=== PATIENT | female | born 1965 | race Caucasian/White ===

== ENCOUNTER 2023-06-23 16:31 | Outpatient (OUT) | payer OTHER, SELFPAY ==
--- NOTE | 2023-06-23 | MM_ITS ---
Patient: SONG GARCIA Exam Date: 06/23/2023 : 1965 Gender:F Ordering : NON-STAFF PHYSICIAN Admission #: [id number] Family : MIGUEL ANGEL NAILS Order #: [id number] CLICK HERE TO VIEW EXAM RADIOLOGY REPORT PROCEDURE: MM TOMOSYNTHESIS SCREENING BI COMPARISON: MG MAMM SCREEN 3D YUE CAD, 06/04/2022. MG MAMM SCREEN 3D YUE CAD, 06/01/2021. MG MAMM SCREEN YUE W CAD, 05/15/2020. MG MAMM YUE SCRN W CAD DIG, 04/24/2013. INDICATIONS: Screening Calculator Name NCI Breast Cancer Risk Assessment Tool 5 Year Breast Cancer Risk 2.60% Lifetime Breast Cancer Risk 16.30% Personal Breast Cancer No Personal Ovarian Cancer No Treatments None Family Cancers Mother with breast cancer at age 63; Grandfather-maternal with prostate cancer at age ~68. LOCATION: [facility] BREAST COMPOSITION: Heterogeneously dense,which may obscure small masses. FINDINGS: DIAGNOSTIC CATEGORY 1--NEGATIVE. RIGHT BREAST: No significant suspicious finding. No significant change has occurred. LEFT BREAST: No significant suspicious finding. No significant change has occurred. RECOMMENDATIONS: ROUTINE MAMMOGRAM AND CLINICAL EVALUATION IN 12 MONTHS. PLEASE NOTE: A NORMAL MAMMOGRAM DOES NOT EXCLUDE THE POSSIBILITY OF BREAST CANCER. A CLINICALLY SUSPICIOUS PALPABLE LUMP SHOULD BE BIOPSIED. Dictated by: George Saleh M.D. on 06/24/2023 at 11:25 Approved by: George Saleh M.D. on 06/24/2023 at 11:28
== END 2023-06-23 16:32 | disposition home or self-care (01) ==
LOC: MAMMO 16:31
DX: Z12.31 Encounter for screening mammogram for malignant neoplasm of breast (principal); Z80.3 Family history of malignant neoplasm of breast; Z80.42 Family history of malignant neoplasm of prostate
CPT/HCPCS: 77063; 77067

== ENCOUNTER 2023-12-19 20:50 | Outpatient (REF) | payer OTHER, SELFPAY ==
[2023-12-25 10:07] LABS: Age Gdln ACOG Testing Note (.); HPV Aptima Negative (Negative); IGP, Aptima HPV, rfx 16/18,45 Note (.)
== END 2023-12-19 20:51 | disposition home or self-care (01) ==
LOC: LAB 20:50
PROVIDERS: Visit Provider Obstetrics & Gynecology
DX: Z01.419 Encounter for gynecological examination (general) (routine) without abnormal findings (principal)
CPT/HCPCS: 87624; G0145

== ENCOUNTER 2024-01-02 07:33 | Outpatient (REF) | payer OTHER, SELFPAY ==
--- OUTSIDE RECORDS SUMMARY | 2024-01-05 07:38 | XMS_ITS | CCD ---
Author Organization [facility] Care Team Providers Care Clean Room Assembler Name Role Phone Antony LOOMIS Primary Care Physician [phone] KELLY, DR FRANCE Admitting Unavailable MISC, DR OSCAR Primary Care Unavailable KARASIK, DR FRANCE Attending Unavailable KARASIK, DR FRANCE Consulting Unavailable MISC, DR OSCAR Primary Care Unavailable KARASIK, DR FRANCE Attending Unavailable KARASIK, DR FRANCE Consulting Unavailable KARASIK, DR FRANCE Admitting Unavailable GIBBSBORO, DR VICENTE Desir Consulting Unavailable Antony LOOMIS Primary Care Physician [phone] Antony LOOMIS Attending Unavailable Antony LOOMIS Attending Unavailable Bunny Cancino Attending Unavailable Bunny Cancino Admitting Unavailable Antony LOOMIS Admitting Unavailable Antony LOOMIS Attending Unavailable BRIAN CONTE Attending Unavailable Mary Kaba Attending Unavaila BRENT Nunez Attending Unavailable BRENT ANGELO Attending Unavailable Brent Angelo Attending Provider [phone] Brent Angelo Attending Unavailable Brent Angelo Admitting Unavailable Allergies Allergy Classification Reported Allergen(s) Allergy Type Date of Onset Reaction(s) Facility (19 sources) Acetaminophen / HYDROcodone; Translations: [acetaminophen-hydro codone] Drug Allergy Hives [facility] (18 sources) benzonatate; Translations: [benzonatate] Drug Allergy Vomiting (disorder) [facility] Comment on above: shakiness shakiness (19 sources) Clarithromycin; Translations: [clarithromycin] Drug Allergy Vomiting/Diarr hea [facility] (19 sources) Codeine; Translations: [codeine] Drug Allergy [facility] (20 sources) Famotidine; Translations: [famotidine] Drug Allergy [facility] Comment on above: was in ER multiple t imes was in ER multiple t imes (19 sources) guaiFENesin; Translations: [guaifenesin] Drug Allergy Respiratory distress [facility] (20 sources) levoFLOXacin; Translations: [levofloxacin] Drug Allergy Unknown (qualifier value) [facility] (19 sources) Miconazole; Translations: [miconazole topical] Drug Allergy Vulval irritation (finding) [facility] (19 sources) Morphine; Translations: [morphine] Drug Allergy [facility] (19 sources) oxyCODONE; Translations: [oxycodone] Drug Allergy [facility] (19 sources) Penicillin; Translations: [penicillin] Drug Allergy vomiting diarrhea [facility] (19 sources) predniSONE; Translations: [prednisone] Drug Allergy Asthma (disorder), Weal (disorder), Eruption of skin (disorder) [facility] (20 sources) raNITIdine; Translations: [ranitidine] Drug Allergy Unknown (qualifier value) [facility] (19 sources) Sulfamethoxazole / Trimethoprim; Translations: [sulfamethoxazole-tr imethoprim] Drug Allergy Vomiting/Diarr hea [facility] [place] (1 source) Acetaminophen / HYDROcodone Drug Allergy 3 [facility] (2 sources) benzonatate; Translations: [Tessalon Perles] Drug Allergy 7 [facility] (1 source) Clarithromycin Drug Allergy 3 [facility] (1 source) Codeine Drug Allergy 3 [facility] (2 sources) Famotidine; Translations: [Pepcid] Drug Allergy 7 [facility] (1 source) floctafenine Drug Allergy 3 [facility] (1 source) guaiFENesin Drug Allergy 3 [facility] (2 sources) levoFLOXacin; Translations: [Levaquin] Drug Allergy 3 [facility] (2 sources) Miconazole; Translations: [Monistat 3] Drug Allergy 3 [facility] (1 source) Morphine Drug Allergy 3 [facility] (1 source) oxyCODONE Drug Allergy 3 [facility] (1 source) Penicillins Drug allergy (disorder) 3 [facility] (1 source) Sulfamethoxazole / Trimethoprim Drug Allergy 3 [facility] (1 source) Sulfanilamide Drug Allergy 7 [facility] (1 source) Sulfonamides (Antibiotic) Drug allergy (disorder) 3 [facility] (1 source) Darvocet-N 100 Drug allergy (disorder) 3 [facility] (1 source) oxyCODONE; Translations: [OxyContin] Drug Allergy [facility] Medications Current Medications Medication Drug Class(es) Dates Sig (Normalized) Sig (Original) amitriptyline hydrochloride 10 mg oral tablet (18 sources) Tricyclic Antidepressant Start: 10-10-2023 take 1 tablet by mouth once daily at bedtime amitriptyline 10 mg Tab 10 mg = 1 tab(s), Oral, Once a day (at bedtime), # 90 tab(s), Refills(s) 1, Pharmacy: [facility], 170, cm, 09/02/23 16:43:00 EST, Height/Length Dosing, 95, kg, 09/02/23 16:43:00 EST, Weight Dosing Start Date: 10/10/23 Status: Ordered Start: 05-19-2022 End: 09-25-2023 take 1 tablet by mouth once daily at bedtime amitriptyline 10 mg Tab 10 mg = 1 tab(s), Oral, Once a day (at bedtime), X 90 day(s), # 90 tab(s), Refills(s) 0, Pharmacy: [facility], 170, cm, 06/27/23 16:25:00 EDT, Height/Length Dosing, 94.1, kg, 06/27/23 16:25:00 EDT, Weight Dosing Start Date: 06/27/23 Stop Date: 09/25/23 Status: Ordered Start: 05-26-2021 take 1 tablet by emile th once daily at bedtime amitriptyline 10 mg Tab 10 mg = 1 tab(s), Oral, Once a day (at bedtime), # 90 tab(s), Refills(s) 0, Pharmacy: [facility]/pharmacy #[id number], 170, cm, 05/26/21 13:40:00 EDT, Height/Length Dosing, 86.6, kg, 05/26/21 13:40:00 EDT, Weight Dosing Start Date: 05/26/21 Status: Ordered brompheniramine maleate 0.4 mg/ml / dextromethorphan hydrobromide 2 mg/ml / pseudoephedrine hydrochloride 6 mg/ml oral solution (10 sources) alpha-Adrenergic Agonist, Uncompetitive F-yywcvp-T-aspartate Receptor Antagonist, Sigma-1 Agonist Start: 07-05-2022 take 5 mL by mouth four times daily for cough and congestion Bromfed DM oral syrup 5 mL, Oral, QID for cough and congestion, 200 mL, Refill(s) 0, [facility], 169, cm, 07/05/22 10:52:00 EDT, Height/Length Dosing, 92.9, kg, 07/05/22 10:52:00 EDT, Weight Dosing Start Date: 07/05/22 Status: Ordered cephalexin 500 mg oral capsule (6 sources) Cephalosporin Antibacterial Start: 11-26-2022 take 1 capsule by mouth every eight hours cephalexin 500 mg Cap 500 mg = 1 cap(s), Oral, q8hr, # 30 cap(s), Refills(s) 0, Pharmacy: [facility], 169, cm, 11/24/22 11:34:00 EST, Height/Length Dosing, 93, kg, 11/24/22 11:34:00 EST, Weight Dosing Start Date: 11/26/22 Status: Ordered Start: 06-11-2022 End: 06-18-2022 take 1 capsule by mouth every eight hours cephalexin 500 mg Cap 500 mg = 1 cap(s), Oral, q8hr, X 7 day(s), # 21 cap(s), Refills(s) 0, Pharmacy: [facility], 170, cm, 06/11/22 11:59:00 EDT, Height/Length Dosing, 92.6, kg, 06/11/22 11:59:00 EDT, Weight Dosing Start Date: 06/11/22 Stop Date: 06/18/22 Status: Ordered cetirizine hydrochloride 10 mg oral tablet (2 sources) Histamine-1 Receptor Antagonist Start: 11-11-2023 take 1 tablet by mouth once daily cetirizine 10 mg Tab 10 mg = 1 tab(s), Oral, Daily, # 30 tab(s), Refills(s) 1, Pharmacy: [facility], 170, cm, 09/02/23 16:43:00 EST, Height/Length Dosing, 95, kg, 09/02/23 16:43:00 EST, Weight Dosing Start Date: 11/11/23 Status: Ordered Start: 09-02-2023 take 1 tablet by emile th once daily cetirizine 10 mg Tab 10 mg = 1 tab(s), Oral, Daily, # 30 tab(s), Refills(s) 1 Start Date: 09/02/23 Status: Ordered cyclobenzaprine hydrochloride 10 mg oral tablet (20 sources) Muscle Relaxant Start: 08-05-2021 End: 06-19-2023 take 1 tablet by mouth three times daily as needed for muscle spasms cyclobenzaprine 10 mg Tab 10 mg = 1 tab(s), Oral, TID, PRN for spasm, May use as needed for muscle spasms but sedation warning, # 30 tab(s), Refills(s) 1, Pharmacy: [facility]/pharmacy #[id number], 170, cm, 05/28/21 13:52:00 EDT, Height/Length Dosing, 86.5, kg, 05/28/21 13:52:00 EDT, Weight Dosing Start Date: 08/05/21 Status: Ordered dicyclomine hydrochloride 10 mg oral capsule (17 sources) Anticholinergic Start: 11-01-2022 take 1 capsule by mouth four times daily as needed for pain Bentyl 10 mg Cap 10 mg = 1 cap(s), Oral, QID, as needed for abdominal pain, # 40 cap(s), Refills(s) 11, Pharmacy: [facility], 169, cm, 10/15/22 12:00:00 EST, Height/Length Dosing, 91.8, kg, 10/15/22 12:00:00 EST, Weight Dosing Start Date: 11/01/22 Status: Ordered Start: 06-11-2022 take 2 capsules by m outh once daily dicyclomine 10 mg Cap 20 mg = 2 cap(s), Oral, Daily, # 60 cap(s), Refills(s) 11, Pharmacy: [facility], 170, cm, 06/11/22 11:59:00 EDT, Height/Length Dosing, 92.6, kg, 06/11/22 11:59:00 EDT, Weight Dosing Start Date: 06/11/22 Status: Ordered Start: 01-22-2022 take 2 capsules by m outh once daily dicyclomine 10 mg Cap 20 mg = 2 cap(s), Oral, Daily, # 60 cap(s), Refills(s) 11, Pharmacy: [facility], 170, cm, 09/29/21 13:20:00 EST, Height/Length Dosing, 83.2, kg, 09/29/21 13:20:00 EST, Weight Dosing Start Date: 01/22/22 Status: Ordered fluconazole 150 mg oral tablet (4 sources) Azole Antifungal Start: 06-14-2022 take 1 tablet by mouth once fluconazole 150 mg Tab 150 mg = 1 tab(s), Oral, Once, # 1 tab(s), Refills(s) 0, Pharmacy: [facility], 170, cm, 06/11/22 11:59:00 EDT, Height/Length Dosing, 92.6, kg, 06/11/22 11:59:00 EDT, Weight Dosing Start Date: 06/14/22 Status: Ordered fluticasone 0.05 mg/inh Nasal [place] (6 sources) Start: 07-05-2022 fluticasone 0.05 mg/inh Nasal [place] 2 spray(s), Nasal, Daily, 16 gram, Refill(s) 0, each nostril, [facility], 169, cm, 07/05/22 10:52:00 EDT, Height/Length Dosing, 92.9, kg, 07/05/22 10:52:00 EDT, Weight Dosing Start Date: 07/05/22 Status: Ordered lidocaine Viscous Top 2% Riya 15 mL (12 sources) Start: 08-03-2022 lidocaine Viscous Top 2% Riya 15 mL 0.1 gm, 5 mL, Topical, QIDACHS, 100 mL, Refill(s) 0, [facility], 169, cm, 08/03/22 21:08:00 EDT, Height/Length Dosing, 92, kg, 08/03/22 21:08:00 EDT, Weight Dosing Start Date: 08/03/22 Status: Ordered ondansetron 4 mg disintegrating oral tablet (16 sources) Serotonin-3 Receptor Antagonist Start: 05-13-2022 take 1 tablet by mouth every six hours as needed for nausea ondansetron 4 mg Dis Tab 4 mg = 1 tab(s), Oral, q6hr, PRN Nausea/Vomiting, # 12 tab(s), Refills(s) 0, Pharmacy: [facility], 170, cm, 03/25/22 11:35:00 EDT, Height/Length Dosing, 93.2, kg, 03/25/22 11:35:00 EDT, Weight Dosing Start Date: 05/13/22 Status: Ordered pantoprazole 40 mg delayed release oral tablet (20 sources) Proton Pump Inhibitor Start: 06-27-2023 take 1 tablet by mouth twice daily Pantoprazole [address] Tab 40 mg = 1 tab(s), Oral, BID, # 180 tab(s), Refills(s) 1, Pharmacy: [facility], 170, cm, 06/27/23 16:25:00 EDT, Height/Length Dosing, 94.1, kg, 06/27/23 16:25:00 EDT, Weight Dosing Start Date: 06/27/23 Status: Ordered Start: 12-28-2022 take 1 tablet by emile twice daily Pantoprazole [address] Tab 40 mg = 1 tab(s), Oral, BID, # 60 tab(s), Refills(s) 5, Pharmacy: [facility], 169, cm, 12/16/22 12:08:00 EDT, Height/Length Dosing, 90.3, kg, 12/16/22 12:08:00 EDT, Weight Dosing Start Date: 12/28/22 Status: Ordered Start: 09-08-2022 take 1 tablet by emile th twice daily Pantoprazole [address] Tab 40 mg = 1 tab(s), Oral, BID, # 60 tab(s), Refills(s) 2, Pharmacy: [facility], 169, cm, 09/08/22 9:25:00 EST, Height/Length Dosing, 93, kg, 09/08/22 9:25:00 EST, Weight Dosing Start Date: 09/08/22 Status: Ordered Start: 03-29-2022 take 1 tablet by emile th once daily pantoprazole 40 mg Oral EC Tab 40 mg = 1 tab(s), Oral, Daily, # 30 tab(s), Refills(s) 5, Pharmacy: [facility], 170, cm, 03/25/22 11:35:00 EDT, Height/Length Dosing, 93.2, kg, 03/25/22 11:35:00 EDT, Weight Dosing Start Date: 03/29/22 Status: Ordered Start: 03-29-2022 take 1 tablet by emile th once daily pantoprazole 40 mg Oral EC Tab 40 mg = 1 tab(s), Oral, Daily, # 30 tab(s), Refills(s) 5, Pharmacy: [facility], 170, cm, 03/25/22 11:35:00 EDT, Height/Length Dosing, 93.2, kg, 03/25/22 11:35:00 EDT, Weight Dosing Start Date: 03/29/22 Status: Ordered Start: 05-28-2021 take 1 tablet by emile once daily pantoprazole 40 mg Oral EC Tab 40 mg = 1 tab(s), Oral, Daily, # 30 tab(s), Refills(s) 5, Pharmacy: [facility], 170, cm, 05/28/21 13:52:00 EDT, Height/Length Dosing, 86.5, kg, 05/28/21 13:52:00 EDT, Weight Dosing Start Date: 05/28/21 Status: Ordered Start: 05-28-2021 take 1 tablet by emile once daily pantoprazole 40 mg Oral EC Tab 40 mg = 1 tab(s), Oral, Daily, # 30 tab(s), Refills(s) 5, Pharmacy: [facility], 170, cm, 05/28/21 13:52:00 EDT, Height/Length Dosing, 86.5, kg, 05/28/21 13:52:00 EDT, Weight Dosing Start Date: 05/28/21 Status: Ordered Completed/Discontinued Medications Medication Drug Class(es) Dates Sig (Normalized) Sig (Original) 120 actuat fluticasone propionate 0.22 mg/actuat metered dose inhaler (10 sources) Corticosteroid Start: 09-08-2022 take 2 puff(s) by inhalation twice daily fluticasone CFC free 220 mcg/inh Inh Aer w/adapter See Instructions, 2 EA, Refill(s) 3, 2 puff(s) Inhalation BID, [facility], 169, cm, 09/08/22 9:25:00 EST, Height/Length Dosing, 93, kg, 09/08/22 9:25:00 EST, Weight Dosing Start Date: 09/08/22 Status: Ordered Start: 07-05-2022 fluticasone 0. 05 mg/inh Nasal [place] 2 spray(s), Nasal, Daily, 16 gram, Refill(s) 0, each nostril, [facility], 169, cm, 07/05/22 10:52:00 EDT, Height/Length Dosing, 92.9, kg, 07/05/22 10:52:00 EDT, Weight Dosing Start Date: 07/05/22 Status: Ordered levothyroxine sodium 0.088 mg oral tablet (18 sources) l-Thyroxine Start: 06-27-2023 take 1 tablet by mouth once daily levothyroxine 88 mcg (0.088 mg) Tab 88 microgram = 1 tab(s), Oral, Daily, # 90 tab(s), Refills(s) 3, Pharmacy: [facility]/pharmacy #[id number], 170, cm, 06/27/23 16:25:00 EDT, Height/Length Dosing, 94.1, kg, 06/27/23 16:25:00 EDT, Weight Dosing Start Date: 06/27/23 Status: Ordered Start: 12-22-2022 take 1 tablet by emile once daily levothyroxine 88 mcg (0.088 mg) Tab 88 microgram = 1 tab(s), Oral, Daily, # 90 tab(s), Refills(s) 1, Pharmacy: [facility]/pharmacy #[id number], 169, cm, 12/16/22 12:08:00 EDT, Height/Length Dosing, 90.3, kg, 12/16/22 12:08:00 EDT, Weight Dosing Start Date: 12/22/22 Status: Ordered Start: 05-26-2022 take 1 tablet by emile once daily levothyroxine 88 mcg (0.088 mg) Tab 88 microgram = 1 tab(s), Oral, Daily, # 90 tab(s), Refills(s) 1, Pharmacy: [facility]/pharmacy #[id number], 170, cm, 05/19/22 10:43:00 EDT, Height/Length Dosing, 93, kg, 05/19/22 10:43:00 EDT, Weight Dosing Start Date: 05/26/22 Status: Ordered Start: 11-18-2021 take 1 tablet by emile once daily levothyroxine 88 mcg (0.088 mg) Tab 88 microgram = 1 tab(s), Oral, Daily, # 90 tab(s), Refills(s) 1, Pharmacy: [facility]/pharmacy #[id number], 170, cm, 09/29/21 13:20:00 EST, Height/Length Dosing, 83.2, kg, 09/29/21 13:20:00 EST, Weight Dosing Start Date: 11/18/21 Status: Ordered magnesium sulfate 225 MG / potassium chloride 188 MG / sodium sulfate 1479 MG Oral Tablet [Sutab] (1 source) Start: 12-21-2023 take 1 tablet by mouth once Sutab oral tablet See Instructions, 1 EA, Refill(s) 0, Please follow instructions per packaging and physician's handout, [facility], 169, cm, 12/21/23 8:16:00 EDT, Height/Length Dosing, 95, kg, 12/21/23 8:16:00 EDT, Weight Dosing Start Date: 12/21/23 Status: Ordered valACYclovir 1000 mg oral tablet (18 sources) Herpesvirus Nucleoside Analog DNA Polymerase Inhibitor, Herpes Simplex Virus Nucleoside Analog DNA Polymerase Inhibitor, Herpes Zoster Virus Nucleoside Analog DNA Polymerase Inhibitor Start: 01-22-2022 take 2 tablets by mouth twice daily Valtrex 1 g Tab 2 gram = 2 tab(s), Oral, BID, x 1 days at onset of coldsore, # 12 tab(s), Refills(s) 2, Pharmacy: [facility], 170, cm, 09/29/21 13:20:00 EST, Height/Length Dosing, 83.2, kg, 09/29/21 13:20:00 EST, Weight Dosing Start Date: 01/22/22 Status: Ordered Start: 01-22-2022 take 2 tablets by mo [facility] twice daily Valtrex 1 g Tab 2 gram = 2 tab(s), Oral, BID, x 1 days at onset of coldsore, # 12 tab(s), Refills(s) 2, Pharmacy: [facility], 170, cm, 09/29/21 13:20:00 EST, Height/Length Dosing, 83.2, kg, 09/29/21 13:20:00 EST, Weight Dosing Start Date: 01/22/22 Status: Ordered Problems Active Problems Problem Classification Problem Date Documented Da te Episodic/Chronic Abdominal hernia (20 sources) Hiatal hernia; Translations: [Diaphragmatic hernia] Onset: 2 03-22-2014 Episodic Abdominal pain (9 sources) Epigastric pain; Translations: [Epigastric pain] Onset: 2 Episodic Acute bronchitis (18 sources) Viral bronchitis 06-04-2020 Episodic Administrative/social admission (3 sources) Medical examinations/reports status 04-30-2019 Episodic Allergic reactions (18 sources) Contact dermatitis caused by chemical 02-26-2020 Episodic Anxiety disorders (20 sources) Generalized anxiety disorder; Translations: [Generalized anxiety disorder] Onset: 2 01-30-2019 Chronic Biliary tract disease (20 sources) Cholecystitis; Translations: [Disorder of gallbladder] Resolved: 6 02-05-2019 Episodic Diabetes mellitus without complication (17 sources) Impaired fasting glycemia; Translations: [Impaired fasting glucose] Onset: 2 Episodic Disorders of lipid metabolism (18 sources) Mixed hyperlipidemia 02-05-2019 Chronic Esophageal disorders (20 sources) Gastroesophageal reflux disease; Translations: [Terminal esophageal web] Onset: 2 01-30-2019 Chronic Headache; including migraine (20 sources) Migraine with aura; Translations: [Migraine with aura, not intractable, without status migrainosus] Onset: 2 Chronic Comment on above: has piercing in righ t ear for accupressure for migraine has piercing in righ t ear for accupressure for migraine Headache; including migraine (18 sources) Headache disorder 12-14-2013 Episodic Immunizations and screening for infectious disease (1 source) Encounter for screening for human papillomavirus (HPV); Translations: [ENC SCREENING HUMAN PAPILLOMAVIRUS] Onset: 2 Episodic Intestinal infection (18 sources) Acute hemorrhagic colitis due to Escherichia coli 06-06-2020 Episodic Lymphadenitis (20 sources) Axillary lymphadenopathy; Translations: [Cervical lymphadenopathy] 02-26-2020 Episodic Neoplasms of unspecified nature or uncertain behavior (2 sources) Neoplasm of soft tissue 03-24-2022 Episodic Nonmalignant breast conditions (18 sources) Breast lump 01-15-2015 Episodic Other and unspecified benign neoplasm (1 source) Benign neoplasm of skin; Translations: [Other benign neoplasm of skin, unspecified] Onset: 2 Episodic Other and unspecified benign neoplasm (20 sources) History of polyp of colon; Translations: [Personal history of colonic polyps] Onset: 2 Episodic Other connective tissue disease (18 sources) Rotator cuff syndrome 01-15-2015 Episodic Other connective tissue disease (1 source) Nontraumatic rupture of rotator cuff of left shoulder; Translations: [Unspecified rotator cuff tear or rupture of left shoulder, not specified as traumatic] Onset: 2 Episodic Other endocrine disorders (4 sources) Hypoglycemia; Translations: [Hypoglycemia, unspecified] Onset: 2 Chronic Other gastrointestinal disorders (20 sources) Irritable bowel syndrome with diarrhea; Translations: [Irritable bowel syndrome with diarrhea] Onset: 2 02-26-2020 Chronic Other gastrointestinal disorders (20 sources) Dysphagia; Translations: [Dysphagia, unspecified] Onset: 2 Episodic Other injuries and conditions due to external causes (1 source) Foreign body in esophagus; Translations: [Food in esophagus causing other injury, initial encounter] Onset: 2 Episodic Other nervous system disorders (1 source) Altered sensation of skin; Translations: [Other disturbances of skin sensation] Onset: 2 Episodic Other non-traumatic joint disorders (18 sources) Ankle pain 06-04-2020 Episodic Other non-traumatic joint disorders (18 sources) Shoulder pain 01-15-2015 Episodic Other nutritional; endocrine; and metabolic disorders (6 sources) Obese class I; Translations: [Body mass index (BMI) 32.0-32.9, adult] Onset: 2 Chronic Other nutritional; endocrine; and metabolic disorders (20 sources) Obesity; Translations: [Other obesity due to excess calories] Onset: 2 Chronic Other nutritional; endocrine; and metabolic disorders (17 sources) Body mass index 30+ - obesity 03-25-2022 Chronic Other nutritional; endocrine; and metabolic disorders (19 sources) Overweight; Translations: [Overweight] Onset: 2 Episodic Other nutritional; endocrine; and metabolic disorders (1 source) Overweight in adulthood with body mass index of 25 or more but less than 30; Translations: [Body mass index (BMI) 28.0-28.9, adult] Onset: 2 Episodic Other nutritional; endocrine; and metabolic disorders (1 source) Body mass index 25-29 - overweight 09-29-2021 Episodic Other screening for suspected conditions (not mental disorders or infectious disease) (8 sources) Encounter for screening for malignant neoplasm of cervix; Translations: [Encounter for screening mammogram for malignant neoplasm of breast] Onset: 2 Episodic Other skin disorders (18 sources) Folliculitis 06-04-2020 Episodic Other skin disorders (1 source) Hypertrophic condition of skin; Translations: [Other hypertrophic disorders of the skin] Onset: 2 Episodic Other upper respiratory disease (18 sources) Lesion of nose 06-04-2020 Episodic Other upper respiratory infections (20 sources) Laryngitis; Translations: [Acute laryngopharyngitis] Onset: 3 06-04-2020 Episodic Ovarian cyst (18 sources) Cyst of ovary 12-14-2013 Episodic Residual codes; unclassified (1 source) Abnormal sensation 03-24-2022 Episodic Residual codes; unclassified (1 source) Family history of malignant neoplasm of breast; Translations: [FAMILY HX MALIG NEOPLASM OF BREAST] Onset: 2 Episodic Residual codes; unclassified (1 source) Family history of malignant neoplasm of prostate; Translations: [FAMILY HX MALIG NEOPLASM PROSTATE] Onset: 2 Episodic Screening and history of mental health and substance abuse codes (18 sources) Tobacco use and exposure - finding 09-22-2020 Chronic Spondylosis; intervertebral disc disorders; other back problems (20 sources) Low back pain; Translations: [Cervical radiculopathy] Onset: 3 Resolved: 9 02-05-2019 Episodic Sprains and strains (9 sources) Sprain of shoulder; Translations: [Sprain of unspecified parts of right shoulder girdle, initial encounter] Onset: 3 Episodic Thyroid disorders (20 sources) Congenital hypothyroidism; Translations: [Hypothyroidism] Onset: 2 06-06-2020 Chronic Unclassified (20 sources) Patient encounter status 06-06-2020 Unclassified (17 sources) Rupture of rotator cuff of shoulder 03-25-2022 Unclassified (3 sources) Sprain of ligament of right shoulder joint 06-09-2023 Urinary tract infections (13 sources) Acute cystitis; Translations: [Acute cystitis without hematuria] Onset: 2 Episodic Viral infection (18 sources) Herpes labialis 01-30-2019 Episodic Viral infection (11 sources) Disease caused by 2019-nCoV; Translations: [COVID-19] Onset: 2 Past or Other Problems Problem Classification Problem Date Documented Da te Episodic/Chronic Other circulatory disease (18 sources) H/O: varicose veins Resolved: 01-30-2019 02-05-2019 Episodic Other connective tissue disease (18 sources) Plantar fasciitis Resolved: 07-08-2016 02-05-2019 Episodic Other gastrointestinal disorders (18 sources) Acute diarrhea Onset: 02-03-2010 02-05-2019 Episodic Other skin disorders (18 sources) Senile hyperkeratosis Resolved: 03-06-2019 04-30-2019 Episodic Other skin disorders (19 sources) Skin tag Resolved: 03-06-2019 04-30-2019 Episodic Residual codes; unclassified (18 sources) Menopause present Resolved: 07-08-2016 02-05-2019 Episodic Unclassified (18 sources) Entire liver (body structure) 02-03-2010 Results Test Name Value Interpretation Reference Range Facil ity Cristian 01-02-2024 L Specimen: [id number] Received: 01/03/24 Status: ELADIO Carroll Num: [id number] Spec Type: Surgical Subm Dr: Brent Angelo Tissues: A Skin-Other than Cyst, tag, debridement or plastic repair (LT BREAST 5:00) B Skin-Other than Cyst, tag, debridement or plastic repair (RT BREAST 7:00) C Skin-Other than Cyst, tag, debridement or plastic repair (LT NIPPLE 5:00) Procedures: HE/3, Gross/Micro L4/3 Age/ Patient Sex Location Account Attending Physician Song Garcia 58/F [facility] [id number] Brent Angelo SPEC NUM: [id number] RECD: 01/03/24 STATUS: ELADIO CARROLL NUM: [id number] ROLLY: 01/02/24- SUBM DR: Brent Angelo ENTERED: 01/03/[address]: GenevieveLab SPEC TYPE: Surgical DEPT: PRATIBHA AGUAYO ORDERED: HE/3, Gross/Micro L4/3 ORDERED: HE/3, Gross/Micro L4/3 Pathological Diagnosis A. Skin lesion, left breast, 5:00, biopsy: Seborrheic keratosis. B. Skin lesion, right breast, 7:00, biopsy: Seborrheic keratosis. C. Skin lesion, left nipple, 5:00, biopsy: Seborrheic keratosis. Gross Description A. Specimen is labeled left breast 5:00. Specimen consists of an irregular dome-shaped skin lesion 5 x 4 x 3 mm. All in 1 cassette. B. Specimen is labeled right breast 7:00. Specimen consists of a dome-shaped skin lesion 9 x 7 x 6 mm. Sections are in 1 cassette. C. Specimen is labeled left nipple 5:00. Specimen consists of a dome-shaped skin lesion 8 x 5 x 2 mm. All in 1 cassette. CPT Codes 76771 x 3 Specimen: [id number] Received: 01/03/24 Status: ELADIO Carroll Num: [id number] Spec Type: Surgical Subm Dr: Brent Angelo Tissues: A Skin-Other than Cyst, tag, debridement or plastic repair (LT BREAST 5:00) B Skin-Other than Cyst, tag, debridement or plastic repair (RT BREAST 7:00) C Skin-Other than Cyst, tag, debridement or plastic repair (LT NIPPLE 5:00) Procedures: GEOVANNY, Mona/Micro L4/3 Patient: Song Garcia [id number] (Continued) Signed (signature on file) Amina Tatum MD 01/04/24 1427 [facility] Consent for Procedure/Surger yon 12-22-2023 Consent for Procedure/Surgery [id number] [facility] Ambulatory Visit Summaryon 0 12-21-2023 Ambulatory Visit Summary SONG GARCIA :1965 Visit Date:12/21/2023 Ambulatory Visit Instructions Your Diagnosis Eosinophilic esophagitis Dysphagia GERD (gastroesophageal reflux disease) Schatzki's ring History of colon polyps Your Care Team Attending Physician - Sendy LUIS, Mary Bar Primary Care Physician - Antony LOOMIS MD This Is Your Medications List magnesium sulfate/potass Cl/sodium sulf (Sutab oral tablet) Contact prescribing physician if questions or concerns amitriptyline (amitriptyline 10 mg Tab) cetirizine (cetirizine 10 mg Tab) cyclobenzaprine (cyclobenzaprine 10 mg Tab) dicyclomine (Bentyl 10 mg Cap) levothyroxine (levothyroxine 88 mcg (0.088 mg) Tab) lidocaine topical (lidocaine Viscous Top 2% Riya 15 mL) ondansetron (ondansetron 4 mg Dis Tab) pantoprazole (Pantoprazole [address] Tab) valacyclovir (Valtrex 1 g Tab) Procedures Performed Esophagogastroduodenoscopy (11/24/2022), Esophagogastroduodenoscopy (09/08/2022), Endoscopic plantar fasciotomy right. (07/15/2016), Appendectomy, Breast mass, Cholecystectomy, egd, Hysterectomy, Laparoscopic procedure, Liver cyst....., Lymph node operation, Ovarian cyst......, Shoulder repair, Thyroid, Tonsillectomy. Discharge Vitals Heart Rate (Peripheral) 70 Respiratory Rate 18 Blood Pressure 118/70 Height 169 cm Height 67 in Weight 95 kg Weight 209 lb BMI 33.26 Medications What How Much When Why Instructions New magnesium sulfate/ potass Cl/ sodium sulf (Sutab oral tablet) See instructions Please follow instructions per packaging and physician's handout Pickup at [facility] Unchanged amitriptyline (amitriptyline 10 mg Tab) 1 Tablets By Mouth Once a day (at bedtime) Irritable bowel syndrome with diarrhea Contact prescribing physician if questions or concerns Unchanged cetirizine (cetirizine 10 mg Tab) 1 Tablets By Mouth Every day Contact prescribing physician if questions or concerns Unchanged cyclobenzaprine (cyclobenzaprine 10 mg Tab) 1 Tablets By Mouth 3 times a day as needed for for spasm May use as needed for muscle spasms but sedation warning Contact prescribing physician if questions or concerns Unchanged dicyclomine (Bentyl 10 mg Cap) 1 Capsules By Mouth 4 times a day as needed for abdominal pain Contact prescribing physician if questions or concerns Unchanged levothyroxine (levothyroxine 88 mcg (0.088 mg) Tab) 1 Tablets By Mouth Every day Contact prescribing physician if questions or concerns Unchanged lidocaine topical (lidocaine Viscous Top 2% Riya 15 mL) 5 Milliliter Topical Four times a day (before meals and at bedtime) Contact prescribing physician if questions or concerns Unchanged ondansetron (ondansetron 4 mg Dis Tab) 1 Tablets By Mouth Every 6 hours as needed for Nausea/Vomiting Contact prescribing physician if questions or concerns Unchanged pantoprazole (Pantoprazole [address] Tab) 1 Tablets By Mouth 2 times a day Contact prescribing physician if questions or concerns Unchanged valacyclovir (Valtrex 1 g Tab) 2 Tablets By Mouth 2 times a day x 1 days at onset of coldsore Contact prescribing physician if questions or concerns Pharmacy Information [facility]: [address] [place], [place] [id number] [phone] Medications and Immunizations Administered Not Given influenza virus vaccine, inactivated, Patient Refuses Allergies Bactrim (Vomiting/Diarrhea) Biaxin (Vomiting/Diarrhea) Monistat Derm (Irritation of vulva) Mucinex (Respiratory distress) Pepcid (Hives) Tessalon Perles (Vomiting) Vicodin (Hives) Zantac (Hives) codeine (Hives) famotidine (hives) levofloxacin (Vomiting/Diarrhea) morphine (Hives) oxyCODONE (Hives) penicillin (vomiting diarrhea) Levaquin (Unknown) predniSONE (Asthma, Hives, Rash) raNITIdine (Unknown) Problems Ongoing - Any problem that you are currently receiving treatment for. Acute laryngopharyngitis BMI 32.0-32.9,adult Cervical radiculopathy Class 1 obesity due to excess calories in adult Congenital hypothyroidism Diabetes mellitus screening Dysphagia Encounter for lipid screening for cardiovascular disease Encounter for well adult exam with abnormal findings Eosinophilic esophagitis Fasting hyperglycemia Generalized anxiety disorder GERD (gastroesophageal reflux disease) Herpes labialis hiatal hernia History of colon polyps Hyperlipemia, mixed Irritable bowel syndrome with diarrhea Left rotator cuff tear Migraine with aura, not intractable Non-tobacco user Personal history of colonic polyps Schatzki's ring Sprain of cervical neck Terminal esophageal web Historical - Any problem that you are no longer receiving treatment for. Acute diarrhea Acute hemorrhagic colitis due to E. coli Adhesive contact dermatitis Appendectomy Axillary adenopathy Breast mass Cervical adenopathy Folliculitis Gall bladder disease History of varicose v (more content not included)... Normal [facility] Formson 12-21-2023 Forms [id number] Normal [facility] Gastroenterology Office/Clin ic Noteon 12-21-2023 Gastroenterology Office/Clinic Note Chief Complaint EOE, GERD HPI Staff Patient is a 58 year old female who presents today for a 1 year f/u. Taking Pantoprazole for GERD. Works well. Since seeing dietitian she has been having better results. Colonoscopy due. Personal hx colon polyps. No family hx of colon cancer - mother had breast cancer. Denies blood thinner use. Last visit 12/16/22 Dr. Ochoa: Assessment/Plan 1. Eosinophilic esophagitis (K20.0: Eosinophilic esophagitis) The patient has confirmed eosinophilic esophagitis with biopsy. Her eosinophils used to be more than 100 per high power field. She was started on PPI. A repeat EGD showed significant improvement in the eosinophils count down to 5 to 10. Her symptoms resolved after empiric dilation recently. She has no further dysphagia or significant heartburn. We will continue with that. She also was referred to a dietitian who pinpointed wheat as a potential food causing her symptoms. She is avoiding wheat 2. Dysphagia (R13.10: Dysphagia, unspecified) She had eosinophilic esophagitis and Schatzki's. Both were dilated. Her symptoms resolved. 3. GERD (gastroesophageal reflux disease) (K21.9: Gastro-esophageal reflux disease without esophagitis) This is likely related to eosinophilic esophagitis. This is controlled with Nexium daily. We will continue with the same dose. 4. Schatzki's ring (K22.2: Esophageal obstruction) This is dilated. There is no further dysphagia. We may need to dilate through Schatzki's ring in the future if symptoms recurs. 5. Personal history of colonic polyps (Z86.010: Personal history of colonic polyps) Her last colonoscopy was in 2018. Her next colonoscopy is due next year in 2023. Colonoscopy 09/05/2019: Impression and Plan 1. Sessile polyp, 5 mm, in the ascending, removed completely with cold snare 2. Small nonbleeding internal hemorrhoids Recommendations: Repeat colonoscopy:: In 5 years, Pending pathology results. Pathology: Final Diagnosis (Verified) C: POLYP, ASCENDING COLON, POLYPECTOMY: - TUBULAR ADENOMA. EGD 11/24/22: Impression and Plan 1. Distal esophageal Schatzki ring, dilated using 56 Green[place] Whitney dilator 2. Concentric esophageal rings consistent with eosinophilic esophagitis, multiple biopsies obtained from proximal and distal esophagus 2. Normal gastric mucosa, small hiatal hernia, 3 cm Pathology: Final Diagnosis (Verified) A: DISTAL ESOPHAGUS, BIOPSY: ? SQUAMOUS MUCOSA WITH MILD CHRONIC ESOPHAGITIS (SEE NOTE). B: PROXIMAL ESOPHAGUS, BIOPSY: ? SQUAMOUS MUCOSA WITH MILD CHRONIC ESOPHAGITIS (SEE NOTE). Note: Esophageal squamous mucosa demonstrates mild lymphocytic inflammation and basal metaplasia, associated with scattered intraepithelial eosinophils (up to 10 per high-power field at distal and 5 per high-power field at proximal). Differential diagnosis includes status post treatment of eosinophilic esophagitis or reflux. Clinical correlation is indicated. History of Present Illness avoiding wheat, alcohol and choclate and cinnamon heartbrun rare, only with bid protonix, usually with late night meal took budesonide per he Review of Systems PHQ Score Initial Depression Screen Score: 0 SCORE Physical Exam Vitals & Measurements HR: 70(Peripheral) RR: 18 BP: 118/70 HT: 67 in HT: 169 cm WT: 95 kg WT: 209 lb BMI: 33.26 Assessment/Plan 1. Eosinophilic esophagitis (K20.0: Eosinophilic esophagitis) Doing well symptomatically, last EGD December 2022 she had significant eosinophils still, had Schatzki ring, dilated multiple x 2 max normal and she has no dysphagia anymore she reports she is following wheat free cinnamon free and alcohol free diet and that helped her symptoms significantly, currently denies any dysphagia She reported she took budesonide in the past? She has multiple allergies as well We will need to repeat EGD with biopsies and possible dilation Continue Protonix twice daily AC Continue current diet since it is helping her symptoms Ordered: Colonoscopy (Hospital Procedure) E&M of Est. Patient Moderate 30-39 Min 98675 EGD Endoscopy (Hospital Procedure) 2. Dysphagia (R13.10: Dysphagia, unspecified) Ordered: Colonoscopy (Hospital Procedure) E&M of Est. Patient Moderate 30-39 Min 04871 EGD Endoscopy (Hospital Procedure) 3. GERD (gastroesophageal reflux disease) (K21.9: Gastro-esophageal reflux disease without esophagitis) Controlled with twice daily PPI Ordered: Colonoscopy (Hospital Procedure) E&M of Est. Patient Moderate 30-39 Min 46817 EGD Endoscopy (Hospital Procedure) 4. Schatzki's ring (K22.2: Esophageal obstruction) Ordered: Colonoscopy (Hospital Procedure) E&M of Est. Patient Moderate 30-39 Min 61638 EGD Endoscopy (Hospital Procedure) 5. History of colon polyps (Z86.010: Personal history of colonic polyps) Repeat colonoscopy last 1 she had 1 tubular adenoma less than 1 cm 2018 Ordered: Colonoscopy (Hospital Procedure) E&M of Est. Patient Moderate 30-39 Min 20829 (more content not included)... Normal [facility] Comment on above: Result Comment: Elec tronically Signed By: Sendy LUIS, Mary Bar\.br\Date and Time Signed: 12/21/23 08:35 EDT Provider Letteron 12-21-2023 Provider Letter (Inserted Image. Yuli ble to display) December 21, 2023 SONG GARICA [address] [id number] : 1965 To Whom It May Concern, Please excuse above patient from work. Date of Illness: From: 12/21/23 8am appointment To: 12/21/23 May Return to Work On:12/21/23 Restrictions: None Comments: Sincerely, [facility] Mary Kaba MD [facility] Ambulatory Visit Summaryon 1 11-03-2022 Ambulatory Visit Summary SONG GARCIA :1965 Visit Date:09/02/2023 Ambulatory Visit Instructions Your Diagnosis Acute laryngopharyngitis GERD (gastroesophageal reflux disease) Class 1 obesity due to excess calories in adult BMI 32.0-32.9,adult Your Care Team Attending Physician - Antony LOOMIS MD Primary Care Physician - Antony LOOMIS MD This Is Your Medications List cetirizine (cetirizine 10 mg Tab) Contact prescribing physician if questions or concerns amitriptyline (amitriptyline 10 mg Tab) cyclobenzaprine (cyclobenzaprine 10 mg Tab) dicyclomine (Bentyl 10 mg Cap) levothyroxine (levothyroxine 88 mcg (0.088 mg) Tab) lidocaine topical (lidocaine Viscous Top 2% Riya 15 mL) ondansetron (ondansetron 4 mg Dis Tab) pantoprazole (Pantoprazole [address] Tab) valacyclovir (Valtrex 1 g Tab) Procedures Performed Esophagogastroduodenoscopy (11/24/2022), Esophagogastroduodenoscopy (09/08/2022), Endoscopic plantar fasciotomy right. (07/15/2016), Appendectomy, Breast mass, Cholecystectomy, egd, Hysterectomy, Laparoscopic procedure, Liver cyst....., Lymph node operation, Ovarian cyst......, Shoulder repair, Thyroid, Tonsillectomy. Discharge Vitals Heart Rate (Peripheral) 88 Respiratory Rate 16 Blood Pressure 120/80 Height 170 cm Height 67 in Weight 95 kg Weight 209 lb BMI 32.87 What to do next Scheduled Follow-Up Appointments Tuesday 8:00 AM EDT With: Mary Kaba MD Where: [facility] Normal [facility] Family Medicine Office/Clini c Noteon 09-02-2023 Family Medicine Office/Clinic Note Chief Complaint pt presents today c/o hoarseness x 1wk and tightness in chest, denes SOB, fevers or sinus congestion/drainage, no covid testing done, declines all vaccs History of Present Illness The patient is here for respiratory concerns. Her voice has been raspy for about a week. She denies any fevers or chills. She denies any sore throat. She has nasal congestion, which she can not bring up. All clear in color. She worked 11 hours all last week and then she helped her girlfriend clean out an old garage who is going through a divorce. She has not been around anybody since Tuesday. She did not go to work until . She took DayQuil and NyQuil, which helped her. She can breathe through her nose, but she has tightness in her chest. She starts sneezing at 7:00 at night and then she starts to cough. She used to take Felicity before and it never caused any problems. She has been having heartburn, but she thinks it is because of the NyQuil. No dysphagia presently Review of Systems PHQ Score Initial Depression Screen Score: 2 SCORE See HPI otherwise negative Physical Exam Vitals & Measurements HR: 88(Peripheral) RR: 16 BP: 120/80 SpO2: 97% HT: 67 in HT: 170 cm WT: 95 kg WT: 209 lb BMI: 32.87 The patient is adequately hydrated, uncomfortable, but reasonably groomed. Voice is very hoarse and raspy. Conjunctivae clear. TMs are clear. Multiple piercings in the tragus. Oropharynx, fair [place] dentition with repairs. [place] and moist. No petechiae, no exudate. With nonpalpable, negligible adenopathy. Nares with boggy turbinates, but clear rhinorrhea. No septal deviation. Clear bilaterally. Regular rate and rhythm. No murmur, gallop, or rub. Abdomen, overweight, nontender. No organomegaly. Hyperactive bowel sounds. Skin, moderately link, numerous tattoos. Cooperative, talkative. Assessment/Plan 1. Acute laryngopharyngitis (J06.0: Acute laryngopharyngitis) Strong suspicion that this is either viral or related to allergy drainage. Agreeable to initiate Zyrtec once daily maintain fluid hydration humidified air and observe for any fevers chills increasing colored drainage. 2. GERD (gastroesophageal reflux disease) (K21.9: Gastro-esophageal reflux disease without esophagitis) Maintain PPI and dietary compliance recognizing that reflux can cause laryngitis. 3. Class 1 obesity due to excess calories in adult (E66.09: Other obesity due to excess calories) The standard range for ages 18 and older is >=18.5 and < 25 kg/m2. Your BMI today was above this range, this falls in the overweight to obese category and there are medical benefits to weight loss. We can offer counselling, referral, and/or medical support in addressing this problem. Your BMI and weight management will be followed at subsequent visits. 4. BMI 32.0-32.9,adult (Z68.32: Body mass index [BMI] 32.0-32.9, adult) See #3 Orders: cetirizine, 10 mg = 1 tab(s), Oral, Daily, # 30 tab(s), Refills(s) 1 Portions of this record may have been created with voice recognition artificial intelligence software, specifically [employer], [employer]obo and or Lontra. Substitutions may have occurred due to the inherent limitations of voice recognition and artificial intelligence software. Follow-up With When Contact Information Antony LOOMIS MD, FAM Only if needed Additional Instructions: Patient Education Laryngitis Problem List/Past Medical History Ongoing Acute laryngopharyngitis BMI 32.0-32.9,adult Cervical radiculopathy Class 1 obesity due to excess calories in adult Congenital hypothyroidism Diabetes mellitus screening Dysphagia Encounter for lipid screening for cardiovascular disease Encounter for well adult exam with abnormal findings Eosinophilic esophagitis Fasting hyperglycemia Generalized anxiety disorder GERD (gastroesophageal reflux disease) Herpes labialis hiatal hernia History of colon polyps Hyperlipemia, mixed Irritable bowel syndrome with diarrhea Left rotator cuff tear Migraine with aura, not intractable Non-tobacco user Personal history of colonic polyps Schatzki's ring Sprain of cervical neck Terminal esophageal web Historical Acute diarrhea Acute hemorrhagic colitis due to E. coli Adhesive contact dermatitis Appendectomy Axillary adenopathy Breast mass Cervical adenopathy Folliculitis Gall bladder disease History of varicose veins of lower extremity Hypothyroid hyster Inflamed skin tag Laryngitis Left ankle pain Liver Lumbar back pain Nasal sore Ovarian cyst Overweight Raised seborrheic keratosis Rotator cuff rupture Shoulder pain Viral bronchitis Procedure/Surgical History Esophagogastroduodenoscopy (11/24/2022), Esophagogastroduodenoscopy (09/08/2022), Endoscopic plantar fasciotomy right. (07/15/2016), Appendectomy, Breast mass, Cholecystectomy, egd, Hysterectomy, Laparoscopic procedure, Liver cyst....., Lymph node operation, Ovari (more content not included)... Normal [facility] Comment on above: Result Comment: Elec tronically Signed By: ROSS LUIS, Antony\.br\Date and Time Signed: 09/02/23 17:16 EST Patient Educationon 09-01-20 23 Patient Education ENT Laryngitis Laryngitis is inflammation of the vocal cords that causes symptoms such as hoarseness or loss of voice. The vocal cords are two bands of muscles in your throat. When you speak, these cords come together and vibrate. The vibrations come out through your mouth as sound. When your vocal cords are inflamed, your voice sounds different. Laryngitis can be temporary (acute) or long-term (chronic). Most cases of acute laryngitis improve with time. Chronic laryngitis is laryngitis that lasts for more than 3 weeks. What are the causes? Acute laryngitis may be caused by: ? A viral infection. ? Lots of talking, yelling, or singing. This is also called vocal strain. ? A bacterial infection. Chronic laryngitis may be caused by: ? Vocal strain or an injury to the vocal cords. ? Acid reflux (gastroesophageal reflux disease, or GERD). ? Allergies, a sinus infection, or postnasal drip. ? Smoking. ? Excessive alcohol use. ? Breathing in chemicals or dust. ? Growths on the vocal cords. What increases the risk? The following factors may make you more likely to develop this condition: ? Smoking. ? Alcohol abuse. ? Having allergies. ? Chronic irritants in the workplace, such as toxic fumes. What are the signs or symptoms? Symptoms of this condition may include: ? Low, hoarse voice. ? Loss of voice. ? Dry cough. ? Sore or dry throat. ? Stuffy or congested nose. How is this diagnosed? This condition may be diagnosed based on: ? Your symptoms and a physical exam. ? Throat culture. ? Blood test. ? A procedure in which your health care provider looks at your vocal cords with a mirror or viewing tube (laryngoscopy). How is this treated? Treatment for laryngitis depends on what is causing it. Usually, treatment involves resting your voice and using medicines to soothe your throat. If your laryngitis is caused by a bacterial infection, you may need to take antibiotic medicine. If your laryngitis is caused by a growth, you may need to have a procedure to remove it. Follow these instructions at home: Medicines ? Take [id number] and prescription medicines only as told by your health care provider. ? If you were prescribed an antibiotic medicine, take it as told by your health care provider. Do not stop taking the antibiotic even if you start to feel better. ? Use throat lozenges or sprays to soothe your throat as told by your health care provider. General instructions ? Talk as little as possible. To do this: ? Write instead of talking. Do this until your voice is back to normal. ? Avoid whispering, which can cause vocal strain. ? Gargle with a mixture of salt and water 3?4 times a day or as needed. To make salt water, completely dissolve ??1 tsp (3?6 g) of salt in 1 cup (237 mL) of warm water. ? Drink enough fluid to keep your urine pale yellow. ? Breathe in moist air. Use a humidifier if you live in a dry climate. ? Do not use any products that contain nicotine or tobacco. These products include cigarettes, chewing tobacco, and vaping devices, such as e-cigarettes. If you need help quitting, ask your health care provider. Contact a health care provider if: ? You have a fever. ? You have increasing pain. ? Your symptoms do not get better in 2 weeks. Get help right away if: ? You cough up blood. ? You have difficulty swallowing. ? You have trouble breathing. Summary ? Laryngitis is inflammation of the vocal cords that causes symptoms such as hoarseness or loss of voice. ? Laryngitis can be temporary or long-term. ? Treatment for laryngitis depends on the cause. It often involves resting your voice and using medicine to soothe your throat. ? Get help right away if you have difficulty swallowing or breathing or if you cough up blood. This information is not intended to replace advice given to you by your health care provider. Make sure you discuss any questions you have with your health care provider. Document Revised: 12/07/2021 Document Reviewed: 12/07/2021 [employer] Patient Education ? 2022 [employer]. [facility] Formson 06-28-2023 Forms [id number] [facility] Ambulatory Visit Summaryon 0 06-27-2023 Ambulatory Visit Summary SONG GARCIA :1965 Visit Date:06/27/2023 Ambulatory Visit Instructions Your Diagnosis Encounter for well adult exam with abnormal findings Cervical radiculopathy Congenital hypothyroidism Generalized anxiety disorder GERD (gastroesophageal reflux disease) hiatal hernia Fasting hyperglycemia Class 1 obesity due to excess calories in adult BMI 32.0-32.9,adult Your Care Team Attending Physician - Antony LOOMIS MD Primary Care Physician - Antony LOOMIS MD This Is Your Medications List amitriptyline (amitriptyline 10 mg Tab) levothyroxine (levothyroxine 88 mcg (0.088 mg) Tab) pantoprazole (Pantoprazole [address] Tab) Contact prescribing physician if questions or concerns cyclobenzaprine (cyclobenzaprine 10 mg Tab) dicyclomine (Bentyl 10 mg Cap) lidocaine topical (lidocaine Viscous Top 2% Riya 15 mL) ondansetron (ondansetron 4 mg Dis Tab) valacyclovir (Valtrex 1 g Tab) Procedures Performed Esophagogastroduodenoscopy (11/24/2022), Esophagogastroduodenoscopy (09/08/2022), Endoscopic plantar fasciotomy right. (07/15/2016), Appendectomy, Breast mass, Cholecystectomy, egd, Hysterectomy, Laparoscopic procedure, Liver cyst....., Lymph node operation, Ovarian cyst......, Shoulder repair, Thyroid, Tonsillectomy. Discharge Vitals Temperature (Temporal Artery) 36.9 ?C Heart Rate (Peripheral) 87 Respiratory Rate 16 Blood Pressure 100/70 Height 170 cm Height 67 in Weight 94.1 kg Weight 207.02 lb BMI 32.56 What to do next Scheduled Follow-Up Appointments Tuesday 8:00 AM EDT With: Marilee OCHOA MD Where: [facility] Normal [facility] Family Medicine Office/Clini c Noteon 06-27-2023 Family Medicine Office/Clinic Note Chief Complaint annual wellness exam, labs drawn [place] [facility] [place] needs shingrix, rf pantoprazole & amitriptyline to [facility], rf [facility]othyroxine to [facility] History of Present Illness HISTORY OF PRESENT ILLNESS The patient is here for a general health maintenance exam. Requiring biometric exam form completion She had a mammogram on Tuesday at [facility]. Unaware of results at this time. She does not usually get an influenza vaccine. She has had shingles once in the past. Defers vaccine. She has an appointment with her dentist in 12/2023. She has an appointment with her eye doctor to get her eyes checked Soon. She has not had any major issues with heartburn. She has always had some swallowing issues and hiatal hernia. She was found out that she is allergic to WHEAT, CHOCOLATE, and and cinnamon also is following gluten free diet. She weighed 170 pounds in 12/2022 because she could not eat anything. She takes pantoprazole half a pill twice a day, which keeps her symptoms under control. She went to urgent care a couple of weeks ago. She got up that morning and was unable to raise her right arm. It was swollen all the way down her arm. She thought she tweaked it. She called here and was told to go to convenient care.. She had a new x-ray and was told that it was repetitive use injury she was told that she had a pulled nerve running down her arm and triggering the tendinitis in her hands. She was given a different muscle relaxer but deferred and requested a refill on Flexeril. She can not lift both arms all the way. has been doing some restricted work duties. The pain radiates all the way down to her pinky. She describes it as a throb. It does not wake her from sleep. She is right-handed. It gets worse when she is on the same job. She was out of work for 3 days. She split her job in half and did another process that was better tolerated. 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 The pain gets worse when she is on the same job More than 4 hours. The amitriptyline does help with her IBS. She still gets about 2 hours of sleep at night But generally feels well rested. Reviewed recent labs TSH is stable. Lipids are well controlled glucose is normal kidney functions liver functions electrolytes unremarkable. Recommended shingles vaccine and flu shot she would like to think about these Review of Systems PHQ Score Initial Depression Screen Score: 0 see hpi otherwise neg Physical Exam Vitals & Measurements T: 36.9 ?C(Temporal Artery) HR: 87(Peripheral) RR: 16 BP: 100/70 SpO2: 97% HT: 67 in HT: 170 cm WT: 94.1 kg WT: 207.02 lb BMI: 32.56 PHYSICAL EXAM Patient is well groomed and adequately hydrated. Eyes clear. Pupils are symmetric. Grossly normal hearing. Scant cerumen in the canals but grossly normal hearing. Oropharynx pink and moist with fair [place] dentition. Boggy turbinates, clear rhinorrhea. Without discrete thyromegaly. Diminished bilaterally, but clear. Regular rate and rhythm. No murmur, gallop, or rub. Abdomen soft, flat, hyperactive bowel sounds, nontender. No organomegaly. Deferred. Relatively tall, well developed. Range of motion in the shoulders is intact, but pain with abduction above horizontal. Cross chest flexion is somewhat stiff. Posterior cervical spine is tender greater on the right than the left. She has multiple tattoos. [employer] Specialist strength is intact bilaterally. No discrete tremors in the upper extremities. The patient is cooperative, a bit on the anxious side, but reasonable insight. Assessment/Plan 1. Encounter for well adult exam with abnormal findings (Z00.01: Encounter for general adult medical examination with abnormal findings) Reviewed with patient general health maintenance including need for follow-up with dental and optometry. Strong recommendation for shingles vaccine based on age and the flu vaccine but she defers. 2. Cervical radiculopathy (M54.12: Radiculopathy, cervical region) The discomfort radiating down both arms is likely cervical in nature although it could certainly be overuse syndrome in the shoulders like a brachial plexus. Agreeable to physical therapy. Based on response will determine if any imaging or pain management necessary I did write a letter indicating to employer limitation on her length of time doing any 1 job although I am not certain they will honor that as it is not clear that she had any injuries at work. Ordered: [facility] [place] [place] [place] Evaluate Patient, Develop a Plan of Care, & Implement Plan 3. 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 TSH is stable 4. Generalized anxiety disorder (F41.1: Generalized anxiety disorder) Patient defers any daily medication use although still uses amitriptyline which has benefit for emotional support and IBS 5. GERD (gastroesophageal reflux disease) (K21.9: Gastro-esophageal reflux disease without e (more content not included)... Normal [facility] Comment on above: Result Comment: Elec tronically Signed By: ROSS LUIS, Antony\.br\Date and Time Signed: 06/27/23 20:07 EDT Patient Letter FTon 2022 Patient Letter [facility] [place] [address] [place] [id number] June 27, 2023 SONG GARCIA [address] [id number] : 1965 To Whom It May Concern: Please be aware this patient is suffering with bilateral arm pain, suspect related to overuse injury and possible cervical radiculopathy (pinched nerves in neck). We have made a referral to physical therapy for her. Please try to allow 4 hour maximum at any one job duty until she sees improvement with therapy. Thank you very much. Sincerely: Nasir Loomis MD FAAFP [facility] Provider Letteron 06-27-2023 Provider Letter (Inserted Image. Yuli ble to display) June 27, 2023 [address] [place] [id number] To Whom It May Concern, Please excuse the above patient from work due to office visit. Date of Illness: From: 06/27/2023 May Return to Work On: 06/28/2023 Restrictions: none Sincerely, Family Medicine [address] [address] [facility] Patient Educationon 06-26-20 Patient Education Obstetrics and Gynec ology Health Maintenance, Female Adopting a healthy lifestyle and getting preventive care are important in promoting health and wellness. Ask your health care provider about: ? The right schedule for you to have regular tests and exams. ? Things you can do on your own to prevent diseases and keep yourself healthy. What should I know about diet, weight, and exercise? Eat a healthy diet ? Eat a diet that includes plenty of vegetables, fruits, low-fat dairy products, and lean protein. ? Do not eat a lot of foods that are high in solid fats, added sugars, or sodium. Maintain a healthy weight Body mass index (BMI) is used to identify weight problems. It estimates body fat based on height and weight. Your health care provider can help determine your BMI and help you achieve or maintain a healthy weight. Get regular exercise Get regular exercise. This is one of the most important things you can do for your health. Most adults should: ? Exercise for at least 150 minutes each week. The exercise should increase your heart rate and make you sweat (moderate-intensity exercise). ? Do strengthening exercises at least twice a week. This is in addition to the moderate-intensity exercise. ? Spend less time sitting. Even light physical activity can be beneficial. Watch cholesterol and blood lipids Have your blood tested for lipids and cholesterol at 20 years of age, then have this test every 5 years. Have your cholesterol levels checked more often if: ? Your lipid or cholesterol levels are high. ? You are older than 40 years of age. ? You are at high risk for heart disease. What should I know about cancer screening? Depending on your health history and family history, you may need to have cancer screening at various ages. This may include screening for: ? Breast cancer. ? Cervical cancer. ? Colorectal cancer. ? Skin cancer. ? Lung cancer. What should I know about heart disease, diabetes, and high blood pressure? Blood pressure and heart disease ? High blood pressure causes heart disease and increases the risk of stroke. This is more likely to develop in people who have high blood pressure readings or are overweight. ? Have your blood pressure checked: ? Every 3?5 years if you are 18?39 years of age. ? Every year if you are 40 years old or older. Diabetes Have regular diabetes screenings. This checks your fasting blood sugar level. Have the screening done: ? Once every three years after age 40 if you are at a normal weight and have a low risk for diabetes. ? More often and at a younger age if you are overweight or have a high risk for diabetes. What should I know about preventing infection? Hepatitis B If you have a higher risk for hepatitis B, you should be screened for this virus. Talk with your health care provider to find out if you are at risk for hepatitis B infection. Hepatitis C Testing is recommended for: ? Everyone born from 1945 through 1965. ? Anyone with known risk factors for hepatitis C. Sexually transmitted infections (STIs) ? Get screened for STIs, including gonorrhea and chlamydia, if: ? You are sexually active and are younger than 24 years of age. ? You are older than 24 years of age and your health care provider tells you that you are at risk for this type of infection. ? Your sexual activity has changed since you were last screened, and you are at increased risk for chlamydia or gonorrhea. Ask your health care provider if you are at risk. ? Ask your health care provider about whether you are at high risk for HIV. Your health care provider may recommend a prescription medicine to help prevent HIV infection. If you choose to take medicine to prevent HIV, you should first get tested for HIV. You should then be tested every 3 months for as long as you are taking the medicine. ? If you are about to stop having your period (premenopausal) and you may become , seek counseling before you get . ? Take 400 to 800 micrograms (mcg) of folic acid every day if you become . ? Ask for control (contraception) if you want to prevent . Osteoporosis and menopause Osteoporosis is a disease in which the bones lose minerals and strength with aging. This can result in bone fractures. If you are 65 years old or older, or if you are at risk for osteoporosis and fractures, ask your health care provider if you should: ? Be screened for bone loss. ? Take a calcium or vitamin D supplement to lower your risk of fractures. ? Be given hormone replacement therapy (HRT) to treat symptoms of menopause. Follow these instructions at home: Alcohol use ? Do not drink alcohol if: ? Your health care provider tells you not to drink. ? You are , may be , or are planning to become . ? If you drink alcohol: ? Limit how much you have to: ? 0?1 drink a day. ? Know how much alcohol is in y (more content not included)... Normal [facility] Auto Diffon 06-25-2023 Basophils/100 WBC (Bld) 1.1 % Normal 0.0-2.0 [facility] Comment on above: Order Comment: Order Added by Discern Expert. Performed By: #### 2 469068, 5218672, 8216727, 90585308, 44916559, 9781492 ####[facility] [address] [place] [address] Basophils/Leukocy sadnra Auto (Bld) [Pure # fraction] 0.1 E9/L Normal 0.0-0.2 [facility] Comment on above: Order Comment: Order Added by Lydia Expert. Performed By: #### 2 466929, 3635070, 3407411, 50864900, 47091677, 6441734 ####[facility] [address] [place] [address] Eosinophils/100 WBC (Bld) 3.1 % Normal 0.0-8.0 [facility] Comment on above: Order Comment: Order Added by Lydia Expert. Performed By: #### 2 917757, 8538648, 8327893, 58575929, 05596612, 7432850 ####[facility] [address] [place] [address] Eosinophils/Leuko cytes Auto (Bld) [Pure # fraction] 0.2 E9/L Normal 0.0-0.5 [facility] Comment on above: Order Comment: Order Added by Lydia Expert. Performed By: #### 2 386378, 3548179, 7659959, 21772647, 82989630, 9955968 ####[facility] [address] [place] [address] Lymphocytes/100 WBC (Bld) 42.6 % Normal 14.0-50.0 [facility] Comment on above: Order Comment: Order Added by Discern Expert. Performed By: #### 2 892628, 0616753, 0013447, 43153288, 56658641, 3424924 ####[facility] [address] [place] [address] Lymphocytes/Leuko cytes Auto (Bld) [Pure # fraction] 3.0 E9/L Normal 1.0-4.0 [facility] Comment on above: Order Comment: Order Added by Discern Expert. Performed By: #### 2 218818, 1555756, 2604237, 92147548, 77405903, 7745950 ####[address] [address] Monocytes/100 WBC (Bld) 8.0 % Normal 4.0-14.0 [facility] Comment on above: Order Comment: Order Added by Discern Expert. Performed By: #### 2 749731, 7829849, 3435292, 69774499, 90468176, 4610413 ####[address] [address] Monocytes/Leukocy sandra Auto (Bld) [Pure # fraction] 0.6 E9/L Normal 0.2-1.0 [facility] Comment on above: Order Comment: Order Added by Discern Expert. Performed By: #### 2 546148, 8285350, 9780999, 13387876, 18484236, 3031636 ####[address] [place] [address] Neutrophils/100 WBC (Bld) 45.2 % Normal 36.0-75.0 [facility] Comment on above: Order Comment: Order Added by Discern Expert. Performed By: #### 2 462447, 4540888, 4587231, 14753383, 44415222, 1304533 ####[address] [place] [address] Neutrophils/Leuko cytes Auto (Bld) [Pure # fraction] 3.1 E9/L Normal 2.0-7.5 [facility] Comment on above: Order Comment: Order Added by Discern Expert. Performed By: #### 2 165017, 9378712, 3850830, 21804060, 76957386, 3240739 ####[facility] [address] [place] [address] CBC w/ Auto Diffon Erythrocyte distribution width (RBC) [Ratio] 14.2 % Normal 10.9-14.2 [facility] Comment on above: Performed By: #### 2 821952, 0405820, 0272935, 44914129, 13136409, 6146851 ####[address] [place] [address] Hematocrit (Bld) [Volume fraction] 36.4 % Normal 34.0-46.0 [facility] Comment on above: Performed By: #### 2 097209, 3807561, 7715621, 61256286, 97719323, 9895446 ####[address] [address] Hemoglobin (Bld) [Mass/Vol] 12.0 g/dL Normal 12.0-16.0 [facility] Comment on above: Performed By: #### 2 689222, 0398001, 1180224, 83038956, 37313808, 5869667 ####[address] [place] [address] MCH (RBC) [Entitic mass] 27.6 pg Normal 27.0-34.0 [facility] Comment on above: Performed By: #### 2 803258, 8104057, 9844486, 62749600, 89324222, 8597391 ####[address] [place] [address] MCHC (RBC) [Mass/Vol] 32.9 g/dL Normal 31.4-36.0 [facility] Comment on above: Performed By: #### 2 726904, 0643707, 7631271, 06889773, 97187429, 0764990 ####[facility] [address] [place] [address] MCV (RBC) [Entitic vol] 83.9 fL Normal 80.0-100.0 [facility] Comment on above: Performed By: #### 2 503200, 9684054, 7620123, 73485861, 66928007, 6405723 ####[address] [place] [address] Platelet mean volume (Bld) [Entitic vol] 7.9 fL Normal 6.4-10.8 [facility] Comment on above: Performed By: #### 2 318405, 6744361, 1765957, 22640355, 67028657, 6530789 ####[address] [address] Platelets (Bld) [#/Vol] 331.0 E9/L Normal 150.0-500.0 [facility] Comment on above: Performed By: #### 2 212885, 7321631, 6212317, 48574054, 22562099, 6024943 ####[address] [address] RBC (Bld) [#/Vol] 4.3 E12/L Normal 4.3-5.9 [facility] Comment on above: Performed By: #### 2 557637, 5870993, 3288041, 35821596, 09797266, 5463210 ####[address] [address] WBC corrected for nucl RBC Auto (Bld) [#/Vol] 7.0 E9/L Normal 4.0-11.0 [facility] Comment on above: Performed By: #### 2 837569, 4152258, 5913596, 36676849, 12957321, 7637827 ####[address] [place] [address] CMPon 06-25-2023 Urea nitrogen [Mass/Vol] 12 mg/dL Normal 5-21 [facility] Comment on above: Performed By: #### 2 779155, 0881581, 1716278, 80701057, 68676112, 3755010 ####[facility] [address] [place] [address] Urea nitrogen/Creatini ne [Mass ratio] UTC Abnormal 10-20 [facility] Comment on above: Result Comment: Resu lt verified by Discern Rule. Performed result [facility] (Unable to Calculate) was sent as an Alpha code due the inability to calculate a valid numeric value. Performed By: #### 2 145568, 0982937, 4620968, 83846019, 83132818, 0701905 ####[address] [place] [address] Albumin [Mass/Vol] 4.1 g/dL Normal 3.3-5.0 [facility] Comment on above: Performed By: #### 2 765711, 4848181, 9490282, 81451880, 60882157, 9245589 ####[address] [place] [address] Albumin/Globulin (S) [Mass conc ratio] 1.2 Normal 1.1-2.2 [facility] Comment on above: Performed By: #### 2 627641, 5301460, 5852173, 09011912, 03919440, 2660126 ####[address] [place] [address] ALP [Catalytic activity/Vol] 111 Int._Unit/L High 21-98 [facility] Comment on above: Performed By: #### 2 936944, 4129311, 3302049, 66687103, 28882894, 7498225 ####[facility] [address] [place] [address] ALT No additional P-5'-P [Catalytic activity/Vol] 26 Int._Unit/L Normal 6-46 [facility] Comment on above: Performed By: #### 2 310753, 1735304, 8893421, 00848017, 71606391, 7448199 ####[facility] [address] [place] [address] Anion gap [Moles/Vol] 12 mmol/L Normal 6-16 [facility] Comment on above: Performed By: #### 2 816969, 5570146, 3824841, 24256027, 66673796, 3995367 ####[facility] [address] [place] [address] AST [Catalytic activity/Vol] 24 Int._Unit/L Normal 5-43 [facility] Comment on above: Performed By: #### 2 541217, 1844287, 8801518, 21996943, 89588481, 3551300 ####[facility] [address] [place] [address] Bilirubin [Mass/Vol] 0.4 mg/dL Normal 0.0-1.1 [facility] Comment on above: Performed By: #### 2 909489, 6921572, 7145778, 55035457, 98001206, 8999444 ####[facility] [address] [place] [address] Calcium [Mass/Vol] 9.4 mg/dL Normal 8.9-11.1 [facility] Comment on above: Performed By: #### 2 240766, 4287394, 6749911, 77314976, 16936132, 8848257 ####[facility] [address] [place] [address] Chloride [Moles/Vol] 107 mmol/L Normal 101-111 [facility] Comment on above: Performed By: #### 2 455137, 8041310, 5716456, 47861382, 26011966, 1723751 ####[facility] [address] [place] [address] CO2 [Moles/Vol] 26 mmol/L Normal 21-31 [facility] Comment on above: Performed By: #### 2 342529, 4922184, 3702634, 39185147, 05269008, 9497966 ####[facility] [address] [place] [address] Creatinine [Mass/Vol] 0.9 mg/dL Normal 0.5-1.3 [facility] Comment on above: Performed By: #### 2 371473, 3345508, 9663110, 59908522, 51980437, 2323049 ####[facility] [address] [place] [address] Globulin (S) [Mass/Vol] 3.5 g/dL Normal 1.4-4.0 [facility] Comment on above: Performed By: #### 2 580627, 1932384, 9849569, 79723467, 79894421, 5110914 ####[facility] [address] [place] [address] Glucose [Mass/Vol] 95 mg/dL Normal 55-199 [facility] Comment on above: Result Comment: If t his glucose result represents a fasting glucose, interpretation should refer to the following reference range: 55-99 mg/dL Performed By: #### 2 554531, 2936571, 7998116, 90120979, 78324182, 7016152 ####[facility] [address] [place] [address] Potassium [Moles/Vol] 3.9 mmol/L Normal 3.5-5.3 [facility] Comment on above: Performed By: #### 2 069134, 3589743, 3136781, 61005582, 03275634, 2840037 ####[facility] [address] [place] [address] Protein [Mass/Vol] 7.6 g/dL Normal 6.0-7.8 [facility] Comment on above: Performed By: #### 2 282907, 8775380, 3559827, 23869573, 82532565, 9105652 ####[facility] [address] [place] [address] Sodium [Moles/Vol] 141 mmol/L Normal 135-145 [facility] Comment on above: Performed By: #### 2 882022, 2913557, 1941135, 13498982, 01421425, 2091855 ####[facility] [address] [place] [address] Consent for Treatmenton 06-04 Consent for Treatment [id number] Normal [facility] Lipid Panelon 06-25-2023 Cholesterol [Mass/Vol] 213 mg/dL High 120-200 [facility] Comment on above: Performed By: #### 2 791809, 9928585, 6146669, 98149092, 19473119, 8149108 ####[facility] [address] [place] [address] Cholesterol in HDL [Mass/Vol] 52 mg/dL Invalid Interpretation Code [facility] Comment on above: Result Comment: HDL > or equal to 60 mg/dL: Low cardiovascular risk HDL < 40 mg/dL : High cardiovascular risk Performed By: #### 2 578366, 2490064, 6092432, 52079400, 41939324, 2089826 ####[facility] [address] [facility] [place] [address] Cholesterol in LDL [Mass/Vol] 144 mg/dL High <=129 [facility] Comment on above: Performed By: #### 2 853209, 1370223, 5336925, 89886360, 81948773, 2525865 ####[facility] [address] [place] [address] Cholesterol in VLDL [Mass/Vol] 30 mg/dL Normal 7-40 [facility] Comment on above: Performed By: #### 2 790923, 0532106, 6833078, 80196211, 62090122, 4152942 ####[facility] [address] [facility] [place] [address] Triglyceride [Mass/Vol] 150 mg/dL High <=149 [facility] Comment on above: Performed By: #### 2 069566, 8903516, 0622630, 47038165, 15938667, 0250206 ####[facility] [address] [place] [address] TSH With T4fr Reflexon 06-25 TSH Qn 1.27 m[IU]/L Normal 0.34-5.60 [facility] Comment on above: Performed By: #### 2 797431, 0257335, 6432439, 92670085, 89583409, 0167009 ####[facility] [address] [place] [address] eGFRon 06-25-2023 GFR/1.73 sq M.predicted among non-blacks MDRD (S/P/Bld) [Vol rate/Area] 75 mL/min/1.73 m2 Normal >=59 [facility] Comment on above: Order Comment: Order added by Discern Expert. Result Comment: Glass Engraver ashley kidney disease could be indicated at eGFR's of less than 60 mL/min/1.73m2. Kidney failure is indicated at less than 15 mL/min/1.73m2. Performed By: #### [id number] ####[facility] [id number] [place] [address] Ambulatory Visit Summaryon 0 06-09-2023 Ambulatory Visit Summary SONG GARCIA Kalen :1965 Visit Date:06/09/2023 Ambulatory Visit Instructions Your Diagnosis Sprain of cervical neck Sprain of right shoulder girdle BMI 32.0-32.9,adult Your Care Team Attending Physician - DG TANG, RICHMOND Primary Care Physician - Antony LOOMIS MD This Is Your Medications List cyclobenzaprine (cyclobenzaprine 10 mg Tab) Contact prescribing physician if questions or concerns amitriptyline (amitriptyline 10 mg Tab) brompheniramine/dextrometho rphan/PSE (Bromfed DM oral syrup) cephalexin (cephalexin 500 mg Cap) cyclobenzaprine (cyclobenzaprine 10 mg Tab) dicyclomine (Bentyl 10 mg Cap) fluticasone (fluticasone CFC free 220 mcg/inh Inh Aer w/adapter) fluticasone nasal (fluticasone 0.05 mg/inh Nasal [place]) levothyroxine (levothyroxine 88 mcg (0.088 mg) Tab) lidocaine topical (lidocaine Viscous Top 2% Riya 15 mL) ondansetron (ondansetron 4 mg Dis Tab) pantoprazole (Pantoprazole [address] Tab) pantoprazole (pantoprazole 40 mg Oral EC Tab) valacyclovir (Valtrex 1 g Tab) Procedures Performed Esophagogastroduodenoscopy (11/24/2022), Esophagogastroduodenoscopy (09/08/2022), Endoscopic plantar fasciotomy right. (07/15/2016), Appendectomy, Breast mass, Cholecystectomy, egd, Hysterectomy, Laparoscopic procedure, Liver cyst....., Lymph node operation, Ovarian cyst......, Shoulder repair, Thyroid, Tonsillectomy. Discharge Vitals Temperature (Oral) 36.8 ?C Heart Rate (Peripheral) 81 Blood Pressure 118/75 Height 170 cm Height 67 in Weight 93.7 kg Weight 206.14 lb BMI 32.42 What to do next Scheduled Follow-Up Appointments Tuesday 4:00 PM EDT With: Antony LOOMIS MD Where: [facility] Jorge Normal [address] [place] [phone] \.br\ Medications\.br\ What How Much When Why Instructions\.br \ New cyclobenzaprine (cyclobenzaprine 10 mg Tab) 1 Tablets By Mouth 3 times a day as needed for for spasm Sprain of cervical neck Sprain of right shoulder girdle Duration: 10 Days Pickup at [facility]\.br\ Unchanged amitriptyline (amitriptyline 10 mg Tab) 1 Tablets By Mouth Once a day (at bedtime) Irritable bowel syndrome with diarrhea Duration: 90 Days Contact prescribing physician if questions or concerns \.br\ Unchanged brompheniramine/ dextromethorphan / PSE (Bromfed DM oral syrup) 5 Milliliter By Mouth 4 times a day as needed for for cough and congestion Contact prescribing physician if questions or concerns \.br\ Unchanged cephalexin (cephalexin 500 mg Cap) 1 Capsules By Mouth Every 8 hours Contact prescribing physician if questions or concerns \.br\ Unchanged cyclobenzaprine (cyclobenzaprine 10 mg Tab) 1 Tablets By Mouth 3 times a day as needed for for spasm May use as needed for muscle spasms but sedation warning Contact prescribing physician if questions or concerns \.br\ Unchanged dicyclomine (Bentyl 10 mg Cap) 1 Capsules By Mouth 4 times a day as needed for abdominal pain Contact prescribing physician if questions or concerns \.br\ Unchanged fluticasone (fluticasone CFC free 220 mcg/ inh Inh Aer w/ adapter) See instructions 2 puff(s) Inhalation BID Contact prescribing physician if questions or concerns \.br\ Unchanged fluticasone nasal (fluticasone 0.05 mg/ inh Nasal [place]) 2 Sprays Nasal Inhalation Every day each nostril Contact prescribing physician if questions or concerns \.br\ Unchanged levothyroxine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 CONTE [facility] 06-09-2023 11:36-0400 Heart rate 81 /min BRIAN CONTE [facility] 06-09-2023 11:36-0400 SaO2% (BldA) [Mass fraction] 96 % BRIAN CONTE [facility] 06-09-2023 11:36-0400 Systolic blood pressure 118 mm[Hg] BRIAN CONTE [facility] 12-16-2022 12:06-0400 Blood Pressure Location Hunt SALAM [facility] 12-16-2022 12:06-0400 Diastolic blood pressure 82 mm[Hg] Hunt SALAM [facility] 12-16-2022 12:06-0400 Heart rate 68 /min Hunt SALAM [facility] 12-16-2022 12:06-0400 Respiratory rate 16 /min Hunt SALAM [facility] 12-16-2022 12:06-0400 Systolic blood pressure 136 mm[Hg] Hunt SALAM [facility] 11-24-2022 13:05-0500 Diastolic blood pressure 85 mm[Hg] Hunt SALAM [facility] 11-24-2022 13:05-0500 Heart rate 76 /min Hunt SALAM [facility] 11-24-2022 13:05-0500 Mean blood pressure 98 mm[Hg] Hunt SALAM [facility] 11-24-2022 13:05-0500 Respiratory rate 18 /min Hunt SALAM [facility] 11-24-2022 13:05-0500 SaO2% (BldA) [Mass fraction] 98 % Hunt SALAM [facility] 11-24-2022 13:05-0500 Systolic blood pressure 125 mm[Hg] Hunt SALAM [facility] 11-24-2022 13:00-0500 Diastolic blood pressure 87 mm[Hg] Hunt SALAM [facility] 11-24-2022 13:00-0500 Heart rate 77 /min Hunt SALAM [facility] 11-24-2022 13:00-0500 Mean blood pressure 102 mm[Hg] Hunt SALAM [facility] 11-24-2022 13:00-0500 Respiratory rate 11 /min Hunt SALAM [facility] 11-24-2022 13:00-0500 Systolic blood pressure 132 mm[Hg] Hunt SALAM [facility] 11-24-2022 12:45-0500 Diastolic blood pressure 83 mm[Hg] Hunt SALAM [facility] 11-24-2022 12:45-0500 Heart rate 78 /min Hunt SALAM [facility] 11-24-2022 12:45-0500 Respiratory rate 12 /min Hunt SALAM [facility] 11-24-2022 12:45-0500 SaO2% (BldA) [Mass fraction] 97 % Hunt SALAM [facility] 11-24-2022 12:45-0500 Systolic blood pressure 118 mm[Hg] Hunt SALAM [facility] 11-24-2022 12:35-0500 Body temperature 97.7 [degF] Hunt SALAM [facility] 11-24-2022 11:34-0500 Blood Pressure Location Hunt SALAM [facility] 11-24-2022 11:34-0500 Body temperature 98.24 [degF] Hunt SALAM [facility] 09-08-2022 15:50-0500 Body temperature 97.7 [degF] Hunt SALAM [facility] 09-08-2022 15:50-0500 Diastolic blood pressure 73 mm[Hg] Hunt SALAM [facility] 09-08-2022 15:50-0500 Heart rate 84 /min Hunt SALAM [facility] 09-08-2022 15:50-0500 Respiratory rate 15 /min Hunt SALAM [facility] 09-08-2022 15:50-0500 SaO2% (BldA) [Mass fraction] 99 % Hunt SALAM [facility] 09-08-2022 15:50-0500 Systolic blood pressure 116 mm[Hg] Hunt SALAM [facility] 09-08-2022 15:35-0500 Diastolic blood pressure 72 mm[Hg] Hunt SALAM [facility] 09-08-2022 15:35-0500 Heart rate 90 /min Hunt SALAM [facility] 09-08-2022 15:35-0500 Respiratory rate 13 /min Hunt SALAM [facility] 09-08-2022 15:35-0500 SaO2% (BldA) [Mass fraction] 98 % Hunt SALAM [facility] 09-08-2022 15:35-0500 Systolic blood pressure 115 mm[Hg] Hunt SALAM [facility] 09-08-2022 15:30-0500 Diastolic blood pressure 78 mm[Hg] Hunt SALAM [facility] 09-08-2022 15:30-0500 Heart rate 97 /min Hunt SALAM [facility] 09-08-2022 15:30-0500 Respiratory rate 14 /min Hunt SALAM [facility] 09-08-2022 15:30-0500 SaO2% (BldA) [Mass fraction] 96 % Hunt SALAM [facility] 09-08-2022 15:30-0500 Systolic blood pressure 118 mm[Hg] Hunt SALAM [facility] 09-08-2022 15:20-0500 Body temperature 97.52 [degF] Hunt SALAM [facility] 09-08-2022 15:15-0500 Respiratory rate 18 /min Hunt SALAM [facility] 09-08-2022 15:10-0500 Respiratory rate 20 /min Hunt SALAM [facility] 09-08-2022 14:25-0500 Blood Pressure Location Hunt SALAM [facility] 09-08-2022 14:25-0500 Body temperature 97.34 [degF] Hunt SALAM [facility] 08-04-2022 13:36-0400 Blood Pressure Location Curemarkz [facility] 08-04-2022 13:36-0400 Body temperature 97.52 [degF] Juliana Lemusmetz [facility] 08-04-2022 13:36-0400 Diastolic blood pressure 77 mm[Hg] Juliana Lemusmetz [facility] 08-04-2022 13:36-0400 Heart rate 84 /min Juliana Lemusmetz [facility] 08-04-2022 13:36-0400 Systolic blood pressure 108 mm[Hg] Julianajong LemusAlexa [facility] 08-03-2022 22:47-0400 Diastolic blood pressure 65 mm[Hg] Jordin Maxine [facility] 08-03-2022 22:47-0400 Heart rate 87 /min Jordin Maxine [facility] 08-03-2022 22:47-0400 Mean blood pressure 83 mm[Hg] Jordin Maxine [facility] 08-03-2022 22:47-0400 Respiratory rate 16 /min Jordin Maxine [facility] 08-03-2022 22:47-0400 SaO2% (BldA) [Mass fraction] 96 % Jordin Maxine [facility] 08-03-2022 22:47-0400 Systolic blood pressure 118 mm[Hg] Jordin Maxine [facility] 08-03-2022 21:04-0400 Body temperature 97.88 [degF] Jordin Maxine [facility] 08-03-2022 21:04-0400 Diastolic blood pressure 74 mm[Hg] Jordin Maxine [facility] 08-03-2022 21:04-0400 Heart rate 117 /min Jordin Maxine [facility] 08-03-2022 21:04-0400 Respiratory rate 18 /min Jordin Maxine [facility] 08-03-2022 21:04-0400 SaO2% (BldA) [Mass fraction] 98 % Jordin Maxine [facility] 08-03-2022 21:04-0400 Systolic blood pressure 134 mm[Hg] Jordin Maxine [facility] 06-11-2022 11:49-0400 Blood Pressure Location Christjazmyne BROWN [facility] 06-11-2022 11:49-0400 Body temperature 98.6 [degF] Christopher BROWN [facility] 06-11-2022 11:49-0400 Diastolic blood pressure 80 mm[Hg] Christopher [facility]OWN [facility] 06-11-2022 11:49-0400 Heart rate 88 /min Christopher [facility] 06-11-2022 11:49-0400 Respiratory rate 16 /min Christopher [facility]OWN [facility] 06-11-2022 11:49-0400 SaO2% (BldA) [Mass fraction] 97 % Christopher [facility]OWN [facility] 06-11-2022 11:49-0400 Systolic blood pressure 120 mm[Hg] Christopher [facility]OWN [facility] 05-19-2022 10:40-0400 Blood Pressure Location Juliana Lemusmetz [facility] 05-19-2022 10:40-0400 Body temperature 97.7 [degF] Juliana Liu [facility] 05-19-2022 10:40-0400 Diastolic blood pressure 78 mm[Hg] Juliana Liu [facility] 05-19-2022 10:40-0400 Heart rate 73 /min Juliana Liu [facility] 05-19-2022 10:40-0400 Systolic blood pressure 116 mm[Hg] Juliana Liu [facility] 03-25-2022 11:28-0400 Blood Pressure Location Christjazmyne LOOMIS [facility] [place] 03-25-2022 11:28-0400 Diastolic blood pressure 80 mm[Hg] Antony BROWN [facility] [place] 03-25-2022 11:28-0400 Heart rate 77 /min Christjarochoer BROWN [facility] [place] 03-25-2022 11:28-0400 Respiratory rate 16 /min Guillermoer BROWN [facility] [place] 03-25-2022 11:28-0400 SaO2% (BldA) [Mass fraction] 99 % Antony BROWN [facility] 03-25-2022 11:28-0400 Systolic blood pressure 120 mm[Hg] Christopher BROWN [facility] [place] 02-23-2022 18:22-0400 Blood Pressure Location Antony LOOMIS [facility] [place] 02-23-2022 18:22-0400 Diastolic blood pressure 84 mm[Hg] Anotny LOOMIS [facility] [place] 02-23-2022 18:22-0400 Heart rate 93 /min Antony LOOMIS [facility] [place] 02-23-2022 18:22-0400 Respiratory rate 16 /min Antony LOOMIS [facility] [place] 02-23-2022 18:22-0400 SaO2% (BldA) [Mass fraction] 98 % Antony LOOMIS [facility] [place] 02-23-2022 18:22-0400 Systolic blood pressure 120 mm[Hg] Antony LOOMIS [facility] Encounters Encounter Date Encounter Type Care Provider Facility Start: 01-02-2024 End: 01-02-2024 ambulatory BRENT ANGELO Not Available Start: 01-02-2024 End: 01-02-2024 Departed Referred Brent Angelo Work Phone: [facility] Start: 12-21-2023 End: 12-22-2023 ambulatory Hernandez Talal Clausmini [facility] Start: 12-21-2023 End: 12-21-2023 Patient encounter procedure Hernandez Talal Clausmini [facility] Start: 12-19-2023 End: 12-19-2023 ambulatory BRENT ANGELO Not Available Start: 09-02-2023 End: 09-03-2023 ambulatory Colejazmyne LOOMIS Facility:[facility] Start: 09-02-2023 End: 09-02-2023 Patient encounter procedure Colejazmyne LOOMIS [facility] [place] Start: 06-27-2023 End: 06-28-2023 ambulatory Colejazmyne LOOMIS Facility:[facility] Start: 06-27-2023 End: 06-27-2023 Encounter for general adult medical examination with abnormal findings Guillermoloy LOOMIS [facility] Start: 06-27-2023 End: 06-27-2023 Patient encounter procedure Colejazmyne LOOMIS [facility] Start: 06-25-2023 End: 06-26-2023 ambulatory Antony LOOMIS Facility:[facility] Start: 06-09-2023 End: 06-10-2023 ambulatory Bunny Cancino Facility:[facility] Start: 06-09-2023 End: 06-10-2023 ambulatory BRIAN CONTE Facility: [place] Start: 06-09-2023 End: 06-09-2023 Patient encounter procedure Bunny Cancino [facility] Start: 06-09-2023 End: 06-09-2023 Patient encounter procedure BRIAN CONTE [facility] Start: 12-16-2022 End: 12-16-2022 Patient encounter procedure Marilee OCHOA [facility] Start: 12-10-2022 End: 12-10-2022 Patient encounter procedure Renee Berry [facility] Start: 11-24-2022 End: 11-24-2022 Patient encounter procedure Marilee SAMAYOAAM [facility] Start: 09-08-2022 End: 09-08-2022 Patient encounter procedure Marilee SAMAYOAAM [facility] Start: 08-10-2022 End: 08-10-2022 Patient encounter procedure Juliana Liu [facility] Start: 08-04-2022 End: 08-04-2022 Patient encounter procedure Juliana Liu [facility] Start: 08-03-2022 End: 08-03-2022 Emergency department patient visit Jordin Goodman [facility] Start: 07-05-2022 End: 07-05-2022 Off-Site MILLI MAK [facility] [place] Start: 06-25-2022 End: 06-25-[address] ROMÁN MENDOZA Facility:[facility] Start: 06-11-2022 End: 06-11-2022 Lab Drop off Antony LOOMIS [facility] Start: 06-11-2022 End: 06-11-2022 Encounter for general adult medical examination with abnormal findings Antony LOOMIS [facility] Start: 06-11-2022 End: 06-11-2022 Patient encounter procedure Antony LOOMIS [facility] [place] Start: 06-04-2022 End: 06-05-[address] DOCTOR KENDALL Facility: Start: 05-19-2022 End: 05-19-2022 Patient encounter procedure Juliana Liu [facility] Start: 03-25-2022 End: 03-25-2022 Patient encounter procedure Antony LOOMIS [facility] Start: 02-23-2022 End: 02-23-2022 Patient encounter procedure Antony LOOMIS [facility] Procedures Date Procedure Procedure Detail Performing Clinician Start: 11-24-2022 Esophagogastroduodenoscopy Marilee OCHOA Comment on above: esophageal dilation, esophageal rings, b iopsies done, small hiatal hernia Start: 09-08-2022 Esophagogastroduodenoscopy Marilee OCHOA Start: 07-15-2016 Endoscopic plantar fasciotomy right. Antony LOOMIS Appendectomy Antony CABALLERO Breast lump (finding) Cole LOOMIS Cholecystectomy Antony LOOMIS Cyst of ovary (disorder) Chr wilson LOOMIS Esophagogastroduodenoscopy C hrwilson LOOMIS History of appendectomy Appendec gilbert( Confirmed ) Antony LOOMIS Hysterectomy Antony CRANE ADA Laparoscopic procedure Nasir LOOMIS Comment on above: female x4 female x4 Liver cyst (disorder) Cole LOOMIS Operation on lymph node Chri franky LOOMIS Repair of shoulder Guillermo LOOMIS Thyroid structure (body structure) Antony LOOMIS Tonsillectomy Antony LEE SEN Immunizations Immunization Date Immunization Notes Care Provider Mary obando 09-27-2021 tetanus toxoid, reduced diphtheria toxoid, and acellular pertussis vaccine, adsorbed; Translations: [Boostrix (Tdap)] Antony LOOMIS [facility] 04-29-2010 tetanus toxoid, reduced diphtheria toxoid, and acellular pertussis vaccine, adsorbed Antony LOOMIS [facility] [place] NEGATED: Highlighted row has not occurred!12-19-2023 influenza virus vaccine, unspecified formulation Hernandez Clauscharanjit [facility] NEGATED: Highlighted row has not occurred!09-02-2023 influenza virus vaccine, unspecified formulation Antony LOOMIS [facility] NEGATED: Highlighted row has not occurred!09-02-2023 SARS-CoV-2 mRNA (tozinameran 5y-11y) vaccine Colejazmyne LOOMIS [facility] NEGATED: Highlighted row has not occurred!06-27-2023 influenza virus vaccine, unspecified formulation Colejazmyne ROSS [facility] NEGATED: Highlighted row has not occurred!06-27-2023 SARS-CoV-2 mRNA (tozinameran 5y-11y) vaccine Antony LOOMIS [facility] NEGATED: Highlighted row has not occurred!06-09-2023 influenza virus vaccine, unspecified formulation BRIAN CONTE [facility] NEGATED: Highlighted row has not occurred!08-04-2022 influenza virus vaccine, unspecified formulation Juliana Liu [facility] NEGATED: Highlighted row has not occurred!05-19-2022 influenza virus vaccine, unspecified formulation Juliana Liu [facility] NEGATED: Highlighted row has not occurred!03-25-2022 SARS-CoV-2 mRNA (tozinameran 5y-11y) vaccine Antony LOOMIS [facility] NEGATED: Highlighted row has not occurred!02-23-2022 SARS-CoV-2 mRNA (tozinameran 5y-11y) vaccine Antony LOOMIS [facility] [place] NEGATED: Highlighted row has not occurred!09-29-2021 influenza virus vaccine, unspecified formulation Antony LOOMIS [facility] [place] NEGATED: Highlighted row has not occurred!09-29-2021 SARS-CoV-2 (COVID-19) Ad26 vaccine, recombinant Colejazmyne LOOMIS [facility] [place] NEGATED: Highlighted row has not occurred!09-22-2020 influenza virus vaccine, unspecified formulation Colejazmyne LOOMIS [facility] NEGATED: Highlighted row has not occurred!07-31-2019 influenza virus vaccine, unspecified formulation Antony LOOMIS [facility] Payers Date Payer Category Payer Self-pay 2023 Private Health Insurance [id number] 2023 Private Health Insurance [id number] 1965 Unknown [id number] 1965 Unknown [id number] 1965 Unknown [id number] 1965 Unknown [id number] 1965 Unknown [id number] 1965 Unknown [id number] 1965 Unknown [id number] 1965 Unknown [id number] 1965 Unknown [id number] 1965 Unknown [id number] 1958 Private Health Insurance [id number] Private Health Insurance [facility] [id number] Unknown [id number] Social History Date Type Detail Facility Start: 02-23-2022 End: 12-21-2023 Tobacco smoking status Never smoked tobacco (finding) [facility] Tobacco smoking status Never [facility] [place] Sex Assigned At Female [facility] Start: 1965 Sex Assigned At Female Karina [facility] Functional Status Date Assessment Result Facility 12-21-2023 Functional Status N/A [facility] 09-02-2023 Functional Status N/A [facility] 06-27-2023 Functional Status N/A [facility] 06-09-2023 Functional Status N/A [facility] 12-16-2022 Functional Status N/A [facility] 11-24-2022 Functional Status N/A [facility] 09-08-2022 Functional Status N/A [facility] 08-04-2022 Functional Status N/A [facility] 08-03-2022 Functional Status N/A [facility] 07-05-2022 Functional Status Telehealth Patient [facility] 06-11-2022 Functional Status N/A [facility] 05-19-2022 N/A [facility] 03-25-2022 Functional Status N/A [facility] Clinical Notes 02-22-2022 to 09-01-2023 Note Date & Type Note Facility 09-01-2023 Hospital Discharge instructions Patient Education 09/01/2023 21:40:56 Laryngitis Laryngitis Laryngitis is inflammation of the vocal cords that causes symptoms such as hoarseness or loss of voice. The vocal cords are two bands of muscles in your throat. When you speak, these cords come together and vibrate. The vibrations come out through your mouth as sound. When your vocal cords are inflamed, your voice sounds different. Laryngitis can be temporary (acute) or long-term (chronic). Most cases of acute laryngitis improve with time. Chronic laryngitis is laryngitis that lasts for more than 3 weeks. What are the causes? Acute laryngitis may be caused by: A viral infection. Lots of talking, yelling, or singing. This is also called vocal strain. A bacterial infection. Chronic laryngitis may be caused by: Vocal strain or an injury to the vocal cords. Acid reflux (gastroesophageal reflux disease, or GERD). Allergies, a sinus infection, or postnasal drip. Smoking. Excessive alcohol use. Breathing in chemicals or dust. Growths on the vocal cords. What increases the risk? The following factors may make you more likely to develop this condition: Smoking. Alcohol abuse. Having allergies. Chronic irritants in the workplace, such as toxic fumes. What are the signs or symptoms? Symptoms of this condition may include: Low, hoarse voice. Loss of voice. Dry cough. Sore or dry throat. Stuffy or congested nose. How is this diagnosed? This condition may be diagnosed based on: Your symptoms and a physical exam. Throat culture. Blood test. A procedure in which your health care provider looks at your vocal cords with a mirror or viewing tube (laryngoscopy). How is this treated? Treatment for laryngitis depends on what is causing it. Usually, treatment involves resting your voice and using medicines to soothe your throat. If your laryngitis is caused by a bacterial infection, you may need to take antibiotic medicine. If your laryngitis is caused by a growth, you may need to have a procedure to remove it. Follow these instructions at home: Medicines Take dtnt-jtw-nvqurwp and prescription medicines only as told by your health care provider. If you were prescribed an antibiotic medicine, take it as told by your health care provider. Do not stop taking the antibiotic even if you start to feel better. Use throat lozenges or sprays to soothe your throat as told by your health care provider. General instructions Talk as little as possible. To do this: ?Write instead of talking. Do this until your voice is back to normal. ?Avoid whispering, which can cause vocal strain. Gargle with a mixture of salt and water 3 4 times a day or as needed. To make salt water, completely dissolve 1 tsp (3 6 g) of salt in 1 cup (237 mL) of warm water. Drink enough fluid to keep your urine pale yellow. Breathe in moist air. Use a humidifier if you live in a dry climate. Do not use any products that contain nicotine or tobacco. These products include cigarettes, chewing tobacco, and vaping devices, such as e-cigarettes. If you need help quitting, ask your health care provider. Contact a health care provider if: You have a fever. You have increasing pain. Your symptoms do not get better in 2 weeks. Get help right away if: You cough up blood. You have difficulty swallowing. You have trouble breathing. Summary Laryngitis is inflammation of the vocal cords that causes symptoms such as hoarseness or loss of voice. Laryngitis can be temporary or long-term. Treatment for laryngitis depends on the cause. It often involves resting your voice and using medicine to soothe your throat. Get help right away if you have difficulty swallowing or breathing or if you cough up blood. This information is not intended to replace advice given to you by your health care provider. Make sure you discuss any questions you have with your health care provider. Document Revised: 12/07/2021 Document Reviewed: 12/07/2021 [employer] Patient Education 2022 [employer]. Follow Up Care 09/01/2023 13:33:29 With:Antony LOOMIS MD, FAM Address: When: only if needed [facility] [place] 06-26-2023 Hospital Discharge instructions Patient Education 06/26/2023 12:22:56 Health Maintenance, Female Health Maintenance, Female Adopting a healthy lifestyle and getting preventive care are important in promoting health and wellness. Ask your health care provider about: The right schedule for you to have regular tests and exams. Things you can do on your own to prevent diseases and keep yourself healthy. What should I know about diet, weight, and exercise? Eat a healthy diet Eat a diet that includes plenty of vegetables, fruits, low-fat dairy products, and lean protein. Do not eat a lot of foods that are high in solid fats, added sugars, or sodium. Maintain a healthy weight Body mass index (BMI) is used to identify weight problems. It estimates body fat based on height and weight. Your health care provider can help determine your BMI and help you achieve or maintain a healthy weight. Get regular exercise Get regular exercise. This is one of the most important things you can do for your health. Most adults should: Exercise for at least 150 minutes each week. The exercise should increase your heart rate and make you sweat (moderate-intensity exercise). Do strengthening exercises at least twice a week. This is in addition to the moderate-intensity exercise. Spend less time sitting. Even light physical activity can be beneficial. Watch cholesterol and blood lipids Have your blood tested for lipids and cholesterol at 20 years of age, then have this test every 5 years. Have your cholesterol levels checked more often if: Your lipid or cholesterol levels are high. You are older than 40 years of age. You are at high risk for heart disease. What should I know about cancer screening? Depending on your health history and family history, you may need to have cancer screening at various ages. This may include screening for: Breast cancer. Cervical cancer. Colorectal cancer. Skin cancer. Lung cancer. What should I know about heart disease, diabetes, and high blood pressure? Blood pressure and heart disease High blood pressure causes heart disease and increases the risk of stroke. This is more likely to develop in people who have high blood pressure readings or are overweight. Have your blood pressure checked: ?Every 3 5 years if you are 18 39 years of age. ?Every year if you are 40 years old or older. Diabetes Have regular diabetes screenings. This checks your fasting blood sugar level. Have the screening done: Once every three years after age 40 if you are at a normal weight and have a low risk for diabetes. More often and at a younger age if you are overweight or have a high risk for diabetes. What should I know about preventing infection? Hepatitis B If you have a higher risk for hepatitis B, you should be screened for this virus. Talk with your health care provider to find out if you are at risk for hepatitis B infection. Hepatitis C Testing is recommended for: Everyone born from 1945 through 1965. Anyone with known risk factors for hepatitis C. Sexually transmitted infections (STIs) Get screened for STIs, including gonorrhea and chlamydia, if: ?You are sexually active and are younger than 24 years of age. ?You are older than 24 years of age and your health care provider tells you that you are at risk for this type of infection. ?Your sexual activity has changed since you were last screened, and you are at increased risk for chlamydia or gonorrhea. Ask your health care provider if you are at risk. Ask your health care provider about whether you are at high risk for HIV. Your health care provider may recommend a prescription medicine to help prevent HIV infection. If you choose to take medicine to prevent HIV, you should first get tested for HIV. You should then be tested every 3 months for as long as you are taking the medicine. If you are about to stop having your period (premenopausal) and you may become , seek counseling before you get . Take 400 to 800 micrograms (mcg) of folic acid every day if you become . Ask for control (contraception) if you want to prevent . Osteoporosis and menopause Osteoporosis is a disease in which the bones lose minerals and strength with aging. This can result in bone fractures. If you are 65 years old or older, or if you are at risk for osteoporosis and fractures, ask your health care provider if you should: Be screened for bone loss. Take a calcium or vitamin D supplement to lower your risk of fractures. Be given hormone replacement therapy (HRT) to treat symptoms of menopause. Follow these instructions at home: Alcohol use Do not drink alcohol if: ?Your health care provider tells you not to drink. ?You are , may be , or are planning to become . If you drink alcohol: ?Limit how much you have to: ?0 1 drink a day. ?Know how much alcohol is in your drink. In the [place] one drink equals one 12 oz bottle of beer (355 mL), one 5 oz glass of wine (148 mL), or one 1 oz glass of hard liquor (44 mL). Lifestyle Do not use any products that contain nicotine or tobacco. These products include cigarettes, chewing tobacco, and vaping devices, such as e-cigarettes. If you need help quitting, ask your health care provider. Do not use street drugs. Do not share needles. Ask your health care provider for help if you need support or information about quitting drugs. General instructions Schedule regular health, dental, and eye exams. Stay current with your vaccines. Tell your health care provider if: ?You often feel depressed. ?You have ever been abused or do not feel safe at home. Summary Adopting a healthy lifestyle and getting preventive care are important in promoting health and wellness. Follow your health care provider's instructions about healthy diet, exercising, and getting tested or screened for diseases. Follow your health care provider's instructions on monitoring your cholesterol and blood pressure. This information is not intended to replace advice given to you by your health care provider. Make sure you discuss any questions you have with your health care provider. Document Revised: 02/08/2022 Document Reviewed: 02/08/2022 [employer] Patient Education 2022 [employer]. Follow Up Care 05/03/2023 10:53:36 With:Antony LOOMIS MD, FAM Address: When:Within 1 Year(s) [facility] [place] 06-09-2023 Hospital Discharge instructions Patient Education 06/09/2023 13:01:43 BMI for Adults BMI for Adults What is BMI? Body mass index (BMI) is a number that is calculated from a person's weight and height. BMI can help estimate how much of a person's weight is composed of fat. BMI does not measure body fat directly. Rather, it is an alternative to procedures that directly measure body fat, which can be difficult and expensive. BMI can help identify people who may be at higher risk for certain medical problems. What are BMI measurements used for? BMI is used as a screening tool to identify possible weight problems. It helps determine whether a person is obese, overweight, a healthy weight, or underweight. BMI is useful for: Identifying a weight problem that may be related to a medical condition or may increase the risk for medical problems. Promoting changes, such as changes in diet and exercise, to help reach a healthy weight. BMI screening can be repeated to see if these changes are working. How is BMI calculated? BMI involves measuring your weight in relation to your height. Both height and weight are measured, and the BMI is calculated from those numbers. This can be done either in [place] ([place] or metric measurements. Note that charts and online BMI calculators are available to help you find your BMI quickly and easily without having to do these calculations yourself. To calculate your BMI in [place] measurements: 1.Measure your weight in pounds (lb). 2.Multiply the number of pounds by 703. For example, for a person who weighs 180 lb, multiply that number by 703, which equals 126,540. 3.Measure your height in inches. Then multiply that number by itself to get a measurement called inches squared. For example, for a person who is 70 inches tall, the inches squared measurement is 70 inches x 70 inches, which equals 4,900 inches squared. 4.Divide the total from step 2 (number of lb x 703) by the total from step 3 (inches squared): 126,540 4,900 = 25.8. This is your BMI. To calculate your BMI in metric measurements: 1.Measure your weight in kilograms (kg). 2.Measure your height in meters (m). Then multiply that number by itself to get a measurement called meters squared. For example, for a person who is 1.75 m tall, the meters squared measurement is 1.75 m x 1.75 m, which is equal to 3.1 meters squared. 3.Divide the number of kilograms (your weight) by the meters squared number. In this example: 70 3.1 = 22.6. This is your BMI. What do the results mean? BMI charts are used to identify whether you are underweight, normal weight, overweight, or obese. The following guidelines will be used: Underweight: BMI less than 18.5. Normal weight: BMI between 18.5 and 24.9. Overweight: BMI between 25 and 29.9. Obese: BMI of 30 or above. Keep these notes in mind: Weight includes both fat and muscle, so someone with a muscular build, such as an athlete, may have a BMI that is higher than 24.9. In cases like these, BMI is not an accurate measure of body fat. To determine if excess body fat is the cause of a BMI of 25 or higher, further assessments may need to be done by a health care provider. BMI is usually interpreted in the same way for men and women. Where to find more information For more information about BMI, including tools to quickly calculate your BMI, go to these websites: Centers for Disease Control and Prevention: www.cdc.gov [place] [employer]: www.heart.org National Heart, Lung, and Blood [place]: www.nhlbi.nih.gov Summary Body mass index (BMI) is a number that is calculated from a person's weight and height. BMI may help estimate how much of a person's weight is composed of fat. BMI can help identify those who may be at higher risk for certain medical problems. BMI can be measured using [place] measurements or metric measurements. BMI charts are used to identify whether you are underweight, normal weight, overweight, or obese. This information is not intended to replace advice given to you by your health care provider. Make sure you discuss any questions you have with your health care provider. Document Revised: 06/11/2020 Document Reviewed: 04/18/2020 [employer] Patient Education 2022 [employer]. 06/09/2023 13:01:37 Shoulder Sprain Shoulder Sprain A shoulder sprain is a partial or complete tear in one of the tough, fiber-like tissues (ligaments) in the shoulder. The ligaments in the shoulder help to hold the shoulder in place. What are the causes? This condition may be caused by: A fall. A hit to the shoulder. A twist of the arm. What increases the risk? You are more likely to develop this condition if you: Play sports. Have problems with balance or coordination. What are the signs or symptoms? Symptoms of this condition include: Pain when moving the shoulder. Limited ability to move the shoulder. Swelling and tenderness on top of the shoulder. Warmth in the shoulder. A change in the shape of the shoulder. Redness or bruising on the shoulder. How is this diagnosed? This condition is diagnosed with: A physical exam. During the exam, you may be asked to do simple exercises with your shoulder. Imaging tests such as X-rays, MRI, or a CT scan. These tests can show how severe the sprain is. How is this treated? This condition may be treated with: Rest. Pain medicine. Ice. A sling or brace. This is used to keep the arm still while the shoulder is healing. Physical therapy or rehabilitation exercises. These help to improve the range of motion and strength of the shoulder. Surgery (rare). Surgery may be needed if the sprain caused a joint to become unstable. Surgery may also be needed to reduce pain. Some people may develop ongoing shoulder pain or lose some range of motion in the shoulder. However, most people do not develop long-term problems. Follow these instructions at home: If you have a sling or brace: Wear the sling or brace as told by your health care provider. Remove it only as told by your health care provider. Loosen the sling or brace if your fingers tingle, become numb, or turn cold and blue. Keep the sling or brace clean. If the sling or brace is not waterproof: ?Do not let it get wet. ?Cover it with a watertight covering when you take a bath or shower. Activity Rest your shoulder. Move your arm only as much as told by your health care provider, but move your hand and fingers often to prevent stiffness and swelling. Return to your normal activities as told by your health care provider. Ask your health care provider what activities are safe for you. Ask your health care provider when it is safe for you to drive if you have a sling or brace on your shoulder. If you were shown how to do any exercises, do them as told by your health care provider. General instructions If directed, put ice on the affected area. ?Put ice in a plastic bag. ?Place a towel between your skin and the bag. ?Leave the ice on for 20 minutes, 2 3 times a day. Take gcbi-spn-upthzyf and prescription medicines only as told by your health care provider. Do not use any products that contain nicotine or tobacco, such as cigarettes, e-cigarettes, and chewing tobacco. These can delay healing. If you need help quitting, ask your health care provider. Keep all follow-up visits as told by your health care provider. This is important. Contact a health care provider if: Your pain gets worse. Your pain is not relieved with medicines. You have increased redness or swelling. Get help right away if: You have a fever. You cannot move your arm or shoulder. You develop severe numbness or tingling in your arm, hand, or fingers. Your arm, hand, or fingers feel cold and turn blue, white, or walsh. Summary A shoulder sprain is a partial or complete tear in one of the tough, fiber-like tissues (ligaments) in the shoulder. This condition may be caused by a fall, a hit to the shoulder, or a twist of the arm. Treatment usually includes rest, ice, and pain medicine as needed. If you have a sling or brace, wear it as told by your health care provider. Remove it only as told by your health care provider. This information is not intended to replace advice given to you by your health care provider. Make sure you discuss any questions you have with your health care provider. Document Revised: 06/09/2022 Document Reviewed: 06/09/2022 [employer] Patient Education 2022 [employer]. 06/09/2023 13:01:12 Cervical Sprain, [id number]-wa-[id number] Cervical Sprain A cervical sprain is also called a neck sprain. It is a stretch or tear in one or more ligaments in the neck. Ligaments are tissues that connect bones to each other. Neck sprains can be mild, bad, or very bad. A very bad sprain in the neck can cause the bones in the neck to be unstable. This can damage the spinal cord. It can also cause serious problems in the brain, spinal cord, and nerves (nervous system). Most neck sprains heal in 4 6 weeks. It can take more or less time depending on: What caused the injury. The amount of injury. What are the causes? Neck sprains may be caused by trauma, such as: An injury from an accident in a vehicle such as a car or boat. A fall. The head and neck being moved front to back or side to side all of a sudden (whiplash injury). Mild neck sprains may be caused by wear and tear over time. What increases the risk? The following factors may make you more likely to develop this condition: Taking part in activities that put you at high risk of hurting your neck. These include: ?Contact sports. ?Car racing. ?Gymnastics. ?Diving. Taking risks when driving or riding in a vehicle such as a car or boat. Arthritis caused by wear and tear of the joints in the spine. The neck not being very strong or flexible. Having had a neck injury in the past. Poor posture. Spending a lot of time in certain positions that put stress on the neck. This may be from sitting at a computer for a long time. What are the signs or symptoms? Symptoms of this condition include: Your neck, shoulders, or upper back feeling: ?Painful or sore. ?Stiff. ?Tender. ?Swollen. ?Hot, or like it is burning. Sudden tightening of neck muscles (spasms). Not being able to move the neck very much. Headache. Feeling dizzy. Feeling like you may vomit, or vomiting. Having a hand or arm that: ?Feels weak. ?Loses feeling (feels numb). ?Tingles. You may get symptoms right away after injury, or you may get them over a few days. In some cases, symptoms may go away with treatment and come back over time. How is this treated? This condition is treated by: Resting your neck. Icing the part of your neck that is hurt. Doing exercises to restore movement and strength to your neck (physical therapy). If there is no swelling, you may use heat therapy 2 3 days after the injury took place. If your injury is very bad, treatment may also include: Keeping your neck in place for a length of time. This may be done using: ?A neck collar. This supports your chin and the back of your head. ?A cervical traction device. This is a sling that holds up your head. The sling removes weight and pressure from your neck. It may also help to relieve pain. Medicines that help with: ?Pain. ?Irritation and swelling (inflammation). Medicines that help to relax your muscles (muscle relaxants). Surgery. This is rare. Follow these instructions at home: Medicines Take axfm-wsu-qgznonb and prescription medicines only as told by your doctor. Ask your doctor if the medicine prescribed to you: ?Requires you to avoid driving or using heavy machinery. ?Can cause trouble pooping (constipation). You may need to take these actions to prevent or treat trouble pooping: ?Drink enough fluid to keep your pee (urine) pale yellow. ?Take kejb-mod-octsfuz or prescription medicines. ?Eat foods that are high in fiber. These include beans, whole grains, and fresh fruits and vegetables. ?Limit foods that are high in fat and sugar. These include fried or sweet foods. If you have a neck collar: Wear it as told by your doctor. Do not take it off unless told. Ask your doctor before adjusting your collar. If you have long hair, keep it outside of the collar. Ask your doctor if you may take off the collar for cleaning and bathing. If you may take off the collar: ?Follow instructions about how to take it off safely. ?Clean it by hand with mild soap and water. Let it air-dry fully. ?If your collar has pads that you can take out: ?Take the pads out every 1 2 days. ?Wash them by hand with soap and water. ?Let the pads air-dry fully before you put them back in the collar. ?Tell your doctor if your skin under the collar has irritation or sores. Managing pain, stiffness, and swelling Use a cervical traction device, if told by your doctor. If told, put ice on the affected area. To do this: ?Put ice in a plastic bag. ?Place a towel between your skin and the bag. ?Leave the ice on for 20 minutes, 2 3 times a day. If told, put heat on the affected area. Do this before exercise or as often as told by your doctor. Use the heat source that your doctor recommends, such as a moist heat pack or a heating pad. ?Place a towel between your skin and the heat source. ?Leave the heat on for 20 30 minutes. ?Take the heat off if your skin turns bright red. This is very important if you cannot feel pain, heat, or cold. You may have a greater risk of getting burned. Activity Do not drive while wearing a neck collar. If you do not have a neck collar, ask if it is safe to drive while your neck heals. Do not lift anything that is heavier than 10 lb (4.5 kg), or the limit that you are told, until your doctor tells you that it is safe. Rest as told by your doctor. Do exercises as told by your doctor or physical therapist. Return to your normal activities as told by your doctor. Avoid positions and activities that make you feel worse. Ask your doctor what activities are safe for you. General instructions Do not use any products that contain nicotine or tobacco, such as cigarettes, e-cigarettes, and chewing tobacco. These can delay healing. If you need help quitting, ask your doctor. Keep all follow-up visits as told by your doctor or physical therapist. This is important. How is this prevented? To prevent a neck sprain from happening again: Practice good posture. Adjust your workstation to help you do this. Exercise regularly as told by your doctor or physical therapist. Avoid activities that are risky or may cause a neck sprain. Contact a doctor if: Your symptoms get worse. Your symptoms do not get better after 2 weeks of treatment. Your pain gets worse. Medicine does not help your pain. You have new symptoms that you cannot explain. Your neck collar gives you sores on your skin or bothers your skin. Get help right away if: You have very bad pain. You get any of the following in any part of your body: ?Loss of feeling. ?Tingling. ?Weakness. You cannot move a part of your body. You have neck pain and either of these: ?Very bad dizziness. ?A very bad headache. Summary A cervical sprain is also called a neck sprain. It is a stretch or tear in one or more ligaments in the neck. Ligaments are tissues that connect bones. Neck sprains may be caused by trauma, such as an injury or a fall. You may get symptoms right away after injury, or you may get them over a few days. Neck sprains may be treated with rest, heat, ice, medicines, exercise, and surgery. This information is not intended to replace advice given to you by your health care provider. Make sure you discuss any questions you have with your health care provider. Document Revised: 05/28/2020 Document Reviewed: 05/28/2020 [employer] Patient Education 2022 [employer]. Follow Up Care 06/09/2023 10:55:41 With:ROSS LUIS, WENDIE Hardy Address: [address] [place] [id number] When: Unknown [facility] 11-24-2022 Hospital Discharge instructions Patient Education 11/24/2022 12:47:18 Upper Endoscopy, Adult, Care After Upper Endoscopy, Adult, Care After This sheet gives you information about how to care for yourself after your procedure. Your health care provider may also give you more specific instructions. If you have problems or questions, contact your health care provider. What can I expect after the procedure? After the procedure, it is common to have: A sore throat. Mild stomach pain or discomfort. Bloating. Nausea. Follow these instructions at home: Follow instructions from your health care provider about what to eat or drink after your procedure. Return to your normal activities as told by your health care provider. Ask your health care provider what activities are safe for you. Take debx-sdu-irdojgn and prescription medicines only as told by your health care provider. Do not drive for 24 hours if you were given a sedative during your procedure. Keep all follow-up visits as told by your health care provider. This is important. Contact a health care provider if you have: A sore throat that lasts longer than one day. Trouble swallowing. Get help right away if: You vomit blood or your vomit looks like coffee grounds. You have: ?A fever. ?Bloody, black, or tarry stools. ?A severe sore throat or you cannot swallow. ?Difficulty breathing. ?Severe pain in your chest or abdomen. Summary After the procedure, it is common to have a sore throat, mild stomach discomfort, bloating, and nausea. Do not drive for 24 hours if you were given a sedative during the procedure. Follow instructions from your health care provider about what to eat or drink after your procedure. Return to your normal activities as told by your health care provider. This information is not intended to replace advice given to you by your health care provider. Make sure you discuss any questions you have with your health care provider. Document Released: 03/20/2013 Document Revised: 03/13/2019 Document Reviewed: 02/19/2019 [employer] Patient Education 2020 [employer]. 11/24/2022 12:47:18 Esophageal Dilatation Esophageal Dilatation Esophageal dilatation, also called esophageal dilation, is a procedure to widen or open (dilate) a blocked or narrowed part of the esophagus. The esophagus is the part of the body that moves food and liquid from the mouth to the stomach. You may need this procedure if: You have a buildup of scar tissue in your esophagus that makes it difficult, painful, or impossible to swallow. This can be caused by gastroesophageal reflux disease (GERD). You have cancer of the esophagus. There is a problem with how food moves through your esophagus. In some cases, you may need this procedure repeated at a later time to dilate the esophagus gradually. Tell a health care provider about: Any allergies you have. All medicines you are taking, including vitamins, herbs, eye drops, creams, and ccpe-lbe-okotmxy medicines. Any problems you or family members have had with anesthetic medicines. Any blood disorders you have. Any surgeries you have had. Any medical conditions you have. Any antibiotic medicines you are required to take before dental procedures. Whether you are or may be . What are the risks? Generally, this is a safe procedure. However, problems may occur, including: Bleeding due to a tear in the lining of the esophagus. A hole (perforation) in the esophagus. What happens before the procedure? Follow instructions from your health care provider about eating or drinking restrictions. Ask your health care provider about changing or stopping your regular medicines. This is especially important if you are taking diabetes medicines or blood thinners. Plan to have someone take you home from the hospital or clinic. Plan to have a responsible adult care for you for at least 24 hours after you leave the hospital or clinic. This is important. What happens during the procedure? You may be given a medicine to help you relax (sedative). A numbing medicine may be sprayed into the back of your throat, or you may gargle the medicine. Your health care provider may perform the dilatation using various surgical instruments, such as: ?Simple dilators. This instrument is carefully placed in the esophagus to stretch it. ?Guided wire bougies. This involves using an endoscope to insert a wire into the esophagus. A dilator is passed over this wire to enlarge the esophagus. Then the wire is removed. ?Balloon dilators. An endoscope with a small balloon at the end is inserted into the esophagus. The balloon is inflated to stretch the esophagus and open it up. The procedure may vary among health care providers and hospitals. What happens after the procedure? Your blood pressure, heart rate, breathing rate, and blood oxygen level will be monitored until the medicines you were given have worn off. Your throat may feel slightly sore and numb. This will improve slowly over time. You will not be allowed to eat or drink until your throat is no longer numb. When you are able to drink, urinate, and sit on the edge of the bed without nausea or dizziness, you may be able to return home. Follow these instructions at home: Take nssh-cqh-aqcznyi and prescription medicines only as told by your health care provider. Do not drive for 24 hours if you were given a sedative during your procedure. You should have a responsible adult with you for 24 hours after the procedure. Follow instructions from your health care provider about any eating or drinking restrictions. Do not use any products that contain nicotine or tobacco, such as cigarettes and e-cigarettes. If you need help quitting, ask your health care provider. Keep all follow-up visits as told by your health care provider. This is important. Get help right away if you: Have a fever. Have chest pain. Have pain that is not relieved by medication. Have trouble breathing. Have trouble swallowing. Vomit blood. Summary Esophageal dilatation, also called esophageal dilation, is a procedure to widen or open (dilate) a blocked or narrowed part of the esophagus. Plan to have someone take you home from the hospital or clinic. For this procedure, a numbing medicine may be sprayed into the back of your throat, or you may gargle the medicine. Do not drive for 24 hours if you were given a sedative during your procedure. This information is not intended to replace advice given to you by your health care provider. Make sure you discuss any questions you have with your health care provider. Document Released: 11/10/2006 Document Revised: 09/01/2018 Document Reviewed: 07/25/2018 [employer] Patient Education 2020 [employer]. 11/24/2022 12:47:18 Hiatal Hernia Hiatal Hernia A hiatal hernia occurs when part of the stomach slides above the muscle that separates the abdomen from the chest (diaphragm). A person can be born with a hiatal hernia (congenital), or it may develop over time. In almost all cases of hiatal hernia, only the top part of the stomach pushes through the diaphragm. Many people have a hiatal hernia with no symptoms. The larger the hernia, the more likely it is that you will have symptoms. In some cases, a hiatal hernia allows stomach acid to flow back into the tube that carries food from your mouth to your stomach (esophagus). This may cause heartburn symptoms. Severe heartburn symptoms may mean that you have developed a condition called gastroesophageal reflux disease (GERD). What are the causes? This condition is caused by a weakness in the opening (hiatus) where the esophagus passes through the diaphragm to attach to the upper part of the stomach. A person may be born with a weakness in the hiatus, or a weakness can develop over time. What increases the risk? This condition is more likely to develop in: Older people. Age is a major risk factor for a hiatal hernia, especially if you are over the age of 50. women. People who are overweight. People who have frequent constipation. What are the signs or symptoms? Symptoms of this condition usually develop in the form of GERD symptoms. Symptoms include: Heartburn. Belching. Indigestion. Trouble swallowing. Coughing or wheezing. Sore throat. Hoarseness. Chest pain. Nausea and vomiting. How is this diagnosed? This condition may be diagnosed during testing for GERD. Tests that may be done include: X-rays of your stomach or chest. An upper gastrointestinal (GI) series. This is an X-ray exam of your GI tract that is taken after you swallow a chalky liquid that shows up clearly on the X-ray. Endoscopy. This is a procedure to look into your stomach using a thin, flexible tube that has a tiny camera and light on the end of it. How is this treated? This condition may be treated by: Dietary and lifestyle changes to help reduce GERD symptoms. Medicines. These may include: ?Qgpp-dsn-hjgwgke antacids. ?Medicines that make your stomach empty more quickly. ?Medicines that block the production of stomach acid (H2 blockers). ?Stronger medicines to reduce stomach acid (proton pump inhibitors). Surgery to repair the hernia, if other treatments are not helping. If you have no symptoms, you may not need treatment. Follow these instructions at home: Lifestyle and activity Do not use any products that contain nicotine or tobacco, such as cigarettes and e-cigarettes. If you need help quitting, ask your health care provider. Try to achieve and maintain a healthy body weight. Avoid putting pressure on your abdomen. Anything that puts pressure on your abdomen increases the amount of acid that may be pushed up into your esophagus. ?Avoid bending over, especially after eating. ?Raise the head of your bed by putting blocks under the legs. This keeps your head and esophagus higher than your stomach. ?Do not wear tight clothing around your chest or stomach. ?Try not to strain when having a bowel movement, when urinating, or when lifting heavy objects. Eating and drinking Avoid foods that can worsen GERD symptoms. These may include: ?Fatty foods, like fried foods. ?[place] fruits, like oranges or lemon. ?Other foods and drinks that contain acid, like orange juice or tomatoes. ?Spicy food. ?Chocolate. Eat frequent small meals instead of three large meals a day. This helps prevent your stomach from getting too full. ?Eat slowly. ?Do not lie down right after eating. ?Do not eat 1 2 hours before bed. Do not drink beverages with caffeine. These include cola, coffee, cocoa, and tea. Do not drink alcohol. General instructions Take ckbe-tbn-yksdqrp and prescription medicines only as told by your health care provider. Keep all follow-up visits as told by your health care provider. This is important. Contact a health care provider if: Your symptoms are not controlled with medicines or lifestyle changes. You are having trouble swallowing. You have coughing or wheezing that will not go away. Get help right away if: Your pain is getting worse. Your pain spreads to your arms, neck, jaw, teeth, or back. You have shortness of breath. You sweat for no reason. You feel sick to your stomach (nauseous) or you vomit. You vomit blood. You have bright red blood in your stools. You have black, tarry stools. This information is not intended to replace advice given to you by your health care provider. Make sure you discuss any questions you have with your health care provider. Document Released: 12/09/2004 Document Revised: 09/01/2018 Document Reviewed: 04/24/2018 [employer] Patient Education 2020 [employer]. Follow Up Care 09/21/2022 14:14:15 With:Marilee OCHOA Address: [address] [place] [address] [address] [place] [id number] Business (1) When: Unknown Comments:office will call for follow up [facility] 11-24-2022 Evaluation + Plan note Extrac fawn from: Title:ANES Post-operative Note Author:Bong Somers MD Date:11/24/22 Plan Transfer/Discharge: Transfer/Discharge Discharge when meets criteria ( From PACU to Ambulatory Surgery Unit, and To home ). Extracted from: Title:ANES Pre-operative Note Author:Michela Somers MD Date:11/24/22 Plan [place] [employer] (ASA) physical status classification: Class II. Anesthetic Preoperative Plan: Anesthesia Monitored anethesia care. Future Appointments Appointment Date:12/10/2022 09:00:00 AM Scheduled Provider:Jamal PIERRE, JEFFRY, Renee CHAIREZ Location:[facility] Appointment Type:Nutrition Education - GI Disorders 60 ( Appointment Date:12/16/2022 12:00:00 PM Scheduled Provider:Marilee OCHOA MD Location:[facility] App[facility]ment Type:[facility] Follow Up [facility]12-07-2022 Hospital Discharge instructions Patient Education 09/08/2022 15:31:25 [facility] [place] NSAIDS-Nonsteroidal Anti-Inflammatory Medications (CUSTOM) Nonsteroidal Anti-Inflammatory Medications (NSAIDS) Non-steroidal anti-inflammatory drugs (NSAIDs) are a medication widely used to treat a wide range of conditions. Common acute (short-term) conditions that can be treated with NSAIDs include: headaches painful periods toothache soft tissue injuries such as sprains and strains reduce inflammation (redness and swelling) infections, such as the common cold or the flu (NSAIDs do not treat the underlying infections, but can help to relieve symptoms; especially fever) Common chronic (long-term) conditions that can be treated with NSAIDs include: most types of arthritis, including rheumatoid arthritis and osteoarthritis back pain neck pain Some NSAIDs are available ljhw-hst-mumhewy, without the need for a prescription. However, because a medication is available over the counter it does not mean it is safe or suitablefor everyone. Again, it is important to read the patient information leaflet that comes with your medication. NSAID drugs include: Brand: Generic: Bufferin; Diana Aspirin; ASA Celebrex Celecoxib Zipsor; Cambia Diclofenac Motrin; Advil Ibuprofen Indosin Indometacin Actron; Orudis Ketoprofen Toradol Ketorolac Mobic Meloxicam Ponstel Mefenamic Acid Aleve; Naprosyn Naproxen Side effects: Most people take NSAIDs without having any side effects. Short term use is unlikely to cause significant problems, especially in younger patients. If side effects do occur they usually affect the stomach and can include: Indigestion Nausea Stomach pain Stomach ulcer Bleeding from the stomach and intestines Other side effects: Ringing in the ears itching Poor control of asthma Headache Allergic reactions NSAIDs are also not usually recommended for people who: are or have a history of kidney disease have a history of liver disease have active stomach ulcers (a sore in the lining of the stomach), or are at risk of developing stomach ulcers How to take NSAIDS: NSAIDS should be taken in the pill form or given by injection. If you are taking the pill form, it is best to take with food to avoid an upset stomach. IF a dose is missed: Some of these medications are taken as needed. Do not take more of your NSAID than your doctor has prescribed. Follow the mugx-vty-qnaouea labels and do not exceed the recommended dosage. If you take an NSAID daily, take the missed dose of your medication as soon as you remember it. If it is too close to the time for your next dose, skip the missed dose and go back to taking this medication at your normal time. Do not take two doses of this medication at the same time or take any extra doses of this medication. If any questions regarding your medications, contact your physician or pharmacist. 09/08/2022 15:31:25 Hiatal Hernia Hiatal Hernia A hiatal hernia occurs when part of the stomach slides above the muscle that separates the abdomen from the chest (diaphragm). A person can be born with a hiatal hernia (congenital), or it may develop over time. In almost all cases of hiatal hernia, only the top part of the stomach pushes through the diaphragm. Many people have a hiatal hernia with no symptoms. The larger the hernia, the more likely it is that you will have symptoms. In some cases, a hiatal hernia allows stomach acid to flow back into the tube that carries food from your mouth to your stomach (esophagus). This may cause heartburn symptoms. Severe heartburn symptoms may mean that you have developed a condition called gastroesophageal reflux disease (GERD). What are the causes? This condition is caused by a weakness in the opening (hiatus) where the esophagus passes through the diaphragm to attach to the upper part of the stomach. A person may be born with a weakness in thehiatus, or a weakness can develop over time. What increases the risk? This condition is more likely to develop in: Older people. Age is a major risk factor for a hiatal hernia, especially if you are over the age of50. women. People who are overweight. People who have frequent constipation. What are the signs or symptoms? Symptoms of this condition usually develop in the form of GERD symptoms. Symptoms include: Heartburn. Belching. Indigestion. Trouble swallowing. Coughing or wheezing. Sore throat. Hoarseness. Chest pain. Nausea and vomiting. How is this diagnosed? This condition may be diagnosed during testing for GERD. Tests that may be done include: X-rays of your stomach or chest. An upper gastrointestinal (GI) series. This is an X-ray exam of your GI tract that is taken after you swallow a chalky liquid that shows up clearly on the X-ray. Endoscopy. This is a procedure to look into your stomach using a thin, flexible tube that has a tiny camera and light on the end of it. How is this treated? This condition may be treated by: Dietary and lifestyle changes to help reduce GERD symptoms. Medicines. These may include: ?Fuph-hgq-ktjddkg antacids. ?Medicines that make your stomach empty more quickly. ?Medicines that block the production of stomach acid (H2 blockers). ?Stronger medicines to reduce stomach acid (proton pump inhibitors). Surgery to repair the hernia, if other treatments are not helping. If you have no symptoms, you may not need treatment. Follow these instructions at home: Lifestyle and activity Do not use any products that contain nicotine or tobacco, such as cigarettes and e-cigarettes. If you need help quitting, ask your health care provider. Try to achieve and maintain a healthy body weight. Avoid putting pressure on your abdomen. Anything that puts pressure on your abdomen increases the amount of acid that may be pushed up into your esophagus. ?Avoid bending over, especially after eating. ?Raise the head of your bed by putting blocks under the legs. This keeps your head and esophagus higher than your stomach. ?Do not wear tight clothing around your chest or stomach. ?Try not to strain when having a bowel movement, when urinating, or when lifting heavy objects. Eating and drinking Avoid foods that can worsen GERD symptoms. These may include: ?Fatty foods, like fried foods. ?[place] fruits, like oranges or lemon. ?Other foods and drinks that contain acid, like orange juice or tomatoes. ?Spicy food. ?Chocolate. Eat frequent small meals instead of three large meals a day. This helps prevent your stomach from getting too full. ?Eat slowly. ?Do not lie down right after eating. ?Do not eat 1 2 hours before bed. Do not drink beverages with caffeine. These include cola, coffee, cocoa, and tea. Do not drink alcohol. General instructions Take jbvd-uxm-wichljz and prescription medicines only as told by your health care provider. Keep all follow-up visits as told by your health care provider. This is important. Contact a health care provider if: Your symptoms are not controlled with medicines or lifestyle changes. You are having trouble swallowing. You have coughing or wheezing that will not go away. Get help right away if: Your pain is getting worse. Your pain spreads to your arms, neck, jaw, teeth, or back. You have shortness of breath. You sweat for no reason. You feel sick to your stomach (nauseous) or you vomit. You vomit blood. You have bright red blood in your stools. You have black, tarry stools. This information is not intended to replace advice given to you by your health care provider. Make sure you discuss any questions you have with your health care provider. Document Released: 12/09/2004 Document Revised: 09/01/2018 Document Reviewed: 04/24/2018 [employer] Patient Education 2020 [employer]. 09/08/2022 15:31:25 Esophageal Stricture Esophageal Stricture Esophageal stricture is a narrowing (stricture) of the esophagus. The esophagus is the part of the body that moves food and liquid from your mouth to your stomach. The esophagus can become narrow because of disease or damage to the area. This condition can make swallowing difficult, painful, or even impossible. It also makes choking more likely. What are the causes? The most common cause of this condition is gastroesophageal reflux disease (GERD). Normally, food travels down the esophagus and stays in the stomach to be digested. In GERD, food and stomach acid move back up into the esophagus. Over time, this causes scar tissue and leads to narrowing. Other causes of esophageal stricture include: Scarring from swallowing (ingesting) a harmful substance. Damage from medical instruments used in the esophagus. Radiation therapy. Cancer. Inflammation of the esophagus. What increases the risk? You are more likely to develop an esophageal stricture if you have GERD or esophageal cancer. What are the signs or symptoms? Symptoms of this condition include: Difficulty swallowing. Pain when swallowing. Burning pain or discomfort in the throat or chest (heartburn). Vomiting or spitting up (regurgitating) food or liquids. Unexplained weight loss. How is this diagnosed? This condition may be diagnosed based on: Your symptoms and a physical exam. Tests, such as: ?Upper endoscopy. Your health care provider will insert a flexible tube with a tiny camera on it (endoscope) into your esophagus to check for a stricture. A tissue sample (biopsy) may also be taken to be examined under a microscope. ?Esophageal pH monitoring. This test involves using a tube to collect acid in the esophagus to determine how much stomach acid is entering the esophagus. ?Barium swallow test. For this test, you will drink a chalky liquid (barium solution) that coats the lining of the esophagus. Then you will have an X-ray taken. The barium solution helps to show if there is a stricture. How is this treated? Treatment for esophageal stricture depends on what is causing your condition and how severe your condition is. Treatment options include: Esophageal dilation. In this procedure, a health care provider inserts an endoscope or a tool called a dilator into the esophagus to gently stretch it and make the opening wider. Stents. In some cases, a health care provider may place a small device (stent) in the esophagus to keep it open. Acid-blocking medicines. Taking these can help you manage GERD symptoms after an esophageal stricture. Controlling your GERD symptoms or being free of them can prevent the stricture from returning. Follow these instructions at home: Eating and drinking Follow instructions from your health care provider about any diet changes. Cut your food into small pieces, chew well, and eat slowly Try to eat soft food that is easier to swallow. Eat and drink only when you are sitting upright. Do not drink alcohol. If you need help quitting, ask your health care provider. Do not eat during the 3 hours before bedtime. Do not overeat at meals. Do not eat foods that can make reflux worse. These include: ?Fatty foods, such as red meat and processed foods. ?Spicy foods. ?Soda. ?Tomato products. ?Chocolate. General instructions Take nltc-ixn-qpskenq and prescription medicines only as told by your health care provider. Do not use any products that contain nicotine or tobacco, such as cigarettes and e-cigarettes. If you need help quitting, ask your health care provider. Lose weight if you are overweight. Wear loose, comfortable clothing. When lying in bed, raise (elevate) your head with pillows. This will help to prevent your stomach contents from backing up into your esophagus while you sleep. Keep all follow-up visits as told by your health care provider. This is important. Contact a health care provider if: You have problems eating or swallowing. You regurgitate food and liquid. Your symptoms do not improve with treatment. Get help right away if: You can no longer keep down any food, drinks, or your saliva. Summary Esophageal stricture is a narrowing of the part of the body that moves food and liquid from your mouth to your stomach (esophagus). The esophagus can become narrow because of disease or damage to the area. This can make swallowing difficult, painful, or even impossible. Treatment for esophageal stricture depends on what is causing your condition and how severe your condition is. In some cases, procedures may be done to make the opening of the esophagus wider or to place a stent in the esophagus to keep it open. Do not drink alcohol, overeat at meals, or eat foods that can make reflux worse. This information is not intended to replace advice given to you by your health care provider. Make sure you discuss any questions you have with your health care provider. Document Released: 05/30/2007 Document Revised: 12/15/2018 Document Reviewed: 05/26/2018 [employer] Patient Education 2020 [employer]. 09/08/2022 15:31:25 Endoscopy, Care After Procedure [facility] [place] Endoscopy Care After Procedure Please read the instructions outlined below and refer to this sheet in the next few weeks. These discharge instructions provide you with general information on [facility] Your doctor may also give you specific instructions. While your treatment has been planned according to the most current medical practices available, unavoidable complications occasionally occur. If you have any problems or questions after discharge, please call your doctor. ACTIVITY You may resume your regular activity but move at a slower pace for the next 24 hours. Take frequent rest periods for the next 24 hours. Walking will help expel (get rid of) the air and reduce the bloated feeling in your abdomen. No driving for 24 hours (because of the anesthesia (medicine) used during the test). You may shower. Do not sign any important legal documents or operate any machinery for 24 hours (because of the anesthesia used during the test). NUTRITION Drink plenty of fluids. You may resume your normal diet. Begin with a light meal and progress to your normal diet. Avoid alcoholic beverages for 24 hours or as instructed by your caregiver. MEDICATIONS You may resume your normal medications unless your caregiver tells you otherwise. WHAT YOU CAN EXPECT TODAY You may experience abdominal discomfort such as a feeling of fullness or gas pains. FOLLOW-UP Your doctor will discuss the results of your test with you. SEEK IMMEDIATE MEDICAL ATTENTION IF ANY OF THE FOLLOWING OCCUR: Excessive nausea (feeling sick to your stomach) and/or vomiting. Severe abdominal pain and distention (swelling). Trouble swallowing. Temperature over 100 F (37.8 C). Rectal bleeding or vomiting of blood. Document Released: 05/03/2005 Document Re-Released: 03/13/2007 ExitCare Patient Information 2009 [employer]. Follow Up Care 08/04/2022 14:23:56 With:Marilee OCHOA Address: [address] [place] [address] Business (1) When: Unknown Comments:Call for any problems. Office will call for follow up appt. [facility]12-07-2022 Evaluation + Plan noteExtracted from: Title:ANES POSTOP Author:Juma Lara DO Date: 09/08/22 Plan Transfer/ Discharge: Patient can be discharged from PACU when criteria met. Condition good. Extracted from: Title:ANES PREOP ENDO NOTE Author:Chris Lara DO Date:09/08/22 Plan [place] [employer] Anesthesiologists (ASA) physical status classification: Class II. Anesthetic Preoperative Plan Anesthesia: Monitored anesthesia care and general anesthesia possible. Anesthetic plan, risks, benefits, and alternatives discussed with the patient and/or family. Pt. and/or family present and agree to proceed as planned.. Risks discussed including heart, lung, nerve damage. Risks of bleeding, dental injury, hospitalization, and general injury discussed. . Future Appointments Appointment Date:11/18/2022 12:00:00 PM Scheduled Provider:Marilee OCHOA MD Location[place] [place] [facility] App[facility]ment Type:[facility] Follow Up [facility]11-02-2022 Hospital Discharge instructions Patient Education 08/04/2022 13:50:13 Dysphagia Dysphagia Dysphagia is trouble swallowing. This condition occurs when solids and liquids stick in a person's throat on the way down to the stomach, or when food takes longer to get to the stomach than usual. You may have problems swallowing food, liquids, or both. You may also have pain while trying to swallow. It may take you more time and effort to swallow something. What are the causes? This condition may be caused by: Muscle problems. They may make it difficult for you to move food and liquids through the esophagus,which is the tube that connects your mouth to your stomach. Blockages. You may have ulcers, scar tissue, or inflammation that blocks the normal passage of foodand liquids. Causes of these problems include: ?Acid reflux from your stomach into your esophagus (gastroesophageal reflux). ?Infections. ?Radiation treatment for cancer. ?Medicines taken without enough fluids to wash them down into your stomach. Stroke. This can affect the nerves and make it difficult to swallow. Nerve problems. These prevent signals from being sent to the muscles of your esophagus to squeeze (contract) and move what you swallow down to your stomach. Globus pharyngeus. This is a common problem that involves a feeling like something is stuck in yourthroat or a sense of trouble with swallowing, even though nothing is wrong with the swallowing passages. Certain conditions, such as cerebral palsy or Parkinson's disease. What are the signs or symptoms? Common symptoms of this condition include: A feeling that solids or liquids are stuck in your throat on the way down to the stomach. Pain while swallowing. Coughing or gagging while trying to swallow. Other symptoms include: Food moving back from your stomach to your mouth (regurgitation). Noises coming from your throat. Chest discomfort with swallowing. A feeling of fullness when swallowing. Drooling, especially when the throat is blocked. Heartburn. How is this diagnosed? This condition may be diagnosed by: Barium X-ray. In this test, you will swallow a white liquid that sticks to the inside of your esophagus. X-ray images are then taken. Endoscopy. In this test, a flexible telescope is inserted down your throat to look at your esophagus and your stomach. CT scans and an MRI. How is this treated? Treatment for dysphagia depends on the cause of this condition, such as: If the dysphagia is caused by acid reflux or infection, medicines may be used. They may include antibiotics and heartburn medicines. If the dysphagia is caused by problems with the muscles, swallowing therapy may be used to help youstrengthen your swallowing muscles. You may have to do specific exercises to strengthen the musclesor stretch them. If the dysphagia is caused by a blockage or mass, procedures to remove the blockage may be done. You may need surgery and a feeding tube. You may need to make diet changes. Ask your health care provider for specific instructions. Follow these instructions at home: Medicines Take skww-ebx-vbabjav and prescription medicines only as told by your health care provider. If you were prescribed an antibiotic medicine, take it as told by your health care provider. Do notstop taking the antibiotic even if you start to feel better. Eating and drinking Follow any diet changes as told by your health care provider. Work with a diet and public health nutritionist (dietitian) to create an eating plan that will help you get the nutrients you need in order to stay healthy. Eat soft foods that are easier to swallow. Cut your food into small pieces and eat slowly. Take small bites. Eat and drink only when you are sitting upright. Do not drink alcohol or caffeine. If you need help quitting, ask your health care provider. General instructions Check your weight every day to make sure you are not losing weight. Do not use any products that contain nicotine or tobacco, such as cigarettes, e- cigarettes, and chewing tobacco. If you need help quitting, ask your health care provider. Keep all follow-up visits as told by your health care provider. This is important. Contact a health care provider if you: Lose weight because you cannot swallow. Cough when you drink liquids. Cough up partially digested food. Get help right away if you: Cannot swallow your saliva. Have shortness of breath, a fever, or both. Have a hoarse voice and also have trouble swallowing. Summary Dysphagia is trouble swallowing. This condition occurs when solids and liquids stick in a person's throat on the way down to the stomach. You may cough or gag while trying to swallow. Dysphagia has many possible causes. Treatment for dysphagia depends on the cause of the condition. Keep all follow-up visits as told by your health care provider. This is important. This information is not intended to replace advice given to you by your health care provider. Make sure you discuss any questions you have with your health care provider. Document Released: 09/16/2001 Document Revised: 02/13/2020 Document Reviewed: 02/13/2020 [employer] Patient Education 2020 [employer]. Follow Up Care 08/04/2022 10:16:30 With:Juliana Liu CNP Address: When:1 to 2 weeks [facility] 11-02-2022 Hospital Discharge instructions Patient Education 08/03/2022 23:01:36 Esophageal Dilatation Esophageal Dilatation Esophageal dilatation, also called esophageal dilation, is a procedure to widen or open (dilate) a blocked or narrowed part of the esophagus. The esophagus is the part of the body that moves food andliquid from the mouth to the stomach. You may need this procedure if: You have a buildup of scar tissue in your esophagus that makes it difficult, painful, or impossibleto swallow. This can be caused by gastroesophageal reflux disease (GERD). You have cancer of the esophagus. There is a problem with how food moves through your esophagus. In some cases, you may need this procedure repeated at a later time to dilate the esophagus gradually. Tell a health care provider about: Any allergies you have. All medicines you are taking, including vitamins, herbs, eye drops, creams, and ozmb-lbc-hoznwov medicines. Any problems you or family members have had with anesthetic medicines. Any blood disorders you have. Any surgeries you have had. Any medical conditions you have. Any antibiotic medicines you are required to take before dental procedures. Whether you are or may be . What are the risks? Generally, this is a safe procedure. However, problems may occur, including: Bleeding due to a tear in the lining of the esophagus. A hole (perforation) in the esophagus. What happens before the procedure? Follow instructions from your health care provider about eating or drinking restrictions. Ask your health care provider about changing or stopping your regular medicines. This is especiallyimportant if you are taking diabetes medicines or blood thinners. Plan to have someone take you home from the hospital or clinic. Plan to have a responsible adult care for you for at least 24 hours after you leave the hospital orclinic. This is important. What happens during the procedure? You may be given a medicine to help you relax (sedative). A numbing medicine may be sprayed into the back of your throat, or you may gargle the medicine. Your health care provider may perform the dilatation using various surgical instruments, such as: ?Simple dilators. This instrument is carefully placed in the esophagus to stretch it. ?Guided wire bougies. This involves using an endoscope to insert a wire into the esophagus. A dilator is passed over this wire to enlarge the esophagus. Then the wire is removed. ?Balloon dilators. An endoscope with a small balloon at the end is inserted into the esophagus. Theballoon is inflated to stretch the esophagus and open it up. The procedure may vary among health care providers and hospitals. What happens after the procedure? Your blood pressure, heart rate, breathing rate, and blood oxygen level will be monitored until themedicines you were given have worn off. Your throat may feel slightly sore and numb. This will improve slowly over time. You will not be allowed to eat or drink until your throat is no longer numb. When you are able to drink, urinate, and sit on the edge of the bed without nausea or dizziness, you may be able to return home. Follow these instructions at home: Take qeaq-ixz-vsjzpwv and prescription medicines only as told by your health care provider. Do not drive for 24 hours if you were given a sedative during your procedure. You should have a responsible adult with you for 24 hours after the procedure. Follow instructions from your health care provider about any eating or drinking restrictions. Do not use any products that contain nicotine or tobacco, such as cigarettes and e-cigarettes. If you need help quitting, ask your health care provider. Keep all follow-up visits as told by your health care provider. This is important. Get help right away if you: Have a fever. Have chest pain. Have pain that is not relieved by medication. Have trouble breathing. Have trouble swallowing. Vomit blood. Summary Esophageal dilatation, also called esophageal dilation, is a procedure to widen or open (dilate) a blocked or narrowed part of the esophagus. Plan to have someone take you home from the hospital or clinic. For this procedure, a numbing medicine may be sprayed into the back of your throat, or you may gargle the medicine. Do not drive for 24 hours if you were given a sedative during your procedure. This information is not intended to replace advice given to you by your health care provider. Make sure you discuss any questions you have with your health care provider. Document Released: 11/10/2006 Document Revised: 09/01/2018 Document Reviewed: 07/25/2018 [employer] Patient Education 2020 [employer]. Follow Up Care 08/03/2022 20:59:47 With:Marilee OCHOA Address: [address] [place] [address] Business (1) When:08/06/2022 With:Antony LOOMIS Address: [address] [place] [address] Business (1) When:Within 3 Day(s) [facility]10-03-2022 Hospital Discharge instructions Patient Education 07/05/2022 11:15:28 Exercising to Lose Weight Exercising to Lose Weight Exercise is structured, repetitive physical activity to improve fitness and health. Getting regularexercise is important for everyone. It is especially important if you are overweight. Being overweight increases your risk of heart disease, stroke, diabetes, high blood pressure, and several types of cancer. Reducing your calorie intake and exercising can help you lose weight. Exercise is usually categorized as moderate or vigorous intensity. To lose weight, most people needto do a certain amount of moderate-intensity or vigorous-intensity exercise each week. Moderate-intensity exercise Moderate-intensity exercise is any activity that gets you moving enough to burn at least three times more energy (calories) than if you were sitting. Examples of moderate exercise include: Walking a mile in 15 minutes. Doing light yard work. Biking at an easy pace. Most people should get at least 150 minutes (2 hours and 30 minutes) a week of moderate-intensity exercise to maintain their body weight. Vigorous-intensity exercise Vigorous-intensity exercise is any activity that gets you moving enough to burn at least six times more calories than if you were sitting. When you exercise at this intensity, you should be working hard enough that you are not able to carry on a conversation. Examples of vigorous exercise include: Running. Playing a team sport, such as football, basketball, and soccer. Jumping rope. Most people should get at least 75 minutes (1 hour and 15 minutes) a week of vigorous-intensity exercise to maintain their body weight. How can exercise affect me? When you exercise enough to burn more calories than you eat, you lose weight. Exercise also reducesbody fat and builds muscle. The more muscle you have, the more calories you burn. Exercise also: Improves mood. Reduces stress and tension. Improves your overall fitness, flexibility, and endurance. Increases bone strength. The amount of exercise you need to lose weight depends on: Your age. The type of exercise. Any health conditions you have. Your overall physical ability. Talk to your health care provider about how much exercise you need and what types of activities aresafe for you. What actions can I take to lose weight? Nutrition Make changes to your diet as told by your health care provider or diet and public health nutritionist (dietitian). This may include: ?Eating fewer calories. ?Eating more protein. ?Eating less unhealthy fats. ?Eating a diet that includes fresh fruits and vegetables, whole grains, low-fat dairy products, andlean protein. ?Avoiding foods with added fat, salt, and sugar. Drink plenty of water while you exercise to prevent dehydration or heat stroke. Activity Choose an activity that you enjoy and set realistic goals. Your health care provider can help you make an exercise plan that works for you. Exercise at a moderate or vigorous intensity most days of the week. ?The intensity of exercise may vary from person to person. You can tell how intense a workout is for you by paying attention to your breathing and heartbeat. Most people will notice their breathing and heartbeat get faster with more intense exercise. Do resistance training twice each week, such as: ?Push-ups. ?Sit-ups. ?Lifting weights. ?Using resistance bands. Getting short amounts of exercise can be just as helpful as long structured periods of exercise. Ifyou have trouble finding time to exercise, try to include exercise in your daily routine. ?Get up, stretch, and walk around every 30 minutes throughout the day. ?Go for a walk during your lunch break. ?Park your car farther away from your destination. ?If you take public transportation, get off one stop early and walk the rest of the way. ?Make phone calls while standing up and walking around. ?Take the stairs instead of elevators or escalators. Wear comfortable clothes and shoes with good support. Do not exercise so much that you hurt yourself, feel dizzy, or get very short of breath. Where to find more information U.[place]. Department of Health and Human Services: www.hhs.gov Centers for Disease Control and Prevention (CDC): www.cdc.gov Contact a health care provider: Before starting a new exercise program. If you have questions or concerns about your weight. If you have a medical problem that keeps you from exercising. Get help right away if you have any of the following while exercising: Injury. Dizziness. Difficulty breathing or shortness of breath that does not go away when you stop exercising. Chest pain. Rapid heartbeat. Summary Being overweight increases your risk of heart disease, stroke, diabetes, high blood pressure, and several types of cancer. Losing weight happens when you burn more calories than you eat. Reducing the amount of calories you eat in addition to getting regular moderate or vigorous exercise each week helps you lose weight. This information is not intended to replace advice given to you by your health care provider. Make sure you discuss any questions you have with your health care provider. Document Released: 10/22/2011 Document Revised: 10/02/2018 Document Reviewed: 10/02/2018 [employer] Patient Education 2020 [employer]. 07/05/2022 11:15:27 BMI for Adults BMI for Adults Body mass index (BMI) is a number that is calculated from a person's weight and height. BMI may help to estimate how much of a person's weight is composed of fat. BMI can help identify those who may be at higher risk for certain medical problems. How is BMI used with adults? BMI is used as a screening tool to identify possible weight problems. It is used to check whether aperson is obese, overweight, healthy weight, or underweight. How is BMI calculated? BMI measures your weight and compares it to your height. This can be done either in [place] or metric measurements. Note that charts are available to help you find your BMI quickly and easily without having to do these calculations yourself. To calculate your BMI in [place] measurements, your health care provider will: 1.Measure your weight in pounds (lb). 2.Multiply the number of pounds by 703. For example, for a person who weighs 180 lb, multiply that number by 703, which equals 126,540. 3.Measure your height in inches (in). Then multiply that number by itself to get a measurement called inches squared. For example, for a person who is 70 in tall, the inches squared measurement is 70 in x 70 in, which equals 4900 inches squared. 4.Divide the total from Step 2 (number of lb x 703) by the total from Step 3 (inches squared): 126,540 4900 = 25.8. This is your BMI. To calculate your BMI in metric measurements, your health care provider will: 1.Measure your weight in kilograms (kg). 2.Measure your height in meters (m). Then multiply that number by itself to get a measurement called meters squared. For example, for a person who is 1.75 m tall, the meters squared measurement is 1.75 m x 1.75 m, which is equal to 3.1 meters squared. 3.Divide the number of kilograms (your weight) by the meters squared number. In this example: 70 3.1 = 22.6. This is your BMI. How is BMI interpreted? To interpret your results, your health care provider will use BMI charts to identify whether you are underweight, normal weight, overweight, or obese. The following guidelines will be used: Underweight: BMI less than 18.5. Normal weight: BMI between 18.5 and 24.9. Overweight: BMI between 25 and 29.9. Obese: BMI of 30 and above. Please note: Weight includes both fat and muscle, so someone with a muscular build, such as an athlete, may havea BMI that is higher than 24.9. In cases like these, BMI is not an accurate measure of body fat. To determine if excess body fat is the cause of a BMI of 25 or higher, further assessments may needto be done by a health care provider. BMI is usually interpreted in the same way for men and women. Why is BMI a useful tool? BMI is useful in two ways: Identifying a weight problem that may be related to a medical condition, or that may increase the risk for medical problems. Promoting lifestyle and diet changes in order to reach a healthy weight. Summary Body mass index (BMI) is a number that is calculated from a person's weight and height. BMI may help to estimate how much of a person's weight is composed of fat. BMI can help identify those who may be at higher risk for certain medical problems. BMI can be measured using Tongan measurements or metric measurements. To interpret your results, your health care provider will use BMI charts to identify whether you are underweight, normal weight, overweight, or obese. This information is not intended to replace advice given to you by your health care provider. Make sure you discuss any questions you have with your health care provider. Document Released: 05/31/2005 Document Revised: 09/01/2018 Document Reviewed: 08/02/2018 [employer] Patient Education 2020 [employer] 07/05/2022 11:15:25 COVID-19 Frequently Asked Questions COVID-19 Frequently Asked Questions COVID-19 (coronavirus disease) is an infection that is caused by a large family of viruses. Some viruses cause illness in people and others cause illness in animals like camels, cats, and bats. In some cases, the viruses that cause illness in animals can spread to humans. Where did the coronavirus come from? In September 2019, [place] told the World Health Organization (WHO) of several cases of lung disease (human respiratory illness). These cases were linked to an open seafood and livestock market in the [facility]. The link to the seafood and livestock market suggests that the virus may have spread from animals to humans. However, since that first outbreak in September, the virus has also been shownto spread from person to person. What is the name of the disease and the virus? Disease name Early on, this disease was called novel coronavirus. This is because scientists determined that thedisease was caused by a new (novel) respiratory virus. The World Health Organization (WHO) has now named the disease COVID-19, or coronavirus disease. Virus name The virus that causes the disease is called severe acute respiratory syndrome coronavirus 2 (SARS-CoV-2). More information on disease and virus naming World Health Organization (WHO): www.who.int/emergencies/diseases/eezar-ynlsybyrjll-9655/technical-g uidance/omqqoc-mzj-aejugfcybka-disease-(covid-2019)-znh-osi-zlldk-wvnt-qtcoxl-rt Who is at risk for complications from coronavirus disease? Some people may be at higher risk for complications from coronavirus disease. This includes older adults and people who have chronic diseases, such as heart disease, diabetes, and lung disease. If you are at higher risk for complications, take these extra precautions: Avoid close contact with people who are sick or have a fever or cough. Stay at least 3 6 ft (1 2 m)away from them, if possible. Wash your hands often with soap and water for at least 20 seconds. Avoid touching your face, mouth, nose, or eyes. Keep supplies on hand at home, such as food, medicine, and cleaning supplies. Stay home as much as possible. Avoid social gatherings and travel. How does coronavirus disease spread? The virus that causes coronavirus disease spreads easily from person to person (is contagious). There are also cases of community-spread disease. This means the disease has spread to: People who have no known contact with other infected people. People who have not traveled to areas where there are known cases. It appears to spread from one person to another through droplets from coughing or sneezing. Can I get the virus from touching surfaces or objects? There is still a lot that we do not know about the virus that causes coronavirus disease. Scientists are basing a lot of information on what they know about similar viruses, such as: Viruses cannot generally survive on surfaces for long. They need a human body (host) to survive. It is more likely that the virus is spread by close contact with people who are sick (direct contact), such as through: ?Shaking hands or hugging. ?Breathing in respiratory droplets that travel through the air. This can happen when an infected person coughs or sneezes on or near other people. It is less likely that the virus is spread when a person touches a surface or object that has the virus on it (indirect contact). The virus may be able to enter the body if the person touches a surface or object and then touches his or her face, eyes, nose, or mouth. Can a person spread the virus without having symptoms of the disease? It may be possible for the virus to spread before a person has symptoms of the disease, but this ismost likely not the main way the virus is spreading. It is more likely for the virus to spread by being in close contact with people who are sick and breathing in the respiratory droplets of a sick person's cough or sneeze. What are the symptoms of coronavirus disease? Symptoms vary from person to person and can range from mild to severe. Symptoms may include: Fever. Cough. Tiredness, weakness, or fatigue. Fast breathing or feeling short of breath. These symptoms can appear anywhere from 2 to 14 days after you have been exposed to the virus. If you develop symptoms, call your health care provider. People with severe symptoms may need hospital care. If I am exposed to the virus, how long does it take before symptoms start? Symptoms of coronavirus disease may appear anywhere from 2 to 14 days after a person has been exposed to the virus. If you develop symptoms, call your health care provider. Should I be tested for this virus? Your health care provider will decide whether to test you based on your symptoms, history of exposure, and your risk factors. How does a health care provider test for this virus? Health care providers will collect samples to send for testing. Samples may include: Taking a swab of fluid from the nose. Taking fluid from the lungs by having you cough up mucus (sputum) into a sterile cup. Taking a blood sample. Taking a stool or urine sample. Is there a treatment or vaccine for this virus? Currently, there is no vaccine to prevent coronavirus disease. Also, there are no medicines like antibiotics or antivirals to treat the virus. A person who becomes sick is given supportive care, which means rest and fluids. A person may also relieve his or her symptoms by using epyj-nqo-wiqdjmz medicines that treat sneezing, coughing, and runny nose. These are the same medicines that a person takes for the common cold. If you develop symptoms, call your health care provider. People with severe symptoms may need hospital care. What can I do to protect myself and my family from this virus? You can protect yourself and your family by taking the same actions that you would take to prevent the spread of other viruses. Take the following actions: Wash your hands often with soap and water for at least 20 seconds. If soap and water are not available, use alcohol-based hand grinder mill operator. Avoid touching your face, mouth, nose, or eyes. Cough or sneeze into a tissue, sleeve, or elbow. Do not cough or sneeze into your hand or the air. ?If you cough or sneeze into a tissue, throw it away immediately and wash your hands. Disinfect objects and surfaces that you frequently touch every day. Avoid close contact with people who are sick or have a fever or cough. Stay at least 3 6 ft (1 2 m)away from them, if possible. Stay home if you are sick, except to get medical care. Call your health care provider before you get medical care. Make sure your vaccines are up to date. Ask your health care provider what vaccines you need. What should I do if I need to travel? Follow travel recommendations from your local health authority, the CDC, and WHO. Travel information and advice Centers for Disease Control and Prevention (CDC): www.cdc.gov/coronavirus/2019-ncov/travelers/index.html World Health Organization (WHO): www.who.int/emergencies/diseases/hexha-aoekfhfxamt-7447/travel-advice Know the risks and take action to protect your health You are at higher risk of getting coronavirus disease if you are traveling to areas with an outbreak or if you are exposed to travelers from areas with an outbreak. Wash your hands often and practice good hygiene to lower the risk of catching or spreading the virus. What should I do if I am sick? General instructions to stop the spread of infection Wash your hands often with soap and water for at least 20 seconds. If soap and water are not available, use alcohol-based hand grinder mill operator. Cough or sneeze into a tissue, sleeve, or elbow. Do not cough or sneeze into your hand or the air. If you cough or sneeze into a tissue, throw it away immediately and wash your hands. Stay home unless you must get medical care. Call your health care provider or local health authority before you get medical care. Avoid public areas. Do not take public transportation, if possible. If you can, wear a mask if you must go out of the house or if you are in close contact with someonewho is not sick. Keep your home clean Disinfect objects and surfaces that are frequently touched every day. This may include: ?Counters and tables. ?Doorknobs and light switches. ?Sinks and faucets. ?Electronics such as phones, remote controls, keyboards, computers, and tablets. Wash dishes in hot, soapy water or use a nuclear process engineer. Air-dry your dishes. Wash laundry in hot water. Prevent infecting other household members Let healthy household members care for children and pets, if possible. If you have to care for children or pets, wash your hands often and wear a mask. Sleep in a different bedroom or bed, if possible. Do not share personal items, such as razors, toothbrushes, deodorant, zheng, brushes, towels, and washcloths. Where to find more information Centers for Disease Control and Prevention (CDC) Information and news updates: www.cdc.gov/coronavirus/2019-ncov World Health Organization (WHO) Information and news updates: www.who.int/emergencies/diseases/mtdly-cjnmemmcpyx-8544 Coronavirus health topic: www.who.int/health-topics/coronavirus Questions and answers on COVID-19: www.who.int/news-room/q-a-detail/a-o-yzyrhdtngubcb Global tracker: who.[employer] [place] [employer] (AAP) Information for families: www.healthychildren.org/Tongan/health-issues/conditions/chest-lungs/Pages /8397-Ywigd-Hjvrzywxtgu.aspx The coronavirus situation is changing rapidly. Check your local health authority website or the CDCand WHO websites for updates and news. When should I contact a health care provider? Contact your health care provider if you have symptoms of an infection, such as fever or cough, andyou: ?Have been near anyone who is known to have coronavirus disease. ?Have come into contact with a person who is suspected to have coronavirus disease. ?Have traveled outside of the country. When should I get emergency medical care? Get help right away by calling your local emergency services (911 in the [place] if you have: ?Trouble breathing. ?Pain or pressure in your chest. ?Confusion. ?Blue-tinged lips and fingernails. ?Difficulty waking from sleep. ?Symptoms that get worse. Let the emergency medical personnel know if you think you have coronavirus disease. Summary A new respiratory virus is spreading from person to person and causing COVID-19 (coronavirus disease). The virus that causes COVID-19 appears to spread easily. It spreads from one person to another through droplets from coughing or sneezing. Older adults and those with chronic diseases are at higher risk of disease. If you are at higher risk for complications, take extra precautions. There is currently no vaccine to prevent coronavirus disease. There are no medicines, such as antibiotics or antivirals, to treat the virus. You can protect yourself and your family by washing your hands often, avoiding touching your face, and covering your coughs and sneezes. This information is not intended to replace advice given to you by your health care provider. Make sure you discuss any questions you have with your health care provider. Document Released: 01/15/2020 Document Revised: 01/15/2020 Document Reviewed: 01/15/2020 [employer] Patient Education 2020 [employer]. 07/05/2022 11:15:24 COVID-19 COVID-19 COVID-19 is a respiratory infection that is caused by a virus called severe acute respiratory syndrome coronavirus 2 (SARS-CoV-2). The disease is also known as coronavirus disease or novel coronavirus. In some people, the virus may not cause any symptoms. In others, it may cause a serious infection. The infection can get worse quickly and can lead to complications, such as: Pneumonia, or infection of the lungs. Acute respiratory distress syndrome or ARDS. This is fluid build-up in the lungs. Acute respiratory failure. This is a condition in which there is not enough oxygen passing from thelungs to the body. Sepsis or septic shock. This is a serious bodily reaction to an infection. Blood clotting problems. Secondary infections due to bacteria or fungus. The virus that causes COVID-19 is contagious. This means that it can spread from person to person through droplets from coughs and sneezes (respiratory secretions). What are the causes? This illness is caused by a virus. You may catch the virus by: Breathing in droplets from an infected person's cough or sneeze. Touching something, like a table or a doorknob, that was exposed to the virus (contaminated) and then touching your mouth, nose, or eyes. What increases the risk? Risk for infection You are more likely to be infected with this virus if you: Live in or travel to an area with a COVID-19 outbreak. Come in contact with a sick person who recently traveled to an area with a COVID-19 outbreak. Provide care for or live with a person who is infected with COVID-19. Risk for serious illness You are more likely to become seriously ill from the virus if you: Are 65 years of age or older. Have a long-term disease that lowers your body's ability to fight infection (immunocompromised). Live in a correction or long-term care facility. Have a long-term (chronic) disease such as: ?Chronic lung disease, including chronic obstructive pulmonary disease or asthma ?Heart disease. ?Diabetes. ?Chronic kidney disease. ?Liver disease. Are obese. What are the signs or symptoms? Symptoms of this condition can range from mild to severe. Symptoms may appear any time from 2 to 14days after being exposed to the virus. They include: A fever. A cough. Difficulty breathing. Chills. Muscle pains. A sore throat. Loss of taste or smell. Some people may also have stomach problems, such as nausea, vomiting, or diarrhea. Other people may not have any symptoms of COVID-19. How is this diagnosed? This condition may be diagnosed based on: Your signs and symptoms, especially if: ?You live in an area with a COVID-19 outbreak. ?You recently traveled to or from an area where the virus is common. ?You provide care for or live with a person who was diagnosed with COVID-19. A physical exam. Lab tests, which may include: ?A nasal swab to take a sample of fluid from your nose. ?A throat swab to take a sample of fluid from your throat. ?A sample of mucus from your lungs (sputum). ?Blood tests. Imaging tests, which may include, X-rays, CT scan, or ultrasound. How is this treated? At present, there is no medicine to treat COVID-19. Medicines that treat other diseases are being used on a trial basis to see if they are effective against COVID-19. Your health care provider will talk with you about ways to treat your symptoms. For most people, the infection is mild and can be managed at home with rest, fluids, and yxwe-oqk-qukpalk medicines. Treatment for a serious infection usually takes places in a hospital intensive care unit (ICU). It may include one or more of the following treatments. These treatments are given until your symptoms improve. Receiving fluids and medicines through an IV. Supplemental oxygen. Extra oxygen is given through a tube in the nose, a face mask, or a roche. Positioning you to lie on your stomach (prone position). This makes it easier for oxygen to get into the lungs. Continuous positive airway pressure (CPAP) or bi-level positive airway pressure (BPAP) machine. This treatment uses mild air pressure to keep the airways open. A tube that is connected to a motor delivers oxygen to the body. Ventilator. This treatment moves air into and out of the lungs by using a tube that is placed in your windpipe. Tracheostomy. This is a procedure to create a hole in the neck so that a breathing tube can be inserted. Extracorporeal membrane oxygenation (ECMO). This procedure gives the lungs a chance to recover by taking over the functions of the heart and lungs. It supplies oxygen to the body and removes carbon dioxide. Follow these instructions at home: Lifestyle If you are sick, stay home except to get medical care. Your health care provider will tell you how long to stay home. Call your health care provider before you go for medical care. Rest at home as told by your health care provider. Do not use any products that contain nicotine or tobacco, such as cigarettes, e- cigarettes, and chewing tobacco. If you need help quitting, ask your health care provider. Return to your normal activities as told by your health care provider. Ask your health care provider what activities are safe for you. General instructions Take jhda-hbv-atsixxg and prescription medicines only as told by your health care provider. Drink enough fluid to keep your urine pale yellow. Keep all follow-up visits as told by your health care provider. This is important. How is this prevented? There is no vaccine to help prevent COVID-19 infection. However, there are steps you can take to protect yourself and others from this virus. To protect yourself: Do not travel to areas where COVID-19 is a risk. The areas where COVID-19 is reported change often.To identify high-risk areas and travel restrictions, check the CDC travel website: wwwnc.cdc.gov/travel/notices If you live in, or must travel to, an area where COVID-19 is a risk, take precautions to avoid infection. ?Stay away from people who are sick. ?Wash your hands often with soap and water for 20 seconds. If soap and water are not available, usean alcohol-based hand grinder mill operator. ?Avoid touching your mouth, face, eyes, or nose. ?Avoid going out in public, follow guidance from your state and local health authorities. ?If you must go out in public, wear a cloth face covering or face mask. ?Disinfect objects and surfaces that are frequently touched every day. This may include: ?Counters and tables. ?Doorknobs and light switches. ?Sinks and faucets. ?Electronics, such as phones, remote controls, keyboards, computers, and tablets. To protect others: If you have symptoms of COVID-19, take steps to prevent the virus from spreading to others. If you think you have a COVID-19 infection, contact your health care provider right away. Tell yourhealth care team that you think you may have a COVID-19 infection. Stay home. Leave your house only to seek medical care. Do not use public transport. Do not travel while you are sick. Wash your hands often with soap and water for 20 seconds. If soap and water are not available, use alcohol-based hand grinder mill operator. Stay away from other members of your household. Let healthy household members care for children andpets, if possible. If you have to care for children or pets, wash your hands often and wear a mask.If possible, stay in your own room, separate from others. Use a different bathroom. Make sure that all people in your household wash their hands well and often. Cough or sneeze into a tissue or your sleeve or elbow. Do not cough or sneeze into your hand or into the air. Wear a cloth face covering or face mask. Where to find more information Centers for Disease Control and Prevention: www.cdc.gov/coronavirus/2019-ncov/index.html World Health Organization: www.who.int/health-topics/coronavirus Contact a health care provider if: You live in or have traveled to an area where COVID-19 is a risk and you have symptoms of the infection. You have had contact with someone who has COVID-19 and you have symptoms of the infection. Get help right away if: You have trouble breathing. You have pain or pressure in your chest. You have confusion. You have bluish lips and fingernails. You have difficulty waking from sleep. You have symptoms that get worse. These symptoms may represent a serious problem that is an emergency. Do not wait to see if the symptoms will go away. Get medical help right away. Call your local emergency services (911 in the [place] Do not drive yourself to the hospital. Let the emergency medical personnel know if you think you have COVID-19. Summary COVID-19 is a respiratory infection that is caused by a virus. It is also known as coronavirus disease or novel coronavirus. It can cause serious infections, such as pneumonia, acute respiratory distress syndrome, acute respiratory failure, or sepsis. The virus that causes COVID-19 is contagious. This means that it can spread from person to person through droplets from coughs and sneezes. You are more likely to develop a serious illness if you are 65 years of age or older, have a weak immunity, live in a correction, or have chronic disease. There is no medicine to treat COVID-19. Your health care provider will talk with you about ways to treat your symptoms. Take steps to protect yourself and others from infection. Wash your hands often and disinfect objects and surfaces that are frequently touched every day. Stay away from people who are sick and wear amask if you are sick. This information is not intended to replace advice given to you by your health care provider. Make sure you discuss any questions you have with your health care provider. Document Released: 10/25/2019 Document Revised: 02/14/2020 Document Reviewed: 10/25/2019 Elsevier Patient Education 2020 [employer]. Follow Up Care 07/05/2022 09:11:36 With:Antony LOOMIS MD, FAM Address: [address] [place] [address] [place] [address]- When: only if needed [facility] [place] 09-08-2022 Hospital Discharge instructions Patient Education 06/10/2022 20:19:27 Health Maintenance, Female Health Maintenance, Female Adopting a healthy lifestyle and getting preventive care are important in promoting health and wellness. Ask your health care provider about: The right schedule for you to have regular tests and exams. Things you can do on your own to prevent diseases and keep yourself healthy. What should I know about diet, weight, and exercise? Eat a healthy diet Eat a diet that includes plenty of vegetables, fruits, low-fat dairy products, and lean protein. Do not eat a lot of foods that are high in solid fats, added sugars, or sodium. Maintain a healthy weight Body mass index (BMI) is used to identify weight problems. It estimates body fat based on height and weight. Your health care provider can help determine your BMI and help you achieve or maintain a healthy weight. Get regular exercise Get regular exercise. This is one of the most important things you can do for your health. Most adults should: Exercise for at least 150 minutes each week. The exercise should increase your heart rate and make you sweat (moderate-intensity exercise). Do strengthening exercises at least twice a week. This is in addition to the moderate-intensity exercise. Spend less time sitting. Even light physical activity can be beneficial. Watch cholesterol and blood lipids Have your blood tested for lipids and cholesterol at 20 years of age, then have this test every 5 years. Have your cholesterol levels checked more often if: Your lipid or cholesterol levels are high. You are older than 40 years of age. You are at high risk for heart disease. What should I know about cancer screening? Depending on your health history and family history, you may need to have cancer screening at various ages. This may include screening for: Breast cancer. Cervical cancer. Colorectal cancer. Skin cancer. Lung cancer. What should I know about heart disease, diabetes, and high blood pressure? Blood pressure and heart disease High blood pressure causes heart disease and increases the risk of stroke. This is more likely to develop in people who have high blood pressure readings, are of descent, or are overweight. Have your blood pressure checked: ?Every 3 5 years if you are 18 39 years of age. ?Every year if you are 40 years old or older. Diabetes Have regular diabetes screenings. This checks your fasting blood sugar level. Have the screening done: Once every three years after age 40 if you are at a normal weight and have a low risk for diabetes. More often and at a younger age if you are overweight or have a high risk for diabetes. What should I know about preventing infection? Hepatitis B If you have a higher risk for hepatitis B, you should be screened for this virus. Talk with your health care provider to find out if you are at risk for hepatitis B infection. Hepatitis C Testing is recommended for: Everyone born from 1945 through 1965. Anyone with known risk factors for hepatitis C. Sexually transmitted infections (STIs) Get screened for STIs, including gonorrhea and chlamydia, if: ?You are sexually active and are younger than 24 years of age. ?You are older than 24 years of age and your health care provider tells you that you are at risk for this type of infection. ?Your sexual activity has changed since you were last screened, and you are at increased risk for chlamydia or gonorrhea. Ask your health care provider if you are at risk. Ask your health care provider about whether you are at high risk for HIV. Your health care providermay recommend a prescription medicine to help prevent HIV infection. If you choose to take medicineto prevent HIV, you should first get tested for HIV. You should then be tested every 3 months for as long as you are taking the medicine. If you are about to stop having your period (premenopausal) and you may become , seek counseling before you get . Take 400 to 800 micrograms (mcg) of folic acid every day if you become . Ask for control (contraception) if you want to prevent . Osteoporosis and menopause Osteoporosis is a disease in which the bones lose minerals and strength with aging. This can resultin bone fractures. If you are 65 years old or older, or if you are at risk for osteoporosis and fractures, ask your health care provider if you should: Be screened for bone loss. Take a calcium or vitamin D supplement to lower your risk of fractures. Be given hormone replacement therapy (HRT) to treat symptoms of menopause. Follow these instructions at home: Lifestyle Do not use any products that contain nicotine or tobacco, such as cigarettes, e- cigarettes, and chewing tobacco. If you need help quitting, ask your health care provider. Do not use street drugs. Do not share needles. Ask your health care provider for help if you need support or information about quitting drugs. Alcohol use Do not drink alcohol if: ?Your health care provider tells you not to drink. ?You are , may be , or are planning to become . If you drink alcohol: ?Limit how much you use to 0 1 drink a day. ?Limit intake if you are . Be aware of how much alcohol is in your drink. In the [place] one drink equals one 12 oz bottle of beer (355 mL), one 5 oz glass of wine (148 mL), or one 1 oz glass of hard liquor (44 mL). General instructions Schedule regular health, dental, and eye exams. Stay current with your vaccines. Tell your health care provider if: ?You often feel depressed. ?You have ever been abused or do not feel safe at home. Summary Adopting a healthy lifestyle and getting preventive care are important in promoting health and wellness. Follow your health care provider's instructions about healthy diet, exercising, and getting tested or screened for diseases. Follow your health care provider's instructions on monitoring your cholesterol and blood pressure. This information is not intended to replace advice given to you by your health care provider. Make sure you discuss any questions you have with your health care provider. Document Released: 04/03/2012 Document Revised: 09/12/2019 Document Reviewed: 09/12/2019 [employer] Patient Education 2019 [employer]. Follow Up Care 04/21/2022 10:15:56 With:Antony LOOMIS MD, FAM Address: When:Within 1 Year(s) [facility] [place] 08-17-2022 Hospital Discharge instructions Patient Education 05/19/2022 11:04:27 Probiotics Probiotics Probiotics are the good bacteria and yeasts that live in your body and keep your digestive system healthy. Probiotics also help your body's defense system (immune system) and protect your body against the growth of harmful bacteria. Your health care provider may recommend taking a probiotic if you are taking antibiotics or have certain medical conditions, such as: Diarrhea. Constipation. Irritable bowel syndrome. Lung infections. Yeast infections. Acne, eczema, and other skin conditions. Frequent urinary tract infections. What affects the balance of bacteria in my body? The balance of good bacteria in your body can be affected by: Antibiotic medicines. These medicines treat infections caused by bacteria. Unfortunately, they may kill the good bacteria in your body as well as the bad bacteria. Certain medical conditions. Conditions related to an imbalance of bacteria include: ?Stomach and intestine (gastrointestinal) infections. ?Lung infections. ?Skin infections. ?Vaginal infections. ?Inflammatory bowel diseases. ?Stomach ulcers (gastric ulcers). ?Tooth decay and gum disease (periodontal disease). Stress. Poor diet. What type of probiotic is right for me? Probiotics contain different types of bacteria (strains). Strains commonly found in probiotics include: Lactobacillus. Saccharomyces. Bifidobacterium. Specific strains have been shown to be more effective for certain health conditions. Ask your health care provider which strain or strains you should use and how often. Probiotics come in many different forms, strain combinations, and strengths. Some may need to be refrigerated. Always read the label for storage and usage instructions. Certain foods, such as yogurt, contain probiotics. Probiotics can also be bought as a supplement [facility] pharmacy, health food store, or grocery store. Talk to your health care provider before starting any supplement. What are the side effects of probiotics? Some people have side effects when taking probiotics. Side effects are usually temporary and may include: Gas. Bloating. Cramping. Serious side effects are rare. Follow these instructions at home: If you are taking probiotics with antibiotics: ?Wait at least 2 hours between taking your medicine and the probiotic. ?Eat foods high in fiber, such as whole grains, beans, and vegetables. These foods can help good bacteria grow. ?Avoid certain foods as told by your health care provider. Summary Probiotics are the good bacteria and yeasts that live in your body and keep you and your digestive system healthy. Certain foods, such as yogurt, contain probiotics. Probiotics can be taken as supplements. They can be bought at a pharmacy, health food store, or grocery store. They come in many different forms, strain combinations, and strengths. Be sure to talk with your health care provider before taking a probiotic supplement. This information is not intended to replace advice given to you by your health care provider. Make sure you discuss any questions you have with your health care provider. Document Released: 04/16/2015 Document Revised: 06/08/2019 Document Reviewed: 10/04/2018 [employer] Patient Education 2019 [employer]. Follow Up Care 04/21/2022 13:17:19 With:JOSE MANUEL LUIS, JASVIR Hunt, [facility] Address: [address] [place] [address] When:6 months [facility] 06-23-2022 Evaluation + Plan note Future Scheduled Tests Laboratory* TSH With T4fr Reflex 03/25/22 [facility] [place] 06-22-2022 Hospital Discharge instructions Patient Education 03/24/2022 13:32:52 Excision of Skin Lesions Excision of Skin Lesions Excision of a skin lesion is the removal of a section of skin by making small cuts (incisions) in the skin. Through this process, the lesion is completely removed. This procedure is often done to treat or prevent cancer or infection. It may also be done to improve cosmetic appearance. The procedure may be done to remove: Cancerous (malignant) growths, such as basal cell carcinoma, squamous cell carcinoma, or melanoma. Noncancerous (benign) growths, such as a cyst or lipoma. Growths, such as moles or skin tags, which may be removed for cosmetic reasons. Various excision or surgical techniques may be used depending on your condition, the location of the lesion, and your overall health. Tell a health care provider about: Any allergies you have. All medicines you are taking, including vitamins, herbs, eye drops, creams, and oxjt-uin-hpsgbde medicines. Any problems you or family members have had with anesthetic medicines. Any blood disorders you have. Any surgeries you have had. Any medical conditions you have or have had. Whether you are or may be . What are the risks? Generally, this is a safe procedure. However, problems may occur, including: Bleeding. Infection. Scarring. Recurrence of the cyst, lipoma, or cancer. Changes in skin sensation or appearance, such as discoloration or swelling. Reaction to the anesthetics. Allergic reaction to surgical materials or ointments. Damage to nerves, blood vessels, muscles, or other structures. Continued pain. What happens before the procedure? Medicines Ask your health care provider about: Changing or stopping your regular medicines. This is especially important if you are taking diabetes medicines or blood thinners. Taking medicines such as aspirin and ibuprofen. These medicines can thin your blood. Do not take these medicines unless your health care provider tells you to take them. Taking kojo-tim-fjbywtw medicines, vitamins, herbs, and supplements. General instructions You may be asked to stop smoking. You may have an exam or testing. Ask your health care provider what steps will be taken to help prevent infection. These may include: ?Removing hair at the surgery site. ?Washing skin with a germ-killing soap. ?Taking antibiotic medicine. What happens during the procedure? You will be given a medicine to numb the area (local anesthetic). Your health care provider will remove the lesions using one of the following excision techniques. ?Complete surgical excision. This procedure may be done to treat a cancerous growth or a noncancerous cyst or lesion. ?A small scalpel or scissors will be used to gently cut around and under the lesion until it is completely removed. ?If bleeding occurs, it will be stopped with a device that delivers heat (electrocautery). ?The edges of the wound may be stitched (sutured) together. ?A bandage (dressing) will be applied. ?Samples will be sent to a lab for testing. ?Excision of a cyst. ?An incision will be made on the cyst. ?The entire cyst will be removed through the incision. ?The incision may be closed with sutures. ?Shave excision. This may be done to remove a mole or a skin tag. ?A small blade or an electrically heated loop instrument will be used to shave off the lesion. ?The wound is usually left to heal on its own without sutures. ?Punch excision. This may be done to remove a mole or a scar or to do a biopsy of the lesion. ?A small tool that is like a cookie cutter or a hole punch is used to cut a [place] shape out of theskin. ?The outer edges of the skin will be sutured together. ?The sample may be sent to a lab for testing. ?Mohs micrographic surgery. This is usually done to treat skin cancer. This type of excision is mostly used on the face and ears. This procedure is minimally invasive, and it ensures the best cosmetic outcome. ?A scalpel or a loop instrument will be used to remove layers of the lesion until all the abnormal or cancerous tissue has been removed. ?The wound may be sutured, depending on its size. ?The tissue will be checked under a microscope right away. Each of the techniques may vary among health care providers and hospitals. At the end of any of these procedures, antibiotic ointment will be applied as needed. What happens after the procedure? Return to your normal activities as told by your health care provider. Ask your health care provider what activities are safe for you. It is up to you to get the results of your procedure. Ask your doctor, or the department that is doing the procedure, when your results will be ready. Talk with your health care provider to discuss any test results, treatment options, and if necessary, the need for more tests. Keep all follow-up visits as told by your health care provider. This is important. Summary Excision of a skin lesion is the removal of a section of skin by making small cuts (incisions) in the skin. This procedure is often done to treat or prevent cancer and infection, or it may be done toimprove cosmetic appearance. Various excision or surgical techniques may be used depending on your condition, the location of the lesion, and your overall health. After the procedure, talk with your health care provider to discuss any test results, treatment options, and if necessary, the need for more tests. Keep all follow-up visits as told by your health care provider. This is important. This information is not intended to replace advice given to you by your health care provider. Make sure you discuss any questions you have with your health care provider. Document Released: 12/14/2010 Document Revised: 03/28/2019 Document Reviewed: 03/28/2019 [employer] Patient Education 2020 [employer]. Follow Up Care 02/02/2022 12:33:35 With:Antony LOOMIS MD, FAM Address: When: only if needed Comments:suggest TSH [place] [facility] [place] order is in [facility] [place] 05-23-2022 Hospital Discharge instructions Patient Education 02/22/2022 20:56:20 BMI for Adults BMI for Adults Body mass index (BMI) is a number that is calculated from a person's weight and height. BMI may help to estimate how much of a person's weight is composed of fat. BMI can help identify those who may be at higher risk for certain medical problems. How is BMI used with adults? BMI is used as a screening tool to identify possible weight problems. It is used to check whether aperson is obese, overweight, healthy weight, or underweight. How is BMI calculated? BMI measures your weight and compares it to your height. This can be done either in [place] ([place] or metric measurements. Note that charts are available to help you find your BMI quickly and easily without having to do these calculations yourself. To calculate your BMI in [place] measurements, your health care provider will: 1.Measure your weight in pounds (lb). 2.Multiply the number of pounds by 703. For example, for a person who weighs 180 lb, multiply that number by 703, which equals 126,540. 3.Measure your height in inches (in). Then multiply that number by itself to get a measurement called inches squared. For example, for a person who is 70 in tall, the inches squared measurement is 70 in x 70 in, which equals 4900 inches squared. 4.Divide the total from Step 2 (number of lb x 703) by the total from Step 3 (inches squared): 126,540 4900 = 25.8. This is your BMI. To calculate your BMI in metric measurements, your health care provider will: 1.Measure your weight in kilograms (kg). 2.Measure your height in meters (m). Then multiply that number by itself to get a measurement called meters squared. For example, for a person who is 1.75 m tall, the meters squared measurement is 1.75 m x 1.75 m, which is equal to 3.1 meters squared. 3.Divide the number of kilograms (your weight) by the meters squared number. In this example: 70 3.1 = 22.6. This is your BMI. How is BMI interpreted? To interpret your results, your health care provider will use BMI charts to identify whether you are underweight, normal weight, overweight, or obese. The following guidelines will be used: Underweight: BMI less than 18.5. Normal weight: BMI between 18.5 and 24.9. Overweight: BMI between 25 and 29.9. Obese: BMI of 30 and above. Please note: Weight includes both fat and muscle, so someone with a muscular build, such as an athlete, may havea BMI that is higher than 24.9. In cases like these, BMI is not an accurate measure of body fat. To determine if excess body fat is the cause of a BMI of 25 or higher, further assessments may needto be done by a health care provider. BMI is usually interpreted in the same way for men and women. Why is BMI a useful tool? BMI is useful in two ways: Identifying a weight problem that may be related to a medical condition, or that may increase the risk for medical problems. Promoting lifestyle and diet changes in order to reach a healthy weight. Summary Body mass index (BMI) is a number that is calculated from a person's weight and height. BMI may help to estimate how much of a person's weight is composed of fat. BMI can help identify those who may be at higher risk for certain medical problems. BMI can be measured using [place] measurements or metric measurements. To interpret your results, your health care provider will use BMI charts to identify whether you are underweight, normal weight, overweight, or obese. This information is not intended to replace advice given to you by your health care provider. Make sure you discuss any questions you have with your health care provider. Document Released: 05/31/2005 Document Revised: 09/01/2018 Document Reviewed: 08/02/2018 [employer] Patient Education 2020 [employer]. Follow Up Care 02/22/2022 10:43:14 With:Antony LOOMIS MD, FAM Address: When: only if needed [facility] [place] Evaluation + Plan note Future Appointments Appointment Date:03/25/2022 11:20:00 AM Scheduled Provider:Antony LOOMIS MD Location:[facility] [place] Appointment Type: Open [facility] [place] Evaluation + Plan note Future Appointments Appointment Date:06/11/2022 11:40:00 AM Scheduled Provider:Antony LOOMIS MD Location:[facility] [place] Appointment Type: Preventative Visit Appointment Date:11/18/2022 12:00:00 PM Scheduled Provider:Marilee OCHOA MD Location:[facility] Appointment Type:BAD Follow Up Future Scheduled Tests Laboratory* TSH With T4fr Reflex 03/25/22 * CBC w/ Auto Diff 04/21/22 * Comprehensive Metabolic Panel 04/21/22 * Lipid Panel 04/21/22 [facility] Evaluation + Plan note Future Appointments Appointment Date:11/18/2022 12:00:00 PM Scheduled Provider:Marilee OCHOA MD Location:[facility] Appointment Type:BADH Follow Up [facility] [place] Evaluation + Plan note Future Appointments Appointment Date:11/18/2022 12:00:00 PM Scheduled Provider:Marilee OCHOA MD Location:[facility] [place] Appointment Type:[facility] Follow Up Diagnostic Tests Pending * [facility]: Title:ED Note Author:oMlly Sanchez PA-C Date:08/04/22 1. Esophageal obstruction du e to food impaction (K22.2: Esophageal obstruction) Food in esophagus causing other injury, initial encounter (T18.128A: Food in esophagus causing other injury, initial encounter) Orders: glucagon, 1 mg = 1 EA, Injection, IV Push, Once, Stop date 08/03/22 21:51:00 EDT, STAT, Start date 08/03/22 21:51:00 EDT, 08/03/22 21:51:00 EDT lidocaine topical, 200 mg, 10 mL, Soln-Oral, Oral, Once, Stop date 08/03/22 22:29:00 EDT, STAT, Start date 08/03/22 22:29:00 EDT lidocaine topical, 0.1 gm, 5 mL, Topical, QIDACHS, 100 mL, Refill(s) 0, [employer], 169, cm, 08/03/22 21:08:00 EDT, Height/Length Dosing, 92, kg, 08/03/22 21:08:00 EDT, Weight Dosing pantoprazole, 40 mg = 10 mL, Injection, IV Push, Once, Stop date 08/03/22 22:06:00 EDT, Start date 08/03/22 22:06:00 EDT Sodium Chloride 0.9% intravenous solution, 1,000 mL, IV, Stop date 08/03/22 21:57:00 EDT, Start date 08/03/22 21:57:00 EDT Patient was interviewed and examined. I reviewed patient's prior records from Dr. Ochoa and her dilations. I discussed with the patient the use of glucagon in order to try to help the food bolus passed. Patient was in agreement with this procedure. Patient had an IV established. Patient has a liter normal saline running wide open. The patient was administered 1 mg of glucagon while we were running the IV fluids wide open, and patient began to drink a glass of water. Patient was able to drink an entire 20 ounce glass of water. She did have some burping, but did not vomit. Patient does report some relief of her symptoms. She states her throat is just very sore from when she was choking on the food earlier. Patient was given dose of topical lidocaine with some relief. She was also given dose of pantoprazole. I discussed the discharge diagnosis, plan of care, need for very close follow-up with gastroenterology. Patient will call Dr. Ochoa tomorrow for a sooner appointment. Patient was discharged home in stable condition. She is to return to the emergency department for any further problems or concerns. Future Appointments Appointment Date:09/07/2022 08:00:00 AM Scheduled Provider:Juliana Liu CNP Location:[facility] Appointment Type:[facility] Follow Up Appointment Date:11/18/2022 12:00:00 PM Scheduled Provider:Marilee OCHOA MD Location:[facility] Appointment Type:[facility] Future Appointments Appointment Date:08/10/2022 08:00:00 AM Scheduled Provider: [facility] Type:US Abdominal/Pelvis (FT) Appointment Date:09/07/2022 08:00:00 AM Scheduled Provider:Juliana Liu CNP Location:[facility] Appointment Type:[facility] Follow Up Appointment Date:09/08/2022 02:50:00 PM Scheduled Provider: Location:[facility] Appointment Type:Surgery FT Appointment Date:11/18/2022 12:00:00 PM Scheduled Provider:Marilee OCHOA MD Location:[facility] Appointment Type:[facility] Follow Up Future Scheduled Tests Laboratory* Hepatic Function Panel 08/04/22 Radiology* US Abdomen Complete 08/10/22 [facility] Evaluation + Plan note Future Appointments Appointment Date:09/07/2022 08:00:00 AM Scheduled Provider:Juliana Liu CNP Location:[facility] Appointment Type:[facility] Follow Up Appointment Date:09/08/2022 02:50:00 PM Scheduled Provider: Location:[facility] Appointment Type:Surgery FT Appointment Date:11/18/2022 12:00:00 PM Scheduled Provider:Marilee OCHOA MD Location:[facility] [place] Appointment Type:[facility] App[facility]ments Appointment Date:12/16/2022 12:00:00 PM Scheduled Provider:Marilee OCHOA MD Location:[facility] Appointment Type:[facility] Follow Up [facility] Evaluation + Plan note Future Appointments Appointment Date:12/21/2023 08:00:00 AM Scheduled Provider:Marilee OCHOA MD Location:[facility] Appointment Type:[facility] [facility] Digestive Health Evaluation + Plan note Future Appointments Appointment Date:06/27/2023 04:00:00 PM Scheduled Provider:Antony LOOMIS MD [place] [place] [facility] [place] Appointment Type:FM Preventative Visit Appointment Date:12/21/2023 08:00:00 AM Scheduled Provider:Marilee OCHOA MD Location[place] [place] [facility] Appointment Type:[facility] Follow Up [facility] Convenient Care Evaluation + Plan note Future Appointments Appointment Date:12/21/2023 08:00:00 AM Scheduled Provider:Mary Kaba MD Location:[facility] [place] [facility] Appointment Type:[facility] Follow Up [facility] [place] Evaluation + Plan note Future Appointments Appointment Date:05/17/2024 08:00:00 AM Scheduled Provider: Location:[facility] Surgical Services Appointment Type:Surgery FT [facility] Digestive Health Evaluation noteNo assessment information available [facility] Work Phone: Hospital course Narrative No data available for this section [facility] Discharge instructions No data available for this section [facility] data available for this section [facility] Medicine [place] Reason for referral (narrative) Referred by: Juliana Liu CNP [facility] Digestive Health Summary Purpose Family History No Family History Records Found No data available for this section No data available for this section No Family History Records FoundNo Family History Records FoundNo Family History Records Found Advance Directives No Advanced Directives Records FoundNo Advanced Directives Records FoundNo Advanced Directives Records FoundNo Advanced Directives Records Found Additional Source Comments Care Team (unrecognized sect ion and content) Team Status: Inactive Member Role Status Dates Brent Angelo Attending Provider Active Start: Ap 2023 End: January 02, 2024 INFORMATION SOURCE (unrecogn ized section and content) DATE CREATED AUTHOR 07/06/2022 [facility] DATE CREATED AUTHOR AUTHOR'S ORGANIZ ATION 12/23/2023 [facility] DATE CREATED AUTHOR AUTHOR'S ORGANIZ ATION 01/03/2024 [facility] DATE CREATED AUTHOR AUTHOR'S ORGANIZ ATION 01/04/2024 [facility] Goals (unrecognized section and content) Goals may be documented in a n alternate section FOR RECORDS PERTAINING TO PATIENTS WHO ARE OR HAVE BEEN ENROLLED IN A CHEMICAL DEPENDENCY/SUBSTANCEABUSE PROGRAM, SOME INFORMATION MAY BE OMITTED. This clinical summary was aggregated from multiple sources. Caution should be exercised in using it in the provision of clinical care. This summary normalizes information from multiple sources, and as a consequence, information in this document may materially change the coding, format and clinical context of patient data. In addition, data may be omitted in some cases. CLINICAL DECISIONS SHOULD BE BASED ON THE PRIMARY CLINICAL RECORDS. [facility] [employer] [facility] provides no warranty or guarantee of the accuracy or completeness of information in this document.
== END 2024-01-02 07:34 | disposition home or self-care (01) ==
LOC: LAB 07:33
PROVIDERS: Visit Provider Obstetrics & Gynecology
DX: L82.1 Other seborrheic keratosis (principal)
CPT/HCPCS: 88305

== ENCOUNTER 2024-07-12 16:17 | Outpatient (OUT) | payer OTHER, SELFPAY ==
--- OUTSIDE RECORDS SUMMARY | 2024-07-12 16:24 | XMS_ITS | CCD ---
Author Organization [facility] Care Team Providers Care Slip Cover Sewer Name Role Phone Antony HAWKINS Primary Care Physician [phone] KELLY, DR FRANCE Admitting Unavailable MISC, DR OSCAR Primary Care Unavailable KARASISam, DR FRANCE Attending Unavailable KARASIK, DR FRANCE Consulting Unavailable MISC, DR OSCAR Primary Care Unavailable KARASIK, DR FRANCE Attending Unavailable KARASIK, DR FRANCE Consulting Unavailable KARASIK, DR FRANCE Admitting Unavailable LANSING, DR VICENTE Desir Consulting Unavailable Antony HAWKINS Primary Care Physician Brent Angelo Attending Provider [phone] Brent Angelo Attending Unavailable Brent Angelo Admitting Unavailable BRENT ANGELO Attending Unavailable BRENT ANGLEO Attending Unavailable BRENT ANGELO Attending Unavailable Antony HAWKINS Attending Unavailable Antony HAWKINS Admitting Unavailable ROSS, Antony Attending Unavailable Arely MORENO Attending Unavailable Tu DONOVAN Attending Unavailable Antony HAWKINS Attending Unavailable Antony HAWKINS Attending Unavailable Mary Kaba Referring Unavaila ble Sarmini, Mary Talshiv Admitting Unavaila ble Sarmini, Mary Talshiv Attending Unavaila ble Antony HAWKINS Admitting Unavailable ROSS, Coleophloy Attending Unavailable Jose Garcia Attending Unavailable LISS STOREY Attending Unavailable Mary Kaba Attending Unavaila ble Antony HAWKINS Admitting Unavailable Cole HAWKINSophloy Attending Unavailable Clausmindanelle, Mary Talshiv Attending Unavaila ble Sarmini, Mary Bar Attending Unavaila ble Allergies Allergy Classification Reported Allergen(s) Allergy Type Date of Onset Reaction(s) Facility (20 sources) Acetaminophen / HYDROcodone; Translations: [acetaminophen-hydro codone] Drug Allergy [facility]idel (20 sources) benzonatate; Translations: [benzonatate] Drug Allergy Vomiting (disorder) [facility] Comment on above: shakiness shakiness (20 sources) Clarithromycin; Translations: [clarithromycin] Drug Allergy Vomiting/Diarr hea [facility] (20 sources) Codeine; Translations: [codeine] Drug Allergy [facility] (20 sources) Famotidine; Translations: [famotidine] Drug Allergy [facility] Comment on above: was in ER multiple t imes was in ER multiple t imes (20 sources) guaiFENesin; Translations: [guaifenesin] Drug Allergy Respiratory distress [facility] (20 sources) levoFLOXacin; Translations: [levofloxacin] Drug Allergy Unknown (qualifier value) [facility] (20 sources) Miconazole; Translations: [miconazole topical] Drug Allergy Vulval irritation (finding) [facility] (20 sources) Morphine; Translations: [morphine] Drug Allergy [facility] (20 sources) oxyCODONE; Translations: [oxycodone] Drug Allergy [facility] (20 sources) Penicillin; Translations: [penicillin] Drug Allergy vomiting diarrhea [facility] (20 sources) predniSONE; Translations: [prednisone] Drug Allergy Asthma (disorder), Weal (disorder), Eruption of skin (disorder) [facility] [place] (20 sources) raNITIdine; Translations: [ranitidine] Drug Allergy Unknown (qualifier value) [facility] [employer] (20 sources) Sulfamethoxazole / Trimethoprim; Translations: [sulfamethoxazole-tr imethoprim] Drug Allergy Vomiting/Diarr hea [facility] [employer] (1 source) Acetaminophen / HYDROcodone Drug Allergy 3 [facility] Rep[facility] (5 sources) benzonatate; Translations: [Tessalon Perles] Drug Allergy 7 [facility] (1 source) Clarithromycin Drug Allergy 3 [facility] (1 source) Codeine Drug Allergy 3 [facility] (5 sources) Famotidine; Translations: [Pepcid] Drug Allergy 7 [facility] (1 source) floctafenine Drug Allergy 3 [facility] (1 source) guaiFENesin Drug Allergy 3 [facility] (5 sources) levoFLOXacin; Translations: [Levaquin] Drug Allergy 3 [facility] (5 sources) Miconazole; Translations: [Monistat 3] Drug Allergy 3 [facility] (1 source) Morphine Drug Allergy 3 [facility] (1 source) oxyCODONE Drug Allergy 3 [facility] (1 source) Penicillins Drug allergy (disorder) 3 [facility] (1 source) Sulfamethoxazole / Trimethoprim Drug Allergy 3 [facility] (1 source) Sulfanilamide Drug Allergy 7 [facility] (1 source) Sulfonamides (Antibiotic) Drug allergy (disorder) 3 [facility] (1 source) Darvocet-N 100 Drug allergy (disorder) 3 [facility] (4 sources) oxyCODONE; Translations: [OxyContin] Drug Allergy [facility] Repository Medications Current Medications Medication Drug Class(es) Dates Sig (Normalized) Sig (Original) amitriptyline hydrochloride 10 mg oral tablet (20 sources) Tricyclic Antidepressant Start: 06-19-2024 take 1 tablet by mouth once daily at bedtime amitriptyline 10 mg Tab 10 mg = 1 tab(s), Oral, Once a day (at bedtime), # 90 tab(s), Refills(s) 1, Pharmacy: [facility], 169, cm, 06/19/24 15:47:00 EDT, Height/Length Dosing, 93.2, kg, 06/19/24 15:47:00 EDT, Weight Dosing Start Date: 06/19/24 Status: Ordered Start: 04-06-2024 take 1 tablet by emile th once daily at bedtime amitriptyline 10 mg Tab 10 mg = 1 tab(s), Oral, Once a day (at bedtime), # 90 tab(s), Refills(s) 1, Pharmacy: [facility], 169, cm, 01/13/24 13:06:00 EDT, Height/Length Dosing, 93, kg, 01/13/24 13:06:00 EDT, Weight Dosing Start Date: 04/06/24 Status: Ordered Start: 10-10-2023 take 1 tablet by emile th once daily at bedtime amitriptyline 10 mg Tab 10 mg = 1 tab(s), Oral, Once a day (at bedtime), # 90 tab(s), Refills(s) 1, Pharmacy: [facility], 170, cm, 09/02/23 16:43:00 EST, Height/Length Dosing, 95, kg, 09/02/23 16:43:00 EST, Weight Dosing Start Date: 10/10/23 Status: Ordered Start: 05-19-2022 End: 09-25-2023 take 1 tablet by mouth once daily at bedtime amitriptyline 10 mg Tab 10 mg = 1 tab(s), Oral, Once a day (at bedtime), X 90 day(s), # 90 tab(s), Refills(s) 0, Pharmacy: [facility], 170, cm, 06/27/23 16:25:00 EDT, Height/Length Dosing, 94.1, kg, 06/27/23 16:25:00 EDT, Weight Dosing Start Date: 06/27/23 Stop Date: 09/25/23 Status: Ordered Start: 05-26-2021 take 1 tablet by emile th once daily at bedtime amitriptyline 10 mg Tab 10 mg = 1 tab(s), Oral, Once a day (at bedtime), # 90 tab(s), Refills(s) 0, Pharmacy: [facility]/pharmacy #[id number], 170, cm, 05/26/21 13:40:00 EDT, Height/Length Dosing, 86.6, kg, 05/26/21 13:40:00 EDT, Weight Dosing Start Date: 05/26/21 Status: Ordered bacitracin 0.5 unt/mg topical ointment (3 sources) Start: 04-21-2024 bacitracin Top 500 units/g Oint 30 gram 1 flo, Topical, QID, 30 gram, Refill(s) 0, [facility], 169, cm, 04/21/24 10:11:00 EDT, Height/Length Dosing, 93, kg, 04/21/24 10:11:00 EDT, Weight Dosing Start Date: 04/21/24 Status: Ordered brompheniramine maleate 0.4 mg/ml / dextromethorphan hydrobromide 2 mg/ml / pseudoephedrine hydrochloride 6 mg/ml oral solution (10 sources) alpha-Adrenergic Agonist, Uncompetitive U-wutlyv-E-asparta te Receptor Antagonist, Sigma-1 Agonist Start: 07-05-2022 take 5 mL by mouth four times daily for cough and congestion Bromfed DM oral syrup 5 mL, Oral, QID for cough and congestion, 200 mL, Refill(s) 0, [facility], 169, cm, 07/05/22 10:52:00 EDT, Height/Length Dosing, 92.9, kg, 07/05/22 10:52:00 EDT, Weight Dosing Start Date: 07/05/22 Status: Ordered cephalexin 500 mg oral capsule (6 sources) Cephalosporin Antibacterial Start: 11-26-2022 take 1 capsule by mouth every eight hours cephalexin 500 mg Cap 500 mg = 1 cap(s), Oral, q8hr, # 30 cap(s), Refills(s) 0, Pharmacy: [facility], 169, cm, 11/24/22 11:34:00 EST, Height/Length Dosing, 93, kg, 11/24/22 11:34:00 EST, Weight Dosing Start Date: 11/26/22 Status: Ordered Start: 06-11-2022 End: 06-18-2022 take 1 capsule by mouth every eight hours cephalexin 500 mg Cap 500 mg = 1 cap(s), Oral, q8hr, X 7 day(s), # 21 cap(s), Refills(s) 0, Pharmacy: [facility], 170, cm, 06/11/22 11:59:00 EDT, Height/Length Dosing, 92.6, kg, 06/11/22 11:59:00 EDT, Weight Dosing Start Date: 06/11/22 Stop Date: 06/18/22 Status: Ordered cetirizine hydrochloride 10 mg oral tablet (7 sources) Histamine-1 Receptor Antagonist Start: 06-19-2024 take 1 tablet by mouth once daily cetirizine 10 mg Tab 10 mg = 1 tab(s), Oral, Daily, # 30 tab(s), Refills(s) 1, Pharmacy: [facility], 169, cm, 06/19/24 15:47:00 EDT, Height/Length Dosing, 93.2, kg, 06/19/24 15:47:00 EDT, Weight Dosing Start Date: 06/19/24 Status: Ordered Start: 11-11-2023 take 1 tablet by emile th once daily cetirizine 10 mg Tab 10 mg = 1 tab(s), Oral, Daily, # 30 tab(s), Refills(s) 1, Pharmacy: [facility], 170, cm, 09/02/23 16:43:00 EST, Height/Length Dosing, 95, kg, 09/02/23 16:43:00 EST, Weight Dosing Start Date: 11/11/23 Status: Ordered Start: 09-02-2023 take 1 tablet by emile th once daily cetirizine 10 mg Tab 10 mg = 1 tab(s), Oral, Daily, # 30 tab(s), Refills(s) 1 Start Date: 09/02/23 Status: Ordered cyclobenzaprine hydrochloride 10 mg oral tablet (20 sources) Muscle Relaxant Start: 06-19-2024 take 1 tablet by mouth three times daily as needed for muscle spasms cyclobenzaprine 10 mg Tab 10 mg = 1 tab(s), Oral, TID, PRN for spasm, May use as needed for muscle spasms but sedation warning, # 30 tab(s), Refills(s) 1, Pharmacy: [facility], 169, cm, 06/19/24 15:47:00 EDT, Height/Length Dosing, 93.2, kg, 06/19/24 15:47:00 EDT, Weight Dosing Start Date: 06/19/24 Status: Ordered Start: 08-05-2021 End: 06-19-2023 take 1 tablet by mouth three times daily as needed for muscle spasms cyclobenzaprine 10 mg Tab 10 mg = 1 tab(s), Oral, TID, PRN for spasm, May use as needed for muscle spasms but sedation warning, # 30 tab(s), Refills(s) 1, Pharmacy: [facility]/pharmacy #[id number], 170, cm, 05/28/21 13:52:00 EDT, Height/Length Dosing, 86.5, kg, 05/28/21 13:52:00 EDT, Weight Dosing Start Date: 08/05/21 Status: Ordered dicyclomine hydrochloride 10 mg oral capsule (20 sources) Anticholinergic Start: 06-19-2024 take 1 capsule by mouth four times daily as needed for pain Bentyl 10 mg Cap 10 mg = 1 cap(s), Oral, QID, as needed for abdominal pain, # 40 cap(s), Refills(s) 11, Pharmacy: [facility], 169, cm, 06/19/24 15:47:00 EDT, Height/Length Dosing, 93.2, kg, 06/19/24 15:47:00 EDT, Weight Dosing Start Date: 06/19/24 Status: Ordered Start: 11-01-2022 take 1 capsule by mo uth four times daily as needed for pain Bentyl 10 mg Cap 10 mg = 1 cap(s), Oral, QID, as needed for abdominal pain, # 40 cap(s), Refills(s) 11, Pharmacy: [facility], 169, cm, 10/15/22 12:00:00 EST, Height/Length Dosing, 91.8, kg, 10/15/22 12:00:00 EST, Weight Dosing Start Date: 11/01/22 Status: Ordered Start: 06-11-2022 take 2 capsules by m outh once daily dicyclomine 10 mg Cap 20 mg = 2 cap(s), Oral, Daily, # 60 cap(s), Refills(s) 11, Pharmacy: [facility], 170, cm, 06/11/22 11:59:00 EDT, Height/Length Dosing, 92.6, kg, 06/11/22 11:59:00 EDT, Weight Dosing Start Date: 06/11/22 Status: Ordered Start: 01-22-2022 take 2 capsules by m outh once daily dicyclomine 10 mg Cap 20 mg = 2 cap(s), Oral, Daily, # 60 cap(s), Refills(s) 11, Pharmacy: [facility], 170, cm, 09/29/21 13:20:00 EST, Height/Length Dosing, 83.2, kg, 09/29/21 13:20:00 EST, Weight Dosing Start Date: 01/22/22 Status: Ordered fluconazole 150 mg oral tablet (4 sources) Azole Antifungal Start: 06-14-2022 take 1 tablet by mouth once fluconazole 150 mg Tab 150 mg = 1 tab(s), Oral, Once, # 1 tab(s), Refills(s) 0, Pharmacy: [facility], 170, cm, 06/11/22 11:59:00 EDT, Height/Length Dosing, 92.6, kg, 06/11/22 11:59:00 EDT, Weight Dosing Start Date: 06/14/22 Status: Ordered fluticasone 0.05 mg/inh Nasal Gypsy (6 sources) Start: 07-05-2022 fluticasone 0.05 mg/inh Nasal Gypsy 2 spray(s), Nasal, Daily, 16 gram, Refill(s) 0, each nostril, [facility], 169, cm, 07/05/22 10:52:00 EDT, Height/Length Dosing, 92.9, kg, 07/05/22 10:52:00 EDT, Weight Dosing Start Date: 07/05/22 Status: Ordered lidocaine Viscous Top 2% Riya 15 mL (16 sources) Start: 08-03-2022 lidocaine Viscous Top 2% Riya 15 mL 0.1 gm, 5 mL, Topical, QIDACHS, 100 mL, Refill(s) 0, [facility], 169, cm, 08/03/22 21:08:00 EDT, Height/Length Dosing, 92, kg, 08/03/22 21:08:00 EDT, Weight Dosing Start Date: 08/03/22 Status: Ordered ondansetron 4 mg disintegrating oral tablet (20 sources) Serotonin-3 Receptor Antagonist Start: 06-19-2024 take 1 tablet by mouth every six hours as needed for nausea ondansetron 4 mg Dis Tab 4 mg = 1 tab(s), Oral, q6hr, PRN Nausea/Vomiting, # 12 tab(s), Refills(s) 0, Pharmacy: [facility], 169, cm, 06/19/24 15:47:00 EDT, Height/Length Dosing, 93.2, kg, 06/19/24 15:47:00 EDT, Weight Dosing Start Date: 06/19/24 Status: Ordered Start: 05-13-2022 take 1 tablet by emile th every six hours as needed for nausea ondansetron 4 mg Dis Tab 4 mg = 1 tab(s), Oral, q6hr, PRN Nausea/Vomiting, # 12 tab(s), Refills(s) 0, Pharmacy: [facility], 170, cm, 03/25/22 11:35:00 EDT, Height/Length Dosing, 93.2, kg, 03/25/22 11:35:00 EDT, Weight Dosing Start Date: 05/13/22 Status: Ordered pantoprazole 40 mg delayed release oral tablet (20 sources) Proton Pump Inhibitor Start: 06-19-2024 take 1 tablet by mouth twice daily Pantoprazole [address] Tab 40 mg = 1 tab(s), Oral, BID, # 180 tab(s), Refills(s) 3, Pharmacy: [facility], 169, cm, 06/19/24 15:47:00 EDT, Height/Length Dosing, 93.2, kg, 06/19/24 15:47:00 EDT, Weight Dosing Start Date: 06/19/24 Status: Ordered Start: 01-09-2024 take 1 tablet by [facility] twice daily Pantoprazole [address] Tab 40 mg = 1 tab(s), Oral, BID, # 180 tab(s), Refills(s) 3, Pharmacy: [facility], 169, cm, 12/21/23 8:16:00 EDT, Height/Length Dosing, 95, kg, 12/21/23 8:16:00 EDT, Weight Dosing Start Date: 01/09/24 Status: Ordered Start: 06-27-2023 take 1 tablet by [facility] twice daily Pantoprazole [address] Tab 40 mg = 1 tab(s), Oral, BID, # 180 tab(s), Refills(s) 1, Pharmacy: [facility], 170, cm, 06/27/23 16:25:00 EDT, Height/Length Dosing, 94.1, kg, 06/27/23 16:25:00 EDT, Weight Dosing Start Date: 06/27/23 Status: Ordered Start: 12-28-2022 take 1 tablet by [facility] twice daily Pantoprazole [address] Tab 40 mg = 1 tab(s), Oral, BID, # 60 tab(s), Refills(s) 5, Pharmacy: [facility], 169, cm, 12/16/22 12:08:00 EDT, Height/Length Dosing, 90.3, kg, 12/16/22 12:08:00 EDT, Weight Dosing Start Date: 12/28/22 Status: Ordered Start: 09-08-2022 take 1 tablet by [facility] twice daily Pantoprazole [address] Tab 40 mg = 1 tab(s), Oral, BID, # 60 tab(s), Refills(s) 2, Pharmacy: [facility], 169, cm, 09/08/22 9:25:00 EST, Height/Length Dosing, 93, kg, 09/08/22 9:25:00 EST, Weight Dosing Start Date: 09/08/22 Status: Ordered Start: 03-29-2022 take 1 tablet by emile th once daily pantoprazole 40 mg Oral EC Tab 40 mg = 1 tab(s), Oral, Daily, # 30 tab(s), Refills(s) 5, Pharmacy: [facility], 170, cm, 03/25/22 11:35:00 EDT, Height/Length Dosing, 93.2, kg, 03/25/22 11:35:00 EDT, Weight Dosing Start Date: 03/29/22 Status: Ordered Start: 03-29-2022 take 1 tablet by emile th once daily pantoprazole 40 mg Oral EC Tab 40 mg = 1 tab(s), Oral, Daily, # 30 tab(s), Refills(s) 5, Pharmacy: [facility], 170, cm, 03/25/22 11:35:00 EDT, Height/Length Dosing, 93.2, kg, 03/25/22 11:35:00 EDT, Weight Dosing Start Date: 03/29/22 Status: Ordered Start: 05-28-2021 take 1 tablet by emile once daily pantoprazole 40 mg Oral EC Tab 40 mg = 1 tab(s), Oral, Daily, # 30 tab(s), Refills(s) 5, Pharmacy: [facility], 170, cm, 05/28/21 13:52:00 EDT, Height/Length Dosing, 86.5, kg, 05/28/21 13:52:00 EDT, Weight Dosing Start Date: 05/28/21 Status: Ordered Start: 05-28-2021 take 1 tablet by emile th once daily pantoprazole 40 mg Oral EC Tab 40 mg = 1 tab(s), Oral, Daily, # 30 tab(s), Refills(s) 5, Pharmacy: [facility], 170, cm, 05/28/21 13:52:00 EDT, Height/Length [...] EA, Refill(s) 3, 2 puff(s) Inhalation BID, [facility], 169, cm, 09/08/22 9:25:00 EST, Height/Length Dosing, 93, kg, 09/08/22 9:25:00 EST, Weight Dosing Start Date: 09/08/22 Status: Ordered Start: 07-05-2022 fluticasone 0. 05 mg/inh Nasal Gypsy 2 spray(s), Nasal, Daily, 16 gram, Refill(s) 0, each nostril, [facility], 169, cm, 07/05/22 10:52:00 EDT, Height/Length Dosing, 92.9, kg, 07/05/22 10:52:00 EDT, Weight Dosing Start Date: 07/05/22 Status: Ordered levothyroxine sodium 0.088 mg oral tablet (20 sources) l-Thyroxine Start: 06-19-2024 take 1 tablet by mouth once daily levothyroxine 88 mcg (0.088 mg) Tab 88 microgram = 1 tab(s), Oral, Daily, # 90 tab(s), Refills(s) 3, Pharmacy: [facility], 169, cm, 06/19/24 15:47:00 EDT, Height/Length Dosing, 93.2, kg, 06/19/24 15:47:00 EDT, Weight Dosing Start Date: 06/19/24 Status: Ordered Start: 06-27-2023 take 1 tablet by emile th once daily levothyroxine 88 mcg (0.088 mg) Tab 88 microgram = 1 tab(s), Oral, Daily, # 90 tab(s), Refills(s) 3, Pharmacy: [facility]/pharmacy #[id number], 170, cm, 06/27/23 16:25:00 EDT, Height/Length Dosing, 94.1, kg, 06/27/23 16:25:00 EDT, Weight Dosing Start Date: 06/27/23 Status: Ordered Start: 12-22-2022 take 1 tablet by emile once daily levothyroxine 88 mcg (0.088 mg) Tab 88 microgram = 1 tab(s), Oral, Daily, # 90 tab(s), Refills(s) 1, Pharmacy: [facility]/pharmacy #[id number], 169, cm, 12/16/22 12:08:00 EDT, Height/Length Dosing, 90.3, kg, 12/16/22 12:08:00 EDT, Weight Dosing Start Date: 12/22/22 Status: Ordered Start: 05-26-2022 take 1 tablet by [facility] once daily levothyroxine 88 mcg (0.088 mg) Tab 88 microgram = 1 tab(s), Oral, Daily, # 90 tab(s), Refills(s) 1, Pharmacy: [facility]/pharmacy #[id number], 170, cm, 05/19/22 10:43:00 EDT, Height/Length Dosing, 93, kg, 05/19/22 10:43:00 EDT, Weight Dosing Start Date: 05/26/22 Status: Ordered Start: 11-18-2021 take 1 tablet by [facility] once daily levothyroxine 88 mcg (0.088 mg) Tab 88 microgram = 1 tab(s), Oral, Daily, # 90 tab(s), Refills(s) 1, Pharmacy: [facility]/pharmacy #[id number], 170, cm, 09/29/21 13:20:00 EST, Height/Length Dosing, 83.2, kg, 09/29/21 13:20:00 EST, Weight Dosing Start Date: 11/18/21 Status: Ordered magnesium sulfate 225 MG / potassium chloride 188 MG / sodium sulfate 1479 MG Oral Tablet [Sutab] (3 sources) Start: 12-21-2023 take 1 tablet by mouth once Sutab oral tablet See Instructions, 1 EA, Refill(s) 0, Please follow instructions per packaging and physician's handout, [facility], 169, cm, 12/21/23 8:16:00 EDT, Height/Length Dosing, 95, kg, 12/21/23 8:16:00 EDT, Weight Dosing Start Date: 12/21/23 Status: Ordered valACYclovir 1000 mg oral tablet (20 sources) Herpesvirus Nucleoside Analog DNA Polymerase Inhibitor, Herpes Simplex Virus Nucleoside Analog DNA Polymerase Inhibitor, Herpes Zoster Virus Nucleoside Analog DNA Polymerase Inhibitor Start: 06-19-2024 take 2 tablets by mouth twice daily Valtrex 1 g Tab 2 gram = 2 tab(s), Oral, BID, x 1 days at onset of coldsore, # 12 tab(s), Refills(s) 2, Pharmacy: [facility], 169, cm, 06/19/24 15:47:00 EDT, Height/Length Dosing, 93.2, kg, 06/19/24 15:47:00 EDT, Weight Dosing Start Date: 06/19/24 Status: Ordered Start: 02-29-2024 take 2 tablets by [facility] twice daily Valtrex 1 g Tab 2 gram = 2 tab(s), Oral, BID, x 1 days at onset of coldsore, # 12 tab(s), Refills(s) 2, Pharmacy: [facility], 169, cm, 01/13/24 13:06:00 EDT, Height/Length Dosing, 93, kg, 01/13/24 13:06:00 EDT, Weight Dosing Start Date: 02/29/24 Status: Ordered Start: 01-22-2022 take 2 tablets by [facility] twice daily Valtrex 1 g Tab 2 gram = 2 tab(s), Oral, BID, x 1 days at onset of coldsore, # 12 tab(s), Refills(s) 2, Pharmacy: [facility], 170, cm, 09/29/21 13:20:00 EST, Height/Length Dosing, 83.2, kg, 09/29/21 13:20:00 EST, Weight Dosing Start Date: 01/22/22 Status: Ordered Start: 01-22-2022 take 2 tablets by [facility] twice daily Valtrex 1 g Tab 2 gram = 2 tab(s), Oral, BID, x 1 days at onset of coldsore, # 12 tab(s), Refills(s) 2, Pharmacy: [facility], 170, cm, 09/29/21 13:20:00 EST, Height/Length Dosing, 83.2, kg, 09/29/21 13:20:00 EST, Weight Dosing Start Date: 01/22/22 Status: Ordered Problems Active Problems Problem Classification Problem Date Documented Da te Episodic/Chronic Abdominal hernia (20 sources) Hiatal hernia; Translations: [Diaphragmatic hernia] Onset: 2 03-22-2014 Episodic Abdominal pain (9 sources) Epigastric pain; Translations: [Epigastric pain] Onset: 2 Episodic Acute bronchitis (20 sources) Viral bronchitis 06-04-2020 Episodic Administrative/social admission (3 sources) Medical examinations/reports status 04-30-2019 Episodic Allergic reactions (20 sources) Contact dermatitis caused by chemical 02-26-2020 Episodic Anxiety disorders (20 sources) Generalized anxiety disorder; Translations: [Generalized anxiety disorder] Onset: 2 01-30-2019 Chronic Biliary tract disease (20 sources) Cholecystitis; Translations: [Disorder of gallbladder] Resolved: 6 02-05-2019 Episodic Diabetes mellitus without complication (20 sources) Impaired fasting glycemia; Translations: [Impaired fasting glucose] Onset: 2 Episodic Disorders of lipid metabolism (20 sources) Mixed hyperlipidemia 02-05-2019 Chronic Esophageal disorders [...] for accupressure for migraine Headache; including migraine (20 sources) Headache disorder 12-14-2013 Episodic Immunizations and screening for infectious disease (1 source) Encounter for screening for human papillomavirus (HPV); Translations: [ENC SCREENING HUMAN PAPILLOMAVIRUS] Onset: 2 Episodic Intestinal infection (20 sources) Acute hemorrhagic colitis due to Escherichia coli 06-06-2020 Episodic Lymphadenitis (20 sources) Axillary lymphadenopathy; Translations: [Cervical lymphadenopathy] 02-26-2020 Episodic Neoplasms of unspecified nature or uncertain behavior (2 sources) Neoplasm of soft tissue 03-24-2022 Episodic Nonmalignant breast conditions (20 sources) Breast lump; Translations: [Abscess of breast] Onset: 4 01-15-2015 Episodic Open wounds of extremities (1 source) Laceration of finger without foreign body; Translations: [Laceration without foreign body of right ring finger without damage to nail, initial encounter] Onset: 4 Episodic Other aftercare (1 source) Surgical follow-up; Translations: [Encounter for removal of sutures] Onset: 4 Episodic Other and unspecified benign neoplasm (1 source) Benign neoplasm of skin; Translations: [Other benign neoplasm of skin, unspecified] Onset: 2 Episodic Other and unspecified benign neoplasm (20 sources) History of polyp of colon; Translations: [Personal history of colonic polyps] Onset: 2 Episodic Other connective tissue disease (20 sources) Rotator cuff syndrome 01-15-2015 Episodic Other [...] of skin sensation] Onset: 2 Episodic Other nervous system disorders (1 source) H/O: migraine 06-19-2024 Episodic Other non-traumatic joint disorders (20 sources) Ankle pain 06-04-2020 Episodic Other non-traumatic joint disorders (20 sources) Shoulder pain 01-15-2015 Episodic Other nutritional; endocrine; and metabolic disorders (7 sources) Obese class I; Translations: [Body mass index (BMI) 32.0-32.9, adult] Onset: 2 Chronic Other nutritional; endocrine; and metabolic disorders (20 sources) Obesity; Translations: [Other obesity due to excess calories] Onset: 2 Chronic Other nutritional; endocrine; and metabolic disorders (20 sources) Body mass index 30+ - obesity 03-25-2022 Chronic Other nutritional; endocrine; and metabolic disorders (20 sources) Overweight; Translations: [Overweight] Onset: 2 Episodic [...] conditions (not mental disorders or infectious disease) (9 sources) Encounter for screening for malignant neoplasm of cervix; Translations: [Encounter for screening mammogram for malignant neoplasm of breast] Onset: 2 Episodic Other skin disorders (20 sources) Folliculitis 06-04-2020 Episodic Other skin disorders (1 source) Hypertrophic condition of skin; Translations: [Other hypertrophic disorders of the skin] Onset: 2 Episodic Other upper respiratory disease (20 sources) Lesion of nose 06-04-2020 Episodic Other upper respiratory infections (20 sources) Laryngitis; Translations: [Acute laryngopharyngitis] Onset: 3 06-04-2020 Episodic Ovarian cyst (20 sources) Cyst of ovary 12-14-2013 Episodic Residual [...] of mental health and substance abuse codes (20 sources) Tobacco use and exposure - finding 09-22-2020 Chronic Spondylosis; intervertebral disc disorders; other back problems (20 sources) Low back pain; Translations: [Cervical radiculopathy] Onset: 3 Resolved: 9 02-05-2019 Episodic Sprains and strains (13 sources) Sprain of shoulder; Translations: [Sprain of unspecified parts of right shoulder girdle, initial encounter] Onset: 3 Episodic Thyroid disorders (20 sources) Congenital hypothyroidism; Translations: [Hypothyroidism] Onset: 2 06-06-2020 Chronic Unclassified (20 sources) Patient encounter status 06-06-2020 Unclassified (20 sources) Rupture of rotator cuff of shoulder 03-25-2022 Unclassified (3 sources) Sprain of ligament of right shoulder joint 06-09-2023 Urinary tract infections (13 sources) Acute cystitis; Translations: [Acute cystitis without hematuria] Onset: 2 Episodic Viral infection (20 sources) Herpes labialis 01-30-2019 Episodic Viral infection (11 sources) Disease caused by 2019-nCoV; Translations: [COVID-19] Onset: 2 Past or Other Problems Problem Classification Problem Date Documented Da te Episodic/Chronic Other circulatory disease (20 sources) H/O: varicose veins Resolved: 01-30-2019 02-05-2019 Episodic Other connective tissue disease (20 sources) Plantar fasciitis Resolved: 07-08-2016 02-05-2019 Episodic Other gastrointestinal disorders (20 sources) Acute diarrhea Onset: 02-03-2010 02-05-2019 Episodic Other skin disorders (20 sources) Senile hyperkeratosis Resolved: 03-06-2019 04-30-2019 Episodic Other skin disorders (20 sources) Skin tag Resolved: 03-06-2019 04-30-2019 Episodic Residual codes; unclassified (20 sources) Menopause present Resolved: 07-08-2016 02-05-2019 Episodic Unclassified (20 sources) Entire liver (body structure) 02-03-2010 Results Test Name Value Interpretation Reference Range Facility Ambulatory Visit Summaryon 0 06-21-2024 Ambulatory Visit Summary Ambulatory Visit Summary SONG MCKEON :1965 Visit Date:06/21/2024 Ambulatory Visit Instructions Your Diagnosis Eosinophilic esophagitis Dysphagia GERD (gastroesophageal reflux disease) Schatzki's ring Personal history of colonic polyps Your Care Team Attending Physician - Sendy LUIS, Mary Bar Primary Care Physician - Antony HAWKINS MD This Is Your Medications List Contact prescribing physician if questions or concerns amitriptyline (amitriptyline 10 mg Tab) cetirizine (cetirizine 10 mg Tab) cyclobenzaprine (cyclobenzaprine 10 mg Tab) dicyclomine (Bentyl 10 mg Cap) levothyroxine (levothyroxine 88 mcg (0.088 mg) Tab) ondansetron (ondansetron 4 mg Dis Tab) pantoprazole (Pantoprazole [address] Tab) valacyclovir (Valtrex 1 g Tab) Procedures Performed Colonoscopy (05/17/2024), Esophagogastroduodenoscopy (05/17/2024), Esophagogastroduodenoscopy (11/24/2022), Esophagogastroduodenoscopy (09/08/2022), Endoscopic plantar fasciotomy right. (07/15/2016), Appendectomy, Breast mass, Cholecystectomy, egd, Hysterectomy, Laparoscopic procedure, Liver cyst....., Lymph node operation, Ovarian cyst......, Shoulder repair, Thyroid, Tonsillectomy. Discharge Vitals Heart Rate (Peripheral) 75 Respiratory Rate 16 Blood Pressure 119/76 Height 169 cm Height 67 in Weight 93.4 kg Weight 205.48 lb BMI 32.7 What to do next Scheduled Follow-Up Appointments 2024 2:45 PM EDT With: Sendy LUIS, Mary Bar Where: [facility] [address] [place] [address] [place] [phone] Medications What How Much When Why Instructions Unchanged amitriptyline (amitriptyline 10 mg Tab) 1 [...] Contact prescribing physician if questions or concerns Allergies Bactrim (Vomiting/Diarrhea) Biaxin (Vomiting/Diarrhea) Monistat Derm (Irritation of vulva) Mucinex (Respiratory distress) Pepcid (Hives) Tessalon Perles (Vomiting) Vicodin (Hives) Zantac (Hives) codeine (Hives) famotidine (hives) levofloxacin (Vomiting/Diarrhea) morphine (Hives) oxyCODONE (Hives) penicillin (vomiting diarrhea) Levaquin (Unknown) predniSONE (Asthma, Hives, Rash) raNITIdine (Unknown) Problems Ongoing - Any problem that you are currently receiving treatment for. BMI 32.0-32.9,adult Breast cancer screening by mammogram Cervical radiculopathy Class 1 obesity due to excess calories in adult Congenital hypothyroidism Diabetes mellitus screening Dysphagia Encounter for lipid screening for cardiovascular disease Encounter for well adult exam with abnormal findings Eosinophilic esophagitis Generalized anxiety disorder GERD (gastroesophageal reflux disease) Herpes labialis hiatal hernia History of colon polyps History of migraine headaches Hyperlipemia, mixed Irritable bowel syndrome with diarrhea Migraine with aura, not intractable Non-tobacco user Personal history of colonic polyps Schatzki's ring Terminal esophageal web Historical - Any problem [...] Rotator cuff rupture Shoulder pain Viral bronchitis Patient Survey You may receive a survey via text or e-mail asking about your office visit. Please share your experience with us (more content not included)... Normal [facility] Gastroenterology Office/Clin ic Noteon 06-21-2024 Gastroenterology Office/Clinic Note Gastroenterology Office/Clinic Note Chief Complaint follow up to egd/colon HPI Staff Patient is a(n) 58 year old female who presents today for a follow up to EGD & Colonoscopy on 05/17/24. Denies blood thinners/GLP-1 agonists. 7 year colon recall placed. Last visit 12/21/23 w/Dr. Kaba: Assessment/Plan 1. Eosinophilic esophagitis (K20.0: Eosinophilic esophagitis) [...] diet since it is helping her symptoms 2. Dysphagia (R13.10: Dysphagia, unspecified) 3. GERD (gastroesophageal reflux disease) (K21.9: Gastro-esophageal reflux disease without esophagitis) Controlled with twice daily PPI 4. Schatzki's ring (K22.2: Esophageal obstruction) 5. History of colon polyps (Z86.010: Personal history of colonic polyps) Repeat colonoscopy last 1 she had 1 tubular adenoma less than 1 cm 2018 EGD: Impression and Plan 1.Esophogus exam was suggestive of eosinophilic esophagitis, with mild prominent rings, EREFS score: Edema 0/1: 0 Rings 0/3: 1 Exudates 0/2: 0 Furrows 0/1:0 Stricture 0/1:0 Total: 1 Random biopsies were taken from proximal and distal esophagus 2. 3 cm hiatal hernia. 3. Distal esophageal mild, nonobstructive Schatzki ring 4. Few fundic gland polyps. Diffuse patchy erythema moderate in the antrum with erosions suggestive of erosive gastritis. Random biopsies were taken to rule out eosinophilic gastritis and H. pylori 5. Normal examined duodenum Colonoscopy: Impression and Plan 1. Small internal hemorrhoids 2. Moderate sigmoid diverticulosis, otherwise normal examined colon Recommendations: Repeat colonoscopy:: 7 yrs. Pathology: Final Diagnosis (Verified) A: PROXIMAL ESOPHAGUS, BIOPSY: Mild reflux type changes. B: STOMACH, BIOPSY: Mild chronic inactive gastritis. C: DISTAL ESOPHAGUS, BIOPSY: Reflux type changes. Addendum (Verified) IHC stains are negative for Helicobacter pylori. Appropriate reactive controls are performed and reviewed Addendum (Verified) A. Proximal esophagus, biopsy: - Three eosinophils per high power filed identified. B. Distal esophagus, biopsy: - Two eosinophils per high power filed identified. History of Present Illness Doing well, asymptomatic Physical Exam Vitals & Measurements HR: 75(Peripheral) RR: 16 BP: 119/76 HT: 67 in HT: 169 cm WT: 93.4 kg WT: 205.48 lb BMI: 32.7 Assessment/Plan 1. Eosinophilic esophagitis (K20.0: Eosinophilic esophagitis) Ambien working Doing well symptomatically, last EGD December 2022 [...] past? She has multiple allergies as well She is taking pantoprazole twice a day, repeat EGD showed prominent rings, otherwise no other endoscopic finding, no dilation was done, biopsy showed 2 to 3 cm in proximal and distal esophagus per high power field No need to change therapy, follow-up in 1 year or sooner if needed 2. Dysphagia (R13.10: Dysphagia, unspecified) Resolved, dilated in the past 3. GERD (gastroesophageal reflux disease) (K21.9: Gastro-esophageal reflux disease without esophagitis) 4. Schatzki's ring (K22.2: Esophageal obstruction) 5. Personal history of colonic polyps (Z86.010: Personal history of colonic polyps) 2030 Follow-up No qualifying data available Problem List/Past Medical History Ongoing BMI 32.0-32.9,adult Breast cancer screening by mammogram Cervical radiculopathy Class 1 obesity due to excess calories in adult Congenital hypothyroidism Diabetes mellitus screening Dysphagia Encounter for lipid screening for cardiovascular disease Encounter for well adult exam with abnormal findings Eosinophilic esophagitis Generalized anxiety disorder GERD (gastroesophageal reflux disease) Herpes labialis hiatal hernia History of colon polyps History of migraine headaches Hyperlipemia, mixed Irritable bowel syndrome with diarrhea Migraine with aura, not intractable Non-tobacco user Personal history of colonic polyps Schatzki's ring Terminal esophageal web Historical Acute diarrhea Acute hemorrhagic colitis due to E. coli Adhesive contact dermatitis Appendectomy Axillary adenopathy Breast mass Cervical adenopathy Folliculitis Gall blad (more content not included)... Normal [facility] Comment on above: Result Comment: Elec tronically Signed By: Sendy LUIS, Mary Bar\.br\Date and Time Signed: 06/21/24 16:01 EDT Provider Letteron 06-21-2024 Provider Letter Provider Letter June 21, 2024 SONG MCKEON [facility] [id number] : 1965 To Whom It May Concern, Please excuse above patient from work. Date of Appointment: June 21, 2024 May Return to Work On: June 22, 2024 Sincerely, [facility] [phone] Normal [facility] Ambulatory Visit Summaryon 0 06-19-2024 Ambulatory Visit Summary Ambulatory Visit Summary SONG MCKEON :1965 Visit Date:06/19/2024 Ambulatory Visit Instructions Your Diagnosis Encounter for well adult exam with abnormal findings Congenital hypothyroidism GERD (gastroesophageal reflux disease) Generalized anxiety disorder Herpes labialis Hyperlipemia, mixed Irritable bowel syndrome with diarrhea Class 1 obesity due to excess calories in adult BMI 32.0-32.9,adult Breast cancer screening by mammogram History of migraine headaches Your Care Team Attending Physician - Antony HAWKINS MD Primary Care Physician - Antony HAWKINS MD This Is Your Medications List amitriptyline (amitriptyline 10 mg Tab) cetirizine (cetirizine 10 mg Tab) cyclobenzaprine (cyclobenzaprine 10 mg Tab) dicyclomine (Bentyl 10 mg Cap) levothyroxine (levothyroxine 88 mcg (0.088 mg) Tab) ondansetron (ondansetron 4 mg Dis Tab) pantoprazole (Pantoprazole [address] Tab) valacyclovir (Valtrex 1 g Tab) [Image Removed: STOP]Stop taking these medications bacitracin topical (bacitracin Top 500 units/g Oint 30 gram) lidocaine topical (lidocaine Viscous Top 2% Riya 15 mL) Procedures Performed Colonoscopy (05/17/2024), Esophagogastroduodenoscopy (05/17/2024), Esophagogastroduodenoscopy (11/24/2022), Esophagogastroduodenoscopy (09/08/2022), Endoscopic plantar fasciotomy right. (07/15/2016), Appendectomy, Breast mass, Cholecystectomy, egd, Hysterectomy, Laparoscopic procedure, Liver cyst....., Lymph node operation, Ovarian cyst......, Shoulder repair, Thyroid, Tonsillectomy. Discharge Vitals Heart Rate (Peripheral) 77 Respiratory Rate 16 Blood Pressure 120/80 Height 169 cm Height 67 in Weight 93.2 kg Weight 205.04 lb BMI 32.63 What to do next Scheduled Follow-Up Appointments 2023 3:00 PM EDT With: Sendy LUIS, Mary Bar Where: [facility] [address] [place] [address] [address] [place], [place] [id number]- You Need to Schedule the Following Appointments Follow Up with ROSS LUIS, WENDIE Hardy When: In 1 year Where: You Need to Complete the Following MA Mamm Screen w/CAD if perf and 3D Kristopher, *Est. 06/19/24 due within 3 months, Routine, Order for Future Visit, Transport Mode: Wheelchair, Reason: Screening, No, Breast cancer screening by mammogram, [id number] y, [facility] Medications What How Much When Why Instructions Unchanged amitriptyline (amitriptyline 10 mg Tab) 1 Tablets By Mouth Once a day (at bedtime) Irritable bowel syndrome with diarrhea Pickup at [facility] Unchanged cetirizine (cetirizine 10 mg Tab) 1 Tablets By Mouth Every day Pickup at [facility] Unchanged cyclobenzaprine (cyclobenzaprine 10 mg Tab) 1 Tablets By Mouth 3 times a day as needed for for spasm May use as needed for muscle spasms but sedation warning Pickup at [facility] Unchanged dicyclomine (Bentyl 10 mg Cap) 1 Capsules By Mouth 4 times a day as needed for abdominal pain [facility] Unchanged levothyroxine (levothyroxine 88 mcg (0.088 mg) Tab) 1 Tablets By Mouth Every day [facility] Unchanged ondansetron (ondansetron 4 mg Dis Tab) 1 Tablets By Mouth Every 6 hours as needed for Nausea/Vomiting [facility] Unchanged pantoprazole (Pantoprazole [address] Tab) 1 Tablets By Mouth 2 times a day Pickup at [facility] Unchanged valacyclovir (Valtrex 1 g Tab) 2 Tablets By Mouth 2 times a day x 1 days at onset of coldsore Pickup at [facility] Pharmacy Information [facility]: [address] [place], [place] [id number] [phone] What How Much When Comments Stop Taking bacitracin topical (bacitracin Top 500 units/ g Oint 30 gram) 1 Application Topical 4 times a day Stop Taking lidocaine topical (lidocaine Viscous Top 2% Riya 15 mL) 5 Milliliter Topical Four times a day (before meals and at bedtime) Allergies Bactrim (Vomiting/Diarrhea) Biaxin (Vomiting/Diarrhea) Monistat Derm (Irritation of vulva) Mucinex (Respiratory distress) Pepcid (Hives) Tessalon Perles (Vomiting) Vicodin (Hives) Zantac (Hives) codeine (Hives) famotidine (hives) levofloxacin (Vomiting/Diarrhea) morphine (Hives) oxyCODONE (Hives) penicillin (vomiting diarrhea) Levaquin (Unknown) predniSONE (Asthma, Hives, Rash) raNITIdine (Unknown) Problems Ongoing - Any problem that you are currently receiving treatment for. BMI 32.0-32.9,adult Breast cancer screening by mammogram Cervical radiculopathy Class 1 obesity due to excess calories in adult Congenital hypothyroidism Diabetes mellitus screening Dysphagia Encounter for lipid screening for cardiovascular disease Encounter for well adult exam with abnormal findings Eosinophilic esophagitis Generalized anxiety disor (more content not included)... Normal [facility] Family Medicine Office/Clini c Noteon 06-19-2024 Family Medicine Office/Clinic Note Family Medicine Office/Clinic Note Chief Complaint annual wellness chk up, rf meds to dm/michele, needs shingrix History of Present Illness Song is a 58 y.o. female presenting to [facility] for a 1 yr wellness visit. She is doing well overall and states that she recently had her upper and lower endoscopies done and was pleased with the results. She states she follows up with GI on 06/21/24. She has been managing her acid reflux with diet and avoids gluten, cinnamon, and chocolate which she states worsen her symptoms. She endorses mild acid reflux occasionally. She states that her bowel movements have been normal and her IBS is controlled. About 2 months ago she cut her R 4th finger when a spring broke and a blade sliced her skin. She states that the stitches did not take well and that the scar bothers her over the knuckle, stating it is tight when she flexes the joint. It is not tender to the touch. She states she is still taking her levothyroxine and denies any fatigue, weight gain, changes in mood. Recent TSH is therapeutic She states that she had her eye appointment in November of this year. She is getting her mammogram done next week and has seen gynecology for her PAP. She is also seeing her dentist later this month. She asks if she can have FMLA paperwork done for migraine headaches. She states she recently had one this week and usually misses about 1.5 days of work. She states she gets them once every couple months. Clearly recognizes they worsen with lack of sleep. Review of Systems PHQ Score Initial Depression Screen Score: 0 SCORE See HPI otherwise negative Physical Exam Vitals & Measurements HR: 77(Peripheral) RR: 16 BP: 120/80 SpO2: 98% HT: 67 in HT: 169 cm WT: 93.2 kg WT: 205.04 lb BMI: 32.63 General: Well groomed, NAD . Eyes: Pupils equal, round, and reactive to light. Conjunctivae and sclerae normal, and extraocular movements intact Ears: No deformity or lesion of external ear. Canals and TM appear normal bilaterally. TM?s intact, not inflamed, with normal light reflex. Hearing grossly normal to conversational speech Nose: No septal deviation, discharge, inflammation, or lesions Mouth: Mucous membranes moist. Normal oropharynx, and posterior pharynx without lesions or exudates. Tongue normal. mild to poor dentition. Neck: Neck supple. No masses or palpable cervical nodes. Trachea midline. Thyroid without nodules, masses, tenderness, or enlargement Lungs: Normal respiratory effort and CTA. Sounds are distant but clear bilaterally Cardio: Regular rate and rhythm, normal S1 and S2, no murmur, gallop or rub Abdomen: Soft, non-distended, non-tender,+ BS, no organomegaly Musculoskeletal: No deformity or scoliosis noted. Normal range of motion. Joints normal. No erythema, edema, effusion, or ecchymosis Extremity: No cyanosis, edema, or deformity, with grossly normal ROM in both upper and lower bilateral extremities Neurologic: Grossly normal CN 2-12, no obvious tremors at rest, normal gait Skin: No rashes or suspicious lesions on exposed surfaces Tattoos are present on both forearms. Mental Status: Alert and oriented x3. Normal mood and affect Pleasant, cooperative. Assessment/Plan 1. Encounter for well adult exam with abnormal findings (Z00.01: Encounter for general adult medical examination with abnormal findings) Reviewed with patient general health maintenance including need for follow-up with dental and mammogram screening. Strong recommendation for shingles vaccine based on age and the flu vaccine but she defers. 2. 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 TSH is stable 3. GERD (gastroesophageal reflux disease) (K21.9: Gastro-esophageal reflux disease without esophagitis) Continue with pantoprazole daily dietary compliance is very important including avoiding nighttime eating in smaller portions. 4. Generalized anxiety disorder (F41.1: Generalized anxiety disorder) Patient still uses amitriptyline which has benefit for emotional support and IBS. 5. Herpes labialis (B00.1: Herpesviral vesicular dermatitis) Valacyclovir refilled to use PRN. 6. Hyperlipemia, mixed (E78.2: Mixed hyperlipidemia) Labs have been stable, continue to monitor with diet and exercise. 7. Irritable bowel syndrome with diarrhea (K58.0: Irritable bowel syndrome with diarrhea) Well controlled with dicyclomine, continue medication and monitor symptoms. Patient to follow up with GI. 8. Class 1 obesity due to excess calories [...] management will be followed at subsequent visits. 9. BMI 3 (more content not included)... Normal [facility] Comment on above: Result Comment: Elec tronically Signed By: Antony HAWKINS MD\.br\Date and Time Signed: 06/19/24 17:16 EDT\.br\Electronically Co-Signed By: Chapo PIERRE III, Mal Parada\.br\Date and Time Co-Signed: 06/19/24 16:47 EDT Provider Letteron 06-19-2024 Provider Letter Provider Letter June 19, 2024 [address]HA [address] [place] [id number] : 1965 To Whom It May Concern, Please excuse above patient from work. Date of Illness: From: 19 June 2024 To: 19 June 2024 May Return to Work On: 20 June 2024 Restrictions: None Comments: Please call the office with any questions Sincerely, [facility] [place] [address] Normal [facility] CBC w/ Auto Diffon 4 Basophils/100 WBC (Bld) 0.6 % Normal 0.0-2.0 [facility] Comment on above: Performed By: #### 2 [id number] #### [facility] [address] [place] [address] Basophils/Leukocyte s Auto (Bld) [Pure # fraction] 0.0 E9/L Normal 0.0-0.2 [facility] Comment on above: Performed By: #### 2 [id number] #### [facility] [address] [place] [address] Eosinophils (Bld) [#/Vol] 0.2 E9/L Normal 0.0-0.5 [facility] Comment on above: Performed By: #### 2 [id number] #### [facility] [address] [place] [address] Eosinophils/100 WBC (Bld) 3.2 % Normal 0.0-8.0 [facility] Comment on above: Performed By: #### 2 [id number] #### [facility] [address] [place] [address] Erythrocyte distribution width (RBC) [Ratio] 13.7 % Normal 10.9-14.2 [facility] Comment on above: Performed By: #### 2 [id number] #### [facility] [address] [place] [address] Hematocrit (Bld) [Volume fraction] 35.6 % Normal 34.0-46.0 [facility] Comment on above: Performed By: #### 2 [id number] #### [facility] [address] [place] [address] Hemoglobin (Bld) [Mass/Vol] 12.2 g/dL Normal 12.0-16.0 [facility] Comment on above: Performed By: #### 2 [id number] #### [facility] [address] [place] [address] Lymphocytes (Bld) [#/Vol] 3.0 E9/L Normal 1.0-4.0 [facility] Comment on above: Performed By: #### 2 [id number] #### [facility] [address] [place] [address] Lymphocytes/100 WBC (Bld) 42.1 % Normal 14.0-50.0 [facility] Comment on above: Performed By: #### 2 [id number] #### [facility] [address] [place] [address] MCH (RBC) [Entitic mass] 28.9 pg Normal 27.0-34.0 [facility] Comment on above: Performed By: #### 2 [id number] #### [facility] [address] [place] [address] MCHC (RBC) [Mass/Vol] 34.3 g/dL Normal 31.4-36.0 [facility] Comment on above: Performed By: #### 2 [id number] #### [facility] [address] [place] [address] MCV (RBC) [Entitic vol] 84.1 fL Normal 80.0-100.0 [facility] Comment on above: Performed By: #### 2 [id number] #### [facility] [address] [place] [address] Monocytes (Bld) [#/Vol] 0.4 E9/L Normal 0.2-1.0 [facility] Comment on above: Performed By: #### 2 [id number] #### [facility] [address] [place] [address] Neutrophils (Bld) [#/Vol] 3.4 E9/L Normal 2.0-7.5 [facility] Comment on above: Performed By: #### 2 [id number] #### [facility] [address] [place] [address] Neutrophils/100 WBC (Bld) 48.2 % Normal 36.0-75.0 [facility] Comment on above: Performed By: #### 2 [id number] #### [facility] [address] [place] [address] Platelet 349.0 E9/L Normal 150.0-500.0 [facility] Comment on above: Performed By: #### 2 [id number] #### [facility] [address] [place] [address] Platelet mean volume (Bld) [Entitic vol] 7.1 fL Normal 6.4-10.8 [facility] Comment on above: Performed By: #### 2 [id number] #### [facility] [address] [place] [address] RBC (Bld) [#/Vol] 4.2 E12/L Low 4.3-5.9 [facility] Comment on above: Performed By: #### 2 [id number] #### [facility] [address] [place] [address] WBC corrected for nucl RBC Auto (Bld) [#/Vol] 7.1 E9/L Normal 4.0-11.0 [facility] Comment on above: Performed By: #### 2 [id number] #### [facility] [address] [place] [address] CHEMISTRYOrdered By: SYSTEM SYSTEM on 06-09-2024 Albumin [Mass/Vol] 4.1 g/dL Normal 3.3 - 5.0 gm/dL Rem[facility] Chem Albumin/Globulin [Mass ratio] 1.2 {ratio} Normal 1.1 - 2.2 [facility] Chem ALP [Catalytic activity/Vol] 120 [iU]/d High 21 - 98 Int._Unit/L [facility] Chem ALT No additional P-5'-P [Catalytic activity/Vol] 21 [iU]/d Normal 6 - 46 Int._Unit/L [facility] Chem Anion gap [Moles/Vol] 10 mmol/L Normal 6 - 16 mEq/L [facility] Chem AST [Catalytic activity/Vol] 18 [iU]/d Normal 5 - 43 Int._Unit/L [facility] Chem Bilirubin [Mass/Vol] 0.3 mg/dL Normal 0.0 - 1.1 mg/dL [facility] Calcium [Mass/Vol] 9.6 mg/dL Normal 8.9 - 11. 1 mg/dL [facility] Chloride [Moles/Vol] 105 mmol/L Normal 101 - 111 mmol/L [facility] Cholesterol [Mass/Vol] 218 mg/dL High 120 - 200 mg/dL [facility] Cholesterol in HDL [Mass/Vol] 49 mg/dL Invalid Interpretation Code [facility] Comment on above: Result Comment: '>= 60 LOW RISK' '<= 40 HIGH RISK' Cholesterol in LDL [Mass/Vol] 157 mg/dL High <=129mg/dL [facility] Cholesterol in VLDL [Mass/Vol] 22 mg/dL Normal 7 - 40 mg/dL [facility] CO2 [Moles/Vol] 28 mmol/L Normal 21 - 31 mmol/L [facility] Creatinine [Mass/Vol] 0.9 mg/dL Normal 0.5 - 1.3 mg/dL [facility] Chem eGFR 74 mL/min/1.73 m2 Normal >=59mL/min / 1.73 m2 [facility] Globulin (S) [Mass/Vol] 3.4 g/dL Normal 1.4 - 4.0 gm/dL [facility] Glucose [Mass/Vol] 98 mg/dL Normal 55 - 199 mg/dL [facility] Potassium [Moles/Vol] 3.8 mmol/L Normal 3.5 - 5.3 mmol/L [facility] Chem Protein [Mass/Vol] 7.5 g/dL Normal 6.0 - 7.8 gm/dL [facility] Sodium [Moles/Vol] 139 mmol/L Normal 135 - 145 mmol/L [facility] Triglyceride [Mass/Vol] 108 mg/dL Normal <=149mg/dL [facility] Chem TSH Qn 1.57 m[IU]/L Normal 0.34 - 5.60 mcIU/mL [facility] Urea nitrogen [Mass/Vol] 19 mg/dL Normal 5 - 21 mg/dL [facility] Urea nitrogen/Creatinine [Mass ratio] 21 mg/mg High 10 - 20 [facility] Chem CMPon 06-09-2024 Albumin [Mass/Vol] 4.1 g/dL Normal 3.3-5.0 [facility] Comment on above: Performed By: #### 2 [id number] #### [facility] [address] [place] [address] Albumin/Globulin (S) [Mass conc ratio] 1.2 Normal 1.1-2.2 [facility] Comment on above: Performed By: #### 2 [id number] #### [facility] [address] [place] [address] ALP [Catalytic activity/Vol] 120 Int._Unit/L High - [facility] Comment on above: Performed By: #### 2 [id number] #### [facility] [address] [place] [address] ALT No additional P-5'-P [Catalytic activity/Vol] 21 Int._Unit/L Normal 6-46 [facility] Comment on above: Performed By: #### 2 [id number] #### [facility] [address] [place] [address] Anion gap [Moles/Vol] 10 mmol/L Normal 6-16 [facility] Comment on above: Performed By: #### 2 [id number] #### [facility] [address] [place] [address] AST [Catalytic activity/Vol] 18 Int._Unit/L Normal 5-43 [facility] Comment on above: Performed By: #### 2 [id number] #### [facility] [address] [place] [address] Bilirubin [Mass/Vol] 0.3 mg/dL Normal 0.0-1.1 [facility] Comment on above: Performed By: #### 2 [id number] #### [facility] [address] [place] [address] Calcium [Mass/Vol] 9.6 mg/dL Normal 8.9-11.1 [facility] Comment on above: Performed By: #### 2 [id number] #### [facility] [address] [place] [address] Chloride [Moles/Vol] 105 mmol/L Normal 101-111 [facility] Comment on above: Performed By: #### 2 [id number] #### [facility] [address] [place] [address] CO2 [Moles/Vol] 28 mmol/L Normal 21-31 [facility] Comment on above: Performed By: #### 2 [id number] #### [facility] [address] [place] [address] Creatinine [Mass/Vol] 0.9 mg/dL Normal 0.5-1.3 [facility] Comment on above: Performed By: #### 2 [id number] #### [facility] [address] [place] [address] Globulin (S) [Mass/Vol] 3.4 g/dL Normal 1.4-4.0 [facility] Comment on above: Performed By: #### 2 [id number] #### [facility] [address] [place] [address] Glucose [Mass/Vol] 98 mg/dL Normal 55-199 [facility] Comment on above: Performed By: #### 2 [id number] #### [facility] [address] [place] [address] Potassium [Moles/Vol] 3.8 mmol/L Normal 3.5-5.3 [facility] Comment on above: Performed By: #### 2 [id number] #### [facility] [address] [place] [address] Protein [Mass/Vol] 7.5 g/dL Normal 6.0-7.8 [facility] Comment on above: Performed By: #### 2 [id number] #### [facility] [address] [place] [address] Sodium [Moles/Vol] 139 mmol/L Normal 135-145 [facility] Comment on above: Performed By: #### 2 [id number] #### [facility] [address] [place] [address] Urea nitrogen [Mass/Vol] 19 mg/dL Normal 5-21 [facility] Comment on above: Performed By: #### 2 [id number] #### [facility] [address] [place] [address] Urea nitrogen/Creatinine [Mass ratio] 21 No Units High 10-20 [facility] Comment on above: Performed By: #### 2 [id number] #### [facility] [address] [place] [address] HEMATOLOGYOrdered By: SYSTEM SYSTEM on 06-09-2024 Basophils/100 WBC (Bld) 0.6 % Normal 0.0 - 2.0 % [facility] Heme Basophils/Leukocyte s Auto (Bld) [Pure # fraction] 0.0 E9/L Normal 0.0 - 0.2 E9/L [facility] Eosinophils (Bld) [#/Vol] 0.2 E9/L Normal 0.0 - 0.5 E9/L [facility] Eosinophils/100 WBC (Bld) 3.2 % Normal 0.0 - 8.0 % [facility] Erythrocyte distribution width (RBC) [Ratio] 13.7 % Normal 10.9 - 14.2 % [facility] Hematocrit (Bld) [Volume fraction] 35.6 % Normal 34.0 - 46.0 % [facility] Hemoglobin (Bld) [Mass/Vol] 12.2 g/dL Normal 12.0 - 16.0 gm/dL [facility] Lymphocytes (Bld) [#/Vol] 3.0 E9/L Normal 1.0 - 4.0 E9/L [facility] Lymphocytes/100 WBC (Bld) 42.1 % Normal 14.0 - 50.0 % [facility] MCH (RBC) [Entitic mass] 28.9 pg Normal 27.0 - 34.0 pg [facility]e MCHC (RBC) [Mass/Vol] 34.3 g/dL Normal 31.4 - 36.0 gm/dL [facility] MCV (RBC) [Entitic vol] 84.1 fL Normal 80.0 - 100.0 fL [facility] Monocytes (Bld) [#/Vol] 0.4 E9/L Normal 0.2 - 1.0 E9/L [facility] Monocytes/100 WBC (Bld) 5.9 % Normal 4.0 - 14.0 % [facility] Neutrophils (Bld) [#/Vol] 3.4 E9/L Normal 2.0 - 7.5 E9/L [facility] Neutrophils/100 WBC (Bld) 48.2 % Normal 36.0 - 75.0 % [facility] Platelet 349.0 E9/L Normal 150.0 - 500.0 E9/L [facility] Platelet mean volume (Bld) [Entitic vol] 7.1 fL Normal 6.4 - 10.8 fL [facility] RBC (Bld) [#/Vol] 4.2 E12/L Low 4.3 - 5.9 E12/L [facility] WBC corrected for nucl RBC Auto (Bld) [#/Vol] 7.1 E9/L Normal 4.0 - 11.0 E9/L [facility] Lipid Panelon 06-09-2024 Cholesterol [Mass/Vol] 218 mg/dL High 120-200 [facility] Comment on above: Performed By: #### 2 [id number] #### [facility] [address] [place] [address] Cholesterol in HDL [Mass/Vol] 49 mg/dL Invalid Interpretation Code [facility] Comment on above: Result Comment: '>= 60 LOW RISK' '<= 40 HIGH RISK' Performed By: #### 2 [id number] #### [facility] [address] [place] [address] Cholesterol in LDL [Mass/Vol] 157 mg/dL High <=129 [facility] Comment on above: Performed By: #### 2 [id number] #### [facility] [address] [place] [address] Cholesterol in VLDL [Mass/Vol] 22 mg/dL Normal 7-40 [facility] Comment on above: Performed By: #### 2 [id number] #### [facility] [address] [place] [address] Triglyceride [Mass/Vol] 108 mg/dL Normal <=149 [facility] Comment on above: Performed By: #### 2 [id number] #### [facility] [address] [place] [address] TSH With T4fr Reflexon 06-09 TSH Qn 1.57 m[IU]/L Normal 0.34-5.60 [facility] Comment on above: Performed By: #### 1 [id number] #### [facility] [address] [place] [address] eGFRon 06-09-2024 eGFR 74 mL/min/1.73 m2 Normal >=59 [facility] Comment on above: Order Comment: Order added by Discern Expert. Performed By: #### 1 [id number] #### [facility] [address] [place] [address] 07 Addendum Reporton 05-29-2 024 07 Addendum Report [address] [address]- Surgical Pathology Report Collected Date/Time: 05/17/2024 08:34 EDT Pathologist: Rc LUIS, Amina Received Date/Time: 05/17/2024 09:12 EDT Kalen Kaba MD, Mary Kaba MD, Mary Bar Talal 07 Addendum Report - 05/29/2024 17:14 EDT - Auth (Verified) Addendum A. Proximal esophagus, biopsy: - Three eosinophils per high power filed identified. B. Distal esophagus, biopsy: - Two eosinophils per high power filed identified. (Electronic Signature) Yan. Shyla MD 05/29/2024 17:14 Addendum Reason To add eosinophils count in the specimens A and C . 07 Addendum Report - 05/24/2024 14:30 EDT - Auth (Verified) Addendum IHC stains are negative for Helicobacter pylori. Appropriate reactive controls are performed and reviewed (Electronic Signature) Julius Ulrich MD 05/24/2024 14:30 Addendum Reason H. pylori 07 Surgical Pathology Report - 05/18/2024 15:23 EDT - Auth (Verified) Final Diagnosis A: PROXIMAL ESOPHAGUS, BIOPSY: Mild reflux type changes. B: STOMACH, BIOPSY: Mild chronic inactive gastritis. C: DISTAL ESOPHAGUS, BIOPSY: Reflux type changes. (Electronic Signature) Amina Tatum MD 05/18/2024 15:23 Clinical Information EOE, GERD, Schatzki's ring, history of colon polyps Pre-Op Diagnosis: EOE, GERD, Schatzki's ring, history of colon polyps Procedure: EGD Post-Op Diagnosis: 1. Esophogus exam was suggestive of eosinophilic esophagitis, with mild prominent rings, EREFS score: Edema 0/1: 0 Rings 0/3: 1 Exudates 0/2: 0 Furrows 0/1:0 Stricture 0/1:0 Total: 1 Random biopsies were taken from proximal and distal esophagus 2. 3 cm hiatal hernia. Surgical Pathology Report Collected Date/Time: 05/17/2024 08:34 EDT Pathologist: Amina Tatum MD Received Date/Time: 05/17/2024 09:12 EDT Kalen Kaba MD, Mary Kaba MD, Mary Bar Clinical Information 3. Distal esophageal mild, nonobstructive Schatzki ring 4. Few fundic gland polyps. Diffuse patchy erythema moderate in the antrum with erosions suggestive of erosive gastritis. Random biopsies were taken to rule out eosinophilic gastritis and H. pylori 5. Normal examined duodenum Specimen(s) Received A: Proximal esophagus biopsy B: Gastric biopsy C: Distal esophagus biopsy Gross Description A: Received in formalin labeled with patient name, number, and proximal esophagus biopsy are three fragments of link/pink tissue ranging from 0.1 cm up to 0.2 cm in greatest dimension. Specimen is entirely submitted in one cassette. B: Received in formalin labeled with patient name, number, and gastric biopsy are three fragments of link/pink tissue ranging from 0.2 cm up to 0.4 cm in greatest dimension. Specimen is entirely submitted in one cassette. C: Received in formalin labeled with patient name, number, and distal esophagus biopsy are three fragments of link/pink tissue ranging from 0.1 cm up to 0.2 cm in greatest dimension. Specimen is entirely submitted in one cassette. (DC) DC:[facility] Microscopic Description Microscopic examination performed unless gross only specified. The use of one or more reagents in the above tests is regulated as an analyte specific reagent (ASR). The test or tests are ordered following initial H&E microscopic examination. The performance characteristics were determined by the Laboratory of [facility]. They have not been cleared or approved by the US Food and Drug Administration. The FDA has determined that such clearance or approval is not necessary. These tests are used for clinical purposes. They should not be regarded as investigational or for research. Appropriate positive and negative controls are performed and are acceptable. Normal [facility] Comment on above: Performed By: #### C [id number] #### [facility] [address] [place] [address] 07 Addendum Reporton 024 07 Addendum Report [facility] [address] [facility] [place] [address]- Surgical Pathology Report Collected Date/Time: 05/17/2024 08:34 EDT Pathologist: Amina Tatum MD Received Date/Time: 05/17/2024 09:12 EDT Kalen Kaba MD, Mary Kaba MD, Mary Bar 07 Addendum Report - 05/24/2024 14:30 EDT - Auth (Verified) Addendum IHC stains are negative for Helicobacter pylori. Appropriate reactive controls are performed and reviewed (Electronic Signature) Julius Ulrich MD 05/24/2024 14:30 Addendum Reason H. pylori 07 Surgical Pathology Report - 05/18/2024 15:23 EDT - Auth (Verified) Final Diagnosis A: PROXIMAL ESOPHAGUS, BIOPSY: Mild reflux type changes. B: STOMACH, BIOPSY: Mild chronic inactive gastritis. C: DISTAL ESOPHAGUS, BIOPSY: Reflux type changes. (Electronic Signature) Amina Tatum MD 05/18/2024 15:23 Clinical Information EOE, GERD, Schatzki's ring, history of colon polyps Pre-Op Diagnosis: EOE, GERD, Schatzki's ring, history of colon polyps Procedure: EGD Post-Op Diagnosis: 1. Esophogus exam was suggestive of eosinophilic esophagitis, with mild prominent rings, EREFS score: Edema 0/1: 0 Rings 0/3: 1 Exudates 0/2: 0 Furrows 0/1:0 Stricture 0/1:0 Total: 1 Random biopsies were taken from proximal and distal esophagus 2. 3 cm hiatal hernia. 3. Distal esophageal mild, nonobstructive Schatzki ring 4. Few fundic gland polyps. Diffuse patchy erythema moderate in the antrum with erosions suggestive of erosive gastritis. Random biopsies were taken to rule out eosinophilic gastritis and H. pylori 5. Normal examined duodenum Specimen(s) Received A: Proximal esophagus biopsy B: Gastric biopsy C: Distal esophagus biopsy Surgical Pathology Report Collected Date/Time: 05/17/2024 08:34 EDT Pathologist: Amina Tatum MD Received Date/Time: 05/17/2024 09:12 EDT Kalen Kaba MD, Mary Kaba MD, Mary Bar Gross Description A: Received in formalin labeled with patient name, number, and proximal esophagus biopsy are three fragments of link/pink tissue ranging from 0.1 cm up to 0.2 cm in greatest dimension. Specimen is entirely submitted in one cassette. B: Received in formalin labeled with patient name, number, and gastric biopsy are three fragments of link/pink tissue ranging from 0.2 cm up to 0.4 cm in greatest dimension. Specimen is entirely submitted in one cassette. C: Received in formalin labeled with patient name, number, and distal esophagus biopsy are three fragments of link/pink tissue ranging from 0.1 cm up to 0.2 cm in greatest dimension. Specimen is entirely submitted in one cassette. (DC) DC:[facility] Microscopic Description Microscopic examination performed unless gross only specified. The use of one or more reagents in the above tests is regulated as an analyte specific reagent (ASR). The test or tests are ordered following initial H&E microscopic examination. The performance characteristics were determined by the [facility] of [facility]. They have not been cleared or approved by the US Food and Drug Administration. The FDA has determined that such clearance or approval is not necessary. These tests are used for clinical purposes. They should not be regarded as investigational or for research. Appropriate positive and negative controls are performed and are acceptable. [facility] Comment on above: Performed By: #### C [id number] #### [facility] [address] [place] [address] Reminderson 05-24-2024 Reminders Reminders From: Berta Tilley I To: [facility] - Reminders/Recalls; Sent: 05/24/2024 13:54:50 EDT Show up: 03/03/2031 13:54:00 EDT Subject: Colonoscopy recall Reminder/Recall 7 year recall - hx polyps Dr. Kaba 05/17/2031 [facility] Main OR Intraoperative Recor don 05-18-2024 Main OR Intraoperative Record Main OR Intraoperative Record IntraOp Document Type FT Summary Primary Physician: Mary Kaba MD Finalized Date/Time: 05/18/24 10:15:23 Pt. Name: SONG MCKEON/Sex: 1965 Female Med Rec #: [id number] Physician: Mary Kaba MD Financial #: [id number] Pt. Type: O Room/Bed: / Admit/Disch: 05/17/24 06:51:55 - 05/17/24 23:59:59 Institution: Case Times FT Entry 1 Patient Times In Room 05/17/24 08:12:00 Out Room 05/17/24 08:40:00 Procedure Times Start 05/17/24 08:17:00 Stop 05/17/24 08:37:00 Anesthesia Times Start 05/17/24 08:12:00 Stop 05/17/24 08:40:00 Time at [place] 05/17/24 08:30:00 Last Modified By: Florinda Rg RN 05/17/24 08:41:33 General Comments: EGD end time at 0824./KIERSTENRN Colonoscopy start time at 0826./KIERSTEN,RN 05/18/24 Chart opened to review and send charges LRoth CSFA Case Attendance FT Entry 1 Entry 2 Entry 3 Case Attendee Yamil MUNOZ, Bong Rg RN, Ayo Stafford Role Performed Anesthesiologist Psychodramatist - Primary Scrub - Primary Logistics Intern Time In 05/17/24 08:12:00 05/17/24 08:12:00 05/17/24 08:12:00 Time Out 05/17/24 08:40:00 05/17/24 08:40:00 05/17/24 08:40:00 Procedure EGD AND COLONOSCOPY(.) EGD AND COLONOSCOPY(.) EGD AND COLONOSCOPY(.) Comments Dr. Tony is supervising Last Modified By: Arcenio GIBSON, Florinda Rg RN, Florinda Rg RN, Florinda Ramirez 05/17/24 08:41:34 05/17/24 08:41:34 05/17/24 08:41:34 Entry 4 Entry 5 Case Attendee Amador ANGEL, Marilyn Kaba MD, Mary Bar Role Performed Staff - Other Surgeon - Primary Time In 05/17/24 08:12:00 05/17/24 08:12:00 Time Out 05/17/24 08:40:00 05/17/24 08:40:00 Procedure EGD AND COLONOSCOPY(.) EGD AND COLONOSCOPY(.) Comments Last Modified By: Arcenio GIBSON, lForinda Rg RN, Florinda Ramirez 05/17/24 08:41:34 05/17/24 08:41:34 Perioperative Protocols FT Pre-Care Text: Implements protective measures prior to operative or invasive procedure, confirms identity before the operative or invasive procedure, verifies operative procedure, surgical site, and laterality Entry 1 Procedure(s) EGD AND COLONOSCOPY(.) Patient Identity Birthday, ID Band Verified (select at Check, Patient least 2): Participation Consents / H and P Anesthesia Consent, Operative Site N/A Verified Surgery/Procedure Marking Verified Consent, Transfusion Consent Surgical Site No Laterality Verified n/a Verified Procedure Verified Yes Correct Patient Yes Position Verified Availability Equipment, Medication Prep Dry n/a Verified (If Applicable) PreOp Antibiotic No Time Out Yamil MUNOZ, Bong Given Arcenio Aragon RN, Florinda Ramirez, Ayo Meza Schafer CST, Sendy Vicente MD, Mary Bar Time Out Complete 05/17/24 08:16:00 Outcomes Met? Yes Last Modified By: Florinda Rg RN 05/17/24 08:41:50 Post-Care Text: The patient is free from signs and symptoms of injury caused by extraneous objects Allergy Information FT Pre-Care Text: Verifies allergies Entry 1 Allergies Reviewed? Yes Allergies Reviewed Self/Patient With Outcomes Met? Yes Last Modified By: Florinda Rg RN 05/17/24 08:16:57 Post-Care Text: The patient received appropriate medication(s) safely administered during the perioperative period Surgical Procedures FT Entry 1 Procedure Description Procedure EGD AND COLONOSCOPY Modifiers . Surgeon Description EGD with proximal esophagus biopsy, distal esophagus biopsy, gastric biopsy. Colonoscopy Primary Procedure Yes Primary Surgeon Sendy LUIS, Mary Bar Start 05/17/24 08:17:00 Stop 05/17/24 08:37:00 Anesthesia Type General Surgical Service Gastroenterology Wound Class 2 - Clean-Contaminated Last Modified By: Florinda Rg RN 05/17/24 08:39:39 General Case Data FT Pre-Care Text: Classifies surgical wound, implements aseptic technique, initiates traffic control Entry 1 Case Information OR ENDO 1 FT Case Level Level 2 Wound Class 2 - Clean-Contaminated Specialty Gastroenterology ASA Class 2 Preop Diagnosis EOE, GERD, Schatzki's Postop Same As Preop No ring, history of colon polyps Postop Diagnosis EGD- Schatzki's ring, Outcomes Met? Yes minimal rings in esophagus, gastric polyp, gastric erosions, gastritis, hiatal hernia. Colonoscopy- Hemmorhoids, diverticuosis Last Modified By: Florinda Rg RN 05/17/24 08:41:26 Post-Care Text: The patient is free from signs and symptoms of infection Skin Assessment (Pre Procedure) FT Pre-Care Text: Implements protective measures to prevent skin/ tissue injury due to thermal or mechanical sources Evaluates for signs and symptoms of physical injury to skin and tissue Entry 1 Skin Integrity Intact, [place], Warm, & Skin Abnormality Yes Dry Outcomes Met? Yes Last Modified By: Arcenio GIBSON, Florinda Ramirez 05/17/24 08:29:31 Post-Care Text: The pa (more content not included)... Normal [facility] Surgical Pathology Reporton 05-18-2024 Surgical Pathology Report [facility] [address] [place] [address]- Surgical Pathology Report Collected Date/Time: 05/17/2024 08:34 EDT Pathologist: Amina Tatum MD Received Date/Time: 05/17/2024 09:12 EDT Kalen Kaba MD, Mary Kaba MD, Mary Bar 07 Surgical Pathology Report - 05/18/2024 15:23 EDT - Auth (Verified) Final Diagnosis A: PROXIMAL ESOPHAGUS, BIOPSY: Mild reflux type changes. B: STOMACH, BIOPSY: Mild chronic inactive gastritis. C: DISTAL ESOPHAGUS, BIOPSY: Reflux type changes. (Electronic Signature) Amina Tatum MD 05/18/2024 15:23 Clinical Information EOE, GERD, Schatzki's ring, history of colon polyps Pre-Op Diagnosis: EOE, GERD, Schatzki's ring, history of colon polyps Procedure: EGD Post-Op Diagnosis: 1. Esophogus exam was suggestive of eosinophilic esophagitis, with mild prominent rings, EREFS score: Edema 0/1: 0 Rings 0/3: 1 Exudates 0/2: 0 Furrows 0/1:0 Stricture 0/1:0 Total: 1 Random biopsies were taken from proximal and distal esophagus 2. 3 cm hiatal hernia. 3. Distal esophageal mild, nonobstructive Schatzki ring 4. Few fundic gland polyps. Diffuse patchy erythema moderate in the antrum with erosions suggestive of erosive gastritis. Random biopsies were taken to rule out eosinophilic gastritis and H. pylori 5. Normal examined duodenum Specimen(s) Received A: Proximal esophagus biopsy B: Gastric biopsy C: Distal esophagus biopsy Gross Description A: Received in formalin labeled with patient name, number, and proximal esophagus biopsy are three fragments of link/pink tissue ranging from 0.1 cm up to 0.2 cm in greatest dimension. Specimen is entirely submitted in one cassette. B: Received in formalin labeled with patient name, number, and gastric biopsy are three fragments of link/pink tissue ranging from 0.2 cm up to 0.4 cm in greatest dimension. Specimen is entirely submitted in one cassette. C: Received in formalin labeled with patient name, number, and distal esophagus biopsy are three fragments of link/pink tissue ranging from 0.1 cm up to 0.2 cm in greatest dimension. Specimen is entirely submitted in one cassette. (DC) DC:[facility] Surgical Pathology Report Collected Date/Time: 05/17/2024 08:34 EDT Pathologist: Amina Tatum MD Received Date/Time: 05/17/2024 09:12 EDT Kalen Kaba MD, Mary Bowling MD Microscopic Description Microscopic examination performed unless gross only specified. The use of one or more reagents in the above tests is regulated as an analyte specific reagent (ASR). The test or tests are ordered following initial H&E microscopic examination. The performance characteristics were determined by the Laboratory of [facility]. They have not been cleared or approved by the [place] Food and Drug Administration. The FDA has determined that such clearance or approval is not necessary. These tests are used for clinical purposes. They should not be regarded as investigational or for research. Appropriate positive and negative controls are performed and are acceptable. Normal [facility] Comment on above: Performed By: #### [id number] #### [facility] Laboratory [address] [place] [address] Discharge Instructionson Discharge Instructions Discharge Instructions SONG MCKEON :1965 Visit Date:05/17/2024 Inpatient Discharge Instructions Your Care Team Admitting Physician - Mary Kaba MD Referring Physician - Mary Kaba MD Reason for Your Visit EOE, GERD, SCHATEZKI'S RING, HX OF COLON POLYPS Your Diagnosis Eosinophilic esophagitis Tests Performed Pathology Tissue Exam -- Results Pending -- Please visit your patient portal for your results or contact your primary care physician. This Is Your Medications List amitriptyline (amitriptyline 10 mg Tab) bacitracin topical (bacitracin Top 500 units/g Oint 30 gram) cetirizine (cetirizine 10 mg Tab) cyclobenzaprine (cyclobenzaprine 10 mg Tab) dicyclomine (Bentyl 10 mg Cap) levothyroxine (levothyroxine 88 mcg (0.088 mg) Tab) lidocaine topical (lidocaine Viscous Top 2% Riya 15 mL) ondansetron (ondansetron 4 mg Dis Tab) pantoprazole (Pantoprazole [address] Tab) valacyclovir (Valtrex 1 g Tab) Procedure History Colonoscopy (05/17/2024), Esophagogastroduodenoscopy (05/17/2024), Esophagogastroduodenoscopy (11/24/2022), Esophagogastroduodenoscopy (09/08/2022), Endoscopic plantar fasciotomy right. (07/15/2016), Appendectomy, Breast mass, Cholecystectomy, egd, Hysterectomy, Laparoscopic procedure, Liver cyst....., Lymph node operation, Ovarian cyst......, Shoulder repair, Thyroid, Tonsillectomy. What to do next Instructions From Your Doctor Event Name Event Result Discharge Activity Resume normal activities in 24 hours Discharge Restrictions No driving for 24 hrs Discharge Diet(s) Regular Call Your Doctor For Persistent or heavy bleeding Discharge Instructions Discharge Instructions New Follow Up Appointments after Discharge Follow Up with Sendy LUIS, JASVIR Melgar, [facility] When: Comments: Call for any problems. Office will call to schedule follow up appointment Where: Medications What How Much When Why Instructions Next Dose Unchanged amitriptyline (amitriptyline 10 mg Tab) 1 Tablets By Mouth Once a day (at bedtime) Irritable bowel syndrome with diarrhea Unchanged bacitracin topical (bacitracin Top 500 units/ g Oint 30 gram) 1 Application Topical 4 times a day Unchanged cetirizine (cetirizine 10 mg Tab) 1 Tablets By Mouth Every day Unchanged cyclobenzaprine (cyclobenzaprine 10 mg Tab) 1 Tablets By Mouth 3 times a day as needed for for spasm May use as needed for muscle spasms but sedation warning Unchanged dicyclomine (Bentyl 10 mg Cap) 1 Capsules By Mouth 4 times a day as needed for abdominal pain Unchanged levothyroxine (levothyroxine 88 mcg (0.088 mg) Tab) 1 Tablets By Mouth Every day Unchanged lidocaine topical (lidocaine Viscous Top 2% Riya 15 mL) 5 Milliliter Topical Four times a day (before meals and at bedtime) Unchanged ondansetron (ondansetron 4 mg Dis Tab) 1 Tablets By Mouth Every 6 hours as needed for Nausea/Vomiting Unchanged pantoprazole (Pantoprazole [address] Tab) 1 Tablets By Mouth 2 times a day Unchanged valacyclovir (Valtrex 1 g Tab) 2 Tablets By Mouth 2 times a day x 1 days at onset of coldsore Test Results No qualifying data available. Allergies Bactrim (Vomiting/Diarrhea) Biaxin (Vomiting/Diarrhea) Monistat Derm (Irritation of vulva) Mucinex (Respiratory distress) Pepcid (Hives) Tessalon Perles (Vomiting) Vicodin (Hives) Zantac (Hives) codeine (Hives) famotidine (hives) levofloxacin (Vomiting/Diarrhea) morphine (Hives) oxyCODONE (Hives) penicillin (vomiting diarrhea) Levaquin (Unknown) predniSONE (Asthma, Hives, Rash) raNITIdine (Unknown) Problems Ongoing - Any problem that you are currently receiving treatment for. Abscess of right breast Acute laryngopharyngitis BMI 32.0-32.9,adult Cervical radiculopathy Class [...] sore Ovarian cyst Overweight Raised seborrheic keratosis (more content not included)... Normal [facility] Comment on above: Result Comment: Elec tronically Signed By: Maite Boudreaux I\.br\Date and Time Signed: 05/17/24 08:57 EDT Inpatient Patient Summaryon 05-17-2024 Inpatient Patient Summary Inpatient Patient Summary [place] [id number] [facility] Clinical Discharge Instructions PERSON INFORMATION Name: SONG MCKEON [facility]YSIC[facility]ANS Admitting Physician: Mary Kaba MD Attending Physician: Mary Kaba MD PCP: ROSS LUIS, Antony Discharge Diagnosis: Eosinophilic esophagitis Comment: PATIENT EDUCATION INFORMATION Instructions: Medication Leaflets: Follow up: MEDICATION LIST Medications to Continue with No Changes Other Medications amitriptyline (amitriptyline 10 mg Tab) 1 Tablets By Mouth once a day (at bedtime). Refills: 1. bacitracin topical (bacitracin Top 500 units/g Oint 30 gram) 1 Application Topical 4 times a day. Refills: 0. cetirizine (cetirizine 10 mg Tab) 1 Tablets By Mouth every day. Refills: 1. cyclobenzaprine (cyclobenzaprine 10 mg Tab) 1 Tablets By Mouth 3 times a day as needed for spasm. May use as needed for muscle spasms but sedation warning. Refills: 1. dicyclomine (Bentyl 10 mg Cap) 1 Capsules By Mouth 4 times a day. as needed for abdominal pain. Refills: 11. levothyroxine (levothyroxine 88 mcg (0.088 mg) Tab) 1 Tablets By Mouth every day. Refills: 3. lidocaine topical (lidocaine Viscous Top 2% Riya 15 mL) 5 Milliliter Topical four times a day (before meals and at bedtime). Refills: 0. ondansetron (ondansetron 4 mg Dis Tab) 1 Tablets By Mouth every 6 hours as needed Nausea/Vomiting. Refills: 0. pantoprazole (Pantoprazole [address] Tab) 1 Tablets By Mouth 2 times a day. Refills: 3. valacyclovir (Valtrex 1 g Tab) 2 Tablets By Mouth 2 times a day. x 1 days at onset of coldsore. Refills: 2. Comment: Vishal [facility] Main OR PACU I Recordon 05-03 Main OR PACU I Record Main OR PACU I Record PACU Phase I Document Type FT Summary Primary Physician: Mary Kaba MD Finalized Date/Time: 05/17/24 09:24:58 Pt. Name: SONG MCKEON/Sex: 1965 Female Med Rec #: [id number] Physician: Mary Kaba MD Financial #: [id number] Pt. Type: O Room/Bed: / Admit/Disch: 05/17/24 06:51:55 - Institution: Case Times PACU I FT Pre-Care Text: Identifies barriers to communication and implements measures to provide psychological support Develops individualized plan of care, and ensures continuity of care Maintains patient's dignity and privacy, and maintains patient confidentiality Identifies and reports philosophical, cultural, and spiritual beliefs and values Identifies individual values and wishes concerning care Implements aseptic technique, and administers prescribed antibiotic therapy and immunizing agents as ordered Evaluates postoperative tissue perfusion Implements thermoregulation measures, and monitors body temperature Evaluates postoperative respiratory status Evaluates postoperative cardiac status Evaluates postoperative neurological status Assesses pain control, collaborated in initiating patient-controlled analgesia and implements alternative methods of pain control Verifies allergies, administers prescribed medications and solutions, evaluates response to medications Entry 1 In PACU I 05/17/24 08:42:00 Discharge from PACU 05/17/24 09:12:00 I Outcomes Met? Yes Last Modified By: Maite Boudreaux I 05/17/24 09:24:44 Post-Care Text: The patient demonstrates knowledge of the expected response to the operative or invasive procedure The patient's care is consistent with the individualized perioperative plan of care The patient's right to privacy is maintained The patient's value system, lifestyle, ethnicity, and culture are considered, respected, and incorporated into the perioperative plan of care The patient participates in decisions affecting his or her perioperative plan of care The patient is free from signs and symptoms of infection The patient has wound/tissue perfusion consistent with or improved from baseline levels established preoperatively The patient is at or returning to normothermia at the conclusion of the immediate postoperative period The patient's respiratory function is consistent with or improved from baseline levels established preoperatively The patient's cardiovascular status is consistent with or improved from baseline levels established preoperatively The patient's cardiovascular status is consistent with or improved from baseline levels established preoperatively The patient demonstrates and/or reports adequate pain control throughout the perioperative period The patient received appropriate medication(s), safely administered during the perioperative period Acuity Level PACU I FT Entry 1 Start Time 05/17/24 08:42:00 Stop Time 05/17/24 09:12:00 Acuity Level Acuity Level I Last Modified By: Maite Boudreaux I 05/17/24 09:24:55 Finalized By: Maite Boudreaux I Document Signatures Signed By: Maite Boudreaux I 05/17/24 09:24 [facility] Main OR Preoperative Recordo n 05-17-2024 Main OR Preoperative Record Main OR Preoperative Record Holding Area Document Type FT Summary Primary Physician: Mary Kaba MD Finalized Date/Time: 05/17/24 07:35:28 Pt. Name: SONG MCKEON/Sex: 1965 Female Med Rec #: [id number] Physician: Mary Kaba MD Financial #: [id number] Pt. Type: O Room/Bed: / Admit/Disch: 05/17/24 06:51:55 - Institution: Case Times Holding FT Pre-Care Text: Verifies consent for planned procedure, identifies individual values and wishes concerning care, includes family members in perioperative teaching Secures patient's records' belongings, and valuables, maintains patient's dignity and privacy, and maintains patient confidentiality Entry 1 In Holding 05/17/24 07:20:00 Outcomes Met? Yes Last Modified By: Natalya Jones RN 05/17/24 07:33:53 Post-Care Text: The patient participates in decisions affecting his or her perioperative plan of care The patient's right to privacy is maintained Surgery Checklist FT Entry 1 Patient Birthday, ID Band Procedure History and Physical, Identification: Check, Patient Verification: Surgical Consent, With Participation Patient NPO after Midnight: No Date/Time: 05/17/24 03:30:00 Personal Items none Limitations: none Comment: Complaints of Pain: No Pain Comment: denies Operative Site n/a Availability Equipment Marking: Verified: Does Patient Smoke No Patient states Yes Comment - Adult sister and brother in postop adult Supervision law supervision available Case Cancelled in No Holding Area see comments below for reason Last Modified By: Natalya Jones RN 05/17/24 07:35:24 General Comments: Pt. NPO since bowel prep finished at 0330, pt. vomited at end of prep still nauseated. Pt. having clear yellow results./PAT RN Finalized By: Natalya Jones RN Document Signatures Signed By: Natalya Jones RN 05/17/24 07:35 Normal [facility] Outpatient Surgery Discharge Instructionon 05-17-2024 Outpatient Surgery Discharge Instruction Outpatient Surgery Discharge Instruction [place] [id number] Patient Discharge Instructions PERSON INFORMATION Name: SONG MCKEON Date of : 1965 Current Date: 05/17/2024 08:22:21 PHYSICIANS Admitting Physician: Mary Kaba MD Discharge Diagnosis: Eosinophilic esophagitis SONG MCKEON has been given the following list of follow-up instructions, prescriptions, and patient education materials: PATIENT FOLLOW-UP INFORMATION Diet: Regular Discharge Activity: Resume normal activities in 24 hours Discharge Restrictions: No driving for 24 hrs Call Your Doctor For: Persistent or heavy bleeding IF UNABLE TO CONTACT YOUR PHYSICIAN AND YOU FEEL IT IS AN EMERGENCY, GO TO THE NEAREST EMERGENCY ROOM OR CALL 911 IRADHA MICHELLE M, have received the attached patient education materials/instructions and have verbalized understanding: May we do a follow up call? Yes No I was present when discharge instructions were given __ Patient Signature Date Clinican/Nurse Signature Date Follow up: Pharmacy Information: You may receive a survey from [facility] asking you to rate your care experience. Your feedback is important and will help us understand what we do well and how we can improve the quality of care we provide to you, your loved ones and our community. It?s an honor to serve you. Thank you for choosing [facility] HERE ARE THE MEDICATION CHANGES THAT OCCURRED DURING YOUR HOSPITAL STAY Medications to Continue with No Changes Other Medications amitriptyline (amitriptyline 10 mg Tab) 1 Tablets By Mouth once a day (at bedtime). Refills: 1. bacitracin topical (bacitracin Top 500 units/g Oint 30 gram) 1 Application Topical 4 times a day. Refills: 0. cetirizine (cetirizine 10 mg Tab) 1 Tablets By Mouth every day. Refills: 1. cyclobenzaprine (cyclobenzaprine 10 mg Tab) 1 Tablets By Mouth 3 times a day as needed for spasm. May use as needed for muscle spasms but sedation warning. Refills: 1. dicyclomine (Bentyl 10 mg Cap) 1 Capsules By Mouth 4 times a day. as needed for abdominal pain. Refills: 11. levothyroxine (levothyroxine 88 mcg (0.088 mg) Tab) 1 Tablets By Mouth every day. Refills: 3. lidocaine topical (lidocaine Viscous Top 2% Riya 15 mL) 5 Milliliter Topical four times a day (before meals and at bedtime). Refills: 0. ondansetron (ondansetron 4 mg Dis Tab) 1 Tablets By Mouth every 6 hours as needed Nausea/Vomiting. Refills: 0. pantoprazole (Pantoprazole [address] Tab) 1 Tablets By Mouth 2 times a day. Refills: 3. valacyclovir (Valtrex 1 g Tab) 2 Tablets By Mouth 2 times a day. x 1 days at onset of coldsore. Refills: 2. 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 States she did not realize that her finger was cut as she does wear gloves. States her hand felt wet and realized she was bleeding. When she took her glove she saw that her right ring finger was cut. Pt went to ER, xray of her right hand was negative. 5 sutures were placed. She has continued to work. 05/03/24 presents for ER f/u States all the sutures fell out on their own. Denies any pain in her right ring finger. Denies any redness, swelling or discharge from laceration. Review of Systems Constitutional: Negative. Musculoskeletal: Laceration right ring finger. Integumentary: Laceration right ring finger. Neurologic: Negative. Psychiatric: Negative. Health Status Allergies: Allergic Reactions (Selected) Severe Bactrim- Vomiting/diarrhea. Biaxin- Vomiting/diarrhea. Codeine- Hives. Famotidine- Hives. Levofloxacin- Vomiting/diarrhea. Monistat Derm- Irritation of vulva. Morphine- Hives. Mucinex- Respiratory distress. OxyCODONE- Hives. Penicillin- Vomiting diarrhea. Pepcid- Hives. Tessalon Perles- Vomiting. Vicodin- Hives. Zantac- Hives. Severity Not Documented Levaquin- Unknown. PredniSONE- Asthma, hives and rash. RaNITIdine- Unknown., Allergies (17) Active Severity Reaction famotidine Severe hives Pepcid Severe Hives Bactrim Severe Vomiting/Diarrhea Biaxin Severe Vomiting/Diarrhea codeine Severe Hives levofloxacin Severe Vomiting/Diarrhea Monistat Derm Severe Irritation of vulva morphine Severe Hives Mucinex Severe Respiratory distress oxyCODONE Severe Hives penicillin Severe vomiting diarrhea Tessalon Perles Severe Vomiting Vicodin Severe Hives Zantac Severe Hives predniSONE Rash, Hives, Asthma Levaquin Unknown raNITIdine Unknown Current medications: (Selected) Prescriptions Prescribed Bentyl 10 mg Cap: 10 mg = 1 cap(s), Oral, QID, as needed for abdominal pain, # 40 cap(s), Refills(s) 11, Pharmacy: [facility] #[facility], 169, cm, 10/15/22 12:00:00 EST, Height/Length Dosing, 91.8, kg, 10/15/22 12:00:00 EST, Weight Dosing Pantoprazole [address] Tab: 40 mg = 1 tab(s), Oral, BID, # 180 tab(s), Refills(s) 3, Pharmacy: [facility], 169, cm, 12/21/23 8:16:00 EDT, Height/Length Dosing, 95, kg, 12/21/23 8:16:00 EDT, Weight Dosing Sutab oral tablet: See Instructions, 1 EA, Refill(s) 0, Please follow instructions per packaging and physician's handout, [facility], 169, cm, 12/21/23 8:16:00 EDT, Height/Length Dosing, 95, kg, 12/21/23 8:16:00 EDT, Weight Dosing Valtrex 1 g Tab: 2 gram = 2 tab(s), Oral, BID, x 1 days at onset of coldsore, # 12 tab(s), Refills(s) 2, Pharmacy: [facility], 169, cm, 01/13/24 13:06:00 EDT, Height/Length Dosing, 93, kg, 01/13/24 13:06:00 EDT, Weight Dosing amitriptyline 10 mg Tab: 10 mg = 1 tab(s), Oral, Once a day (at bedtime), # 90 tab(s), Refills(s) 1, Pharmacy: [facility], 169, cm, 01/13/24 13:06:00 EDT, Height/Length Dosing, 93, kg, 01/13/24 13:06:00 EDT, Weight Dosing bacitracin Top 500 units/g Oint 30 gram: 1 flo, Topical, QID, 30 gram, Refill(s) 0, [facility], 169, cm, 04/21/24 10:11:00 EDT, Height/Length Dosing, 93, kg, 04/21/24 10:11:00 EDT, Weight Dosing cetirizine 10 mg Tab: 10 mg = 1 tab(s), Oral, Daily, # 30 tab(s), Refills(s) 1, Pharmacy: [facility], 170, cm, 09/02/23 16:43:00 EST, Height/Length Dosing, 95, kg, 09/02/23 16:43:00 EST, Weight Dosing cyclobenzaprine 10 mg Tab: 10 mg = 1 tab(s), Oral, TID, PRN for spasm, May use as needed for muscle spasms but sedation warning, # 30 tab(s), Refills(s) 1, Pharmacy: [facility]/pharmacy #[id number], 170, cm, 05/28/21 13:52:00 EDT, Height/Length Dosing, 86.5, kg, 05/28/21 13:52:00 EDT, Weigh... levothyroxine 88 mcg (0.088 mg) Tab: 88 microgram = 1 tab(s), Oral, Daily, # 90 tab(s), Refills(s) 3, Pharmacy: [facility]/pharmacy #[id number], 170, cm, 06/27/23 16:25:00 EDT, Height/Length Dosing, 94.1, kg, 06/27/23 16:25:00 EDT, Weight Dosing lidocaine Viscous Top 2% Riya 15 mL: 0.1 gm, 5 mL, Topical, QIDACHS, 100 mL, Refill(s) 0, [facility], 169, cm, 08/03/22 21:08:00 EDT, Height/Length Dosing, 92, kg, 08/03/22 21:08:00 EDT, Weight Dosing ondansetron 4 mg Dis Tab: 4 mg = 1 tab(s), Oral, q6hr, PRN Nausea/Vomiting, # 12 tab(s), Refills(s) 0, Pharmacy: [facility] #[facility], 170, cm, 03/25/22 11:35:00 EDT, Height/Length Dosing, 93.2, kg, 03/25/22 11:35:00 EDT, Weight Dosing, Home Medications (11) Active amitriptyline 10 mg Tab 10 mg = 1 (more content not included)... Normal [facility] ED Clinical Summaryon 2023 ED Clinical Summary ED Clinical Summary [address] [address] ED Clinical Summary Person Information Name: SONG MCKEON [facility] Age: 58 Years : 1965 Sex: Female Language: Martiniquais PCP: Antony HAWKINS MD Marital Status: Visit Id: Visit Reason: Finger laceration; CUT FINGER AT WORK Speciality: Acuity: 4 Enc Type: Emergency Med Service: Emergency Arrival: 04/21/2024 09:52:08 Discharge: 04/21/2024 13:36:00 LOS: 000 03:44 Checkin: 04/21/2024 09:52:08 Checkout: 04/21/2024 13:36:00 Dispo Type: Home (Routine DC) EVENTS: Event Name Event Status Request Date/Time Start Date/Time Complete Date/Time Arrive Complete 04/21/2024 09:52:08 04/21/2024 09:52:08 04/21/2024 09:52:08 Document Home Meds Request 04/21/2024 09:52:08 Triage Complete 04/21/2024 09:52:08 04/21/2024 10:11:00 04/21/2024 10:11:00 Bed Assign Complete 04/21/2024 09:55:33 04/21/2024 09:55:33 04/21/2024 09:55:33 Dr Exam Complete 04/21/2024 09:55:33 04/21/2024 09:58:24 04/21/2024 09:58:24 RN Exam Complete 04/21/2024 09:55:33 04/21/2024 11:56:55 04/21/2024 11:56:55 Registration Complete 04/21/2024 09:58:24 04/21/2024 10:06:58 04/21/2024 10:06:58 Dr Exam Complete 04/21/2024 10:01:08 04/21/2024 10:01:08 04/21/2024 10:01:08 Reg Complete Request 04/21/2024 10:06:58 Reg Bed Request Complete 04/21/2024 10:06:58 04/21/2024 10:06:58 04/21/2024 10:06:58 Patient Care Request 04/21/2024 10:10:50 X-Ray Complete 04/21/2024 10:15:51 04/21/2024 10:17:11 04/21/2024 10:58:11 Wet Read Request 04/21/2024 10:58:11 Meds Admin Complete 04/21/2024 11:01:46 04/21/2024 13:03:50 Pending Labs Request 04/21/2024 11:25:41 Lab Request 04/21/2024 11:25:41 Urine Collect Request 04/21/2024 11:25:41 Discharge Complete 04/21/2024 12:32:16 04/21/2024 13:36:09 04/21/2024 13:36:09 Meds Admin Complete 04/21/2024 12:32:42 04/21/2024 13:03:50 Transfer Complete 04/21/2024 13:36:09 04/21/2024 13:36:09 04/21/2024 13:36:09 ADDRESS: [address] [place] [id number] PHYS DOC NOTES: MEDICAL INFORMATION: Prescriptions Given: New Medications [facility], [address] [place], [place] [id number], [phone] bacitracin topical (bacitracin Top 500 units/g Oint 30 gram) 1 Application Topical 4 times a day. Refills: 0. Medications to Continue with No Changes Other Medications amitriptyline (amitriptyline 10 mg Tab) 1 Tablets By Mouth once a day (at bedtime). Refills: 1. cetirizine (cetirizine 10 mg Tab) 1 Tablets By Mouth every day. Refills: 1. cyclobenzaprine (cyclobenzaprine 10 mg Tab) 1 Tablets By Mouth 3 times a day as needed for spasm. May use as needed for muscle spasms but sedation warning. Refills: 1. dicyclomine (Bentyl 10 mg Cap) 1 Capsules By Mouth 4 times a day. as needed for abdominal pain. Refills: 11. levothyroxine (levothyroxine 88 mcg (0.088 mg) Tab) 1 Tablets By Mouth every day. Refills: 3. lidocaine topical (lidocaine Viscous Top 2% Riya 15 mL) 5 Milliliter Topical four times a day (before meals and at bedtime). Refills: 0. magnesium sulfate/potass Cl/sodium sulf (Sutab oral tablet) Please follow instructions per packaging and physician's handout. Refills: 0. ondansetron (ondansetron 4 mg Dis Tab) 1 Tablets By Mouth every 6 hours as needed Nausea/Vomiting. Refills: 0. pantoprazole (Pantoprazole [address] Tab) 1 Tablets By Mouth 2 times a day. Refills: 3. valacyclovir (Valtrex 1 g Tab) 2 Tablets By Mouth 2 times a day. x 1 days at onset of coldsore. Refills: 2. PATIENT EDUCATION INFORMATION: Instructions: Laceration Care, Adult, [id number] Follow up: With: Address: When: Antony [place] [address] Business (1) In 3 days 04/24/2024 Comments: Follow-up with your family physician in 10 to 14 days to have the stitches removed. Keep the stitches dry for 24 hours followed by cleaning it with water and patting dry. Do not submerge the wound. Use the bacitracin DIAGNOSIS: Laceration of right ring finger without damage to nail Normal [facility] ED Note-Physicianon 04-21-20 ED Note-Physician ED Note-Physician Basic Information Time Seen: Francisco TANG, Valencia Quesada 04/21/2024 09:58 Chief Complaint lac to lt ring and pinky fingers at work History of Present Illness Patient is a 58-year-old female with a history of GERD and migraines who presents to the ED after cutting her right ring finger at work. Patient notes that she was using a saw at work when it cut her right ring finger. She denies being on anticoagulants. Patient is unsure if she is up-to-date on her tetanus vaccine. She denies pain or any other complaints at this time. Review of Systems A 10 point review of systems is negative except as noted above. Medical and Surgical History: Reviewed and noted Social history: Lives at home Family History: Reviewed. Tobacco: Denies Physical Exam Vitals & Measurements T: 37 ?C(Oral) HR: 76(Peripheral) RR: 18 BP: 110/71 SpO2: 98% HT: 169 cm WT: 93 kg BMI: 32.56 General: The patient appears well and in no apparent distress. Patient is resting comfortably on cart. Skin: Warm, dry, no pallor noted. Head: Normocephalic, atraumatic Eye: PERRLA, EOMI ENT: Moist mucus membranes Cardiovascular: Regular rate normal peripheral perfusion Respiratory: No respiratory distress no accessory muscle use no obvious audible wheezing Musculoskeletal: normal ROM, no deformity, no swelling, 1 cm by 2 cm V-shaped laceration over the dorsal aspect of the PIP joint of the right ring finger, neurovascularly intact GI: Soft no obvious distention. No rebound or rigidity. No guarding. No tenderness. Neurological: A&O moves all extremities equal strength and symmetry Psychiatric: Cooperative and appropriate Procedure Correct patient: Confirmed Correct procedure: Confirmed Correct side: Confirmed Correct site: Confirmed Consent by: Patient Consent type: Emergent Pre-op diagnosis: Post-op diagnosis: Description (rpt) Length: 1 cm by 2 cm Location: Other right ring finger Shape: flap Depth: superficial Details: clean NV/tendon exam: intact Anesthesia: 3 ml 1% lido Preparation: sterile field Irrigation: moderate, with 50 ml saline Debridement: none FB removal: complete Skin closure: Prolene sutures, 5 #5-0 simple interrupted sutures Hemostasis: intact Complexity: single layer Post procedure exam: Circulation, motor, and sensory intact Patient tolerated: well Complications: None Performed by (rpt): Self Total time: 20 mins Notes: Due to increased bleeding drink the laceration repair a finger tourniquet was applied. After 5 minutes of being on the finger bleeding was well-controlled. Medical Decision Making Patient is a 58-year-old female with a history of GERD and migraines who presents to the ED after cutting her right ring finger at work. Right hand x-ray shows no acute bony abnormalities. Based on chart review, the patient was updated on her tetanus vaccine on 09/27/2021. The patient has a 1 cm x 2 cm flap laceration to the right ring finger. It was anesthetized with 3 mL of 1% lidocaine and irrigated with 50 mL of saline. No foreign bodies were identified. The wound was closed with 5 5-0 simple interrupted Prolene sutures. During the procedure the finger had an increase in bleeding in which a finger tourniquet was applied for 5 minutes. After removal the bleeding was well-controlled. The patient will have the stitches removed in 10 to 14 days. She was educated on wound care. Bacitracin and gauze was placed on the wound prior to discharge. The patient is also being given a prescription for bacitracin. Patient will follow-up with her primary care provider. She advised to return to the ED with any worsening symptoms. Patient is agreeable to plan and all questions were answered. Assessment/Plan Laceration of right ring finger without damage to nail (S61.214A: Laceration without foreign body of right ring finger without damage to nail, initial encounter) Orders: bacitracin topical, 1 flo, Ointment, Topical, Once, Stop date 04/21/24 12:32:00 EDT, STAT, Start date 04/21/24 12:32:00 EDT bacitracin topical, 1 flo, Topical, QID, 30 gram, Refill(s) 0, [facility], 169, cm, 04/21/24 10:11:00 EDT, Height/Length Dosing, 93, kg, 04/21/24 10:11:00 EDT, Weight Dosing lidocaine, 100 mg, 10 mL, Injection, SubCutaneous, Once, Stop date 04/21/24 11:01:00 EDT, STAT, Start date 04/21/24 11:01:00 EDT XR Hand 3+ Views Right Medications Administered Given bacitracin top 500 units/g Oint PACKET, 1 flo, Topical lidocaine 1% Inj 10 mL, 100 mg, SubCutaneous Disposition Plan Patient Discharge Condition improved Discharge Disposition home Discharge Prescription List Prescriptions bacitracin Top 500 units/g Oint 30 gram, 1 flo, Topical, QID Follow-up With When Contact Information Antony HAWKINS In 3 days 04/24/2024 EDT [address] [id number] Business (1) Additional Instructions: Follow-up with your family physician in 10 to 14 days to have the stitches removed. (more content not included)... [facility] Comment on above: Result Comment: Elec tronically Signed By: Valencia Singh PA-C\.br\Date and Time Signed: 04/21/24 16:22 EDT\.br\Electronically Co-Signed By: Jose Garcia DO\.br\Date and Time Co-Signed: 04/21/24 20:05 EDT ED Patient Summaryon 024 ED Patient Summary ED Patient Summary [place] [id number] Patient Discharge Instructions Person Information Name: RADHASHELBIESONG M Age: 58 Years Arrival Date: 04/21/2024 09:52:08 Discharge Diagnosis: Laceration of right ring finger without damage to nail Primary Care Physician: Antony HAWKINS MD Provider Information Primary Provider: Jose Garcia DO Advanced Business Liaison Officer:Valencia Singh PA-C The exam and treatment you received in the Emergency Department were for an urgent problem and are not intended as complete care. It is important that you follow up with a doctor, nurse practitioner, or physician?s public health training assistant for ongoing care. If your symptoms become worse or you do not improve as expected and you are unable to reach your usual health care provider, you should return to the Emergency Department. We are available 24 hours a day. SONG MCKEON has been given the following list of patient education materials, prescriptions and follow-up instructions: Follow-up Instructions: With: Address: When: Antony ROSS Marizol Mckeon [place] [phone] Business (1) In 3 days 04/24/2024 Comments: Follow-up with your family physician in 10 to 14 days to have the stitches removed. Keep the stitches dry for 24 hours followed by cleaning it with water and patting dry. Do not submerge the wound. Use the bacitracin In the event that this physician does not participate in your insurance network, please consult with your insurance company to find a nearby participating provider. Patient Education Materials: Laceration Care, Adult, Thae-jc-Xedi A MESSAGE TO ALL PATIENTS REGARDING OPIOIDS PRESCRIPTION OPIOIDS: WHAT YOU NEED TO KNOW Prescription opioids can be used to help relieve nerodehk-jq-qpzqzr pain and are often prescribed following a surgery or injury, or for certain health conditions. These medications can be an important part of the treatment but also come with serious risks. It is important to work with your healthcare provider to make sure you are getting the safest, most effective care. WHAT ARE THE RISKS AND SIDE EFFECTS OF OPIOID USE? Prescription opioids carry serious risks of addiction and overdose, especially with prolonged use. An opioid overdose, often marked by slowed breathing, can cause sudden . The use of prescription opioids can have a number of side effects as well, even when taken as directed: ? Tolerance?meaning you might need to take more of the medication for the same pain relief ? Physical dependence?meaning you have symptoms of withdrawal when a medication is stopped ? Increased sensitivity to pain ? Constipation ? Nausea, vomiting, and dry mouth ? Sleepiness and dizziness ? Confusion ? Depression ? Low levels of testosterone that can result in lower sex drive, energy, and strength ? Itching and sweating RISKS ARE GREATER WITH: ? History of drug misuse, substance use disorder, or overdose ? Mental health conditions (such as depression or anxiety) ? Sleep apnea ? Older age (65 years and older) ? Avoid alcohol while taking prescription opioids. Also, unless specifically advised by your health care provider, medications to avoid include: ? Benzodiazepines (such as Xanax or Valium) ? Muscle relaxants (such as Soma or Flexeril) ? Hypnotics (such as Ambien or Lunesta) ? Other prescription opioids KNOW YOUR OPTIONS Talk to your health care provider about ways to manage your pain that don?t involve prescription opioids. Some of these options may actually work better and have fewer risks and side effects. Options may include: ? Pain relievers such as acetaminophen, ibuprofen, and naproxen ? Some medication that are also used for depression or seizures ? Physical therapy and exercise ? Cognitive behavioral therapy, a psychological, goal-directed approach, in which patients learn how to modify physical, behavioral, and emotional triggers of pain and stress. IF YOU ARE PRESCRIBED OPIOIDS FOR PAIN: ? Never take opioids in greater amounts or more often than prescribed. ? Follow up with your primary health care provider. o Work together to create a plan on how to manage your pain. o Talk about ways to help manage your pain that don?t involve prescription opioids. o Talk about any and all concerns and side effects. ? Help prevent misuse and abuse o Never sell or share prescription opioids. o Never use another person?s prescription opioids. ? Store prescription opioids in a secure place and out of reach of others (this may include visitors, children, friends, and family). ? Safely dispose of unused prescription opioids: Find your community drug take-back program or your pharmacy mail-back program, or flush them down the toilet, following guidance from the Food and Drug Administration (www.fda.g (more content not included)... [facility] XR Hand 3+ Views Righton XR Hand 3+ Views Right Exam Date/Time: 04/21/2024 10:58 EDT Reason for Exam: laceration;Other (please specify) Report IMPRESSION: No acute osseous findings. No radiopaque foreign body. EXAMINATION/TECHNIQUE: XR Hand 3+ Views Right HISTORY: Injury of the right middle finger with laceration. COMPARISON: None RESULT: No acute fracture. No dislocation. No radiopaque foreign body. Reported laceration better assessed clinically. Mild scattered degenerative changes throughout the hand with small osteophytes. No other significant abnormality. Ordering Provider: Valencia Singh FINAL REPORT Dictated: 04/21/2024 11:24 am Florian Contreras MD Signed (Electronic Signature): 04/21/2024 11:24 am Signed by: Florian Contreras MD Transcribed by: JESSICA Technologist: WALDO Technical Comments Radiation Dose: Ka,r in mGy = . DAP = . [facility] Ambulatory Visit Summaryon 0 01-13-2024 Ambulatory Visit Summary SONG MCEKON :1965 Visit Date:01/13/2024 Ambulatory Visit Instructions Your Diagnosis BMI 32.0-32.9,adult Your Care Team Attending Physician - LISS STOREY PA-C Primary Care Physician - Antony HAWKINS MD This Is Your Medications List amitriptyline (amitriptyline 10 mg Tab) cetirizine (cetirizine 10 mg Tab) cyclobenzaprine (cyclobenzaprine 10 mg Tab) dicyclomine (Bentyl 10 mg Cap) levothyroxine (levothyroxine 88 mcg (0.088 mg) Tab) lidocaine topical (lidocaine Viscous Top 2% Riya 15 mL) magnesium sulfate/potass Cl/sodium sulf (Sutab oral tablet) ondansetron (ondansetron 4 mg Dis Tab) pantoprazole (Pantoprazole [address] Tab) valacyclovir (Valtrex 1 g Tab) Procedures Performed Esophagogastroduodenoscopy (11/24/2022), Esophagogastroduodenoscopy (09/08/2022), Endoscopic plantar fasciotomy right. (07/15/2016), Appendectomy, Breast mass, Cholecystectomy, egd, Hysterectomy, Laparoscopic procedure, Liver cyst....., Lymph node operation, Ovarian cyst......, Shoulder repair, Thyroid, Tonsillectomy. Discharge Vitals Temperature (Oral) 36.6 ?C Heart Rate (Peripheral) 87 Blood Pressure 110/80 Height 169 cm Height 67 in Weight 93.0 kg Weight 204.6 lb BMI 32.56 What to do next Scheduled Follow-Up Appointments 2023 8:00 AM EDT Where: [facility] Medications What How Much When Why Instructions Unchanged amitriptyline (amitriptyline 10 mg Tab) 1 Tablets By Mouth Once a day (at bedtime) Irritable bowel syndrome with diarrhea Unchanged cetirizine (cetirizine 10 mg Tab) 1 Tablets By Mouth Every day Unchanged cyclobenzaprine (cyclobenzaprine 10 mg Tab) 1 Tablets By Mouth 3 times a day as needed for for spasm May use as needed for muscle spasms but sedation warning Unchanged dicyclomine (Bentyl 10 mg Cap) 1 Capsules By Mouth 4 times a day as needed for abdominal pain Unchanged levothyroxine (levothyroxine 88 mcg (0.088 mg) Tab) 1 Tablets By Mouth Every day Unchanged lidocaine topical (lidocaine Viscous Top 2% Riya 15 mL) 5 Milliliter Topical Four times a day (before meals and at bedtime) Unchanged magnesium sulfate/ potass Cl/ sodium sulf (Sutab oral tablet) See instructions Please follow instructions per packaging and physician's handout Unchanged ondansetron (ondansetron 4 mg Dis Tab) 1 Tablets By Mouth Every 6 hours as needed for Nausea/Vomiting Unchanged pantoprazole (Pantoprazole [address] Tab) 1 Tablets By Mouth 2 times a day Unchanged valacyclovir (Valtrex 1 g Tab) 2 Tablets By Mouth 2 times a day x 1 days at onset of coldsore Medications and Immunizations Administered Not Given SARS-CoV-2 mRNA (tozinameran 5y-11y) vac, Postpone due to refusal Allergies Bactrim (Vomiting/Diarrhea) Biaxin (Vomiting/Diarrhea) Monistat Derm [...] Rotator cuff rupture Shoulder pain Viral bronchitis Patient Survey You may receive a survey via text or e-mail asking about your office visit. Please share your experience with us by completing your survey. We appreciate your feedback and thank you for choosing us for your care. [facility] Family Medicine Office/Clini c Noteon 01-13-2024 Family Medicine Office/Clinic Note Chief Complaint sutures in breast, pus drainage and crusty HPI Staff 58 year old female presents with breast sutures, c/o pus drainage, crusty biopsies done on breast on January [address] Angelo. Dissolvable stitches were used symptoms began two days ago History of Present Illness Pt was doing well initially post-op but a few days ago started having pain and irritation/burning/itching at the surgical sites. Sx have worsened. Sister removed stitches from R breast last night and already feeling better per pt. Denies fever, chills, nausea, vomiting, malaise, myalgia. Review of Systems PHQ Score Initial Depression Screen Score: 0 SCORE no chest pain, palpitations, or SOB. no abdominal pain, nausea, vomiting. no unilateral calf swelling, redness, pain Physical Exam Vitals & Measurements T: 36.6 ?C(Oral) HR: 87(Peripheral) BP: 110/80 SpO2: 98% HT: 67 in HT: 169 cm WT: 93.0 kg WT: 204.6 lb BMI: 32.56 General: nontoxic, NAD, WDWN Mouth: moist mucosa Lungs: normal respiratory effort Cardio: regular rate, good distal perfusion Abdomen: nondistended, no suprapubic distention or tenderness, no CVA tenderness Neurologic: Grossly normal Skin: R breast sutures already removed, round mild-mod erythematous 3cm diameter area, nontender, no fluctuance, no induration, not warm to touch. L breast site #1 lateral to nipple sutures intact with some light yellow-white crusting noted round mild-mod erythematous 2.5cm diameter area, nontender, no fluctuance, no induration, not warm to touch. I did remove 2 sutures easily. L breast site #2 more caudal to first site, again with some yellow crusting noted, round mod erythematous 3cm diameter area, central 1cm area w fluctuance and tender to touch. 4 sutures removed. Was able to express some purulent drainage with gentle pressure followed by serosanguineous fluid. Assessment/Plan 1. Abscess of right breast (N61.1: Abscess of the breast and nipple) I did remove the sutures and express purulent drainage from L surgical site, fluctuance resolved and pt reported immediate relief of sx. we discussed that the erythema at the surgical sites could certainly represent early cellulitis but the areas are not warm/tender and pt is adamantly opposed to abx unless absolutely necessary. she does report a lot of drug allergies/intolerance (16 listed) and says she doesn't want to risk a reaction to medication unless there is no other option. I agree risks of oral meds outweigh benefits at this time as pt is completely nontoxic appearing, abscess was drained easily, and pt can monitor the sites closely. therefore I did use skin marker to outline the borders of each site and advised to monitor closely, if redness is extending beyond the borders, pt to return to [facility] for abx or present to ER for abx after hours. pt verbalizes understanding. Pt already has f/u scheduled w her surgeon on Tuesday (3 days from now). She understands to present to ER in meantime for F/C/N/V/malaise/myalgia/wors ening condition. all questions answered. Ordered: E&M of Est. Patient Moderate 30-39 Min 03378 2. Visit for suture removal (Z48.02: Encounter for removal of sutures) see #1 Ordered: E&M of Est. Patient Moderate 30-39 Min 58085 3. BMI 32.0-32.9,adult (Z68.32: Body mass index [BMI] 32.0-32.9, adult) pt ed provided Ordered: E&M of Est. Patient Moderate 30-39 Min 54095 Follow-up With When Contact Information ROSS LUIS, WENDIE Hardy Within 1 week [address] [place] [address]- Additional Instructions: Patient Education BMI for Adults Problem List/Past Medical History Ongoing Abscess of right breast Acute laryngopharyngitis BMI 32.0-32.9,adult Cervical radiculopathy Class [...] Viral bronchitis Procedure/Surgical History Esophagogastroduodenoscopy (11/24/2022), Esophagogastroduodenoscopy ( (more content not included)... [facility] Comment on above: Result Comment: Elec tronically Signed By: LISS STOREY PA-C\.br\Date and Time Signed: 01/13/24 14:05 EDT Patient Educationon 01-13-20 Patient Education Nutrition BMI for Adults What [...] numbers. This can be done either in [place] ([place] or metric measurements. Note that charts and online BMI calculators are available to help you find your BMI quickly and easily without having to do these calculations yourself. To calculate your BMI in [place] measurements: 1. Measure your weight in [...] for Disease Control and Prevention: www.cdc.gov ? [place] Heart Association: www.heart.org ? National Heart, Lung, and Blood [place]: www.nhlbi.nih.gov Summary ? Body mass index (BMI) is a number that is calculated from a person's weight and height. ? BMI may help estimate how much of a person's weight is composed of fat. BMI can help identify those who may be at higher risk for certain medical problems. ? BMI can be measured using Martiniquais measurements or metric measurements. ? BMI charts are used to identify whether you are underweight, normal weight, overweight, or obese. This information is not intended to replace advice given to you by your health care provider. Make sure you discuss any questions you have with your health care provider. Document Revised: 06/11/2020 Document Reviewed: 04/18/2020 [employer] Patient Education ? 2022 R17. [facility] Cristian 01-02-2024 L Specimen: [id number] R eceived: 01/03/24 Status: ELADIO Coleman Num: [id number] Spec Type: Surgical Subm Dr: Brent Angelo Tissues: A Skin-Other than Cyst, tag, debridement or plastic repair (LT BREAST 5:00) B Skin-Other than Cyst, tag, debridement or plastic repair (RT BREAST 7:00) C Skin-Other than Cyst, tag, debridement or plastic repair (LT NIPPLE 5:00) Procedures: HE/3, Gross/Micro L4/3 Age/ Patient Sex Location Account Attending Physician Song Mckeon 58/F [facility] [id number] Brent Angelo SPEC NUM: [id number] RECD: 01/03/24 STATUS: ELADIO COLEMAN NUM: [id number] ROLLY: 01/02/24- SUBM DR: Brent Angelo ENTERED: 01/03/[address]: Meenu Vallejo SPEC TYPE: Surgical DEPT: PRATIBHA AGUAYO ORDERED: [...] mm. All in 1 cassette. CPT Codes 48450 x 3 -------- -------- Specimen: [id number] Received: 01/03/24 Status: ELADIO Coleman Num: [id number] Spec Type: Surgical Subm Dr: Brent Angelo Tissues: A Skin-Other than Cyst, tag, debridement or plastic repair (LT BREAST 5:00) B Skin-Other than Cyst, tag, debridement or plastic repair (RT BREAST 7:00) C Skin-Other than Cyst, tag, debridement or plastic repair (LT NIPPLE 5:00) Procedures: HE/3, Gross/Micro L4/3 -------- Patient: Song Mckeon [id number] (Continued) -------- Signed (signature on file) Amina Tatum MD 01/04/24 1427 [facility] Consent for Procedure/Surger yon 12-22-2023 Consent for Procedure/Surgery [id number]#[id number] [facility] Ambulatory Visit Summaryon 0 12-21-2023 Ambulatory Visit Summary SONG MCKEON :1965 Visit Date:12/21/2023 Ambulatory Visit Instructions Your Diagnosis Eosinophilic esophagitis Dysphagia GERD (gastroesophageal reflux disease) Schatzki's ring History of colon polyps Your Care Team Attending Physician - Sendy LUIS, Mary Bar Primary Care Physician - ROSS LUIS, Antony This Is Your Medications List magnesium sulfate/potass [...] per packaging and physician's handout Pickup at [facility] Unchanged amitriptyline (amitriptyline 10 mg Tab) [...] physician if questions or concerns Pharmacy Information [facility]: [address] [place], [place] [phone] Medications and Immunizations Administered Not Given influenza [...] varicose v (more content not included)... [facility] Formson 12-21-2023 Forms [id number] [facility] Gastroenterology Office/Clin ic Noteon 12-21-2023 Gastroenterology Office/Clinic [...] Distal esophageal Schatzki ring, dilated using 56 Turkmen Whitney dilator 2. Concentric esophageal rings consistent [...] E&M of Est. Patient Moderate 30-39 Min 35649 EGD Endoscopy (Hospital Procedure) 2. Dysphagia (R13.10: Dysphagia, unspecified) Ordered: Colonoscopy (Hospital Procedure) E&M of Est. Patient Moderate 30-39 Min 79541 EGD Endoscopy (Hospital Procedure) 3. GERD (gastroesophageal reflux disease) (K21.9: Gastro-esophageal reflux disease without esophagitis) Controlled with twice daily PPI Ordered: Colonoscopy (Hospital Procedure) E&M of Est. Patient Moderate 30-39 Min 46659 EGD Endoscopy (Hospital Procedure) 4. Schatzki's ring (K22.2: Esophageal obstruction) Ordered: Colonoscopy (Hospital Procedure) E&M of Est. Patient Moderate 30-39 Min 37426 EGD Endoscopy (Hospital Procedure) 5. History of colon polyps (Z86.010: Personal history of colonic polyps) Repeat colonoscopy last 1 she had 1 tubular adenoma less than 1 cm 2018 Ordered: Colonoscopy (Hospital Procedure) E&M of Est. Patient Moderate 30-39 Min 60787 (more content not included)... [facility] Comment on above: Result Comment: Elec tronically Signed By: Sendy LUIS, Mary Bar\.br\Date and Time Signed: 12/21/23 08:35 EDT Provider Letteron 12-21-2023 Provider Letter (Inserted Image. Yuli ble to display) December 21, 2023 SONG MCKEON [address] [phone] : 1965 To Whom It May Concern, Please excuse above patient from work. Date of Illness: From: 12/21/23 8am appointment To: 12/21/23 May Return to Work On:12/21/23 Restrictions: None Comments: Sincerely, [facility] Mary Kaba MD [facility] Ambulatory Visit Summaryon 1 11-03-2022 Ambulatory Visit Summary SONG MCKEON :1965 Visit Date:09/02/2023 Ambulatory Visit Instructions Your Diagnosis Acute laryngopharyngitis GERD (gastroesophageal reflux disease) Class 1 obesity due to excess calories in adult BMI 32.0-32.9,adult Your Care Team Attending Physician - Antony HAWKINS MD Primary Care Physician - Antony HAWKINS MD This Is Your Medications List cetirizine [...] AM EDT With: Mary Kaba MD Where: [facility] Family Medicine Office/Clini c Noteon 09-02-2023 Family [...] Multiple piercings in the tragus. Oropharynx, fair [place] and [place] tribes dentition with repairs. [place] and moist. No petechiae, no exudate. With [...] with voice recognition artificial intelligence software, specifically [email or web address], [employer] and or [employer]. Substitutions may have occurred due to the inherent limitations of voice recognition and artificial intelligence software. Follow-up With When Contact Information Antony HAWKINS MD, FAM Only if needed Additional Instructions: [...] operation, Ovari (more content not included)... [facility] Comment on above: Result Comment: Elec tronically Signed By: ROSS LUIS, Antony\.br\Date and Time Signed: 09/02/23 17:16 EST Patient Educationon 09-01-20 Patient Education ENT Laryngitis Laryngitis is inflammation [...] these instructions at home: Medicines ? Take laym-bhd-pjbdtcq and prescription medicines only as told by [...] provider. Document Revised: 12/07/2021 Document Reviewed: 12/07/2021 Elsevier Patient Education ? 2022 R17. [facility]son 06-28-2023 Forms [id number]:127 [facility] Ambulatory Visit Summaryon 0 06-27-2023 Ambulatory Visit Summary SONG MCKEON :1965 Visit Date:06/27/2023 Ambulatory Visit Instructions Your Diagnosis Encounter for well adult exam with abnormal findings Cervical radiculopathy Congenital hypothyroidism Generalized anxiety disorder GERD (gastroesophageal reflux disease) hiatal hernia Fasting hyperglycemia Class 1 obesity due to excess calories in adult BMI 32.0-32.9,adult Your Care Team Attending Physician - Antony HAWKINS MD Primary Care Physician - Antony HAWKINS MD This Is Your Medications List amitriptyline [...] AM EDT With: Marilee OCHOA MD Where: [facility] Normal [facility] Family Medicine Office/Clini c Noteon 06-27-2023 Family Medicine Office/Clinic Note Chief Complaint annual wellness exam, labs drawn sat at [facility], needs shingrix, rf pantoprazole & amitriptyline to [facility], rf [facility]othyroxine to [facility] History of Present Illness HISTORY OF PRESENT ILLNESS The patient is here for a general health maintenance exam. Requiring biometric exam form completion She had a mammogram on Tuesday at [place]. Unaware of results at this time. She [...] another process that was better tolerated. Her want ad supervisor told her that they could not accommodate [...] hearing. Oropharynx pink and moist with fair [place] and [place] tribes dentition. Boggy turbinates, clear rhinorrhea. Without discrete [...] than the left. She has multiple tattoos. 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 No discrete tremors [...] she had any injuries at work. Ordered: [facility] Evaluate Patient, Develop a [...] without e (more content not included)... Normal [facility] Comment on above: Result Comment: Elec tronically Signed By: ROSS LUIS, Antony\.br\Date and Time Signed: 06/27/23 20:07 EDT Patient Letter [facility] Patient Letter [facility] (Inserted Image. Yuli ble to display) [address] [place], [place] [id number] June 27, 2023 SONG MCKEON [address] [address] [place] [address] : 1965 To Whom It May Concern: [...] therapy. Thank you very much. Sincerely: Nasir Hawkins MD FAAFP Normal [facility] Provider Letteron 06-27-2023 Provider Letter (Inserted Image. Yuli ble to display) June 27, 2023 SONG MCKEON [address] [address] [place] [address] To Whom It May Concern, Please excuse the above patient from work due to office visit. Date of Illness: From: 06/27/2023 May Return to Work On: 06/28/2023 Restrictions: none Sincerely, Family Medicine Fidel [address] [place] [address] [facility] Patient Educationon 06-26-20 Patient Education Obstetrics and [...] in y (more content not included)... Normal [facility] Auto Diffon 06-25-2023 Basophils/100 WBC (Bld) 1.1 % Normal 0.0-2.0 [facility] Comment on above: Order Comment: Order Added by Discern Expert. Performed By: #### 2 393249, 7942128, 5348940, 13947114, 08657516, 5361064 ####[facility] [address] [place] [address] Basophils/Leukocyte s Auto (Bld) [Pure # fraction] 0.1 E9/L Normal 0.0-0.2 [facility] Comment on above: Order Comment: Order Added by Discern Expert. Performed By: #### 2 020922, 3275662, 7810949, 86035089, 34575895, 7715648 ####[facility] [address] [place] [address] Eosinophils/100 WBC (Bld) 3.1 % Normal 0.0-8.0 [facility] Comment on above: Order Comment: Order Added by Discern Expert. Performed By: #### 2 934010, 1201666, 5121976, 58665765, 51527651, 5363017 ####[facility] [address] [place] [address] Eosinophils/Leukocy sandra Auto (Bld) [Pure # fraction] 0.2 E9/L Normal 0.0-0.5 [facility] Comment on above: Order Comment: Order Added by Discern Expert. Performed By: #### 2 047569, 5588794, 4111822, 91385986, 80632402, 0697565 ####[address] [address] Lymphocytes/100 WBC (Bld) 42.6 % Normal 14.0-50.0 [facility] Comment on above: Order Comment: Order Added by Discern Expert. Performed By: #### 2 488125, 7884197, 0586005, 89317567, 25459526, 2098641 ####[address] [address] Lymphocytes/Leukocy sandra Auto (Bld) [Pure # fraction] 3.0 E9/L Normal 1.0-4.0 [facility] Comment on above: Order Comment: Order Added by Discern Expert. Performed By: #### 2 610766, 8441829, 7047282, 52334365, 78445708, 6250223 ####[address] [address] Monocytes/100 WBC (Bld) 8.0 % Normal 4.0-14.0 [facility] Comment on above: Order Comment: Order Added by Discern Expert. Performed By: #### 2 819071, 4868463, 1854064, 46830837, 72514693, 8007074 ####[address] [address] Monocytes/Leukocyte s Auto (Bld) [Pure # fraction] 0.6 E9/L Normal 0.2-1.0 [facility] Comment on above: Order Comment: Order Added by Discern Expert. Performed By: #### 2 296017, 8332831, 2497214, 35365952, 78578854, 0829004 ####[address] [address] Neutrophils/100 WBC (Bld) 45.2 % Normal 36.0-75.0 [facility] Comment on above: Order Comment: Order Added by Discern Expert. Performed By: #### 2 353973, 6581649, 7023043, 43751103, 41996228, 0427661 ####[address] [address] Neutrophils/Leukocy sandra Auto (Bld) [Pure # fraction] 3.1 E9/L Normal 2.0-7.5 [facility] Comment on above: Order Comment: Order Added by Discern Expert. Performed By: #### 2 317115, 2651001, 2717781, 19641837, 75220374, 7077124 ####[facility] [address] [place] [address] CBC w/ Auto Diffon 3 Erythrocyte distribution width (RBC) [Ratio] 14.2 % Normal 10.9-14.2 [facility] Comment on above: Performed By: #### 2 874591, 5601191, 4243130, 43439697, 00680899, 6007543 ####[address] [place] [address] Hematocrit (Bld) [Volume fraction] 36.4 % Normal 34.0-46.0 [facility] Comment on above: Performed By: #### 2 155248, 5712901, 2535439, 06715309, 87726353, 2641396 ####[facility] [address] [place] [address] Hemoglobin (Bld) [Mass/Vol] 12.0 g/dL Normal 12.0-16.0 [facility] Comment on above: Performed By: #### 2 890309, 9900637, 1280053, 68645889, 69353577, 3643540 ####[address] [place] [address] MCH (RBC) [Entitic mass] 27.6 pg Normal 27.0-34.0 [facility] Comment on above: Performed By: #### 2 120637, 0166875, 3377930, 04949748, 44402202, 7125807 ####[address] [place] [address] MCHC (RBC) [Mass/Vol] 32.9 g/dL Normal 31.4-36.0 [facility] Comment on above: Performed By: #### 2 037446, 0128147, 1931648, 83111271, 42598738, 6661225 ####[facility] [address] [place] [address] MCV (RBC) [Entitic vol] 83.9 fL Normal 80.0-100.0 [facility] Comment on above: Performed By: #### 2 245532, 8232278, 6279808, 34555845, 68908420, 7764819 ####[facility] [address] [place] [address] Platelet mean volume (Bld) [Entitic vol] 7.9 fL Normal 6.4-10.8 [facility] Comment on above: Performed By: #### 2 784373, 9814419, 2572045, 35150632, 47830476, 5347523 ####[address] [address] Platelets (Bld) [#/Vol] 331.0 E9/L Normal 150.0-500.0 [facility] Comment on above: Performed By: #### 2 144330, 6968818, 6413498, 67165450, 37263930, 5282177 ####[address] [address] RBC (Bld) [#/Vol] 4.3 E12/L Normal 4.3-5.9 [facility] Comment on above: Performed By: #### 2 648332, 0266832, 6462524, 55518824, 40494504, 3165248 ####[address] [place] [address] WBC corrected for nucl RBC Auto (Bld) [#/Vol] 7.0 E9/L Normal 4.0-11.0 [facility] Comment on above: Performed By: #### 2 262751, 1759742, 2019033, 28659068, 35159398, 3194678 ####[address] [place] [address] CMPon 06-25-2023 Urea nitrogen [Mass/Vol] 12 mg/dL Normal 5-21 [facility] Comment on above: Performed By: #### 2 926233, 5083332, 0721789, 84468732, 25684528, 5652176 ####[facility] [address] [place] [address] Urea nitrogen/Creatinine [Mass ratio] SDC Abnormal 10-20 [facility] Comment on above: Result Comment: Resu lt verified by Discern Rule. Performed result [facility] (Unable to Calculate) was sent as an Alpha code due the inability to calculate a valid numeric value. Performed By: #### 2 320139, 5948112, 0724743, 87822577, 69349594, 3843083 ####[facility] [address] [place] [address] Albumin [Mass/Vol] 4.1 g/dL Normal 3.3-5.0 [facility] Comment on above: Performed By: #### 2 858064, 8158653, 5425227, 91262960, 80584933, 5905731 ####[facility] [address] [place] [address] Albumin/Globulin (S) [Mass conc ratio] 1.2 Normal 1.1-2.2 [facility] Comment on above: Performed By: #### 2 189784, 1181278, 2890528, 47307843, 32897366, 5957199 ####[facility] [address] [place] [address] ALP [Catalytic activity/Vol] 111 Int._Unit/L High 21-98 [facility] Comment on above: Performed By: #### 2 034601, 6981462, 8463216, 45503257, 89830623, 9122525 ####[facility] [address] [place] [address] ALT No additional P-5'-P [Catalytic activity/Vol] 26 Int._Unit/L Normal 6-46 [facility] Comment on above: Performed By: #### 2 373604, 1507994, 3776693, 34032100, 37830047, 3408595 ####[facility] [address] [place] [address] Anion gap [Moles/Vol] 12 mmol/L Normal 6-16 [facility] Comment on above: Performed By: #### 2 695720, 7602195, 5366118, 96968313, 97686797, 6456500 ####[facility] [address] [place] [address] AST [Catalytic activity/Vol] 24 Int._Unit/L Normal 5-43 [facility] Comment on above: Performed By: #### 2 100324, 7013613, 0106467, 65800783, 99516391, 6673811 ####[facility] [address] [place] [address] Bilirubin [Mass/Vol] 0.4 mg/dL Normal 0.0-1.1 [facility] Comment on above: Performed By: #### 2 645755, 8965168, 8803250, 92550967, 11711476, 7879130 ####[facility] [address] [place] [address] Calcium [Mass/Vol] 9.4 mg/dL Normal 8.9-11.1 [facility] Comment on above: Performed By: #### 2 655206, 6094955, 0834819, 12670718, 33775981, 5933279 ####[facility] [address] [place] [address] Chloride [Moles/Vol] 107 mmol/L Normal 101-111 [facility] Comment on above: Performed By: #### 2 758754, 1609468, 3879961, 73114415, 42401534, 2767128 ####[facility] [address] [place] [address] CO2 [Moles/Vol] 26 mmol/L Normal 21-31 [facility] Comment on above: Performed By: #### 2 317739, 2871395, 1853728, 33865179, 22451263, 5281106 ####[facility] [address] [place] [address] Creatinine [Mass/Vol] 0.9 mg/dL Normal 0.5-1.3 [facility] Comment on above: Performed By: #### 2 411557, 9832742, 4259452, 65414458, 41570814, 1030973 ####[facility] [address] [place] [address] Globulin (S) [Mass/Vol] 3.5 g/dL Normal 1.4-4.0 [facility] Comment on above: Performed By: #### 2 043153, 6333812, 3099975, 02004681, 24412348, 0275512 ####[facility] [address] [place] [address] Glucose [Mass/Vol] 95 mg/dL Normal 55-199 [facility] Comment on above: Result Comment: If t his glucose result represents a fasting glucose, interpretation should refer to the following reference range: 55-99 mg/dL Performed By: #### 2 399362, 9656803, 4117046, 79810104, 40918510, 8628087 ####[facility] [address] [place] [address] Potassium [Moles/Vol] 3.9 mmol/L Normal 3.5-5.3 [facility] Comment on above: Performed By: #### 2 116953, 2444227, 6806733, 70410692, 46878131, 7458141 ####[facility] [address] [place] [address] Protein [Mass/Vol] 7.6 g/dL Normal 6.0-7.8 [facility] Comment on above: Performed By: #### 2 344470, 5287155, 0521562, 79208110, 42981773, 6387522 ####[facility] [address] [place] [address] Sodium [Moles/Vol] 141 mmol/L Normal 135-145 [facility] Comment on above: Performed By: #### 2 656521, 3949697, 3561186, 98310460, 49370995, 8927944 ####[facility] [address] [place] [address] Consent for Treatmenton 06-04 Consent for Treatment [id number] Normal [facility] Lipid Panelon 06-25-2023 Cholesterol [Mass/Vol] 213 mg/dL High 120-200 [facility] Comment on above: Performed By: #### 2 449796, 1981485, 8843438, 58628380, 56073882, 4431157 ####[facility] [address] [place] [address] Cholesterol in HDL [Mass/Vol] 52 mg/dL Invalid Interpretation Code [facility] Comment on above: Result Comment: HDL > or equal to 60 mg/dL: Low cardiovascular risk HDL < 40 mg/dL : High cardiovascular risk Performed By: #### 2 043080, 6212092, 1353209, 56680057, 98525096, 4713135 ####[facility] [address] [place] [address] Cholesterol in LDL [Mass/Vol] 144 mg/dL High <=129 [facility] Comment on above: Performed By: #### 2 478473, 9856321, 9843130, 68930608, 69752067, 9218797 ####[facility] [address] [place] [address] Cholesterol in VLDL [Mass/Vol] 30 mg/dL Normal 7-40 [facility] Comment on above: Performed By: #### 2 988589, 7604725, 6092123, 81751510, 85669024, 7508308 ####[facility] [address] [place] [address] Triglyceride [Mass/Vol] 150 mg/dL High <=149 [facility] Comment on above: Performed By: #### 2 062972, 8632518, 7014141, 90107065, 70685169, 4826149 ####[facility] [address] [place] [address] TSH With T4fr Reflexon 06-25 TSH Qn 1.27 m[IU]/L Normal 0.34-5.60 [facility] Comment on above: Performed By: #### 2 257594, 7560259, 3027211, 00198508, 97374942, 0051621 ####[facility] [address] [place] [address] eGFRon 06-25-2023 GFR/1.73 sq M.predicted among non-blacks MDRD (S/P/Bld) [Vol rate/Area] 75 mL/min/1.73 m2 Normal >=59 [facility] Comment on above: Order Comment: Order added by Discern Expert. Result Comment: Professional Fighter ashley kidney disease could be indicated at eGFR's of less than 60 mL/min/1.73m2. Kidney failure is indicated at less than 15 mL/min/1.73m2. Performed By: #### 2 123906, 0101584, 6812848, 05599309, 99977780, 3584231 ####[facility] [address] [place] [address] CHEMISTRYOrdered By: SYSTEM SYSTEM on 08-10-2022 Albumin [...] Normal 0.1 - 0.4 mg/dL [facility] Bilirubin.indirect [Mass or moles/Vol] Unable to Calculate mg/dL Invalid Interpretation Code 0.1 - 0.9 mg/dL [facility] Globulin (S) [Mass/Vol] 3.5 g/dL Normal 1.4 - 4.0 gm/dL [facility] Protein [Mass/Vol] 7.9 g/dL High 6.0 - 7.8 gm/dL [facility] PAP ACOG PANEL 2: 30 to 65on 07-02-2022 . . Normal [facility] Comment on above: Result Comment: Perf ormed at: WB Performed By: #### 4 863419 #### [facility] [address] [place] [address] Dr. Jonelle Molina Age Gdln ACOG Testing - Normal [facility] Comment on above: Performed By: #### 4 439781 #### [facility] [address] [place] [address] Dr. Jonelle Molina DIAGNOSIS: Comment Normal [facility] Comment on above: Result Comment: NEGA TIVE FOR INTRAEPITHELIAL LESION OR MALIGNANCY. CELLULAR CHANGES ASSOCIATED WITH ATROPHY ARE PRESENT. Performed at: WB Performed By: #### 4 526436 #### [facility] [address] [address] [address] Jonelle Molina HPV Aptima Negative Normal Negative [facility] Comment on above: Result Comment: This nucleic acid amplification test detects fourteen high-risk HPV types (16,18,31,33,35,39,45,51,52,56,58,59,66,68) without differentiation. Performed at: =G Performed By: #### 4 759582 #### [facility] [address] [place] [address] Dr. Jonelle Molina Methodology: Comment Normal [facility] Comment on above: Result Comment: This liquid based ThinPrep(R) pap test was screened with the use of an image guided system. Performed at: WB Performed By: #### 4 828521 #### [facility] [address] [place] [address] Dr. Jonelle Molina Note: Comment Normal [facility] Comment on above: Result Comment: The Pap smear is a screening test designed to aid in the detection of premalignant and malignant conditions of the uterine cervix. It is not a diagnostic procedure and should not be used as the sole means of detecting cervical cancer. Both false-positive and false-negative reports do occur. . Performed at: WB Performed By: #### 4 598430 #### [facility] [address] [address] [address] Jonelle Molina Performed by: Comment Normal [facility] Comment on above: Result Comment: Riddhi Blackman, Billing Assistant (ASCP) Performed at: WB Performed By: #### 4 828056 #### [facility] [address] [place], [place] [address] Dr. Jonelle Molina Specimen adequacy: Comment Normal [facility] Comment on above: Result Comment: Sati sfactory for evaluation. Endocervical component may not be distinguished in cases of atrophy. Performed at: WB Performed By: #### 4 007771 #### [facility] [address] [address] [address] Jonelle Molina MG MAMM SCREEN 3D KRISTOPHER CADon 06-04-2022 MG MAMM SCREEN 3D KRISTOPHER CAD Patient: SONG MCKEON Exam Date: 06/04/2022 : 1965 Gender:F Ordering : DR ROMÁN MENDOZA . Admission #: [id number] Family : Order #: [id number] CLICK HERE TO VIEW EXAM RADIOLOGY REPORT PROCEDURE: MAMMOGRAM SCREENING 3D BILATERAL CAD COMPARISON: MG MAMM SCREEN KRISTOPHER W CAD, 05/15/2020. MG MAMM SCREEN 3D KRISTOPHER CAD, 06/01/2021. INDICATIONS: Screening mammography Calculator Name NCI Breast Cancer Risk Assessment Tool 5 Year Breast Cancer Risk 2.50% Lifetime Breast Cancer Risk 16.60% Personal Breast Cancer No Personal Ovarian Cancer No Treatments None Family Cancers Mother with breast cancer at age 63; Grandfather-maternal with prostate cancer at age 68. LOCATION: [facility] BREAST COMPOSITION: Heterogeneously dense,which may [...] Vicente Salazar MD on 06/04/2022 at 09:04 [facility] Vital Signs Date Time Vital Sign Value Performing Clinician Dave irby 06-21-2024 15:06-0400 Blood Pressure Location Hernandez Sarmini [facility] 06-21-2024 15:06-0400 Diastolic blood pressure 76 mm[Hg] Hernandez Sarmini [facility] 06-21-2024 15:06-0400 Heart rate 75 /min Hernandez Sarmini [facility] 06-21-2024 15:06-0400 Respiratory rate 16 /min Hernandez Sarmini [facility] 06-21-2024 15:06-0400 Systolic blood pressure 119 mm[Hg] Hernandez Sarmini [facility] 05-17-2024 09:07-0400 Diastolic blood pressure 88 mm[Hg] Hernandez Sarmini [facility] 05-17-2024 09:07-0400 Heart rate 66 /min Hernandez Sarmini [facility] 05-17-2024 09:07-0400 Mean blood pressure 97 mm[Hg] Hernandez Sarmini [facility] 05-17-2024 09:07-0400 Respiratory rate 19 /min Hernandez Sarmini [facility] 05-17-2024 09:07-0400 SaO2% (BldA) [Mass fraction] 100 % Hernandez Sarmini [facility] 05-17-2024 09:07-0400 Systolic blood pressure 116 mm[Hg] Hernandez Sarmini [facility] 05-17-2024 08:55-0400 Diastolic blood pressure 55 mm[Hg] Hernandez Sarmini [facility] 05-17-2024 08:55-0400 Heart rate 71 /min Hernandez Sarmini [facility] 05-17-2024 08:55-0400 Mean blood pressure 71 mm[Hg] Hernandez Sarmini [facility] 05-17-2024 08:55-0400 Respiratory rate 14 /min Hernandez Sarmini [facility] 05-17-2024 08:55-0400 SaO2% (BldA) [Mass fraction] 100 % Hernandez Sarmini [facility] 05-17-2024 08:55-0400 Systolic blood pressure 103 mm[Hg] Hernandez Sarmini [facility] 05-17-2024 08:50-0400 Diastolic blood pressure 53 mm[Hg] Hernandez Sarmini [facility] 05-17-2024 08:50-0400 Heart rate 77 /min Hernandez Sarmini [facility] 05-17-2024 08:50-0400 Mean blood pressure 68 mm[Hg] Hernandez Sarmini [facility] 05-17-2024 08:50-0400 Respiratory rate 14 /min Hernandez Sarmini [facility] 05-17-2024 08:50-0400 SaO2% (BldA) [Mass fraction] 100 % Hernandez Sarmini [facility] 05-17-2024 08:50-0400 Systolic blood pressure 97 mm[Hg] Hernandez Sarmini [facility] 05-17-2024 08:42-0400 Body temperature 97.7 [degF] Hernandez Sarmini [facility] 05-17-2024 08:30-0400 Respiratory rate 12 /min Hernandez Sarmini [facility] 05-17-2024 08:15-0400 Respiratory rate 12 /min Hernandez Sarmini [facility] 05-17-2024 07:35-0400 Blood Pressure Location Hernandez Sarmini [facility] 05-17-2024 07:35-0400 Body temperature 98.06 [degF] Hernandez Sarmini [facility] 04-21-2024 10:09-0400 Body temperature 98.6 [degF] Jose Garcia [facility] 04-21-2024 10:09-0400 Diastolic blood pressure 71 mm[Hg] Jose Garcia [facility] 04-21-2024 10:09-0400 Heart rate 76 /min Jose Garcia [facility] 04-21-2024 10:09-0400 Respiratory rate 18 /min Jose Garcia [facility] 04-21-2024 10:09-0400 SaO2% (BldA) [Mass fraction] 98 % Jose Garcia [facility] 04-21-2024 10:09-0400 Systolic blood pressure 110 mm[Hg] Jose Garcia [facility] 01-13-2024 13:03-0400 Blood Pressure Location [facility] 01-13-2024 13:03-0400 Body temperature 97.88 [degF] [facility] 01-13-2024 13:03-0400 Diastolic blood pressure 80 mm[Hg] [facility] 01-13-2024 13:03-0400 Heart rate 87 /min [facility] 01-13-2024 13:03-0400 SaO2% (BldA) [Mass fraction] 98 % [facility] 01-13-2024 13:03-0400 Systolic blood pressure 110 mm[Hg] [facility] 12-21-2023 08:15-0400 Blood Pressure Location Hernandez Sarmini [facility] 12-21-2023 08:15-0400 Diastolic blood pressure 70 mm[Hg] Hernandez Sarmini [facility] 12-21-2023 08:15-0400 Heart rate 70 /min Hernandez Sarmini [facility] 12-21-2023 08:15-0400 Respiratory rate 18 /min Hernandez Sarmini [facility] 12-21-2023 08:15-0400 Systolic blood pressure 118 mm[Hg] Hernandez Sarmini [facility] 09-02-2023 16:38-0500 Blood Pressure Location Christjazmyne BROWN [facility] 09-02-2023 16:38-0500 Diastolic blood pressure 80 mm[Hg] Christopher BROWN [facility] 09-02-2023 16:38-0500 Heart rate 88 /min Christopher BROWN [facility] 09-02-2023 16:38-0500 Respiratory rate 16 /min Christopher BROWN [facility] 09-02-2023 16:38-0500 SaO2% (BldA) [Mass fraction] 97 % Christopher BROWN [facility] 09-02-2023 16:38-0500 Systolic blood pressure 120 mm[Hg] Christopher BROWN [facility] 06-27-2023 16:18-0400 Blood Pressure Location Christopher BROWN [facility] 06-27-2023 16:18-0400 Body temperature 98.42 [degF] Christopher BROWN [facility] 06-27-2023 16:18-0400 Diastolic blood pressure 70 mm[Hg] Christopher BROWN [facility] 06-27-2023 16:18-0400 Heart rate 87 /min Christopher BROWN [facility] 06-27-2023 16:18-0400 Respiratory rate 16 /min Christopher BROWN [facility] 06-27-2023 16:18-0400 SaO2% (BldA) [Mass fraction] 97 % Antony HAWKINS [facility] 06-27-2023 16:18-0400 Systolic blood pressure 100 mm[Hg] Antony HAWKINS [facility] 06-09-2023 11:36-0400 Blood Pressure Location BRIAN CONTE [facility] 06-09-2023 11:36-0400 Body temperature 98.24 [degF] [place] [facility] 06-09-2023 11:36-0400 Diastolic blood pressure 75 mm[Hg] [place] [facility] 06-09-2023 11:36-0400 Heart rate 81 /min [place] [facility] 06-09-2023 11:36-0400 SaO2% (BldA) [Mass fraction] 96 % [place] [facility] 06-09-2023 11:36-0400 Systolic blood pressure 118 mm[Hg] [place] [facility] 12-16-2022 12:06-0400 Blood Pressure Location Hunt SALAM [facility] 12-16-2022 12:06-0400 Diastolic blood pressure 82 mm[Hg] Hunt SALAM [facility] 12-16-2022 12:06-0400 Heart rate 68 /min Hunt SALAM [facility] 12-16-2022 12:06-0400 Respiratory rate 16 /min Hunt SALAM [facility] 12-16-2022 12:06-0400 Systolic blood pressure 136 mm[Hg] Hunt SALAM [facility] 11-24-2022 13:05-0500 Diastolic blood pressure 85 mm[Hg] Hunt SALAM [facility] 11-24-2022 13:05-0500 Heart rate 76 /min Hunt SALAM [facility] 11-24-2022 13:05-0500 Mean blood pressure 98 mm[Hg] Hunt SALAM [facility] 11-24-2022 13:05-0500 Respiratory rate 18 /min Hunt SALAM [facility] 11-24-2022 13:05-0500 SaO2% (BldA) [Mass fraction] 98 % Hunt SALAM [facility] 11-24-2022 13:05-0500 Systolic blood pressure 125 mm[Hg] Hunt SALAM [facility] 11-24-2022 13:00-0500 Diastolic blood pressure 87 mm[Hg] Hunt SALAM [facility] 11-24-2022 13:00-0500 Heart rate 77 /min Hunt SALAM [facility] 11-24-2022 13:00-0500 Mean blood pressure 102 mm[Hg] Hunt SALAM [facility] 11-24-2022 13:00-0500 Respiratory rate 11 /min Hunt SALAM [facility] 11-24-2022 13:00-0500 Systolic blood pressure 132 mm[Hg] Hunt SALAM [facility] 11-24-2022 12:45-0500 Diastolic blood pressure 83 mm[Hg] Hunt SALAM [facility] 11-24-2022 12:45-0500 Heart rate 78 /min Hunt SALAM [facility] 11-24-2022 12:45-0500 Respiratory rate 12 /min Hunt SALAM [facility] 11-24-2022 12:45-0500 SaO2% (BldA) [Mass fraction] 97 % Hunt SALAM [facility] 11-24-2022 12:45-0500 Systolic blood pressure 118 mm[Hg] Hunt SALAM [facility] 11-24-2022 12:35-0500 Body temperature 97.7 [degF] Hunt SALAM [facility] 11-24-2022 11:34-0500 Blood Pressure Location Hunt SALAM [facility] 11-24-2022 11:34-0500 Body temperature 98.24 [degF] Hunt SALAM [facility] 09-08-2022 15:50-0500 Body temperature 97.7 [degF] Hunt SALAM [facility] 09-08-2022 15:50-0500 Diastolic blood pressure 73 mm[Hg] Hunt SALAM [facility] 09-08-2022 15:50-0500 Heart rate 84 /min Hunt SALAM [facility] 09-08-2022 15:50-0500 Respiratory rate 15 /min Hunt SALAM [facility] 09-08-2022 15:50-0500 SaO2% (BldA) [Mass fraction] 99 % Hunt SALAM [facility] 09-08-2022 15:50-0500 Systolic blood pressure 116 mm[Hg] Hunt SALAM [facility] 09-08-2022 15:35-0500 Diastolic blood pressure 72 mm[Hg] Hunt SALAM [facility] 09-08-2022 15:35-0500 Heart rate 90 /min Hunt SALAM [facility] 09-08-2022 15:35-0500 Respiratory rate 13 /min Hunt SALAM [facility] 09-08-2022 15:35-0500 SaO2% (BldA) [Mass fraction] 98 % Hunt SALAM [facility] 09-08-2022 15:35-0500 Systolic blood pressure 115 mm[Hg] Hunt SALAM [facility] 09-08-2022 15:30-0500 Diastolic blood pressure 78 mm[Hg] Hunt SALAM [facility] 09-08-2022 15:30-0500 Heart rate 97 /min Hunt SALAM [facility] 09-08-2022 15:30-0500 Respiratory rate 14 /min Hunt SALAM [facility] 09-08-2022 15:30-0500 SaO2% (BldA) [Mass fraction] 96 % Hunt SALAM [facility] 09-08-2022 15:30-0500 Systolic blood pressure 118 mm[Hg] Hunt SALAM [facility] 09-08-2022 15:20-0500 Body temperature 97.52 [degF] Hunt SALAM [facility] 09-08-2022 15:15-0500 Respiratory rate 18 /min Hunt SALAM [facility] 09-08-2022 15:10-0500 Respiratory rate 20 /min Hunt SALAM [facility] 09-08-2022 14:25-0500 Blood Pressure Location Hunt SALAM [facility] 09-08-2022 14:25-0500 Body temperature 97.34 [degF] Hunt SALAM [facility] 08-04-2022 13:36-0400 Blood Pressure Location Julianajong LemusAlexa [facility] 08-04-2022 13:36-0400 Body temperature 97.52 [degF] Juliana Alexa [facility] 08-04-2022 13:36-0400 Diastolic blood pressure 77 mm[Hg] Juliana Alexa [facility] 08-04-2022 13:36-0400 Heart rate 84 /min Juliana Alexa [facility] 08-04-2022 13:36-0400 Systolic blood pressure 108 mm[Hg] Juliana Alexa [facility] 08-03-2022 22:47-0400 Diastolic blood pressure 65 mm[Hg] Jordin Maxine [facility] 08-03-2022 22:47-0400 Heart rate 87 /min Jordin Maxine [facility] 08-03-2022 22:47-0400 Mean blood pressure 83 mm[Hg] Jordin Maxine [facility] 08-03-2022 22:47-0400 Respiratory rate 16 /min Jordin Maxine [facility] 08-03-2022 22:47-0400 SaO2% (BldA) [Mass fraction] 96 % Jordin Maxine [facility] 08-03-2022 22:47-0400 Systolic blood pressure 118 mm[Hg] Jordin Maxine [facility] 08-03-2022 21:04-0400 Body temperature 97.88 [degF] Jordin Maxine [facility] 08-03-2022 21:04-0400 Diastolic blood pressure 74 mm[Hg] Jordin Maxine [facility] 08-03-2022 21:04-0400 Heart rate 117 /min Jordin Maxine [facility] 08-03-2022 21:04-0400 Respiratory rate 18 /min Jordin Maxine [facility] 08-03-2022 21:04-0400 SaO2% (BldA) [Mass fraction] 98 % Jordin Maxine [facility] 08-03-2022 21:04-0400 Systolic blood pressure 134 mm[Hg] Jordin Maxine [facility] 06-11-2022 11:49-0400 Blood Pressure Location Antony HAWKINS [facility] 06-11-2022 11:49-0400 Body temperature 98.6 [degF] Antony HAWKINS [facility] 06-11-2022 11:49-0400 Diastolic blood pressure 80 mm[Hg] Antony HAWKINS [facility] 06-11-2022 11:49-0400 Heart rate 88 /min Antony HAWKINS [facility] 06-11-2022 11:49-0400 Respiratory rate 16 /min Antony HAWKINS [facility] 06-11-2022 11:49-0400 SaO2% (BldA) [Mass fraction] 97 % Antony HAWKINS [facility] 06-11-2022 11:49-0400 Systolic blood pressure 120 mm[Hg] Colejazmyne HAWKINS [facility] 05-19-2022 10:40-0400 Blood Pressure Location Juliana Liu [facility] 05-19-2022 10:40-0400 Body temperature 97.7 [degF] Juliana Lemusmetz [facility] 05-19-2022 10:40-0400 Diastolic blood pressure 78 mm[Hg] Juliana Alexa [facility] 05-19-2022 10:40-0400 Heart rate 73 /min Juliana Alexa [facility] 05-19-2022 10:40-0400 Systolic blood pressure 116 mm[Hg] Juliana Alexa [facility] 03-25-2022 11:28-0400 Blood Pressure Location Antony HAWKINS [facility] 03-25-2022 11:28-0400 Diastolic blood pressure 80 mm[Hg] Christopher BROWN [facility] 03-25-2022 11:28-0400 Heart rate 77 /min Christopher BROWN [facility] 03-25-2022 11:28-0400 Respiratory rate 16 /min Christopher BROWN [facility] 03-25-2022 11:28-0400 SaO2% (BldA) [Mass fraction] 99 % Christopher BROWN [facility] [place] 03-25-2022 11:28-0400 Systolic blood pressure 120 mm[Hg] Christopher BROWN [facility] 02-23-2022 18:22-0400 Blood Pressure Location Christopher BROWN [facility] [place] 02-23-2022 18:22-0400 Diastolic blood pressure 84 mm[Hg] Christopher BROWN [facility] 02-23-2022 18:22-0400 Heart rate 93 /min Christopher BROWN [facility] [place] 02-23-2022 18:22-0400 Respiratory rate 16 /min Christopher BROWN [facility] [place] 02-23-2022 18:22-0400 SaO2% (BldA) [Mass fraction] 98 % Colejazmyne HAWKINS [facility] 02-23-2022 18:22-0400 Systolic blood pressure 120 mm[Hg] Colejazmyne HAWKINS [facility] Encounters Encounter Date Encounter Type Care Provider Facility Start: 06-13-2025 ambulatory Hernandez Talal Sarmini Facility:[facility] Start: 06-21-2024 End: 06-21-2024 ambulatory [facility] Start: 06-21-2024 End: 06-21-2024 Patient encounter procedure Hernandez Talal Sarmini [facility] Start: 06-19-2024 End: 06-19-2024 ambulatory Antony ROSS Facility:[facility] Start: 06-09-2024 End: 06-09-2024 ambulatory Antony HAWKINS [facility] Start: 06-09-2024 End: 06-09-2024 Patient encounter procedure Colejazmyne HAWKINS [facility] Start: 05-17-2024 End: 05-17-2024 ambulatory Hernandez Billal Clausmini [facility] Start: 05-17-2024 End: 05-17-2024 Patient encounter procedure Hernandez Talal Sarmini [facility] Start: 05-03-2024 ambulatory Arely MORENO [facility] Start: 04-21-2024 End: 04-21-2024 ambulatory Tu ZION [facility] Start: 04-21-2024 End: 04-21-2024 Emergency department patient visit Jose Garcia [facility] Start: 01-18-2024 End: 01-18-2024 ambulatory BRENT PETEY Not Available Start: 01-13-2024 End: 01-13-2024 ambulatory LISS STOREY Facility:[facility] Start: 01-13-2024 End: 01-13-2024 Patient encounter procedure LISS ZEPEDARY [facility] Start: 01-02-2024 End: 01-02-2024 ambulatory Brent Petey [facility] Work Phone: Start: 01-02-2024 End: 01-02-2024 Departed Referred Brent Angelo Work Phone: [facility] Start: 12-21-2023 End: 12-21-2023 ambulatory Hernandez Talal Sarmini Facility[facility] Start: 12-21-2023 End: 12-21-2023 Patient encounter procedure Hernandez Talal Sarmini [facility] Start: 12-19-2023 End: 12-19-2023 ambulatory BRENT PETEY Not Available Start: 09-02-2023 End: 09-02-2023 ambulatory Antony HAWKINS Facility:[facility] Start: 09-02-2023 End: 09-02-2023 Patient encounter procedure Antony HAWKINS [facility] Start: 06-27-2023 End: 06-27-2023 ambulatory Antony HAWKINS Facility:[facility] Start: 06-27-2023 End: 06-27-2023 Encounter for general adult medical examination with abnormal findings Antony HAWKINS [facility] Start: 06-27-2023 End: 06-27-2023 Patient encounter procedure Antony HAWKINS [facility] [place] Start: 06-25-2023 End: 06-25-2023 ambulatory Colejazmyne HAWKINS [facility] Start: 06-09-2023 End: 06-09-2023 Patient encounter procedure Bunny Cancino [facility] Start: 06-09-2023 End: 06-09-2023 Patient encounter procedure BRIAN CONTE [facility] Start: 12-16-2022 End: 12-16-2022 Patient encounter procedure Marilee OCHOA [facility] Start: 12-10-2022 End: 12-10-2022 Patient encounter procedure Renee Berry [facility] Start: 11-24-2022 End: 11-24-2022 Patient encounter procedure Hunt SALAM [facility] Start: 09-08-2022 End: 09-08-2022 Patient encounter procedure Hunt SALAM [facility] Start: 08-10-2022 End: 08-10-2022 Patient encounter procedure Juliana Liu [facility] Start: 08-04-2022 End: 08-04-2022 Patient encounter procedure Juliana Liu [facility] Start: 08-03-2022 End: 08-03-2022 Emergency department patient visit Jordin Goodman [facility] Start: 07-05-2022 End: 07-05-2022 Off-Site MILLI MAK [facility] Start: 06-25-2022 End: 06-25-[address] ROMÁN MENDOZA Facility:[facility] Start: 06-11-2022 End: 06-11-2022 Lab Drop off Antony HAWKINS [facility] Start: 06-11-2022 End: 06-11-2022 Encounter for general adult medical examination with abnormal findings Antony HAWKINS [facility] Start: 06-11-2022 End: 06-11-2022 Patient encounter procedure Antony HAWKINS [facility] Start: 06-04-2022 End: 06-05-[address] DOCTOR MORENO Facility:[facility] Start: 05-19-2022 End: 05-19-2022 Patient encounter procedure Juliana Liu [facility] Start: 03-25-2022 End: 03-25-2022 Patient encounter procedure Antony HAWKINS [facility] Start: 02-23-2022 End: 02-23-2022 Patient encounter procedure Antony HAWKINS [facility] Procedures Date Procedure Procedure Detail Performing Clinician Start: 05-17-2024 Colonoscopy Mary Kaba Start: 05-17-2024 Esophagogastroduodenoscopy Mary morales Start: 11-24-2022 Esophagogastroduodenoscopy Marilee OCHOA Comment on above: esophageal dilation, esophageal rings, b iopsies done, small hiatal hernia Start: 09-08-2022 Esophagogastroduodenoscopy Marilee OCHOA Start: 07-15-2016 Endoscopic plantar fasciotomy right. Antony HAWKINS Appendectomy Antony CABALLERO Breast lump (finding) Cole HAWKINS Cholecystectomy Antony HAWKINS Cyst of ovary (disorder) Chr wilson HAWKINS Esophagogastroduodenoscopy C hristjazmyne HAWKINS History of appendectomy Appendec gilbert( Confirmed ) Antony HAWKINS Hysterectomy Antony CABALLERO Laparoscopic procedure Nasir HAWKINS Comment on above: female x4 female x4 Liver cyst (disorder) Cole HAWKINS Operation on lymph node Renan HAWKINS Repair of shoulder Guillermo HAWKINS Thyroid structure (body structure) Antony HAWKINS Tonsillectomy Antony CHATTERJEE Immunizations Immunization Date Immunization Notes Care Provider Mary obando 09-27-2021 tetanus toxoid, reduced diphtheria toxoid, and acellular pertussis vaccine, adsorbed; Translations: [Boostrix (Tdap)] Antony HAWKINS [facility] 04-29-2010 tetanus toxoid, reduced diphtheria toxoid, and acellular pertussis vaccine, adsorbed Antony HAWKINS [facility] NEGATED: Highlighted row has not occurred!01-13-2024 SARS-CoV-2 mRNA (tozinameran 5y-11y) vaccine LISS STOREY [facility] NEGATED: Highlighted row has not occurred!12-19-2023 influenza virus vaccine, unspecified formulation Mary Kaba [facility] NEGATED: Highlighted row has not occurred!09-02-2023 influenza virus vaccine, unspecified formulation Antony HAWKINS [facility] NEGATED: Highlighted row has not occurred!09-02-2023 SARS-CoV-2 mRNA (tozinameran 5y-11y) vaccine Antony HAWKINS [facility] NEGATED: Highlighted row has not occurred!06-27-2023 influenza virus vaccine, unspecified formulation Antony HAWKINS [facility] NEGATED: Highlighted row has not occurred!06-27-2023 SARS-CoV-2 mRNA (tozinameran 5y-11y) vaccine Antony HAWKINS [facility] NEGATED: Highlighted row has not occurred!06-09-2023 influenza virus vaccine, unspecified formulation BRIAN CONTE [facility] NEGATED: Highlighted row has not occurred!08-04-2022 influenza virus vaccine, unspecified formulation Juliana Liu [facility] NEGATED: Highlighted row has not occurred!05-19-2022 influenza virus vaccine, unspecified formulation Juliana Liu [facility] NEGATED: Highlighted row has not occurred!03-25-2022 SARS-CoV-2 mRNA (tozinameran 5y-11y) vaccine Antony HAWKINS [facility] NEGATED: Highlighted row has not occurred!02-23-2022 SARS-CoV-2 mRNA (tozinameran 5y-11y) [facility]: Highlighted row has not occurred!09-29-2021 influenza virus vaccine, unspecified formulation Antony HAWKINS [facility] NEGATED: Highlighted row has not occurred!09-29-2021 SARS-CoV-2 (COVID-19) Ad26 vaccine, recombinant Antony HAWKINS [facility] NEGATED: Highlighted row has not occurred!09-22-2020 influenza virus vaccine, unspecified formulation Antony HAWKINS [facility] NEGATED: Highlighted row has not occurred!07-31-2019 influenza virus vaccine, unspecified formulation Antony HAWKINS [facility] Payers Date Payer Category Payer Worker's Compensation [id number] Self-pay 2023 Private Health Insurance [id number] 2023 Private Health Insurance [id number] 1966 Unknown [id number] 1966 Unknown [id number] [id number] 1966 Unknown [id number] [id number] 1966 Unknown [id number] [id number]59 1966 Unknown [id number] 2.16.840.1.720327.3.579.2.1259 1966 Unknown [id number] 2.16.840.1.967064.3.579.2.72 1966 Unknown [id number] 2.16.840.1.653738.3.579.2.727 1966 Unknown [id number] 2.16.840.1.869906.3.579.2.72 1966 Unknown [id number] 2.16.840.1.710624.3.579.2.72 1966 Unknown [id number] 2.16.840.1.004839.3.579.2.72 1966 Unknown [id number] 2.16.840.1.758397.3.579.2.727 1966 Unknown [id number] 2.16.840.1.520212.3.579.2.72 1966 Unknown [id number] 2.16.840.1.850402.3.579.2.727 1966 Unknown [id number] 2.16.840.1.972283.3.579.2.72 1966 Unknown [id number] 2.16.840.1.700853.3.579.2.72 1966 Unknown [id number] 2.16.840.1.812534.3.579.2.72 1966 Unknown [id number] 2.16.840.1.685162.3.579.2.727 1966 Unknown [id number] [id number] 1959 Private Health Insurance [id number] Private Health Insurance [facility] [id number] Unknown [id number] Social History Date Type Detail Facility Start: 02-23-2022 End: 06-21-2024 Tobacco smoking status Never smoked tobacco (finding) [facility] Tobacco smoking status Never [facility] Sex Assigned At Female [facility] Start: 1965 Sex Assigned At Female [facility] Functional Status Date Assessment Result Facility 06-21-2024 Functional Status N/A [facility] 05-17-2024 Functional Status N/A [facility] 04-21-2024 Functional Status N/A [facility] 01-13-2024 Functional Status N/A [facility] 12-21-2023 Functional Status N/A [facility] 09-02-2023 Functional Status N/A [facility] 06-27-2023 Functional Status N/A [facility] 06-09-2023 Functional Status N/A [facility] 12-16-2022 Functional Status N/A [facility] 11-24-2022 Functional Status N/A [facility] 09-08-2022 Functional Status N/A [facility] 08-04-2022 Functional Status N/A [facility] 08-03-2022 Functional Status N/A [facility] 07-05-2022 Functional Status [facility] 06-11-2022 [facility] 05-19-2022 N/A [facility] 03-25-2022 Functional Status N/A G[facility] Clinical Notes 02-22-2022 to 06-17-2024 Note Date & Type Note Facility 06-17-2024 Note Patient Education Obstetrics and Gynecology Health Maintenance, Female Adopting a healthy lifestyle [...] 0?1 drink a day. ? Know how (more content not included)... [facility] 05-17-2024 Evaluation + Plan note Extrac fawn from: Title:ANEGrace Post-operative Note - General Author: Zion Tony Jr., DO Date:05/17/24 Plan Transfer/Discharge: Transfer/Discharge Discharge when meets criteria ( From PACU to Ambulatory Surgery Unit, and To home ). Extracted from: Title:SIMONE Pre-operative Note - Endo Author:Zion Trevizo Jr., DO Date:05/17/24 Plan [place] [employer] (ASA) physical status classification: Class II. Anesthetic Preoperative Plan: Anesthesia General, and -TIVA. [facility] 08-15-2024 Hospital Discharge instructions Patient Education 05/17/2024 08:57:03 Gastritis, Adult, Szel-ui-Kqiz Gastritis, Adult Gastritis is irritation and swelling (inflammation) of the stomach. There are two kinds of gastritis: Acute gastritis. This kind develops quickly. Chronic gastritis. This kind is much more common. It develops slowly and lasts for a long time. It is important to get help for this condition. If you do not get help, your stomach can bleed, andyou can get sores (ulcers) in your stomach. What are the causes? This condition may be caused by: Germs that get to your stomach and cause an infection. Drinking too much alcohol. Medicines you are taking. Having too much acid in the stomach. Having a disease of the stomach. Other causes may include: An allergic reaction. Some cancer treatments (radiation). Smoking cigarettes or using products that contain nicotine or tobacco. In some cases, the cause of this condition is not known. What increases the risk? Having a disease of the intestines. Having Crohn's disease. Using aspirin or ibuprofen and other NSAIDs to treat other conditions. Stress. What are the signs or symptoms? Pain in your stomach. A burning feeling in your stomach. Feeling like you may vomit (nauseous). Vomiting or vomiting blood. Feeling too full after you eat. Weight loss. Bad breath. Blood in your poop (stool). In some cases, there are no symptoms. How is this treated? This condition is treated with medicines. The medicines that are used depend on what caused the condition. You may be given: Antibiotic medicine, if your condition was caused by an infection from germs. H2 blockers and similar medicines, if your condition was caused by too much acid in the stomach. Treatment may also include stopping the use of certain medicines, such as aspirin or ibuprofen. Follow these instructions at home: Medicines Take dwok-gsg-mosjjjt and prescription medicines only as told by your doctor. If you were prescribed an antibiotic medicine, take it as told by your doctor. Do not stop taking it even if you start to feel better. Alcohol use Do not drink alcohol if: ?Your doctor tells you not to drink. ?You are , may be , or are planning to become . If you drink alcohol: ?Limit your use to: ?0 1 drink a day for women. ?0 2 drinks a day for men. ?Know how much alcohol is in your drink. In the [place] one drink equals one 12 oz bottle of beer (355 mL), one 5 oz glass of wine (148 mL), or one 1 oz glass of hard liquor (44 mL). General instructions Eat small meals often, instead of large meals. Avoid foods and drinks that make you feel worse. Drink enough fluid to keep your pee (urine) pale yellow. Talk with your doctor about ways to manage stress. You can exercise or do deep breathing, meditation, or yoga. Do not smoke or use any products that contain nicotine or tobacco. If you need help quitting, ask your doctor. Keep all follow-up visits. Contact a doctor if: Your symptoms get worse. Your stomach pain gets worse. Your symptoms go away and then come back. You have a fever. Get help right away if: You vomit blood or something that looks like coffee grounds. You have black or dark red poop. You throw up any time you try to drink fluids. These symptoms may be an emergency. Get help right away. Call your local emergency services (911 inthe [place] Do not wait to see if the symptoms will go away. Do not drive yourself to the hospital. Summary Gastritis is irritation and swelling (inflammation) of the stomach. You must get help for this condition. If you do not get help, your stomach can bleed, and you can get sores (ulcers) in your stomach. You can be treated with medicines for germs or medicines to block too much acid in your stomach. This information is not intended to replace advice given to you by your health care provider. Make sure you discuss any questions you have with your health care provider. Document Revised: 01/23/2022 Document Reviewed: 01/23/2022 [employer] Patient Education 2022 [employer] 05/17/2024 08:56:55 Hiatal Hernia Hiatal Hernia A hiatal hernia [...] stomach (esophagus). This may cause heartburn symptoms. The development of heartburn symptoms may mean that you have a condition called gastroesophageal reflux disease (GERD). [...] form of GERD symptoms. Symptoms include: Heartburn. Upset stomach (indigestion). Trouble swallowing. Coughing or wheezing. Wheezing is making high-pitched whistling sounds when you breathe. Sore throat. Chest pain. Nausea and vomiting. How is [...] reduce GERD symptoms. Medicines. These may include: ?Dtwl-xlp-nmjhjmz antacids. ?Medicines that make your stomach empty [...] you need help quitting, ask your health careprovider. Try to achieve and maintain a healthy [...] may include: ?Fatty foods, like fried foods. ?[place] fruits, like oranges or lemon. ?Other foods [...] Do not drink alcohol. General instructions Take kadf-qzr-vwfphym and prescription medicines only as told by your health care provider. Keep all follow-up visits. Your health care provider will want to check that any new prescribed medicines are helping your symptoms. Contact a health care provider if: Your symptoms are not controlled with medicines or lifestyle changes. You are having trouble swallowing. You have coughing or wheezing that will not go away. Your pain is getting worse. Your pain spreads to your arms, neck, jaw, teeth, or back. You feel nauseous or you vomit. Get help right away if: You have shortness of breath. You vomit blood. You have bright red blood in your stools. You have black, tarry stools. These symptoms may be an emergency. Get help right away. Call 911. Do not wait to see if the symptoms will go away. Do not drive yourself to the hospital. Summary A hiatal hernia occurs when part of the stomach slides above the muscle that separates the abdomen from the chest. A person may be born with a weakness in the hiatus, or a weakness can develop over time. Symptoms of a hiatal hernia may include heartburn, trouble swallowing, or sore throat. Management of a hiatal hernia includes eating frequent small meals instead of three large meals a day. Get help right away if you vomit blood, have bright red blood in your stools, or have black, tarry stools. This information is not intended to replace advice given to you by your health care provider. Make sure you discuss any questions you have with your health care provider. Document Revised: 11/16/2022 Document Reviewed: 11/16/2022 [employer] Patient Education 2022 R17. 05/17/2024 08:56:42 Esophageal Stricture Esophageal Stricture Esophageal stricture is a narrowing of the esophagus. The esophagus is the [...] of esophageal stricture include: Scarring from swallowing a harmful substance. Damage from medical instruments [...] or chest (heartburn). Vomiting or spitting up food or liquids. Unexplained weight loss. How is this diagnosed? This condition may be diagnosed based on: Your symptoms and a physical exam. Tests, such as: ?Upper endoscopy. Your health care provider will insert a flexible tube with a tiny camera on it (endoscope) into your esophagus to check for a stricture. A tissue sample may also be taken to be examined under a microscope (biopsy). ?Esophageal pH monitoring. This test involves using [...] care provider about eating or drinking restrictions. Cut your food into small pieces, chew well, and eat slowly. Try to eat soft food that is [...] ?Soda. ?Tomato products. ?Chocolate. General instructions Take jetb-zaw-vpbzbvo and prescription medicines only as told by your health care provider. Do not use any products that contain nicotine or tobacco, such as cigarettes, e- cigarettes, and chewing tobacco. If you need help quitting, ask your health care provider. Lose weight if you are overweight. Wear loose, comfortable clothing. When lying in bed, raise your head with pillows. This will help to prevent your stomach contents from backing up into your esophagus while you sleep. Keep all follow-up visits. This is important. Contact a health care provider if: You have problems eating or swallowing. You vomit or spit up food and liquid. Your symptoms do not improve with treatment. Get help right away if: You can no longer keep down any food, drink, or your saliva. Summary Esophageal stricture is [...] with your health care provider. Document Revised: 02/04/2021 Document Reviewed: 02/04/2021 [employer] Patient Education 2022 R17. 05/17/2024 08:56:30 Endoscopy, Care After Procedure [facility] Endoscopy Care After Procedure Please read the instructions outlined below and refer to this sheet in the next few weeks. These discharge instructions provide you with general information on caring for yourself after you leave thespital. Your doctor may also give you specific [...] blood. Document Released: 05/03/2005 Document Re-Released: 03/13/2007 [email or web address] Patient Information [employer]. 05/17/2024 08:56:25 Hemorrhoids, Wtwx-or-Ijcg Hemorrhoids Hemorrhoids are swollen veins that may develop: In the butt (rectum). These are called internal hemorrhoids. Around the opening of the butt (anus). These are called external hemorrhoids. Hemorrhoids can cause pain, itching, or bleeding. Most of the time, they do not cause serious problems. They usually get better with diet changes, lifestyle changes, and other home treatments. What are the causes? This condition may be caused by: Having trouble pooping (constipation). Pushing hard (straining) to poop. Watery poop (diarrhea). . Being very overweight (obese). Sitting for long periods of time. Heavy lifting or other activity that causes you to strain. Anal sex. Riding a bike for a long period of time. What are the signs or symptoms? Symptoms of this condition include: Pain. Itching or soreness in the butt. Bleeding from the butt. Leaking poop. Swelling in the area. One or more lumps around the opening of your butt. How is this diagnosed? A doctor can often diagnose this condition by looking at the affected area. The doctor may also: Do an exam that involves feeling the area with a gloved hand (digital rectal exam). Examine the area inside your butt using a small tube (anoscope). Order blood tests. This may be done if you have lost a lot of blood. Have you get a test that involves looking inside the colon using a flexible tube with a camera on the end (sigmoidoscopy or colonoscopy). How is this treated? This condition can usually be treated at home. Your doctor may tell you to change what you eat, make lifestyle changes, or try home treatments. If these do not help, procedures can be done to remove the hemorrhoids or make them smaller. These may involve: Placing rubber bands at the base of the hemorrhoids to cut off their blood supply. Injecting medicine into the hemorrhoids to shrink them. Shining a type of light energy onto the hemorrhoids to cause them to fall off. Doing surgery to remove the hemorrhoids or cut off their blood supply. Follow these instructions at home: Eating and drinking Eat foods that have a lot of fiber in them. These include whole grains, beans, nuts, fruits, and vegetables. Ask your doctor about taking products that have added fiber (fibersupplements). Reduce the amount of fat in your diet. You can do this by: ?Eating low-fat dairy products. ?Eating less red meat. ?Avoiding processed foods. Drink enough fluid to keep your pee (urine) pale yellow. Managing pain and swelling Take a warm-water bath (sitz bath) for 20 minutes to ease pain. Do this 3 4 times a day. You may dothis in a bathtub or using a portable sitz bath that fits over the toilet. If told, put ice on the painful area. It may be helpful to use ice between your warm baths. ?Put ice in a plastic bag. ?Place a towel between your skin and the bag. ?Leave the ice on for 20 minutes, 2 3 times a day. General instructions Take wuxg-ght-sfwdpkf and prescription medicines only as told by your doctor. ?Medicated creams and medicines may be used as told. Exercise often. Ask your doctor how much and what kind of exercise is best for you. Go to the bathroom when you have the urge to poop. Do not wait. Avoid pushing too hard when you poop. Keep your butt dry and clean. Use wet toilet paper or moist towelettes after pooping. Do not sit on the toilet for a long time. Keep all follow-up visits as told by your doctor. This is important. Contact a doctor if you: Have pain and swelling that do not get better with treatment or medicine. Have trouble pooping. Cannot poop. Have pain or swelling outside the area of the hemorrhoids. Get help right away if you have: Bleeding that will not stop. Summary Hemorrhoids are swollen veins in the butt or around the opening of the butt. They can cause pain, itching, or bleeding. Eat foods that have a lot of fiber in them. These include whole grains, beans, nuts, fruits, and vegetables. Take a warm-water bath (sitz bath) for 20 minutes to ease pain. Do this 3 4 times a day. This information is not intended to replace advice given to you by your health care provider. Make sure you discuss any questions you have with your health care provider. Document Revised: 03/31/2022 Document Reviewed: 03/31/2022 [employer] Patient Education 2022 R17. 05/17/2024 08:56:17 Diverticulosis MAGR (CUSTOM) Diverticulosis Many people have small pouches in their colon called diverticulum. The diverticulum bulge outward through weak spots in the colon. You could have one or more of these pouches in the colon. The condition of having these pouches in the colon is called diverticulosis or diverticular disease. Diverticulosis is usually diagnosed by tests to evaluate something else. For example, you may have had a colonoscopy to screen for colon cancer when the diverticulosis was found. Most people with diverticulosis do not have any discomfort or problems. If symptoms develop, they may include mild cramps, bloating, and constipation. A complication of this condition is called diverticulitis. This is when the diverticulum become inflamed and infected. How to treat diverticulosis: Increasing the amount of fiber in the diet may reduce symptoms of diverticulosis and prevent complications such as diverticulitis (infected diverticuli). Fiber keeps stool soft and lowers pressure inside the colon so that bowel contents can move througheasily. You should eat 20 to 35 grams of fiber each day. The table below shows the amount of fiber in some foods that you can easily add to your diet. Adding fiber slowly may decrease the bloating and fullness sometimes felt with an immediate high fiber diet. The doctor may also recommend taking a fiber product such as Citrucel or Metamucil once a day. In the past people with diverticulosis were to avoid nuts, corn, and seeds. This has not been foundto be true. If you find that certain foods create cramping or bloating, avoid that food. Foods high in fiber include: Fresh fruits, fresh vegetables, legumes (beans), whole wheat bread, bran muffins or cereal, and nuts. See the table below for examples of high fiber foods. Remember, your goal is 20- 35 grams per day. Amount of fiber in different foods Food Serving Grams of fiber Fruits Apple (with skin) 1 medium apple 4.4 Banana 1 medium banana 3.1 Oranges 1 orange 3.1 Prunes 1 cup, pitted 12.4 Juices Apple, unsweetened, w/added ascorbic acid 1 cup 0.5 Grapefruit, white, canned, sweetened 1 cup 0.2 Grape, unsweetened, w/added ascorbic acid 1 cup 0.5 [place] 1 cup 0.7 Vegetables Cooked Green beans 1 cup 4.0 Carrots 1/2 cup sliced 2.3 Peas 1 cup 8.8 Potato (baked, with skin) 1 medium potato 3.8 Raw [place] (with peel) 1 cucumber 1.5 Lettuce 1 cup shredded 0.5 Tomato 1 medium tomato 1.5 Spinach 1 cup 0.7 Legumes Baked beans, canned, no salt added 1 cup 13.9 Kidney beans, canned 1 cup 13.6 Geronimo beans, canned 1 cup 11.6 Lentils, boiled 1 cup 15.6 Breads, pastas, flours Bran muffins 1 medium muffin 5.2 Oatmeal, cooked 1 cup 4.0 White bread 1 slice 0.6 Whole-wheat bread 1 slice 1.9 Pasta and rice, cooked Macaroni 1 cup 2.5 Rice, brown 1 cup 3.5 Rice, white 1 cup 0.6 Spaghetti (regular) 1 cup 2.5 Nuts Almonds 1/2 cup 8.7 Peanuts 1/2 cup 7.9 Chart from [facility] 2013. SEEK IMMEDIATE MEDICAL CARE IF: You develop abdominal (belly) pain. An oral temperature above _ 101 F__develops. Repeated vomiting occurs. Blood is being passed in stools (bright red or black tarry stools). You develop any bowel problems or changes which you have not had before. Extra Information: To learn how much fiber and other nutrients are in different foods, visit the [place] Department of Agriculture (USDA) National Nutrient Database at: http://www.Travelata.usda.gov/fnic/foodcomp/search/ Created using data from the USDA National Nutrient Database for Standard Reference. Available at http://www.Travelata.[place].gov/fnic/foodcomp/search/. Information adapted from: [employer] Patient Information 2009 [employer]. [facility] 2012 http://www.Pixelapse/contents/bbayydisbnwi-sbfdtlx-mddnmv-the-basics 05/17/2024 08:56:15 Colonoscopy, Care After Surgery Don (CUSTOM) Colonoscopy Care After Surgery Please read the instructions outlined below and refer to this sheet in the next few weeks. These discharge instructions provide you with general information on caring for [facility] Your doctor may also give you specific instructions. While your treatment has been planned according to the most current medical practices available, unavoidable complications occasionally occur. If you have any problems or questions after discharge, please call your doctor. ACTIVITY You may resume your regular activity, but move at a slower pace for the next 24 hours. Take frequent rest periods for the next 24 hours. Walking will help get rid of the air and reduce the bloated feeling in your abdomen (belly). No driving for 24 hours (because of the anesthesia (medicine) used during the test). You may shower. Do not sign any important legal documents or operate any machinery for 24 hours (because of the anesthesia used during the test). NUTRITION Drink plenty of fluids. You may resume your normal diet as instructed by your doctor. Begin with a light meal and progress to your normal diet. Heavy or fried foods are harder to digestand may make you feel nauseated (sick to your stomach). Avoid alcoholic beverages for 24 hours or as instructed. MEDICATIONS You may resume your normal medications unless your doctor tells you otherwise. WHAT YOU CAN EXPECT TODAY Some feelings of bloating in the abdomen. Passage of more gas than usual. Spotting of blood in your stool or on the toilet paper. FOLLOW-UP Your doctor will discuss the results of your test with you. SEEK IMMEDIATE MEDICAL ATTENTION IF: There is more than a spotting of blood in your stool. There is abdominal distention (your abdomen is swollen). There is vomiting. You have a temperature over 101.5 F. There is abdominal pain or discomfort that is severe or gets worse throughout the day. Follow Up Care 12/21/2023 08:50:59 With:Sendy LUIS, JASVIR Melgar, [facility] Address: When: Unknown Comments:Call for any problems. Office will call to schedule follow up appointment [facility] 08-15-2024 NoteProgress Note-Physician Patient: SONG MCKEON Age: 58 years Sex: Female : 1965 Associated Diagnoses: None Author: Zion Tony Jr., DO Postoperative Information Postoperative disposition: Postoperative disposition: Home. Optimetrix number: Optimetrix number [id number]. Anesthetic utilized: General. Physical Examination Vital Signs 05/17/2024 9:07 EDT Heart Rate Monitored 66 bpm Respiratory Rate Monitored 19 br/min Systolic Blood Pressure 116 mmHg Diastolic Blood Pressure 88 mmHg Mean Arterial Pressure, Cuff 97 mmHg SpO2 100 % 05/17/2024 8:55 EDT Heart Rate Monitored 71 bpm Respiratory Rate Monitored 14 br/min Systolic Blood Pressure 103 mmHg Diastolic Blood Pressure 55 mmHg LOW Mean Arterial Pressure, Cuff 71 mmHg SpO2 100 % 05/17/2024 8:50 EDT Heart Rate Monitored 77 bpm Respiratory Rate Monitored 14 br/min Systolic Blood Pressure 97 mmHg Diastolic Blood Pressure 53 mmHg LOW Mean Arterial Pressure, Cuff 68 mmHg SpO2 100 % 05/17/2024 8:45 EDT Heart Rate Monitored 69 bpm Respiratory Rate Monitored 14 br/min Systolic Blood Pressure 90 mmHg Diastolic Blood Pressure 46 mmHg LOW Mean Arterial Pressure, Cuff 61 mmHg SpO2 97 % 05/17/2024 8:42 EDT Temperature Temporal Artery 36.5 DegC Heart Rate Monitored 72 bpm Respiratory Rate Monitored 17 br/min Systolic Blood Pressure 95 mmHg Diastolic Blood Pressure 49 mmHg LOW Mean Arterial Pressure, Cuff 64 mmHg SpO2 95 % Pain Assessment: Controlled. General: Awake, Alert, Appropriate. Respiratory: Adequate air exchange, Non-labored. Cardiovascular: Stable, Normal peripheral perfusion. Neurological: Neurologic exam at baseline. No changes.. Assessment Anesthetic outcome No anesthetic complications noted. No nausea/vomiting. Review / Management Condition: Stable. Plan Transfer/Discharge: Transfer/Discharge Discharge when meets criteria ( From PACU to Ambulatory Surgery Unit, and To home ).[facility]Result Comment: Electronically Signed By: Zion Tony Jr., DO.janie\Date and Time Signed: 05/17/24 09:37 [id number] NotePatient Education - Text Endoscopy Care After Procedure Please read the instructions outlined below and refer to this sheet in the next few weeks. These discharge instructions provide you with general information on caring for yourself after you leave thehospital. Your doctor may also give you specific instructions. While your treatment has been planned according to the most current medical practices available, unavoidable complications occasionally occur. If you have any problems or questions after discharge, please call your doctor. ACTIVITY ? You may resume your regular activity but move at a slower pace for the next 24 hours. ? Take frequent rest periods for the next 24 hours. ? Walking will help expel (get rid of) the air and reduce the bloated feeling in your abdomen. ? No driving for 24 hours (because of the anesthesia (medicine) used during the test). ? You may shower. ? Do not sign any important legal documents or operate any machinery for 24 hours (because of the anesthesia used during the test). NUTRITION ? Drink plenty of fluids. ? You may resume your normal diet. ? Begin with a light meal and progress to your normal diet. ? Avoid alcoholic beverages for 24 hours or as instructed by your caregiver. MEDICATIONS ? You may resume your normal medications unless your caregiver tells you otherwise. WHAT YOU CAN EXPECT TODAY ? You may experience abdominal discomfort such as a feeling of fullness or ?gas? pains. FOLLOW-UP ? Your doctor will discuss the results of your test with you. seek immediate medical attention if any of the following occur: ? Excessive nausea (feeling sick to your stomach) and/or vomiting. ? Severe abdominal pain and distention (swelling). ? Trouble swallowing. ? Temperature over 100 F (37.8? C). ? Rectal bleeding or vomiting of blood. Document Released: 05/03/2005 Document Re-Released: 03/13/2007 ExitCare? Patient Information ?2009 [employer]. Diverticulosis Many people have small pouches in their colon called diverticulum. The diverticulum bulge outward through weak spots in the colon. You could have one or more of these pouches in the colon. The condition of having these pouches in the colon is called diverticulosis or diverticular disease. Diverticulosis is usually diagnosed by tests to evaluate something else. For example, you may have had a colonoscopy to screen for colon cancer when the diverticulosis was found. Most people with diverticulosis do not have any discomfort or problems. If symptoms develop, they may include mild cramps, bloating, and constipation. A complication of this condition is called diverticulitis. This is when the diverticulum become inflamed and infected. How to treat diverticulosis: Increasing the amount of fiber in the diet may reduce symptoms of diverticulosis and prevent complications such as diverticulitis (infected diverticuli). Fiber keeps stool soft and lowers pressure inside the colon so that bowel contents can move througheasily. You should eat 20 to 35 grams of fiber each day. The table below shows the amount of fiber in some foods that you can easily add to your diet. Adding fiber slowly may decrease the bloating and fullness sometimes felt with an immediate high fiber diet. The doctor may also recommend taking a fiber product such as Citrucel or Metamucil once a day. In the past people with diverticulosis were to avoid nuts, corn, and seeds. This has not been foundto be true. If you find that certain foods create cramping or bloating, avoid that food. Foods high in fiber include: Fresh fruits, fresh vegetables, legumes (beans), whole wheat bread, bran muffins or cereal, and nuts. See the table below for examples of high fiber foods. Remember, your goal is 20- 35 grams per day. Amount of fiber in different foods Food Serving Grams of fiber Fruits Apple (with skin) 1 medium apple 4.4 Banana 1 medium banana 3.1 Oranges 1 orange 3.1 Prunes 1 cup, pitted 12.4 Juices Apple, unsweetened, w/added ascorbic acid 1 cup 0.5 Grapefruit, white, canned, sweetened 1 cup 0.2 Grape, unsweetened, w/added ascorbic acid 1 cup 0.5 [place] 1 cup 0.7 Vegetables Cooked Green beans 1 cup 4.0 Carrots 1/2 cup sliced 2.3 Peas 1 cup 8.8 Potato (baked, with skin) 1 medium potato 3.8 Raw [place] (with peel) 1 cucumber 1.5 Lettuce 1 cup shredded 0.5 Tomato 1 medium tomato 1.5 Spinach 1 cup 0.7 Legumes Baked beans, canned, no salt added 1 cup 13.9 Kidney beans, canned 1 cup 13.6 Geronimo beans, canned 1 cup 11.6 Lentils, boiled 1 cup 15.6 Breads, pastas, flours Bran muffins 1 medium muffin 5.2 Oatmeal, cooked 1 cup 4.0 White bread 1 slice 0.6 Whole-wheat bread 1 slice 1.9 Pasta and rice, cooked Macaroni 1 cup 2.5 Rice, brown 1 cup 3.5 Rice, white 1 cup 0.6 Spaghetti (regular) 1 cup 2.5 Nuts Almonds 1/2 cup 8.7 Peanuts 1/2 cup 7.9 Chart from [facility] 2012. SEEK IMMEDIATE (more content not included)...[facility] 05-17-2024 NoteEndoscopic Procedure Report - Other Patient: SONG MCKEON Age: 58 years Sex: Female : 1965 Associated Diagnoses: None Author: Mary Kaba MD Pre-Procedure Procedure Date 05/17/2024 08:39:00 . Procedure Type: Colonoscopy. Procedure provider Performed by Mary aKba MD. Current history and physical Documented on chart. Reviewed. Esophagogastroduodenoscopy ([id number]) on 11/24/2022 at 57 Years. Comments: 11/24/2022 13:31 DAYSI Amanda RN, Nancy esophageal dilation, esophageal rings, biopsies done, small hiatal hernia Esophagogastroduodenoscopy ([id number]) on 09/08/2022 at 56 Years. Endoscopic plantar fasciotomy right. on 07/15/2016 at 50 Years. Tonsillectomy (206139760). Cholecystectomy (40479230). Thyroid (296481494). Laparoscopic procedure (6485030914). Comments: 06/23/2015 0:10 EDT - José GIBSON, Monica female x4 Hysterectomy (974103408). Liver cyst ([id number]). Breast mass (764658673). Ovarian cyst ([id number]). Appendectomy (135628330). Lymph node operation (542677003). Shoulder repair (9104595981). egd.. Past Medical History Active hiatal hernia (090916285) Resolved Acute diarrhea (5420225242): Onset on 02/03/2010 at 44 years. Resolved. Comments: 02/03/2010 EDT 15:57 EDT - hyster (218454925): Resolved. Liver (777668502): Resolved. Appendectomy (47.0): Resolved. Ovarian cyst (534612834): Resolved. Breast mass (435988486): Resolved. Shoulder pain ([id number]): Resolved. Rotator cuff rupture (9868630780): Resolved. Gall bladder disease ([id number]): Resolved. Hypothyroid (20106820): Resolved. Lumbar back pain (979804517): Resolved on 01/30/2019 at 53 years. History of varicose veins of lower extremity (571226639): Resolved on 01/30/2019 at 53 years. Inflamed skin tag (942147259): Resolved on 03/06/2019 at 53 years. Raised seborrheic keratosis (8503114601): Resolved on 03/06/2019 at 53 years. Adhesive contact dermatitis (5896282051): Resolved. Axillary adenopathy (594801): Resolved. Nasal sore (626273659): Resolved. Left ankle pain (861730146): Resolved. Acute hemorrhagic colitis due to E. coli (1537137310): Resolved. Laryngitis (22124416): Resolved. Viral bronchitis (86200948): Resolved. Folliculitis (23251128): Resolved. Cervical adenopathy (093835): Resolved. Overweight (400459679): Resolved.. Family History Diabetes mellitus type 1 Mother Heart failure Mother Father Primary malignant neoplasm of female breast Mother Stroke Sister Father CVA Father . Procedure History Esophagogastroduodenoscopy (436656337) on 11/24/2022 at 57 Years. Comments: 11/24/2022 13:31 Nancy Malin RN esophageal dilation, esophageal rings, biopsies done, small hiatal hernia Esophagogastroduodenoscopy (449947779) on 09/08/2022 at 56 Years. Endoscopic plantar fasciotomy right. on 07/15/2016 at 50 Years. Tonsillectomy (848406237). Cholecystectomy (78938094). Thyroid (704178552). Laparoscopic procedure (9635441334). Comments: 06/23/2015 0:10 EDT - José GIBSON, Monica female x4 Hysterectomy (967755448). Liver cyst ([id number]). Breast mass (296807603). Ovarian cyst ([id number]). Appendectomy (393658695). Lymph node operation (356490239). Shoulder repair (2741653691). egd.. Colorectal neoplasm risk assessment High risk Previous history of polyps. . Informed Consent After discussing the rationale, risks and benefits, and alternatives to this procedure, the patient provided signed consent for the procedure. Pre-procedure diagnosis: History of colon polyps. Medications (Selected) Inpatient Medications Ordered Lactated Ringers IV Riya 1000 mL 1,000 mL: 1,000 mL, IV, 100 mL/hr, Routine, Start date 05/17/24 7:35:00 EDT, 10 hour(s), Total volume (mL): 1,000, 95 kg, 2.11, m2 Sodium Chloride 0.9% IV Riya 1000 mL 1,000 mL: 1,000 mL, IV, 20 mL/hr, Routine, Start date 05/17/24 6:50:00 EDT, 50 hour(s), Total volume (mL): 1,000, 93 kg, 2.09, m2 Prescriptions Prescribed Bentyl 10 mg Cap: 10 mg = 1 cap(s), Oral, QID, as needed for abdominal pain, # 40 cap(s), Refills(s) 11, Pharmacy: [facility], 169, cm, 10/15/22 12:00:00 EST, Height/Length Dosing, 91.8, kg, 10/15/22 12:00:00 EST, Weight Dosing Pantoprazole [address] Tab: 40 mg = 1 tab(s), Oral, BID, # 180 tab(s), Refills(s) 3, Pharmacy: [facility], 169, cm, 12/21/23 8:16:00 EDT, Height/Length Dosing, 95, kg, 12/21/23 8:16:00EDT, Weight Dosing Valtrex 1 g Tab: 2 gram = 2 tab(s), Oral, BID, x 1 days at onset of coldsore, # 12 tab(s), Refills(s) 2, Pharmacy: [facility], 169, cm, 01/13/24 13:06:00 EDT, Height/Length Dosing, 93, kg, 01/13/24 13:06:00 EDT, Weight Dosing amitriptyline 10 mg Tab: 10 mg = 1 tab(s), Oral, Once a da (more content not included)...[facility]Result Comment: Electronically Signed By: Sendy LUIS, Mary Bar\.br\Date and Time Signed: 05/17/24 08:40 EDTOther Comment: Missing Attachment - attachment storage system not supported [id number] Can be viewed in source systemMissing Attachment - attachment storage system not supported [id number] Can be viewed insource systemMissing Attachment - attachment storage system not supported [id number] Can be viewed in source systemMissing Attachment - attachment storage system not supported [id number] Can be viewed in source systemMissing Attachment - attachment storage system not supported [id number] Can be viewed in source systemMissing Attachment - attachment storage system not supported [id number] Can be viewed in source [phone] NoteEndoscopic Procedure Report - Other Patient: SONG MCKEON Age: 58 years Sex: Female : 1965 Associated Diagnoses: None Author: Mary Kaba MD Pre-Procedure Procedure Date 05/17/2024 08:22:00 . Procedure Type: Esophagogastroduodenoscopy with biopsy. Procedure provider Performed by Mary Kaba MD. Current history and physical Documented on chart. Informed Consent After discussing the rationale, risks and benefits, and alternatives to this procedure, the patient provided signed consent for the procedure. Pre-procedure diagnosis: EOE. Medications Anticoagulant/antiplatelet None. ASA Classification: Class II. . Monitoring: See anesthesia record. . Procedure The procedure was performed in the hospital. See anesthesia record for sedation given during procedure. The patient was positioned starting in the left lateral decubitus position and with safety measures. Endoscope type used was an adult- size, introduced orally, advanced to the 3rd portion of the duodenum. No difficulty was encountered during the procedure. Views were excellent. The patient tolerated the procedure well. Findings 1.Esophogus exam was suggestive of eosinophilic esophagitis, with mild prominent rings, EREFS score: Edema 0/1: 0 Rings 0/3: 1 Exudates 0/2: 0 Furrows 0/1:0 Stricture 0/1:0 Total: 1 Random biopsies were taken from proximal and distal esophagus 2. 3 cm hiatal hernia. 3. Distal esophageal mild, nonobstructive Schatzki ring 4. Few fundic gland polyps. Diffuse patchy erythema moderate in the antrum with erosions suggestiveof erosive gastritis. Random biopsies were taken to rule out eosinophilic gastritis and H. pylori 5. Normal examined duodenum Images Procedure images: Rec_hd_video_2023__07_30_[id number].jpg Rec_hd_video___[id number].jpg Rec1_hd_video____13_953.jpg Rec1_hd_video_2023__T07__21_934.jpg Rec1_hd_video__T__05_821.jpg Rec1_hd_video_2023__T07__48_265.jpg Rec1_hd_video_2023__T07__39_870.jpg Rec1_hd_video_2023__T07__26_262.jpg Rec1_hd_video_2023__T07__46_915.jpg Rec1_hd_video_2023__T07__34_094.jpg . Post-Procedure Complications: none. Estimated blood loss: minimal. Specimens: sent to pathology. Devices/ implants: none left in place. Impression and Plan 1.Esophogus exam was suggestive of eosinophilic esophagitis, with mild prominent rings, EREFS score: Edema 0/1: 0 Rings 0/3: 1 Exudates 0/2: 0 Furrows 0/1:0 Stricture 0/1:0 Total: 1 Random biopsies were taken from proximal and distal esophagus 2. 3 cm hiatal hernia. 3. Distal esophageal mild, nonobstructive Schatzki ring 4. Few fundic gland polyps. Diffuse patchy erythema moderate in the antrum with erosions suggestiveof erosive gastritis. Random biopsies were taken to rule out eosinophilic gastritis and H. pylori 5. Normal examined duodenum Recommendations: -Resume previous diet -Resume home medications -Await pathology results, follow in GI clinic in 1-2 after dischargeReg[facility]Comment on above:Result Comment: Electronically Signed By: Sendy LUIS, Mary Bar\.br\Date and Time Signed: 05/17/24 08:25 EDTOther Comment: Missing Attachment - attachment storage system not supported [id number] Can be viewed in source systemMissing Attachment - attachment storage system not supported [id number] Can be viewed insource systemMissing Attachment - attachment storage system not supported [id number] Can be viewed in source systemMissing Attachment - attachment storage system not supported [id number] Can be viewed in so urce systemMissing Attachment - attachment storage system not supported [id number] Can be viewed in source systemMissing Attachment - attachment storage system not supported [id number] Can be viewed in source systemMissing Attachment - attachment storage system not supported [id number] Can be viewed in source systemMissing Attachment - attachment storage system not supported [id number] Can be viewed in source systemMissing Attachment - attachment storage system not supported [id number] Can be viewed in sourcesystemMissing Attachment - attachment storage system not supported [id number] Can be viewed in source [id number] Note Progress Note-Physician Patient: SONG MCKEON Age: 58 years Sex: Female : 1965 Associated Diagnoses: None Author: Zion Tony Jr., DO Preoperative Information Anesthesia history: Patient history: No prior anesthetic problems. Informed consent: Signed by patient. Re-evaluation prior to induction: Initial evaluation reviewed: No significant change. Review of Systems Respiratory: Negative except as documented in history of present illness. Cardiovascular: Negative except as documented in history of present illness. Health Status Allergies: Allergic Reactions (Selected) Severe Bactrim- Vomiting/diarrhea. Biaxin- Vomiting/diarrhea. Codeine- Hives. Famotidine- Hives. Levofloxacin- Vomiting/diarrhea. Monistat Derm- Irritation of vulva. Morphine- Hives. Mucinex- Respiratory distress. OxyCODONE- Hives. Penicillin- Vomiting diarrhea. Pepcid- Hives. Tessalon Perles- Vomiting. Vicodin- Hives. Zantac- Hives. Severity Not Documented Levaquin- Unknown. PredniSONE- Asthma, hives and rash. RaNITIdine- Unknown., Allergies (17) Active Severity Reaction famotidine Severe hives Pepcid Severe Hives Bactrim Severe Vomiting/Diarrhea Biaxin Severe Vomiting/Diarrhea codeine Severe Hives levofloxacin Severe Vomiting/Diarrhea Monistat Derm Severe Irritation of vulva morphine Severe Hives Mucinex Severe Respiratory distress oxyCODONE Severe Hives penicillin Severe vomiting diarrhea Tessalon Perles Severe Vomiting Vicodin Severe Hives Zantac Severe Hives predniSONE Rash, Hives, Asthma Levaquin Unknown raNITIdine Unknown Current medications: (Selected) Inpatient Medications Ordered Lactated Ringers IV Riya 1000 mL 1,000 mL: 1,000 mL, IV, 100 mL/hr, Routine, Start date 05/17/24 7:35:00 EDT, 10 hour(s), Total volume (mL): 1,000, 95 kg, 2.11, m2 Sodium Chloride 0.9% IV Riya 1000 mL 1,000 mL: 1,000 mL, IV, 20 mL/hr, Routine, Start date 05/17/24 6:50:00 EDT, 50 hour(s), Total volume (mL): 1,000, 93 kg, 2.09, m2 Prescriptions Prescribed Bentyl 10 mg Cap: 10 mg = 1 cap(s), Oral, QID, as needed for abdominal pain, # 40 cap(s), Refills(s) 11, Pharmacy: [facility], 169, cm, 10/15/22 12:00:00 EST, Height/Length Dosing, 91.8, kg, 10/15/22 12:00:00 EST, Weight Dosing Pantoprazole [address] Tab: 40 mg = 1 tab(s), Oral, BID, # 180 tab(s), Refills(s) 3, Pharmacy: [facility], 169, cm, 12/21/23 8:16:00 EDT, Height/Length Dosing, 95, kg, 12/21/23 8:16:00EDT, Weight Dosing Valtrex 1 g Tab: 2 gram = 2 tab(s), Oral, BID, x 1 days at onset of coldsore, # 12 tab(s), Refills(s) 2, Pharmacy: [facility], 169, cm, 01/13/24 13:06:00 EDT, Height/Length Dosing, 93, kg, 01/13/24 13:06:00 EDT, Weight Dosing amitriptyline 10 mg Tab: 10 mg = 1 tab(s), Oral, Once a day (at bedtime), # 90 tab(s), Refills(s) 1, Pharmacy: [facility], 169, cm, 01/13/24 13:06:00 EDT, Height/Length Dosing, 93, kg, 01/13/24 13:06:00 EDT, Weight Dosing bacitracin Top 500 units/g Oint 30 gram: 1 flo, Topical, QID, 30 gram, Refill(s) 0, [facility], 169, cm, 04/21/24 10:11:00 EDT, Height/Length Dosing, 93, kg, 04/21/24 10:11:00 EDT, Weight Dosing cetirizine 10 mg Tab: 10 mg = 1 tab(s), Oral, Daily, # 30 tab(s), Refills(s) 1, Pharmacy: [facility], 170, cm, 09/02/23 16:43:00 EST, Height/Length Dosing, 95, kg, 09/02/23 16:43:00 EST, Weight Dosing cyclobenzaprine 10 mg Tab: 10 mg = 1 tab(s), Oral, TID, PRN for spasm, May use as needed for musclespasms but sedation warning, # 30 tab(s), Refills(s) 1, Pharmacy: [facility]/pharmacy #[id number], 170, cm, 05/28/21 13:52:00 EDT, Height/Length Dosing, 86.5, kg, 05/28/21 13:52:00 EDT, Weigh... levothyroxine 88 mcg (0.088 mg) Tab: 88 microgram = 1 tab(s), Oral, Daily, # 90 tab(s), Refills(s) 3, Pharmacy: [facility]/pharmacy #[id number], 170, cm, 06/27/23 16:25:00 EDT, Height/Length Dosing, 94.1, kg, 06/27/23 16:25:00 EDT, Weight Dosing lidocaine Viscous Top 2% Riya 15 mL: 0.1 gm, 5 mL, Topical, QIDACHS, 100 mL, Refill(s) 0, [facility], 169, cm, 08/03/22 21:08:00 EDT, Height/Length Dosing, 92, kg, 08/03/22 21:08:00 EDT, Weight Dosing ondansetron 4 mg Dis Tab: 4 mg = 1 tab(s), Oral, q6hr, PRN Nausea/Vomiting, # 12 tab(s), Refills(s)0, Pharmacy: [facility], 170, cm, 03/25/22 11:35:00 EDT, Height/Length Dosing, 93.2, kg, 03/25/22 11:35:00 EDT, Weight Dosing, Home Medications (10) Active amitriptyline 10 mg Tab 10 mg = 1 tab(s), Oral, Once a day (at bedtime) bacitracin Top 500 units/g Oint 30 gram 1 flo, Topical, QID Bentyl 10 mg Cap 10 mg = 1 cap(s), Oral, QID cetirizine 10 mg Tab 10 mg = 1 tab(s), Oral, Daily cyclobenzaprine 10 mg Tab 10 mg = 1 tab(s), PRN, Oral, TID levothyroxine 88 mcg (0.088 mg) Tab 88 microgram = 1 tab(s), Oral, Daily lidocaine Viscous Top 2% Riya 15 mL 0.1 gm = 5 mL, Topical, QIDACHS ondansetron 4 mg Dis Tab 4 mg = 1 tab(s), PRN, Oral, q6hr (more content not included)...[facility]:Result Comment: Electronically Signed By: Zion Tony Jr., DO\.janie\Date and Time Signed: 05/17/24 07:36 [id number] Hospital Discharge instructions Patient Education 04/21/2024 12:32:20 Laceration Care, Adult, Foeb-sc-Glpz Laceration Care, Adult A laceration is a cut that may go through all layers of the skin. The cut may also go into the tissue that is right under the skin. Some cuts heal on their own. Other cuts need to be closed with stitches (sutures), raymundo, skin adhesive strips, or skin glue. Taking care of your cut lowers your risk of infection, helps your injury heal better, and may prevent scarring. General tips Keep your wound clean and dry. Do not scratch or pick at your wound. Wash your hands with soap and water for at least 20 seconds before and after touching your wound orchanging your bandage (dressing). If you cannot use soap and water, use hand ios architect. Do not usedisinfectants or antiseptics, such as rubbing alcohol, to clean your wound unless told byyour doctor. If you were given a bandage, change it at least once a day, or as told by your doctor. You should also change it if it gets wet or dirty. How to take care of your cut If your doctor used stitches or raymundo: Keep the wound fully dry for the first 24 hours, or as told by your doctor. After that, you may take a shower or a bath. Do not soak the wound in water until after the stitches or raymundo have been taken out. Clean the wound once a day, or as told by your doctor. To do this: ?Wash the wound with soap and water. ?Rinse the wound with water to remove all soap. ?Pat the wound dry with a clean towel. Do not rub the wound. After you clean the wound, put a thin layer of antibiotic ointment, another ointment, or a nonstickbandage on it as told by your doctor. This will help to: ?Prevent infection. ?Keep the bandage from sticking to the wound. Have your stitches or raymundo taken out as told by your doctor. If your doctor used skin adhesive strips: Do not get the skin adhesive strips wet. You can take a shower or a bath, but keep the wound dry. If the wound gets wet, pat it dry with a clean towel. Do not rub the wound. Skin adhesive strips fall off on their own. You can trim the strips as the wound heals. Do not takeoff any strips that are still stuck to the wound unless told by your doctor. The strips will fall off after a while. If your doctor used skin glue: You may take a shower or a bath, but try to keep the wound dry. Do not soak the wound in water. After you take a shower or a bath, pat the wound dry with a clean towel. Do not rub the wound. Do not do any activities that will make you sweat a lot until the skin glue has fallen off. Do not apply liquid, cream, or ointment medicine to your wound while the skin glue is still on. If a bandage is placed over the wound, do not put tape right on top of the skin glue. Do not pick at the glue. The skin glue usually stays on for 5 10 days. Then, it falls off the skin. Follow these instructions at home: Medicines Take neop-ort-xjqinoq and prescription medicines only as told by your doctor. If you were prescribed an antibiotic medicine, take or apply it as told by your doctor. Do not stopusing it even if you start to feel better. Managing pain and swelling If told, put ice on the injured area. To do this: ?Put ice in a plastic bag. ?Place a towel between your skin and the bag. ?Leave the ice on for 20 minutes, 2 3 times a day. ?Take off the ice if your skin turns bright red. This is very important. If you cannot feel pain, heat, or cold, you have a greater risk of damage to the area. Raise the injured area above the level of your heart while you are sitting or lying down. General instructions Avoid any activity that could make your wound reopen. Check your wound every day for signs of infection. Check for: ?More redness, swelling, or pain. ?Fluid or blood. ?Warmth. ?Pus or a bad smell. Keep all follow-up visits. Contact a doctor if: You got a tetanus shot and you have any of these problems where the needle went in: ?Swelling. ?Very bad pain. ?Redness. ?Bleeding. A wound that was closed breaks open. You have a fever. You have any of these signs of infection in your wound: ?More redness, swelling, or pain. ?Fluid or blood. ?Warmth. ?Pus or a bad smell. You see something coming out of the wound, such as wood or glass. Medicine does not make your pain go away. You notice a change in the color of your skin near your wound. You need to change the bandage often. You have a new rash. You lose feeling (have numbness) around the wound. Get help right away if: You have very bad swelling around the wound. Your pain suddenly gets worse and is very bad. You have painful lumps near the wound or on skin anywhere on your body. You have a red streak going away from your wound. The wound is on your hand or foot, and: ?You cannot move a finger or toe. ?Your fingers or toes look pale or bluish. Summary A laceration is a cut that may go through all layers of the skin. The cut may also go into the tissue right under the skin. Some cuts heal on their own. Others need to be closed with stitches, raymundo, skin adhesive strips,or skin glue. Follow your doctor's instructions for caring for your cut. Proper care of a cut lowers the risk of infection, helps the cut heal better, and may prevent scarring. This information is not intended to replace advice given to you by your health care provider. Make sure you discuss any questions you have with your health care provider. Document Revised: 11/26/2021 Document Reviewed: 11/26/2021 [employer] Patient Education 2022 R17. Follow Up Care 04/21/2024 09:53:49 With:Antony HAWKINS Address: [address] [place], [place] [id number] Business (1) When:04/24/2024 12:31:48 Comments:Follow-up with your family physician in 10 to 14 days to have the stitches removed. Keep the stitches dry for 24 hours followed by cleaning it with water and patting dry. Do not submerge the wound. Use the bacitracin [facility]07-20-2024 Evaluation + Plan noteExtracted from: Title:ED Note Author:Francisco TANG, Valencia Hart te:04/21/24 Laceration of right ring fin edmond without damage to nail (S61.214A: Laceration without foreign body of right ring finger without damage to nail, initial encounter) Orders: bacitracin topical, 1 flo, Ointment, Topical, Once, Stop date 04/21/24 12:32:00 EDT, STAT, Start date 04/21/24 12:32:00 EDT bacitracin topical, 1 flo, Topical, QID, 30 gram, Refill(s) 0, [facility], 169, cm, 04/21/24 10:11:00 EDT, Height/Length Dosing, 93, kg, 04/21/24 10:11:00 EDT, Weight Dosing lidocaine, 100 mg, 10 mL, Injection, SubCutaneous, Once, Stop date 04/21/24 11:01:00 EDT, STAT, Start date 04/21/24 11:01:00 EDT XR Hand 3+ Views Right Future Appointments Appointment Date:05/17/2024 08:00:00 AM Scheduled Provider: Location:[facility] Appointment Type:Surgery [facility]07-20-2024 NoteED Patient Education Note Dermatology Laceration Care, Adult A laceration is a cut that may go through all layers of the skin. The cut may also go into the tissue that is right under the skin. Some cuts heal on their own. Other cuts need to be closed with stitches (sutures), raymundo, skin adhesive strips, or skin glue. Taking care of your cut lowers your risk of infection, helps your injury heal better, and may prevent scarring. General tips ? Keep your wound clean and dry. ? Do not scratch or pick at your wound. ? Wash your hands with soap and water for at least 20 seconds before and after touching your wound or changing your bandage (dressing). If you cannot use soap and water, use hand ios architect. ? Do not usedisinfectants or antiseptics, such as rubbing alcohol, to clean your wound unless told by your doctor. ? If you were given a bandage, change it at least once a day, or as told by your doctor. You shouldalso change it if it gets wet or dirty. How to take care of your cut If your doctor used stitches or raymundo: ? Keep the wound fully dry for the first 24 hours, or as told by your doctor. After that, you may take a shower or a bath. Do not soak the wound in water until after the stitches or raymundo have beentaken out. ? Clean the wound once a day, or as told by your doctor. To do this: ? Wash the wound with soap and water. ? Rinse the wound with water to remove all soap. ? Pat the wound dry with a clean towel. Do not rub the wound. ? After you clean the wound, put a thin layer of antibiotic ointment, another ointment, or a nonstick bandage on it as told by your doctor. This will help to: ? Prevent infection. ? Keep the bandage from sticking to the wound. ? Have your stitches or raymundo taken out as told by your doctor. If your doctor used skin adhesive strips: ? Do not get the skin adhesive strips wet. You can take a shower or a bath, but keep the wound dry. ? If the wound gets wet, pat it dry with a clean towel. Do not rub the wound. ? Skin adhesive strips fall off on their own. You can trim the strips as the wound heals. Do not take off any strips that are still stuck to the wound unless told by your doctor. The strips will falloff after a while. If your doctor used skin glue: ? You may take a shower or a bath, but try to keep the wound dry. Do not soak the wound in water. ? After you take a shower or a bath, pat the wound dry with a clean towel. Do not rub the wound. ? Do not do any activities that will make you sweat a lot until the skin glue has fallen off. ? Do not apply liquid, cream, or ointment medicine to your wound while the skin glue is still on. ? If a bandage is placed over the wound, do not put tape right on top of the skin glue. ? Do not pick at the glue. The skin glue usually stays on for 5?10 days. Then, it falls off the skin. Follow these instructions at home: Medicines ? Take arbf-jhm-ecgdssh and prescription medicines only as told by your doctor. ? If you were prescribed an antibiotic medicine, take or apply it as told by your doctor. Do not stop using it even if you start to feel better. Managing pain and swelling ? If told, put ice on the injured area. To do this: ? Put ice in a plastic bag. ? Place a towel between your skin and the bag. ? Leave the ice on for 20 minutes, 2?3 times a day. ? Take off the ice if your skin turns bright red. This is very important. If you cannot feel pain, heat, or cold, you have a greater risk of damage to the area. ? Raise the injured area above the level of your heart while you are sitting or lying down. General instructions ? Avoid any activity that could make your wound reopen. ? Check your wound every day for signs of infection. Check for: ? More redness, swelling, or pain. ? Fluid or blood. ? Warmth. ? Pus or a bad smell. ? Keep all follow-up visits. Contact a doctor if: ? You got a tetanus shot and you have any of these problems where the needle went in: ? Swelling. ? Very bad pain. ? Redness. ? Bleeding. ? A wound that was closed breaks open. ? You have a fever. ? You have any of these signs of infection in your wound: ? More redness, swelling, or pain. ? Fluid or blood. ? Warmth. ? Pus or a bad smell. ? You see something coming out of the wound, such as wood or glass. ? Medicine does not make your pain go away. ? You notice a change in the color of your skin near your wound. ? You need to change the bandage often. ? You have a new rash. ? You lose feeling (have numbness) around the wound. Get help right away if: ? You have very bad swelling around the wound. ? Your pain suddenly gets worse and is very bad. ? You have painful lumps near the wound or on skin anywhere on your body. ? You have a red streak going away from your wound. ? The wound is on your hand or foot, and: ? You cannot move a finger or toe. ? Your fingers or toes look pale or bluish. (more content not included)...[facility]04-12-2024 Hospital Discharge instructions Patient Education 01/13/2024 14:02:44 BMI for Adults BMI for Adults What is BMI? Body mass index (BMI) is a number that is calculated from a person's weight and height. BMI can help estimate how much of a person's weight is composed of fat. BMI does not measure body fat directly.Rather, it is an alternative to procedures that [...] your height. Both height and weight are measured,and the BMI is calculated from those numbers. This can be done either in [place] or metric measurements. Note that charts and online BMI calculators are available to help you find your BMI quickly and easily without having to do these calculations yourself. To calculate your BMI in [place] measurements: 1.Measure your weight in pounds [...] inches squared measurement is 70 inches x 70inches, which equals 4,900 inches squared. 4.Divide the [...] Centers for Disease Control and Prevention: www.cdc.gov [place] Heart Association: www.heart.org National Heart, Lung, and Blood [place]: www.nhlbi.nih.gov Summary Body mass index (BMI) is a number that is calculated from a person's weight and height. BMI may help estimate how much of a person's weight is composed of fat. BMI can help identify thosewho may be at higher risk for certain medical problems. BMI can be measured using [place] measurements or metric measurements. BMI charts are used to identify whether you are underweight, normal weight, overweight, or obese. This information is not intended to replace advice given to you by your health care provider. Make sure you discuss any questions you have with your health care provider. Document Revised: 06/11/2020 Document Reviewed: 04/18/2020 [employer] Patient Education 2022 R17. Follow Up Care 01/13/2024 09:32:06 With:Antony HAWKINS MD, FAM Address: [address] [place], [place] [id number]- When:1 week [facility] 11-30-2023 Hospital Discharge instructions Patient Education 09/01/2023 21:40:56 [...] Follow these instructions at home: Medicines Take umwu-mbd-xgnlnox and prescription medicines only as told by [...] you need help quitting, ask your health careprovider. Contact a health care provider if: You [...] provider. Document Revised: 12/07/2021 Document Reviewed: 12/07/2021 [employer] Patient Education 2022 R17. Follow Up Care 09/01/2023 13:33:29 With:Antony HAWKINS MD, FAM Address: When: only if needed [facility] [place] 09-24-2023 Hospital Discharge instructions Patient Education 06/26/2023 12:22:56 [...] you need help quitting, ask your health careprovider. Do not use street drugs. Do not [...] provider. Document Revised: 02/08/2022 Document Reviewed: 02/08/2022 [employer] Patient Education 2022 R17. Follow Up Care 05/03/2023 10:53:36 With:Antony HAWKINS MD, FAM Address: When:Within 1 Year(s) [facility] [place] 09-07-2023 Hospital Discharge instructions Patient Education 06/09/2023 13:01:43 BMI for Adults BMI for Adults What is BMI? Body mass index (BMI) is a number that is calculated from a person's weight and height. BMI can help estimate how much of a person's weight is composed of fat. BMI does not measure body fat directly.Rather, it is an alternative to procedures that [...] your height. Both height and weight are measured,and the BMI is calculated from those numbers. This can be done either in [place] or metric measurements. Note that charts and online BMI calculators are available to help you find your BMI quickly and easily without having to do these calculations yourself. To calculate your BMI in [place] measurements: 1.Measure your weight in pounds [...] inches squared measurement is 70 inches x 70inches, which equals 4,900 inches squared. 4.Divide the [...] Centers for Disease Control and Prevention: www.cdc.gov [place] Heart Association: www.heart.org National Heart, Lung, and Blood [place]: www.nhlbi.nih.gov Summary Body mass index (BMI) is a number that is calculated from a person's weight and height. BMI may help estimate how much of a person's weight is composed of fat. BMI can help identify thosewho may be at higher risk for certain medical problems. BMI can be measured using [place] measurements or metric measurements. BMI charts are used to identify whether you are underweight, normal weight, overweight, or obese. This information is not intended to replace advice given to you by your health care provider. Make sure you discuss any questions you have with your health care provider. Document Revised: 06/11/2020 Document Reviewed: 04/18/2020 [employer] Patient Education 2022 R17. 06/09/2023 13:01:37 Shoulder Sprain Shoulder Sprain A shoulder sprain is a partial or complete tear in one of the tough, fiber-like tissues (ligaments)in the shoulder. The ligaments in the shoulder [...] Remove it only as told by your healthcare provider. Loosen the sling or brace if [...] you have a sling or brace on yourshoulder. If you were shown how to do any exercises, do them as told by your health care provider. General instructions If directed, put ice on the affected area. ?Put ice in a plastic bag. ?Place a towel between your skin and the bag. ?Leave the ice on for 20 minutes, 2 3 times a day. Take vcnp-myz-uquhtsz and prescription medicines only as told by your health care provider. Do not use any products that contain nicotine or tobacco, such as cigarettes, e- cigarettes, and chewing tobacco. These can delay healing. [...] in one of the tough, fiber-like tissues (ligaments)in the shoulder. This condition may be caused [...] provider. Document Revised: 06/09/2022 Document Reviewed: 06/09/2022 [employer] Patient Education 2022 R17. 06/09/2023 13:01:12 Cervical Sprain, Jssz-gk-Rici Cervical Sprain A cervical sprain is also called a neck sprain. It is a stretch or tear in one or more ligaments inthe neck. Ligaments are tissues that connect bones [...] Follow these instructions at home: Medicines Take rpvy-xqu-kgxkffp and prescription medicines only as told by your doctor. Ask your doctor if the medicine prescribed to you: ?Requires you to avoid driving or using heavy machinery. ?Can cause trouble pooping (constipation). You may need to take these actions to prevent or treat trouble pooping: ?Drink enough fluid to keep your pee (urine) pale yellow. ?Take xhqp-uta-ufuwjiq or prescription medicines. ?Eat foods that are [...] or as often as told by your doctor.Use the heat source that your doctor recommends, [...] as cigarettes, e- cigarettes, and chewing tobacco. These can delay healing. [...] or tear in one or more ligaments inthe neck. Ligaments are tissues that connect bones. [...] provider. Document Revised: 05/28/2020 Document Reviewed: 05/28/2020 [employer] Patient Education 2022 R17. Follow Up Care 06/09/2023 10:55:41 With:Antony HAWKINS MD, FAM Address: [address] [place] [id number] When: Unknown [facility] 02-22-2023 Hospital Discharge instructions Patient Education 11/24/2022 12:47:18 [...] what activities are safe for you. Take uduw-gua-exwqent and prescription medicines only as told by [...] 03/20/2013 Document Revised: 03/13/2019 Document Reviewed: 02/19/2019 [employer] Patient Education 2020 R17. 11/24/2022 12:47:18 Esophageal Dilatation Esophageal Dilatation Esophageal [...] including vitamins, herbs, eye drops, creams, and scjr-eyv-guwvqxr medicines. Any problems you or family members [...] home. Follow these instructions at home: Take sxnl-irr-kfydmuq and prescription medicines only as told by [...] 11/10/2006 Document Revised: 09/01/2018 Document Reviewed: 07/25/2018 [employer] Patient Education 2020 R17. 11/24/2022 12:47:18 Hiatal Hernia Hiatal Hernia A [...] reduce GERD symptoms. Medicines. These may include: ?Qoui-nnq-yurgytf antacids. ?Medicines that make your stomach empty [...] may include: ?Fatty foods, like fried foods. ?[place] fruits, like oranges or lemon. ?Other foods [...] Do not drink alcohol. General instructions Take tpwr-ygg-tmnibva and prescription medicines only as told by [...] 12/09/2004 Document Revised: 09/01/2018 Document Reviewed: 04/24/2018 [employer] Patient Education 2020 R17. Follow Up Care 09/21/2022 14:14:15 With:Marilee OCHOA Address: [address] [place] [address]. [address] [place] [address] Business (1) When: Unknown Comments:office will call for follow up [facility]02-22-2023 Evaluation + Plan noteExtracted from: Title:ANES Post-operative Note Author:Bong oSmers MD Date:11/24/22 Plan Transfer/Discharge: Transfer/Discharge Discharge when meets criteria ( From PACU to Ambulatory Surgery Unit, and To home ). Extracted from: Title:ANES Pre-operative Note Author:Michela Somers MD Date:11/24/22 Plan [place] [employer] of Anesthesiologists (ASA) physical status classification: Class II. Anesthetic Preoperative Plan: Anesthesia Monitored anethesia care. Future Appointments Appointment Date:12/10/2022 09:00:00 AM Scheduled Provider:Jamal PIERRE, JEFFRY, Renee CHAIREZ Location[facility] Appointment Type:Nutrition Education - GI Disorders 60 ( Appointment Date:12/16/2022 12:00:00 PM Scheduled Provider:Marilee OCHOA MD Location:[facility] Appointment Type:[facility] Follow Up [facility]12-07-2022 Hospital Discharge instructions Patient Education 09/08/2022 15:31:25 [facility] NSAIDS-Nonsteroidal Anti-Inflammatory Medications (CUSTOM) Nonsteroidal Anti-Inflammatory Medications [...] pain neck pain Some NSAIDs are available gjrr-tbl-oytihjl, without the need for a prescription. However, [...] than your doctor has prescribed. Follow the pojo-jss-llmqtjd labels and do not exceed the recommended [...] reduce GERD symptoms. Medicines. These may include: ?Ubce-ijv-qskahtj antacids. ?Medicines that make your stomach empty [...] may include: ?Fatty foods, like fried foods. ?[place] fruits, like oranges or lemon. ?Other foods [...] Do not drink alcohol. General instructions Take uips-eak-mvkilvy and prescription medicines only as told by [...] 12/09/2004 Document Revised: 09/01/2018 Document Reviewed: 04/24/2018 [employer] Patient Education 2020 R17. 09/08/2022 15:31:25 Esophageal Stricture Esophageal Stricture Esophageal [...] ?Soda. ?Tomato products. ?Chocolate. General instructions Take howg-bca-fgencqb and prescription medicines only as told by [...] 05/30/2007 Document Revised: 12/15/2018 Document Reviewed: 05/26/2018 [employer] Patient Education 2020 R17. 09/08/2022 15:31:25 Endoscopy, Care After Procedure [facility] Endoscopy Care After Procedure Please read the instructions outlined below and refer to this sheet in the next few weeks. These discharge instructions provide you with general information on caring for yourself after you leave thespital. Your doctor may also give you specific [...] Document Re-Released: 03/13/2007 ExitCare Patient Information 2009 [place]. Follow Up Care 08/04/2022 14:23:56 With:Marilee OCHOA Address: [address] [place] [address] Business (1) When: Unknown Comments:Call for any problems. Office will call for follow up appt. [facility]12-07-2022 Evaluation + Plan noteExtracted from: Title:ANEGrace POSTOP Author:Juma Lara DO Date: 09/08/22 Plan Transfer/ Discharge: Patient can be discharged from PACU when criteria met. Condition good. Extracted from: Title:ANES PREOP ENDO NOTE Author:Chris Lara DO Date:09/08/22 Plan [place] [employer] of Anesthesiologists (ASA) physical status classification: [...] Date:11/18/2022 12:00:00 PM Scheduled Provider:Marilee OCHOA MD Location:[facility] Appointment Type:[facility] Follow Up [facility]11-02-2022 Hospital Discharge instructions Patient Education 08/04/2022 [...] Follow these instructions at home: Medicines Take ekmg-qgo-onaldxf and prescription medicines only as told by your health care provider. If you were prescribed an antibiotic medicine, take it as told by your health care provider. Do notstop taking the antibiotic even if you start to feel better. Eating and drinking Follow any diet changes as told by your health care provider. Work with a diet and category specialist (dietitian) to create an eating plan that [...] 09/16/2001 Document Revised: 02/13/2020 Document Reviewed: 02/13/2020 [employer] Patient Education 2019 R17. Follow Up Care 08/04/2022 10:16:30 With:Juliana Liu CNP Address: When:1 to 2 weeks [facility] 11-02-2022 Hospital Discharge instructions Patient [...] including vitamins, herbs, eye drops, creams, and fcbb-yof-prdjljc medicines. Any problems you or family members [...] home. Follow these instructions at home: Take hvdc-joa-gwbnnsv and prescription medicines only as told by [...] 11/10/2006 Document Revised: 09/01/2018 Document Reviewed: 07/25/2018 [employer] Patient Education 2020 R17. Follow Up Care 08/03/2022 20:59:47 With:Marilee OCHOA Address: [address] [place] [address] Business (1) When:08/06/2022 With:Antony HAWKINS Address: [address] [place] [address] Business (1) When:Within 3 Day(s) [facility]10-03-2022 Hospital Discharge instructions Patient Education 07/05/2022 [...] your health care provider or diet and category specialist (dietitian). This may include: ?Eating fewer calories. [...] 10/22/2011 Document Revised: 10/02/2018 Document Reviewed: 10/02/2018 [employer] Patient Education 2020 R17. 07/05/2022 11:15:27 BMI for Adults BMI for [...] height. This can be done either in [place] or metric measurements. Note that charts are available to help you find your BMI quickly and easily without having to do these calculations yourself. To calculate your BMI in [place] measurements, your health care provider will: [...] medical problems. BMI can be measured using [place] measurements or metric measurements. To interpret your [...] 05/31/2005 Document Revised: 09/01/2018 Document Reviewed: 08/02/2018 [employer] Patient Education 2020 R17. 07/05/2022 11:15:25 COVID-19 Frequently Asked Questions COVID-19 [...] the coronavirus come from? In September 2019, [place] told the World Health Organization (WHO) of several cases of lung disease (human respiratory illness). These cases were linked to an open seafood and livestock market in the [facility]. The link to the seafood and livestock [...] and virus naming World Health Organization (WHO): www.who.int/emergencies/diseases/qrqvk-dgxxsmduilv-5419/technical-g mckaydafoster/wtsfnd-nhx-awbnttjkubs-disease-(covid-2019)-mmu-xtx-kzxls-ogxh-dfshgo-aq Who is at risk for complications from [...] relieve his or her symptoms by using jwnd-esx-kipangu medicines that treat sneezing, coughing, and runny [...] water are not available, use alcohol-based hand ios architect. Avoid touching your face, mouth, nose, or [...] Prevention (CDC): www.cdc.gov/coronavirus/2019-ncov/travelers/index.html World Health Organization (WHO): www.who.int/emergencies/diseases/lqtcc-hkzpwdpneho-9384/travel-advice Know the risks and take action to [...] water are not available, use alcohol-based hand ios architect. Cough or sneeze into a tissue, sleeve, [...] in hot, soapy water or use a wire turning machine operator. Air-dry your dishes. Wash laundry in hot [...] Health Organization (WHO) Information and news updates: www.who.int/emergencies/diseases/hotwy-pncrealjuhu-3811 Coronavirus health topic: www.who.int/health-topics/coronavirus Questions and answers on COVID-19: www.who.int/news-room/q-a-detail/d-q-eebzsfgccguio Global tracker: who.Neomend [place] Academy of Pediatrics (AAP) Information for families: www.healthychildren.org/[place]/health-issues/conditions/chest-lungs/Pages /4771-Dhtwz-Ewnoaphpuyv.aspx The coronavirus situation is changing rapidly. Check [...] 01/15/2020 Document Revised: 01/15/2020 Document Reviewed: 01/15/2020 [employer] Patient Education 2019 R17. 07/05/2022 11:15:24 COVID-19 COVID-19 COVID-19 is a [...] to fight infection (immunocompromised). Live in a care home or long-term care facility. Have a long-term [...] managed at home with rest, fluids, and qtyc-kqo-iplhwws medicines. Treatment for a serious infection usually [...] are safe for you. General instructions Take vhtr-uoh-kevjeci and prescription medicines only as told by [...] water are not available, usean alcohol-based hand ios architect. ?Avoid touching your mouth, face, eyes, or [...] water are not available, use alcohol-based hand ios architect. Stay away from other members of your [...] have a weak immunity, live in a care home, or have chronic disease. There is no [...] 02/14/2020 Document Reviewed: 10/25/2019 Elsevier Patient Education 2019 R17. Follow Up Care 07/05/2022 09:11:36 With:Antony HAWKINS MD, FAM Address: [address] [place] [id number]- When: only if needed [facility] [place] 09-08-2022 Hospital Discharge instructions [...] 04/03/2012 Document Revised: 09/12/2019 Document Reviewed: 09/12/2019 [employer] Patient Education 2020 R17. Follow Up Care 04/21/2022 10:15:56 With:ROSS LUIS, WENDIE Hardy Address: When:Within 1 Year(s) [facility] [place] 08-17-2022 Hospital Discharge instructions Patient Education 05/19/2022 [...] 04/16/2015 Document Revised: 06/08/2019 Document Reviewed: 10/04/2018 [employer] Patient Education 2020 [employer] Follow Up Care 04/21/2022 13:17:19 With:DON LUIS, JASVIR Hunt, [facility] Address: [facility] [address] [place] [address] When:6 months [facility] [phone] Evaluation + Plan note Future Scheduled Tests Laboratory* TSH With T4fr Reflex 03/25/22 [facility] [place] 06-22-2022 Hospital Discharge instructions Patient Education 03/24/2022 [...] including vitamins, herbs, eye drops, creams, and ooku-uhr-atbbpzw medicines. Any problems you or family members [...] provider tells you to take them. Taking yxvh-yxn-cbflluc medicines, vitamins, herbs, and supplements. General instructions [...] hole punch is used to cut a [place] shape out of theskin. ?The outer edges [...] 12/14/2010 Document Revised: 03/28/2019 Document Reviewed: 03/28/2019 [employer] Patient Education 2020 miCab Follow Up Care 02/02/2022 12:33:35 With:ROSS LUIS, WENDIE Hardy Address: When: only if needed Comments:suggest TSH at [facility] 05/2022 order is in [facility] [place] 05-23-2022 Hospital Discharge instructions Patient Education 02/22/2022 [...] height. This can be done either in [place] or metric measurements. Note that charts are available to help you find your BMI quickly and easily without having to do these calculations yourself. To calculate your BMI in [place] measurements, your health care provider will: [...] medical problems. BMI can be measured using [place] measurements or metric measurements. To interpret your [...] 05/31/2005 Document Revised: 09/01/2018 Document Reviewed: 08/02/2018 [employer] Patient Education [facility] Follow Up Care 02/22/2022 10:43:14 With:Antony HAWKINS MD, FAM Address: When: only if needed [facility] Evaluation + Plan note Future Appointments Appointment Date:03/25/2022 11:20:00 AM Scheduled Provider:Antony HAWKINS MD Location:[facility] Appointment Type: Open [facility] Evaluation + Plan note Future Appointments Appointment Date:06/11/2022 11:40:00 AM Scheduled Provider:Antony HAWKINS MD Location:[facility] [place] Appointment Type: Preventative Visit Appointment Date:11/18/2022 12:00:00 PM Scheduled Provider:Marilee OCHOA MD Location[facility] Appointment Type:[facility] Follow Up Future Scheduled Tests Laboratory* TSH With T4fr Reflex 03/25/22 * CBC w/ Auto Diff 04/21/22 * Comprehensive Metabolic Panel 04/21/22 * Lipid Panel 04/21/[address] [facility] Evaluation + Plan note Future Appointments Appointment Date:11/18/2022 12:00:00 PM Scheduled Provider:Marilee OCHOA MD Location:[facility] Appointment Type:[facility] Follow Up [facility] [place] Evaluation + Plan note Future Appointments Appointment Date:11/18/2022 12:00:00 PM Scheduled Provider:Marilee OCHOA MD Location:[facility] Appointment Type:[facility] Follow Up Diagnostic Tests Pending * [facility] noteExtracted from: Title:ED Note Author:Molly Sanchez PA-C Date:08/04/22 1. Esophageal obstruction du [...] mL, Topical, QIDACHS, 100 mL, Refill(s) 0, QMCODES #37, 169, cm, 08/03/22 21:08:00 EDT, Height/Length [...] Date:09/07/2022 08:00:00 AM Scheduled Provider:Juliana Liu CNP Location:[facility] Appointment Type:[facility] Follow Up Appointment Date:11/18/2022 12:00:00 PM Scheduled Provider:Marilee OCHOA MD Location:[facility] Appointment Type:[facility] Future Appointments Appointment Date:08/10/2022 08:00:00 AM Scheduled Provider: Location:.[facility] Appointment Type:US Abdominal/Pelvis (FT) Appointment Date:09/07/2022 08:00:00 AM Scheduled Provider:Juliana Liu CNP Location:[facility] Appointment Type:[facility] Follow Up Appointment Date:09/08/2022 02:50:00 PM Scheduled Provider: Location:[facility] Appointment Type:Surgery FT Appointment Date:11/18/2022 12:00:00 PM Scheduled Provider:Marilee OCHOA MD Location:[facility] Appointment Type:[facility] Follow Up Future Scheduled Tests Laboratory* Hepatic Function Panel 08/04/22 Radiology* US Abdomen Complete 08/10/[address] [facility] Evaluation + Plan note Future Appointments Appointment Date:09/07/2022 08:00:00 AM Scheduled Provider:Juliana Liu CNP Location:[facility] Appointment Type:[facility] Follow Up Appointment Date:09/08/2022 02:50:00 PM Scheduled Provider: Location:[facility] Appointment Type:Surgery FT Appointment Date:11/18/2022 12:00:00 PM Scheduled Provider:Marilee OCHOA MD Location[facility] Appointment Date:12/16/2022 12:00:00 PM Scheduled Provider:Marilee OCHOA MD Location[facility] Appointment Type:[facility] Evaluation + Plan note Future Appointments Appointment Date:12/21/2023 08:00:00 AM Scheduled Provider:Marilee OCHOA MD Location:[facility] Appointment Type:[facility] Evaluation + Plan note Future Appointments Appointment Date:06/27/2023 04:00:00 PM Scheduled Provider:Antony HAWKINS MD Location:[facility] [place] Appointment Type:FM Preventative Visit Appointment Date:12/21/2023 08:00:00 AM Scheduled Provider:Marilee OCHOA MD Location:[facility] Appointment Type:[facility] Up [facility] Evaluation + Plan note Future Appointments Appointment Date:12/21/2023 08:00:00 AM Scheduled Provider:Mary Kaba MD Location:[facility] Appointment Type:[facility] [place] Evaluation + Plan note Future Appointments Appointment Date:05/17/2024 08:00:00 AM Scheduled Provider: Location:[facility] Appointment Type:Surgery [facility] Evaluation + Plan note Future Appointments Appointment Date:06/19/2024 03:40:00 PM Scheduled Provider:Antony HAWKINS MD Location:[facility] [place] Appointment Type:FM Preventative Visit Appointment Date:06/21/2024 03:00:00 PM Scheduled Provider:Mary Kaba MD Location:[facility] Appointment Type:[facility] Follow Up [facility] Evaluation + Plan note Future Appointments Appointment Date:06/13/2025 02:45:00 PM Scheduled Provider:Mary Kaba MD Location:[facility] Appointment Type:BAD Follow Up Future Scheduled Tests Radiology* MA Mamm Screen w/CAD if perf and 3D Kristopher 06/19/24 [facility] Evaluation noteNo assessment information available [facility] Work Phone: Hospital course Narrative No data available for this section [facility] [place] [facility] Discharge instructions No data available for this section [facility] No data available for this section [facility] [place] Reason for referral (narrative) Referred by: Juliana Liu CNP [facility] Summary Purpose Family History No Family History Records Found No data available for this section No data available for this section No Family History Records Found No data available for this section No Family History Records Found No data available for this section No data available for this section No Family History Records FoundNo Family History Records FoundNo Family History Records FoundNo Family History Records Found No data available for this section No Family History Records FoundNo Family History Records FoundNo Family History Records FoundNo Family History Records FoundNo Family History Records Found No data available [...] Brent Angelo Attending Provider Active Start: Ap ril 1st, 2024 End: January 02, 2024 INFORMATION SOURCE (unrecogn ized section and content) DATE CREATED AUTHOR 07/06/2022 [facility] DATE CREATED AUTHOR AUTHOR'S ORGANIZ ATION 01/04/[address] [facility] DATE CREATED AUTHOR AUTHOR'S ORGANIZ ATION 01/20/2024 [facility] DATE CREATED AUTHOR AUTHOR'S ORGANIZ ATION 05/20/2024 [facility] DATE CREATED AUTHOR AUTHOR'S ORGANIZ ATION 05/24/2024 [facility] DATE CREATED AUTHOR AUTHOR'S ORGANIZ ATION 05/27/2024 [facility] DATE CREATED AUTHOR AUTHOR'S ORGANIZ ATION 05/31/2024 [facility] DATE CREATED AUTHOR AUTHOR'S ORGANIZ ATION 06/11/2024 [facility] DATE CREATED AUTHOR AUTHOR'S ORGANIZ ATION 06/21/2024 [facility] DATE CREATED AUTHOR AUTHOR'S ORGANIZ ATION 06/22/2024 [facility] DATE CREATED AUTHOR AUTHOR'S ORGANIZ ATION 06/24/2024 [facility] Goals (unrecognized section and content) Goals may [...] BE BASED ON THE PRIMARY CLINICAL RECORDS. [employer] provides no warranty or guarantee of the accuracy or completeness of information in this document.
--- NOTE | 2024-07-12 16:26 | MM_ITS ---
Patient Name: SONG GARCIA MR#: [id number] : 1965 Exam Date: 07/12/2024 Ordering Doctor: DR Brent Angelo . RADIOLOGY REPORT PROCEDURE: MM TOMOSYNTHESIS SCREENING BI COMPARISON: MG MAMM SCREEN 3D YUE CAD, 06/04/2022. MM TOMOSYNTHESIS SCREENING BI, 06/23/2023. INDICATIONS: Screening for malignant neoplasm Calculator Name NCI Breast Cancer Risk Assessment Tool 5 Year Breast Cancer Risk 2.70% Lifetime Breast Cancer Risk 15.90% Personal Breast Cancer No Personal Ovarian Cancer No Treatments None Family Cancers Mother with breast cancer at age 63; Grandfather-maternal with prostate cancer at age ~68. LOCATION: [facility] BREAST COMPOSITION: The breasts are heterogeneously dense,which may obscure small masses. FINDINGS: DIAGNOSTIC CATEGORY 2--BENIGN FINDING: Scattered benign-appearing calcifications are present. Scattered benign-appearing lymph nodes are present. RIGHT BREAST: No significant suspicious finding. LEFT BREAST: No significant suspicious finding. RECOMMENDATIONS: ROUTINE MAMMOGRAM AND CLINICAL EVALUATION IN 12 MONTHS. PLEASE NOTE: A NORMAL MAMMOGRAM DOES NOT EXCLUDE THE POSSIBILITY OF BREAST CANCER. A CLINICALLY SUSPICIOUS PALPABLE LUMP SHOULD BE BIOPSIED. Dictated by: Conor Salazar MD on 07/13/2024 at 08:04 Approved by: Conor Salazar MD on 07/13/2024 at 08:10
== END 2024-07-12 16:18 | disposition home or self-care (01) ==
PROVIDERS: Visit Provider Obstetrics & Gynecology
DX: Z12.31 Encounter for screening mammogram for malignant neoplasm of breast (principal); Z80.42 Family history of malignant neoplasm of prostate; Z80.3 Family history of malignant neoplasm of breast
CPT/HCPCS: 77063; 77067

== ENCOUNTER 2024-12-31 20:38 | Outpatient (REF) | payer OTHER, SELFPAY ==
--- OUTSIDE RECORDS SUMMARY | 2024-12-31 20:42 | XMS_ITS | CCD ---
Author Organization [facility] Care Team Providers Care Aquatic Ecologist Name Role Phone Antony HAWKINS Primary Care Physician [phone] KELLY, DR FRANCE Admitting Unavailable MISC, DR OSCAR Primary Care Unavailable KARASISam, DR FRANCE Attending Unavailable KARASIK, DR FRANCE Consulting Unavailable MISC, DR OSCAR Primary Care Unavailable KARASISam, DR FRANCE Attending Unavailable KARASISam, DR FRANCE Consulting Unavailable KARASISam, DR FRANCE Admitting Unavailable LONDON, DR VICENTE Desir Consulting Unavailable Antony HAWKINS Primary Care Physician Brent Angelo Attending Provider Brent Angelo Attending Unavailable Brent Angelo Admitting Unavailable BRENT ANGELO Attending Unavailable BRENT ANGELO Attending Unavailable BRENT ANGELO Attending Unavailable Antony HAWKINS Attending Unavailable Antony HAWKINS Admitting Unavailable Antony HAWKINS Attending Unavailable Arely MORENO Attending Unavailable Tu DONOVAN Attending Unavailable Antony HAWKINS Attending Unavailable Antony HAWKINS Attending Unavailable Mary Kaba Referring Unavaila Mary Mortensen Admitting Unavaila Mary Mortensen Attending Unavaila Antony Floyd Admitting Unavailable Antony HAWKINS Attending Unavailable Jose Garcia Attending Unavailable LISS STOREY Attending Unavailable Mary Kaba Attending UnavailAntony Solis Admitting Unavailable Antony HAWKINS Attending Unavailable Mary Kaba Attending Unavaila Mary Mortensen Attending UnavailAntony Solis MD Primary Care Provider [phone] Allergies Allergy Classification Reported Allergen(s) Allergy Type Date of Onset Reaction(s) Facility (20 sources) Acetaminophen / HYDROcodone; Translations: [acetaminophen-hydro codone] Drug Allergy [facility] (20 sources) benzonatate; Translations: [benzonatate] Drug Allergy Vomiting (disorder) [facility] Comment on above: shakiness shakiness (20 sources) Clarithromycin; Translations: [clarithromycin] Drug Allergy Vomiting/Diarr hea [facility] (20 sources) Codeine; Translations: [codeine] Drug Allergy 12-14-19 [facility] (20 sources) Famotidine; Translations: [famotidine] Drug Allergy [facility] Comment on above: was in ER multiple t imes was in ER multiple t imes (20 sources) guaiFENesin; Translations: [guaifenesin] Drug Allergy Respiratory distress [facility] (20 sources) levoFLOXacin; Translations: [levofloxacin] Drug Allergy 01-18-20 Unknown (qualifier value) [facility] (20 sources) Miconazole; Translations: [miconazole topical] Drug Allergy 01-18-20 Vulval irritation (finding) [facility] (20 sources) Morphine; Translations: [morphine] Drug Allergy 12-14-19 [facility] (20 sources) oxyCODONE; Translations: [oxycodone] Drug Allergy 12-14-19 [facility] (20 sources) Penicillin; Translations: [penicillin] Drug Allergy vomiting diarrhea [facility] (20 sources) predniSONE; Translations: [prednisone] Drug Allergy Asthma (disorder), Weal (disorder), Eruption of skin (disorder) [facility] (20 sources) raNITIdine; Translations: [ranitidine] Drug Allergy 12-14-19 24 Unknown (qualifier value) [facility] (20 sources) Sulfamethoxazole / Trimethoprim; Translations: [sulfamethoxazole-tr imethoprim] Drug Allergy 01-18-20 24 Vomiting/Diarr hea [facility] (1 source) Acetaminophen / HYDROcodone Drug Allergy 05-03-20 13 [facility] (5 sources) benzonatate; Translations: [Tessalon Perles] Drug Allergy 08-03-20 17 [facility] (1 source) Clarithromycin Drug Allergy 05-03-20 13 [facility] (1 source) Codeine Drug Allergy 05-03-20 13 [facility] (5 sources) Famotidine; Translations: [Pepcid] Drug Allergy 08-03-20 17 [facility] (1 source) floctafenine Drug Allergy 05-03-20 13 [facility] (1 source) guaiFENesin Drug Allergy 05-03-20 13 [facility] (5 sources) levoFLOXacin; Translations: [Levaquin] Drug Allergy 05-03-20 13 [facility] (5 sources) Miconazole; Translations: [Monistat 3] Drug Allergy 05-03-20 13 [facility] (1 source) Morphine Drug Allergy 05-03-20 13 [facility] (1 source) oxyCODONE Drug Allergy 05-03-20 13 [facility] (1 source) Penicillins Drug allergy (disorder) 05-03-20 13 [facility] (1 source) Sulfamethoxazole / Trimethoprim Drug Allergy 05-03-20 13 [facility] (1 source) Sulfanilamide Drug Allergy 08-03-20 17 [facility] (1 source) Sulfonamides (Antibiotic) Drug allergy (disorder) 05-03-20 13 [facility] (1 source) Darvocet-N 100 Drug allergy (disorder) 05-03-20 13 [facility] (4 sources) oxyCODONE; Translations: [OxyContin] Drug Allergy [facility] (4 sources) Acetaminophen Drug Allergy 12-14-19 [facility] Work Phone: (4 sources) Acetaminophen / HYDROcodone Drug Allergy 01-18-20 [facility] (4 sources) benzonatate Drug Allergy 01-18-20 [facility] (4 sources) Clarithromycin Allergy to substance 12-14-19 [facility] (4 sources) Famotidine Allergy to substance 01-18-20 [facility] (4 sources) guaiFENesin Drug Allergy 12-14-19 [facility] (4 sources) guaiFENesin Drug Allergy 01-18-20 [facility] (1 source) Penicillin G Drug Allergy 01-18-20 [facility] (4 sources) Penicillins Drug Allergy 12-14-19 Diarrhea, GI intolerance [facility] (4 sources) Prednisone Allergy to substance 01-18-20 Rash [facility] (4 sources) Propoxyphene Drug Allergy 12-14-19 [facility] (4 sources) Sulfanilamide Allergy to substance 12-14-19 [facility] (4 sources) Tioconazole Allergy to substance 12-14-19 [facility] (4 sources) Trimethoprim Drug Allergy 12-14-19 [facility] Medications Current Medications Medication Drug Class(es) Dates Sig (Normalized) Sig (Original) amitriptyline hydrochloride 10 mg oral tablet (20 sources) Tricyclic Antidepressant Start: 06-19-2024 take 1 tablet by mouth once daily at bedtime amitriptyline 10 mg Tab 10 mg = 1 tab(s), Oral, Once a day (at bedtime), # 90 tab(s), Refills(s) 1, Pharmacy: [facility], 858, cm, 06/19/24 15:47:00 EDT, Height/Length Dosing, 93.2, kg, 06/19/24 15:47:00 EDT, Weight Dosing Start Date: 06/19/24 Status: Ordered Start: 04-06-2024 take 1 tablet by emile once daily at bedtime amitriptyline 10 mg Tab 10 mg = 1 tab(s), Oral, Once a day (at bedtime), # 90 tab(s), Refills(s) 1, Pharmacy: [facility], 169, cm, 01/13/24 13:06:00 EDT, Height/Length Dosing, 93, kg, 01/13/24 13:06:00 EDT, Weight Dosing Start Date: 04/06/24 Status: Ordered Start: 10-10-2023 take 1 tablet by [facility] once daily at bedtime amitriptyline 10 mg Tab 10 mg = 1 tab(s), Oral, Once a day (at bedtime), # 90 tab(s), Refills(s) 1, Pharmacy: [facility], 170, cm, 09/02/23 16:43:00 EST, Height/Length Dosing, 95, kg, 09/02/23 16:43:00 EST, Weight Dosing Start Date: 10/10/23 Status: Ordered Start: 05-26-2021 End: 09-25-2023 take 1 tablet by mouth once daily at bedtime amitriptyline 10 mg Tab 10 mg = 1 tab(s), Oral, Once a day (at bedtime), X 90 day(s), # 90 tab(s), Refills(s) 0, Pharmacy: [facility], 170, cm, 06/27/23 16:25:00 EDT, Height/Length Dosing, 94.1, kg, 06/27/23 16:25:00 EDT, Weight Dosing Start Date: 06/27/23 Stop Date: 09/25/23 Status: Ordered bacitracin 0.5 unt/mg topical ointment (3 sources) Start: 04-21-2024 bacitracin Top 500 units/g Oint 30 gram 1 flo, Topical, QID, 30 gram, Refill(s) 0, [facility], 169, cm, 04/21/24 10:11:00 EDT, Height/Length Dosing, 93, kg, 04/21/24 10:11:00 EDT, Weight Dosing Start Date: 04/21/24 Status: Ordered brompheniramine maleate 0.4 mg/ml / dextromethorphan hydrobromide 2 mg/ml / pseudoephedrine hydrochloride 6 mg/ml oral solution (10 sources) alpha-Adrenergic Agonist, Uncompetitive J-itgiiz-L-asparta te Receptor Antagonist, Sigma-1 Agonist Start: 07-05-2022 take 5 mL by mouth four times daily for cough and congestion Bromfed DM oral syrup 5 mL, Oral, QID for cough and congestion, 200 mL, Refill(s) 0, [facility], 169, cm, 07/05/22 10:52:00 EDT, Height/Length Dosing, 92.9, kg, 07/05/22 10:52:00 EDT, Weight Dosing Start Date: 07/05/22 Status: Ordered cephalexin 500 mg oral capsule (6 sources) Cephalosporin Antibacterial Start: 11-26-2022 take 1 capsule by mouth every eight hours cephalexin 500 mg Cap 500 mg = 1 cap(s), Oral, q8hr, # 30 cap(s), Refills(s) 0, Pharmacy: [facility], 169, cm, 11/24/22 11:34:00 EST, Height/Length Dosing, 93, kg, 11/24/22 11:34:00 EST, Weight Dosing Start Date: 11/26/22 Status: Ordered Start: 06-11-2022 End: 06-18-2022 take 1 capsule by mouth every eight hours cephalexin 500 mg Cap 500 mg = 1 cap(s), Oral, q8hr, X 7 day(s), # 21 cap(s), Refills(s) 0, Pharmacy: [facility], 170, cm, 06/11/22 11:59:00 EDT, Height/Length Dosing, 92.6, kg, 06/11/22 11:59:00 EDT, Weight Dosing Start Date: 06/11/22 Stop Date: 06/18/22 Status: Ordered cetirizine hydrochloride 10 mg oral tablet (12 sources) Histamine-1 Receptor Antagonist Start: 11-11-2023 take 1 tablet by mouth once daily cetirizine (ZyrTEC) 10 MG tablet Take 10 mg by mouth Daily 11/11/2023 Active Start: 09-02-2023 [facility] 10 mg Tab 10 mg = 1 tab(s), Oral, Daily, # 30 tab(s), Refills(s) 1 Start Date: 09/02/23 Status: Ordered cyclobenzaprine hydrochloride 10 mg oral tablet (20 sources) Muscle Relaxant Start: 08-05-2021 End: 06-19-2023 take 1 tablet by mouth three times daily as needed for muscle spasms cyclobenzaprine (Flexeril) 10 MG tablet TAKE 1 TABLET BY MOUTH THREE TIMES DAILY NEEDED for spasm 06/09/2023 Active dicyclomine hydrochloride 10 mg oral capsule (20 sources) Anticholinergic Start: 06-19-2024 take 1 capsule by mouth four times daily as needed for pain Bentyl 10 mg Cap 10 mg = 1 cap(s), Oral, QID, as needed for abdominal pain, # 40 cap(s), Refills(s) 11, Pharmacy: [facility], 169, cm, 06/19/24 15:47:00 EDT, Height/Length Dosing, 93.2, kg, 06/19/24 15:47:00 EDT, Weight Dosing Start Date: 06/19/24 Status: Ordered Start: 11-01-2022 take 1 capsule by [facility] four times daily as needed for pain Bentyl 10 mg Cap 10 mg = 1 cap(s), Oral, QID, as needed for abdominal pain, # 40 cap(s), Refills(s) 11, Pharmacy: [facility], 169, cm, 10/15/22 12:00:00 EST, Height/Length Dosing, 91.8, kg, 10/15/22 12:00:00 EST, Weight Dosing Start Date: 11/01/22 Status: Ordered Start: 06-11-2022 take 2 capsules by [facility] once daily dicyclomine 10 mg Cap 20 mg = 2 cap(s), Oral, Daily, # 60 cap(s), Refills(s) 11, Pharmacy: [facility], 170, cm, 06/11/22 11:59:00 EDT, Height/Length Dosing, 92.6, kg, 06/11/22 11:59:00 EDT, Weight Dosing Start Date: 06/11/22 Status: Ordered Start: 01-22-2022 take 2 capsules by m outh once daily dicyclomine 10 mg Cap 20 mg = 2 cap(s), Oral, Daily, # 60 cap(s), Refills(s) 11, Pharmacy: [facility], 170, cm, 09/29/21 13:20:00 EST, Height/Length Dosing, 83.2, kg, 09/29/21 13:20:00 EST, Weight Dosing Start Date: 01/22/22 Status: Ordered fluconazole 150 mg oral tablet (4 sources) Azole Antifungal Start: 06-14-2022 take 1 tablet by mouth once fluconazole 150 mg Tab 150 mg = 1 tab(s), Oral, Once, # 1 tab(s), Refills(s) 0, Pharmacy: [facility], 170, cm, 06/11/22 11:59:00 EDT, Height/Length Dosing, 92.6, kg, 06/11/22 11:59:00 EDT, Weight Dosing Start Date: 06/14/22 Status: Ordered fluticasone 0.05 mg/inh Nasal [place] (6 sources) Start: 07-05-2022 fluticasone 0.05 mg/inh Nasal [place] 2 spray(s), Nasal, Daily, 16 gram, Refill(s) 0, each nostril, [facility], 169, cm, 07/05/22 10:52:00 EDT, Height/Length Dosing, 92.9, kg, 07/05/22 10:52:00 EDT, Weight Dosing Start Date: 07/05/22 Status: Ordered lidocaine Viscous Top 2% Riya 15 mL (16 sources) Start: 08-03-2022 lidocaine Viscous Top 2% Riya 15 mL 0.1 gm, 5 mL, Topical, QIDACHS, 100 mL, Refill(s) 0, [facility], 169, cm, 08/03/22 21:08:00 EDT, Height/Length [...] Nausea/Vomiting, # 12 tab(s), Refills(s) 0, Pharmacy: [facility], 169, cm, 06/19/24 15:47:00 EDT, Height/Length Dosing, 93.2, kg, 06/19/24 15:47:00 EDT, Weight Dosing Start Date: 06/19/24 Status: Ordered Start: 05-13-2022 take 1 tablet by emile th every six hours as needed for nausea ondansetron 4 mg Dis Tab 4 mg = 1 tab(s), Oral, q6hr, PRN Nausea/Vomiting, # 12 tab(s), Refills(s) 0, Pharmacy: [facility], 170, cm, 03/25/22 11:35:00 EDT, Height/Length Dosing, 93.2, kg, 03/25/22 11:35:00 EDT, Weight Dosing Start Date: 05/13/22 Status: Ordered pantoprazole 40 mg delayed release oral tablet (20 sources) Proton Pump Inhibitor Start: 06-19-2024 take 1 tablet by mouth twice daily Pantoprazole [address] Tab 40 mg = 1 tab(s), Oral, BID, # 180 tab(s), Refills(s) 3, Pharmacy: [facility], 169, cm, 06/19/24 15:47:00 EDT, Height/Length Dosing, 93.2, kg, 06/19/24 15:47:00 EDT, Weight Dosing Start Date: 06/19/24 Status: Ordered Start: 09-08-2022 take 1 tablet by emile th twice daily Pantoprazole [address] Tab 40 mg = 1 tab(s), Oral, BID, # 180 tab(s), Refills(s) 3, Pharmacy: [facility], 169, cm, 12/21/23 8:16:00 EDT, Height/Length Dosing, 95, kg, 12/21/23 8:16:00 EDT, Weight Dosing Start Date: 01/09/24 Status: Ordered Start: 03-29-2022 take 1 tablet by emile once daily pantoprazole 40 mg Oral EC Tab 40 mg = 1 tab(s), Oral, Daily, # 30 tab(s), Refills(s) 5, Pharmacy: [facility], 170, cm, 03/25/22 11:35:00 EDT, Height/Length Dosing, 93.2, kg, 03/25/22 11:35:00 EDT, Weight Dosing Start Date: 03/29/22 Status: Ordered Start: 03-29-2022 take 1 tablet by emile once daily pantoprazole 40 mg Oral EC Tab 40 mg = 1 tab(s), Oral, Daily, # 30 tab(s), Refills(s) 5, Pharmacy: [facility], 170, cm, 03/25/22 11:35:00 EDT, Height/Length Dosing, 93.2, kg, 03/25/22 11:35:00 EDT, Weight Dosing Start Date: 03/29/22 Status: Ordered Start: 05-28-2021 take 1 tablet by emile once daily pantoprazole 40 mg Oral EC Tab 40 mg = 1 tab(s), Oral, Daily, # 30 tab(s), Refills(s) 5, Pharmacy: [facility], 170, cm, 05/28/21 13:52:00 EDT, Height/Length Dosing, 86.5, kg, 05/28/21 13:52:00 EDT, Weight Dosing Start Date: 05/28/21 Status: Ordered Start: 05-28-2021 take 1 tablet by emile once daily pantoprazole 40 mg Oral EC Tab 40 mg = 1 tab(s), Oral, Daily, # 30 tab(s), Refills(s) 5, Pharmacy: [facility], 170, cm, 05/28/21 13:52:00 EDT, Height/Length [...] EA, Refill(s) 3, 2 puff(s) Inhalation BID, [facility], 169, cm, 09/08/22 9:25:00 EST, Height/Length Dosing, 93, kg, 09/08/22 9:25:00 EST, Weight Dosing Start Date: 09/08/22 Status: Ordered Start: 07-05-2022 fluticasone 0. 05 mg/inh Nasal [place] 2 spray(s), Nasal, Daily, 16 gram, Refill(s) 0, each nostril, [facility], 169, cm, 07/05/22 10:52:00 EDT, Height/Length Dosing, 92.9, kg, 07/05/22 10:52:00 EDT, Weight Dosing Start Date: 07/05/22 Status: Ordered levothyroxine sodium 0.088 mg oral tablet (20 sources) l-Thyroxine Start: 06-19-2024 take 1 tablet by mouth once daily levothyroxine 88 mcg (0.088 mg) Tab 88 microgram = 1 tab(s), Oral, Daily, # 90 tab(s), Refills(s) 3, Pharmacy: [facility], 169, cm, 06/19/24 15:47:00 EDT, Height/Length Dosing, 93.2, kg, 06/19/24 15:47:00 EDT, Weight Dosing Start Date: 06/19/24 Status: Ordered Start: 06-27-2023 take 1 tablet by emile th once daily levothyroxine 88 mcg (0.088 mg) Tab 88 microgram = 1 tab(s), Oral, Daily, # 90 tab(s), Refills(s) 3, Pharmacy: [facility]/pharmacy #[id number], 170, cm, 06/27/23 16:25:00 EDT, Height/Length Dosing, 94.1, kg, 06/27/23 16:25:00 EDT, Weight Dosing Start Date: 06/27/23 Status: Ordered Start: 12-22-2022 take 1 tablet by emile th once daily levothyroxine 88 mcg (0.088 mg) Tab 88 microgram = 1 tab(s), Oral, Daily, # 90 tab(s), Refills(s) 1, Pharmacy: [facility]/pharmacy #[id number], 169, cm, 12/16/22 12:08:00 EDT, Height/Length Dosing, 90.3, kg, 12/16/22 12:08:00 EDT, Weight Dosing Start Date: 12/22/22 Status: Ordered Start: 05-26-2022 take 1 tablet by emile once daily levothyroxine 88 mcg (0.088 mg) Tab 88 microgram = 1 tab(s), Oral, Daily, # 90 tab(s), Refills(s) 1, Pharmacy: [facility]/pharmacy #[id number], 170, cm, 05/19/22 10:43:00 EDT, Height/Length Dosing, 93, kg, 05/19/22 10:43:00 EDT, Weight Dosing Start Date: 05/26/22 Status: Ordered Start: 11-18-2021 take 1 tablet by emile once daily levothyroxine 88 mcg (0.088 mg) Tab 88 microgram = 1 tab(s), Oral, Daily, # 90 tab(s), Refills(s) 1, Pharmacy: [facility]/pharmacy #[id number], 170, cm, 09/29/21 13:20:00 EST, Height/Length Dosing, 83.2, kg, 09/29/21 13:20:00 EST, Weight Dosing Start Date: 11/18/21 Status: Ordered take 1 tablet by emile th once daily levothyroxine (Synthroid, Levoxyl) 88 MCG tablet Take 88 mcg by mouth Daily Active magnesium sulfate 225 MG / potassium chloride 188 MG / sodium sulfate 1479 MG Oral Tablet [Sutab] (3 sources) Start: 12-21-2023 take 1 tablet by mouth once Sutab oral tablet See Instructions, 1 EA, Refill(s) 0, Please follow instructions per packaging and physician's handout, [facility], 169, cm, 12/21/23 8:16:00 EDT, Height/Length [...] coldsore, # 12 tab(s), Refills(s) 2, Pharmacy: [facility], 169, cm, 06/19/24 15:47:00 EDT, Height/Length Dosing, 93.2, kg, 06/19/24 15:47:00 EDT, Weight Dosing Start Date: 06/19/24 Status: Ordered Start: 02-29-2024 take 2 tablets by [facility] twice daily Valtrex 1 g Tab 2 gram = 2 tab(s), Oral, BID, x 1 days at onset of coldsore, # 12 tab(s), Refills(s) 2, Pharmacy: [facility], 169, cm, 01/13/24 13:06:00 EDT, Height/Length Dosing, 93, kg, 01/13/24 13:06:00 EDT, Weight Dosing Start Date: 02/29/24 Status: Ordered Start: 01-22-2022 take 2 tablets by [facility] twice daily Valtrex 1 g Tab 2 gram = 2 tab(s), Oral, BID, x 1 days at onset of coldsore, # 12 tab(s), Refills(s) 2, Pharmacy: [facility], 170, cm, 09/29/21 13:20:00 EST, Height/Length Dosing, 83.2, kg, 09/29/21 13:20:00 EST, Weight Dosing Start Date: 01/22/22 Status: Ordered Start: 01-22-2022 take 2 tablets by [facility] twice daily Valtrex 1 g Tab 2 gram = 2 tab(s), Oral, BID, x 1 days at onset of coldsore, # 12 tab(s), Refills(s) 2, Pharmacy: [facility], 170, cm, 09/29/21 13:20:00 EST, Height/Length [...] Disorders of lipid metabolism (20 sources) Mixed hyperlipidemia; Translations: [Mixed hyperlipidemia] Onset: 4 02-05-2019 Chronic Esophageal disorders (20 sources) Gastroesophageal [...] Onset: 2 Episodic Other nervous system disorders (2 sources) H/O: migraine 06-19-2024 Episodic Other nervous system disorders (1 source) 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; Translations: [Personal history of other diseases of the nervous system and sense organs] Onset: 4 Episodic Other non-traumatic joint disorders (20 sources) Ankle pain 06-04-2020 Episodic Other non-traumatic joint disorders (20 sources) Shoulder pain 01-15-2015 Episodic Other nutritional; endocrine; and metabolic disorders (8 sources) Obese class I; Translations: [Body mass [...] conditions (not mental disorders or infectious disease) (16 sources) Encounter for screening for malignant neoplasm [...] HX MALIG NEOPLASM PROSTATE] Onset: 2 Episodic Residual codes; unclassified (6 sources) Postmenopausal state; Translations: [Asymptomatic menopausal state] Onset: 4 12-19-2023 Episodic Screening and history of mental health [...] of ligament of right shoulder joint 06-09-2023 Viral infection (20 sources) Herpes labialis; Translations: [Herpesviral vesicular dermatitis] Onset: 4 01-30-2019 Episodic Viral infection (11 sources) Disease caused by 2019-nCoV; Translations: [COVID-19] Onset: 2 Past or Other Problems Problem Classification Problem Date Documented Da te Episodic/Chronic Genitourinary symptoms and ill-defined conditions (4 sources) Urinary symptoms ; Translations: [Unspecified symptoms and signs involving the genitourinary system] Onset: 12-19-2023 12-19-2023 Episodic Mycoses (4 sources) Mycosis; Translations: [Candidiasis, unspecified] Onset: 12-19-2023 12-19-2023 Episodic Other circulatory disease (20 sources) H/O: varicose [...] (20 sources) Entire liver (body structure) 02-03-2010 Urinary tract infections (17 sources) Acute cystitis; Translations: [Acute cystitis without hematuria] Onset: 06-11-2022 Episodic Results Test Name Value Interpretation Reference Range [...] EDT With: Sendy LUIS, Mary Bar Where: [facility] [address] [place] [id number]- Medications What How Much When Why Instructions [...] with us (more content not included)... Normal [facility] Gastroenterology Office/Clin ic Noteon 06-21-2024 Gastroenterology [...] Gall blad (more content not included)... Normal [facility] Comment on above: Result Comment: Elec tronically Signed By: Sendy LUIS, Mary Bar\.br\Date and Time Signed: 06/21/24 16:01 EDT Provider Letteron 06-21-2024 Provider Letter Provider Letter June 21, 2024 SONG MCKEON [address] [id number] : 1965 To Whom It May Concern, Please excuse above patient from work. Date of Appointment: June 21, 2024 May Return to Work On: June 22, 2024 Sincerely, [facility] [phone] [facility] Ambulatory Visit Summaryon 0 06-19-2024 Ambulatory Visit [...] EDT With: Sendy LUIS, Mary Bar Where: [facility] [address] [place] [phone]- You Need to Schedule the Following Appointments Follow Up with ROSS LUIS, Antony [facility] When: In 1 year Where: You Need to Complete the Following MA Mamm Screen w/CAD if perf and 3D Kristopher, *Est. 06/19/24 due within 3 months, Routine, Order for Future Visit, Transport Mode: Wheelchair, Reason: Screening, No, Breast cancer screening by mammogram, pp_set_radiology_subspecialt y, [place] [facility] [place] Medications What How Much When Why Instructions Unchanged amitriptyline (amitriptyline 10 mg Tab) 1 Tablets By Mouth Once a day (at bedtime) Irritable bowel syndrome with diarrhea Pickup at [facility] Unchanged cetirizine (cetirizine 10 mg Tab) 1 Tablets By Mouth Every day Pickup at [facility] Unchanged cyclobenzaprine (cyclobenzaprine 10 mg Tab) 1 Tablets By Mouth 3 times a day as needed for for spasm May use as needed for muscle spasms but sedation warning Pickup at [facility] Unchanged dicyclomine (Bentyl 10 mg Cap) 1 Capsules By Mouth 4 times a day as needed for abdominal pain Pickup at [facility] Unchanged levothyroxine (levothyroxine 88 mcg (0.088 mg) Tab) 1 Tablets By Mouth Every day Pickup at [facility] Unchanged ondansetron (ondansetron 4 mg Dis Tab) 1 Tablets By Mouth Every 6 hours as needed for Nausea/Vomiting Pickup at [facility] Unchanged pantoprazole (Pantoprazole [address] Tab) 1 Tablets By Mouth 2 times a day Pickup at [facility] Unchanged valacyclovir (Valtrex 1 g Tab) 2 Tablets By Mouth 2 times a day x 1 days at onset of coldsore Pickup at [facility] Pharmacy Information [facility]: [address] [place], [place] [id number] [phone] What How Much When Comments Stop Taking [...] anxiety disor (more content not included)... Normal [facility] Family Medicine Office/Clini c Noteon 06-19-2024 Family Medicine Office/Clinic Note Family Medicine Office/Clinic Note Chief Complaint annual wellness chk up, rf meds to dm/jess bautista shingrix History of Present Illness Song is a 58 y.o. female presenting to [facility] for a [facility] yr wellness visit. She [...] month. She asks if she can have [place] paperwork done for migraine headaches. She states [...] BMI 3 (more content not included)... Normal [facility] Comment on above: Result Comment: Elec tronically Signed By: Antony HAWKINS MD\.br\Date and Time Signed: 06/19/24 17:16 EDT\.br\Electronically Co-Signed By: Chapo PIERRE III, Mal Parada\.br\Date and Time Co-Signed: 06/19/24 16:47 EDT Provider Letteron 06-19-2024 Provider Letter Provider Letter June 19, 2024 SONG MCKEON [address] [id number] : 1965 To Whom It May Concern, Please excuse above patient from work. Date of Illness: From: 19 June 2024 To: 19 June 2024 May Return to Work On: 20 June 2024 Restrictions: None Comments: Please call the office with any questions Sincerely, [facility] [place] [address] [place] [address] Normal [facility] CBC w/ Auto Diffon 4 Basophils/100 WBC (Bld) 0.6 % Normal 0.0-2.0 [facility] Comment on above: Performed By: #### 2 [id number] #### [facility] [address] [place] [address] Basophils/Leukocyte s Auto (Bld) [Pure # fraction] 0.0 E9/L Normal 0.0-0.2 [facility] Comment on above: Performed By: #### 2 [id number] #### [facility] [address] [place] [address] Eosinophils (Bld) [#/Vol] 0.2 E9/L Normal 0.0-0.5 [facility] Comment on above: Performed By: #### 2 373839 #### [facility] [address] [place] [address] Eosinophils/100 WBC (Bld) 3.2 % Normal 0.0-8.0 [facility] Comment on above: Performed By: #### 2 [id number] #### [facility] [address] [place] [address] Erythrocyte distribution width (RBC) [Ratio] 13.7 % Normal 10.9-14.2 [facility] Comment on above: Performed By: #### 2 [id number] #### [facility] [address] [place] [address] Hematocrit (Bld) [Volume fraction] 35.6 % Normal 34.0-46.0 [facility] Comment on above: Performed By: #### 2 087324 #### [facility] [address] [place] [address] Hemoglobin (Bld) [Mass/Vol] 12.2 g/dL Normal 12.0-16.0 [facility] Comment on above: Performed By: #### 2 907374 #### [facility] [address] [place] [address] Lymphocytes (Bld) [#/Vol] 3.0 E9/L Normal 1.0-4.0 [facility] Comment on above: Performed By: #### 2 148828 #### [facility] [address] [place] [address] Lymphocytes/100 WBC (Bld) 42.1 % Normal 14.0-50.0 [facility] Comment on above: Performed By: #### 2 201755 #### [facility] [address] [place] [address] MCH (RBC) [Entitic mass] 28.9 pg Normal 27.0-34.0 [facility] Comment on above: Performed By: #### 2 729078 #### [facility] [address] [place] [address] MCHC (RBC) [Mass/Vol] 34.3 g/dL Normal 31.4-36.0 [facility] Comment on above: Performed By: #### 2 318005 #### [facility] [address] [place] [address] MCV (RBC) [Entitic vol] 84.1 fL Normal 80.0-100.0 [facility] Comment on above: Performed By: #### 2 729486 #### [facility] [address] [place] [address] Monocytes (Bld) [#/Vol] 0.4 E9/L Normal 0.2-1.0 [facility] Comment on above: Performed By: #### 2 018677 #### [facility] [address] [place] [address] Neutrophils (Bld) [#/Vol] 3.4 E9/L Normal 2.0-7.5 [facility] Comment on above: Performed By: #### 2 536015 #### [facility] [address] [place] [address] Neutrophils/100 WBC (Bld) 48.2 % Normal 36.0-75.0 [facility] Comment on above: Performed By: #### 2 727954 #### [facility] [address] [place] [address] Platelet 349.0 E9/L Normal 150.0-500.0 [facility] Comment on above: Performed By: #### 2 920742 #### [facility] [address] [place] [address] Platelet mean volume (Bld) [Entitic vol] 7.1 fL Normal 6.4-10.8 [facility] Comment on above: Performed By: #### 2 498263 #### [facility] [address] [place] [address] RBC (Bld) [#/Vol] 4.2 E12/L Low 4.3-5.9 [facility] Comment on above: Performed By: #### 2 746397 #### [facility] [address] [place] [address] WBC corrected for nucl RBC Auto (Bld) [#/Vol] 7.1 E9/L Normal 4.0-11.0 [facility] Comment on above: Performed By: #### 2 817885 #### [facility] [address] [place] [address] CHEMISTRYOrdered By: SYSTEM SYSTEM on 06-09-2024 Albumin [...] 06-09-2024 Albumin [Mass/Vol] 4.1 g/dL Normal 3.3-5.0 [facility] Comment on above: Performed By: #### 2 325656 #### [facility] [address] [place] [address] Albumin/Globulin (S) [Mass conc ratio] 1.2 Normal 1.1-2.2 [facility] Comment on above: Performed By: #### 2 338414 #### [facility] [address] [place] [address] ALP [Catalytic activity/Vol] 120 Int._Unit/L High 21-98 [facility] Comment on above: Performed By: #### 2 801465 #### [facility] [address] [place] [address] ALT No additional P-5'-P [Catalytic activity/Vol] 21 Int._Unit/L Normal 6-46 [facility] Comment on above: Performed By: #### 2 468999 #### [facility] [address] [place] [address] Anion gap [Moles/Vol] 10 mmol/L Normal 6-16 [facility] Comment on above: Performed By: #### 2 901743 #### [facility] [address] [place] [address] AST [Catalytic activity/Vol] 18 Int._Unit/L Normal 5-43 [facility] Comment on above: Performed By: #### 2 266493 #### [facility] [address] [place] [address] Bilirubin [Mass/Vol] 0.3 mg/dL Normal 0.0-1.1 [facility] Comment on above: Performed By: #### 2 981430 #### [facility] [address] [place] [address] Calcium [Mass/Vol] 9.6 mg/dL Normal 8.9-11.1 [facility] Comment on above: Performed By: #### 2 381569 #### [facility] [address] [place] [address] Chloride [Moles/Vol] 105 mmol/L Normal 101-111 [facility] Comment on above: Performed By: #### 2 526239 #### [facility] [address] [place] [address] CO2 [Moles/Vol] 28 mmol/L Normal 21-31 [facility] Comment on above: Performed By: #### 2 688607 #### [facility] [address] [place] [address] Creatinine [Mass/Vol] 0.9 mg/dL Normal 0.5-1.3 [facility] Comment on above: Performed By: #### 2 146863 #### [facility] [address] [place] [address] Globulin (S) [Mass/Vol] 3.4 g/dL Normal 1.4-4.0 [facility] Comment on above: Performed By: #### 2 325381 #### [facility] [address] [place] [address] Glucose [Mass/Vol] 98 mg/dL Normal 55-199 [facility] Comment on above: Performed By: #### 2 389582 #### [facility] [address] [place] [address] Potassium [Moles/Vol] 3.8 mmol/L Normal 3.5-5.3 [facility] Comment on above: Performed By: #### 2 387072 #### [facility] [address] [place] [address] Protein [Mass/Vol] 7.5 g/dL Normal 6.0-7.8 [facility] Comment on above: Performed By: #### 2 445777 #### [facility] [address] [place] [address] Sodium [Moles/Vol] 139 mmol/L Normal 135-145 [facility] Comment on above: Performed By: #### 2 061185 #### [facility] [address] [place] [address] Urea nitrogen [Mass/Vol] 19 mg/dL Normal 5-21 [facility] Comment on above: Performed By: #### 2 137231 #### [facility] [address] [place] [address] Urea nitrogen/Creatinine [Mass ratio] 21 No Units High 10-20 [facility] Comment on above: Performed By: #### 2 908913 #### [facility] [address] [place] [address] HEMATOLOGYOrdered By: SYSTEM SYSTEM on 06-09-2024 Basophils/100 [...] 06-09-2024 Cholesterol [Mass/Vol] 218 mg/dL High 120-200 [facility] Comment on above: Performed By: #### 2 659917 #### [facility] [address] [place] [address] Cholesterol in HDL [Mass/Vol] 49 mg/dL Invalid Interpretation Code [facility] Comment on above: Result Comment: '>= 60 LOW RISK' '<= 40 HIGH RISK' Performed By: #### 2 589455 #### [facility] [address] [place] [address] Cholesterol in LDL [Mass/Vol] 157 mg/dL High <=129 [facility] Comment on above: Performed By: #### 2 445386 #### [facility] [address] [place] [address] Cholesterol in VLDL [Mass/Vol] 22 mg/dL Normal 7-40 [facility] Comment on above: Performed By: #### 2 175805 #### [facility] [address] [place] [address] Triglyceride [Mass/Vol] 108 mg/dL Normal <=149 [facility] Comment on above: Performed By: #### 2 677030 #### [facility] [address] [place] [address] TSH With T4fr Reflexon 06-09 TSH Qn 1.57 m[IU]/L Normal 0.34-5.60 [facility] Comment on above: Performed By: #### 1 [id number] #### [facility] [address] [place] [address] eGFRon 06-09-2024 eGFR 74 mL/min/1.73 m2 Normal >=59 [facility] Comment on above: Order Comment: Order added by Discern Expert. Performed By: #### 1 [id number] #### [facility] [address] [place] [address] 07 Addendum Reporton 024 07 Addendum Report [facility] [address] [place] [address]- Surgical Pathology Report Collected Date/Time: 05/17/2024 08:34 EDT Pathologist: Rc LUIS, Amina Received Date/Time: 05/17/2024 09:12 EDT Kalen Kaba MD, Mary Kaba MD, Mary Bar 07 Addendum Report - 05/29/2024 17:14 EDT [...] is entirely submitted in one cassette. (DC) DC:[facility] Microscopic Description Microscopic examination performed unless gross only specified. The use of one or more reagents in the above tests is regulated as an analyte specific reagent (ASR). The test or tests are ordered following initial H&E microscopic examination. The performance characteristics were determined by the [facility] of [facility]. They have not been cleared or approved by the US Food and Drug Administration. The FDA has determined that such clearance or approval is not necessary. These tests are used for clinical purposes. They should not be regarded as investigational or for research. Appropriate positive and negative controls are performed and are acceptable. [facility] Comment on above: Performed By: #### C [id number] #### [facility] [address] [place] [address] 07 Addendum Reporton 024 07 Addendum Report [facility] [address] [place] [address]- Surgical Pathology Report Collected Date/Time: 05/17/2024 08:34 [...] characteristics were determined by the [facility]. They have not been cleared or approved by the US Food and Drug Administration. The FDA has determined that such clearance or approval is not necessary. These tests are used for clinical purposes. They should not be regarded as investigational or for research. Appropriate positive and negative controls are performed and are acceptable. Normal [facility] Comment on above: Performed By: #### C [id number] #### [facility] [address] [place] [address] Reminderson 05-24-2024 Reminders Reminders From: Berta Tilley I To: [facility] - Reminders/Recalls; Sent: 05/24/2024 13:54:50 EDT Show up: 03/03/2031 13:54:00 EDT Subject: Colonoscopy recall Reminder/Recall 7 year recall - hx polyps Dr. Kaba 05/17/2031 [facility] Main OR Intraoperative Recor don 05-18-2024 Main OR Intraoperative Record Main OR Intraoperative Record IntraOp Document Type FT Summary Primary Physician: Mary Kaba MD Finalized Date/Time: 05/18/24 10:15:23 Pt. Name: SONG MCKEON/Sex: 1965 Female Med Rec #: [id number] Physician: Mary Kaba MD Financial #: [id number] Pt. Type: O Room/Bed: / Admit/Disch: 05/17/24 06:51:55 - 05/17/24 23:59:59 Institution: Case Times FT Entry 1 Patient Times In Room 05/17/24 08:12:00 Out Room 05/17/24 08:40:00 Procedure Times Start 05/17/24 08:17:00 Stop 05/17/24 08:37:00 Anesthesia Times Start 05/17/24 08:12:00 Stop 05/17/24 08:40:00 Time at [facility] 05/17/24 08:30:00 Last Modified By: Arcenio GIBSON, Florinda Ramirez 05/17/24 08:41:33 General Comments: EGD end time at 0824./KIERSTENRN Colonoscopy start time at 0826./KIERSTENRN 05/18/24 Chart opened to review and send charges [facility] CSFA Case Attendance FT Entry 1 Entry 2 Entry 3 Case Attendee Yamil MUNOZ, Bong Rg RN, Ayo Stafford Role Performed Anesthesiologist Medical Records Library Professor - Primary Scrub - Primary Assistant Professor Of Spanish Time In 05/17/24 08:12:00 05/17/24 08:12:00 05/17/24 [...] EGD AND COLONOSCOPY(.) Comments Last Modified By: Florinda Rg RN, RN, Kristin N 05/17/24 08:41:34 05/17/24 08:41:34 Perioperative Protocols FT [...] (If Applicable) PreOp Antibiotic No Time Out Bong Sweeney Given Participants Arcenio Perdomo RN, Kristin N, Sparks, Micala E, Schafer CST, Sendy Vicente MD, Muhammad Talal Time Out Complete 05/17/24 08:16:00 Outcomes Met? [...] and tissue Entry 1 Skin Integrity Intact, Starr, Warm, & Skin Abnormality Yes Dry Outcomes Met? Yes Last Modified By: Florinda Rg RN 05/17/24 08:29:31 Post-Care Text: The pa (more content not included)... Normal [facility] Surgical Pathology Reporton 05-18-2024 Surgical Pathology Report [facility] [address] [place] [address]- Surgical Pathology Report Collected Date/Time: 05/17/2024 08:34 [...] is entirely submitted in one cassette. (DC) DC:[facility] Surgical Pathology Report Collected Date/Time: 05/17/2024 08:34 EDT Pathologist: Amina Tatum MD Received Date/Time: 05/17/2024 09:12 EDT Kalen Kaba MD, Mary Kaba MD, Mary Bar Microscopic Description Microscopic examination performed unless gross only specified. The use of one or more reagents in the above tests is regulated as an analyte specific reagent (ASR). The test or tests are ordered following initial H&E microscopic examination. The performance characteristics were determined by the [facility]. They have not been cleared or approved by the US Food and Drug Administration. The FDA has determined that such clearance or approval is not necessary. These tests are used for clinical purposes. They should not be regarded as investigational or for research. Appropriate positive and negative controls are performed and are acceptable. Normal [facility] Comment on above: Performed By: #### 4 [id number] #### [facility] [address] [place] [address] Discharge Instructionson Discharge Instructions Discharge Instructions SONG [...] Follow Up with Sendy LUIS, JASVIR Melgar, ANNMARIE When: Comments: Call for any problems. Office [...] seborrheic keratosis (more content not included)... Normal [facility] Comment on above: Result Comment: Elec tronically Signed By: Maite Boudreaux I\.br\Date and Time Signed: 05/17/24 08:57 EDT Inpatient Patient Summaryon 05-17-2024 Inpatient Patient Summary Inpatient Patient Summary [place] [address] [facility] Clinical Discharge Instructions PERSON INFORMATION Name: SONG [...] at onset of coldsore. Refills: 2. Comment: Normal [facility] Main OR PACU I Recordon 05-03 Main OR PACU I Record Main OR PACU I Record PACU Phase I Document Type FT Summary Primary Physician: Mary Kaba MD Finalized Date/Time: 05/17/24 09:24:58 Pt. Name: SONG MCKEON/Sex: 1965 Female Med Rec #: [id number] Physician: Mary Kaba MD Financial #: [id number] Pt. Type: O Room/Bed: / Admit/Disch: 05/17/24 [...] Signed By: Maite Boudreaux I 05/17/24 09:24 [facility] Main OR Preoperative Recordo n 05-17-2024 Main OR Preoperative Record Main OR Preoperative Record Holding Area Document Type FT Summary Primary Physician: Mary Kaba MD Finalized Date/Time: 05/17/24 07:35:28 Pt. Name: SONG MCKEON./Sex: 1965 Female Med Rec #: [id number] Physician: Mary Kaba MD Financial #: [id number] Pt. Type: O Room/Bed: / Admit/Disch: 05/17/24 [...] prep still nauseated. Pt. having clear yellow results./AW RN Finalized By: Natalya Jones RN Document Signatures Signed By: Natalya Jones RN 05/17/24 07:35 Normal [facility] Outpatient Surgery Discharge Instructionon 05-17-2024 Outpatient Surgery Discharge Instruction Outpatient Surgery Discharge Instruction [address] [address] Patient Discharge Instructions PERSON INFORMATION Name: SONG [...] THE NEAREST EMERGENCY ROOM OR CALL 911 I, SONG MCKEON, have received the attached patient education materials/instructions [...] to serve you. Thank you for choosing [facility] HERE ARE THE MEDICATION CHANGES THAT OCCURRED [...] 2. 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 States she was using saw [...] pain, # 40 cap(s), Refills(s) 11, Pharmacy: [facility], 169, cm, 10/15/22 12:00:00 EST, Height/Length Dosing, 91.8, kg, 10/15/22 12:00:00 EST, Weight Dosing Pantoprazole [address] Tab: 40 mg = 1 tab(s), Oral, BID, # 180 tab(s), Refills(s) 3, Pharmacy: [facility], 169, cm, 12/21/23 8:16:00 EDT, Height/Length Dosing, 95, kg, 12/21/23 8:16:00 EDT, Weight Dosing Sutab oral tablet: See Instructions, 1 EA, Refill(s) 0, Please follow instructions per packaging and physician's handout, [facility], 169, cm, 12/21/23 8:16:00 EDT, Height/Length Dosing, 95, kg, 12/21/23 8:16:00 EDT, Weight Dosing Valtrex 1 g Tab: 2 gram = 2 tab(s), Oral, BID, x 1 days at onset of coldsore, # 12 tab(s), Refills(s) 2, Pharmacy: [facility], 169, cm, 01/13/24 13:06:00 EDT, Height/Length Dosing, 93, kg, 01/13/24 13:06:00 EDT, Weight Dosing amitriptyline 10 mg Tab: 10 mg = 1 tab(s), Oral, Once a day (at bedtime), # 90 tab(s), Refills(s) 1, Pharmacy: [facility], 169, cm, 01/13/24 13:06:00 EDT, Height/Length Dosing, 93, kg, 01/13/24 13:06:00 EDT, Weight Dosing bacitracin Top 500 units/g Oint 30 gram: 1 flo, Topical, QID, 30 gram, Refill(s) 0, [facility], 169, cm, 04/21/24 10:11:00 EDT, Height/Length Dosing, 93, kg, 04/21/24 10:11:00 EDT, Weight Dosing cetirizine 10 mg Tab: 10 mg = 1 tab(s), Oral, Daily, # 30 tab(s), Refills(s) 1, Pharmacy: [facility], 170, cm, 09/02/23 16:43:00 EST, Height/Length Dosing, 95, kg, 09/02/23 16:43:00 EST, Weight Dosing cyclobenzaprine 10 mg Tab: 10 mg = 1 tab(s), Oral, TID, PRN for spasm, May use as needed for muscle spasms but sedation warning, # 30 tab(s), Refills(s) 1, [id number] 170, cm, 05/28/21 13:52:00 EDT, Height/Length Dosing, 86.5, kg, 05/28/21 13:52:00 EDT, Weigh... levothyroxine 88 mcg (0.088 mg) Tab: 88 microgram = 1 tab(s), Oral, Daily, # 90 tab(s), Refills(s) 3, [id number] 170, cm, 06/27/23 16:25:00 EDT, Height/Length Dosing, 94.1, kg, 06/27/23 16:25:00 EDT, Weight Dosing lidocaine Viscous Top 2% Riya 15 mL: 0.1 gm, 5 mL, Topical, QIDACHS, 100 mL, Refill(s) 0, [facility], 169, cm, 08/03/22 21:08:00 EDT, Height/Length Dosing, 92, kg, 08/03/22 21:08:00 EDT, Weight Dosing ondansetron 4 mg Dis Tab: 4 mg = 1 tab(s), Oral, q6hr, PRN Nausea/Vomiting, # 12 tab(s), Refills(s) 0, Pharmacy: [facility], 170, cm, 03/25/22 11:35:00 EDT, Height/Length Dosing, 93.2, kg, 03/25/22 11:35:00 EDT, Weight Dosing, Home Medications (11) Active amitriptyline 10 mg Tab 10 mg = 1 (more content not included)... Normal [facility] ED Clinical Summaryon 2023 ED Clinical Summary ED Clinical Summary [address] [address] ED Clinical Summary Person Information Name: SONG MCKEON Chana/[facility] Age: 58 Years : 1965 Sex: Female Language: Romanian PCP: Antony HAWKINS MD Marital Status: Visit [...] 04/21/2024 13:36:09 04/21/2024 13:36:09 04/21/2024 13:36:09 ADDRESS: [address] [place] [id number] PHYS DOC NOTES: MEDICAL INFORMATION: Prescriptions Given: New Medications [facility], [address], [place] [id number], [phone] bacitracin topical (bacitracin Top 500 units/g Oint [...] PATIENT EDUCATION INFORMATION: Instructions: Laceration Care, Adult, Kajz-[id number] Follow up: With: Address: When: Colejarocholoy HAWKINS [address] [place] [phone] Business (1) In 3 days 04/24/2024 Comments: Follow-up with your family physician in 10 to 14 days to have the stitches removed. Keep the stitches dry for 24 hours followed by cleaning it with water and patting dry. Do not submerge the wound. Use the bacitracin DIAGNOSIS: Laceration of right ring finger without damage to nail Normal [facility] ED Note-Physicianon 04-21-20 ED Note-Physician ED Note-Physician [...] flo, Topical, QID, 30 gram, Refill(s) 0, [facility], 169, cm, 04/21/24 10:11:00 EDT, Height/Length [...] In 3 days 04/24/2024 EDT [address] [place] [address] Business (1) Additional Instructions: Follow-up with your family physician in 10 to 14 days to have the stitches removed. (more content not included)... Normal [facility] Comment on above: Result Comment: Elec tronically Signed By: Valencia Singh PA-C\.br\Date and Time Signed: 04/21/24 16:22 EDT\.br\Electronically Co-Signed By: Jose Garcia DO\.br\Date and Time Co-Signed: 04/21/24 20:05 EDT ED Patient Summaryon 024 ED Patient Summary ED Patient Summary [address] [address] Patient Discharge Instructions Person Information Name: SONG MCKEON Age: 58 Years Arrival Date: 04/21/2024 09:52:08 Discharge Diagnosis: Laceration of right ring finger without damage to nail Primary Care Physician: Antony HAWKINS MD Provider Information Primary Provider: Jose Garcia DO Advanced Shrimp Picker:Valencia Singh PA-C The exam and treatment you received in the Emergency Department were for an urgent problem and are not intended as complete care. It is important that you follow up with a doctor, nurse practitioner, or physician?s syrup mixer assistant for ongoing care. If your symptoms become worse or you do not improve as expected and you are unable to reach your usual health care provider, you should return to the Emergency Department. We are available 24 hours a day. SONG MCKEON has been given the following list of patient education materials, prescriptions and follow-up instructions: Follow-up Instructions: With: Address: When: Antony HAWKINS [address] [place] [phone] Business (1) In 3 days 04/24/2024 Comments: [...] provider. Patient Education Materials: Laceration Care, Adult, [id number] A MESSAGE TO ALL PATIENTS REGARDING OPIOIDS PRESCRIPTION OPIOIDS: WHAT YOU NEED TO KNOW Prescription opioids can be used to help relieve ndajvxck-hw-toxzrn pain and are often prescribed following a [...] Administration (www.fda.g (more content not included)... Normal [facility] XR Hand 3+ Views Righton 07- 20-2024 XR Hand 3+ Views Right Exam Date/Time: [...] REPORT Dictated: 04/21/2024 11:24 am Florian Contreras MD. Signed (Electronic Signature): 04/21/2024 11:24 am Signed by: Florian Contreras MD Transcribed by: JESSICA Technologist: WALDO Technical Comments Radiation Dose: Ka,r in mGy = . DAP = . Normal [facility] Ambulatory Visit Summaryon 0 01-13-2024 Ambulatory Visit Summary SONG MCKEON :1965 Visit Date:01/13/2024 Ambulatory Visit Instructions Your [...] Follow-Up Appointments 2023 8:00 AM EDT Where: [facility] Medications What How Much When [...] and Immunizations Administered Not Given SARS-CoV-2 mRNA (roni 5y-11y) vac, Postpone due to refusal Allergies [...] for choosing us for your care. Normal [facility] Family Medicine Office/Clini c Noteon 01-13-2024 [...] beyond the borders, pt to return to [facility] for abx or present to ER for abx after hours. pt verbalizes understanding. Pt already has f/u scheduled w her surgeon on Tuesday (3 days from now). She understands to present to ER in meantime for F/C/N/V/malaise/myalgia/wors ening condition. all questions answered. Ordered: E&M of Est. Patient Moderate 30-39 Min 64109 2. Visit for suture removal (Z48.02: Encounter for removal of sutures) see #1 Ordered: E&M of Est. Patient Moderate 30-39 Min 22390 3. BMI 32.0-32.9,adult (Z68.32: Body mass index [BMI] 32.0-32.9, adult) pt ed provided Ordered: E&M of Est. Patient Moderate 30-39 Min 41721 Follow-up With When Contact Information ROSS LUIS, WENDIE Hardy Within 1 week [address] [place] [address]- Additional Instructions: Patient Education BMI for Adults [...] Esophagogastroduodenoscopy ( (more content not included)... Normal [facility] Comment on above: Result Comment: Elec tronically Signed By: RALEIGH TANG, LISS Mckeon\.br\Date and Time Signed: 01/13/24 14:05 EDT Patient Educationon 01-13-20 24 Patient Education Nutrition BMI for Adults What [...] numbers. This can be done either in Romanian (U.S.) or metric measurements. Note that charts and online BMI calculators are available to help you find your BMI quickly and easily without having to do these calculations yourself. To calculate your BMI in Romanian (U.S.) measurements: 1. Measure your weight in [...] for Disease Control and Prevention: www.cdc.gov ? [place] Heart Association: www.heart.org ? National Heart, Lung, and Blood [place]: www.nhlbi.nih.gov Summary ? Body mass index (BMI) is a number that is calculated from a person's weight and height. ? BMI may help estimate how much of a person's weight is composed of fat. BMI can help identify those who may be at higher risk for certain medical problems. ? BMI can be measured using Romanian measurements or metric measurements. ? BMI charts are used to identify whether you are underweight, normal weight, overweight, or obese. This information is not intended to replace advice given to you by your health care provider. Make sure you discuss any questions you have with your health care provider. Document Revised: 06/11/2020 Document Reviewed: 04/18/2020 [employer] Patient Education ? 2022 [employer] [facility] Cristian 01-02-2024 L Specimen: [id number] R eceived: 01/03/24 Status: ELADIO Coleman Num: [id number] Spec Type: Surgical Subm Dr: Brent Angelo Tissues: A Skin-Other than Cyst, tag, debridement or plastic repair (LT BREAST 5:00) B Skin-Other than Cyst, tag, debridement or plastic repair (RT BREAST 7:00) C Skin-Other than Cyst, tag, debridement or plastic repair (LT NIPPLE 5:00) Procedures: HE/3, Gross/Micro L4/3 Age/ Patient Sex Location Account Attending Physician Song Mckeon 58/F [facility] [id number] Brent Angelo SPEC NUM: [id number] RECD: 01/03/24 STATUS: ELADIO COLEMAN NUM: [id number] ROLLY: 01/02/24- SUBM DR: Brent Angelo ENTERED: 01/03/[address] [facility] DR: Meenu Vallejo SPEC TYPE: Surgical DEPT: [...] mm. All in 1 cassette. CPT Codes 99454 x 3 -------- -------- Specimen: [id number] Received: 01/03/24-1319 Status: ELADIO Coleman Num: [id number] Spec Type: Surgical Subm Dr: Brent Angelo Tissues: A Skin-Other than Cyst, tag, debridement or plastic repair (LT BREAST 5:00) B Skin-Other than Cyst, tag, debridement or plastic repair (RT BREAST 7:00) C Skin-Other than Cyst, tag, debridement or plastic repair (LT NIPPLE 5:00) Procedures: Mona SMALL/Misael L4/3 -------- Patient: Song Mckeon [id number] (Continued) -------- Signed (signature on file) Amina Tatum MD 01/04/24 1427 [facility] Consent for Procedure/Surger yue 12-22-2023 Consent for Procedure/Surgery [id number] Normal [facility] Ambulatory Visit Summaryon 0 12-21-2023 Ambulatory Visit Summary SONG MCKEON :1965 Visit Date:12/21/2023 Ambulatory Visit Instructions Your Diagnosis Eosinophilic esophagitis Dysphagia GERD (gastroesophageal reflux disease) Schatzki's ring History of colon polyps Your Care Team Attending Physician - Sendy LUIS, Mary Bar Primary Care Physician - Antony HAWKINS MD This Is Your Medications List magnesium [...] per packaging and physician's handout Pickup at [facility] Unchanged amitriptyline (amitriptyline 10 mg Tab) [...] physician if questions or concerns Pharmacy Information [facility]: [address], [place] [phone] Medications and Immunizations Administered Not Given influenza [...] varicose v (more content not included)... Normal [facility] Formson 12-21-2023 Forms [id number] Normal [facility] Gastroenterology Office/Clin ic Noteon 12-21-2023 Gastroenterology [...] Distal esophageal Schatzki ring, dilated using 56 Kazakh Whitney dilator 2. Concentric esophageal rings consistent [...] E&M of Est. Patient Moderate 30-39 Min 71726 EGD Endoscopy (Hospital Procedure) 2. Dysphagia (R13.10: Dysphagia, unspecified) Ordered: Colonoscopy (Hospital Procedure) E&M of Est. Patient Moderate 30-39 Min 42380 EGD Endoscopy (Hospital Procedure) 3. GERD (gastroesophageal reflux disease) (K21.9: Gastro-esophageal reflux disease without esophagitis) Controlled with twice daily PPI Ordered: Colonoscopy (Hospital Procedure) E&M of Est. Patient Moderate 30-39 Min 78839 EGD Endoscopy (Hospital Procedure) 4. Schatzki's ring (K22.2: Esophageal obstruction) Ordered: Colonoscopy (Hospital Procedure) E&M of Est. Patient Moderate 30-39 Min 37402 EGD Endoscopy (Hospital Procedure) 5. History of colon polyps (Z86.010: Personal history of colonic polyps) Repeat colonoscopy last 1 she had 1 tubular adenoma less than 1 cm 2019 Ordered: Colonoscopy (Hospital Procedure) E&M of Est. Patient Moderate 30-39 Min 91031 (more content not included)... Normal [facility] Comment on above: Result Comment: Elec tronically Signed By: Sendy LUIS, Mary Bar\.br\Date and Time Signed: 12/21/23 08:35 EDT Provider Letteron 12-21-2023 Provider Letter (Inserted Image. Yuli ble to display) December 21, 2023 SONG MCKEON [address] [address] : 1965 To Whom It May Concern, Please excuse above patient from work. Date of Illness: From: 12/21/23 8am appointment To: 12/21/23 May Return to Work On:12/21/23 Restrictions: None Comments: Sincerely, [facility] Mary Kaba MD Normal [facility] Ambulatory Visit Summaryon 1 11-03-2022 Ambulatory Visit Summary SONG MCKEON :1965 Visit Date:09/02/2023 Ambulatory Visit Instructions Your Diagnosis Acute laryngopharyngitis GERD (gastroesophageal reflux disease) Class 1 obesity due to excess calories in adult BMI 32.0-32.9,adult Your Care Team Attending Physician - ROSS LUIS, Antony Primary Care Physician - Antony HAWKINS MD [...] Appointments Tuesday 8:00 AM EDT With: Mary Kaab MD Where: [facility] Normal [facility] Family Medicine Office/Clini c Noteon 09-02-2023 [...] Multiple piercings in the tragus. Oropharynx, fair little shell tribe dentition with repairs. Starr and moist. No petechiae, no exudate. With [...] with voice recognition artificial intelligence software, specifically Oncopeptides, Stem and or Quippi. Substitutions may have occurred due to the inherent limitations of voice recognition and artificial intelligence software. Follow-up With When Contact Information Antony HAWKINS MD, [facility] Only if needed Additional Instructions: Patient Education [...] operation, Ovari (more content not included)... Normal [facility] Comment on above: Result Comment: Elec tronically Signed By: Antony HAWKINS MD\.br\Date and Time Signed: 09/02/23 17:16 EST Patient [...] these instructions at home: Medicines ? Take qwlc-zhi-xkmktda and prescription medicines only as told by [...] provider. Document Revised: 12/07/2021 Document Reviewed: 12/07/2021 [employer] Patient Education ? 2022 [employer] Normal [facility] Formson 06-28-2023 Forms [id number]#[id number]:127 Normal [facility] Ambulatory Visit Summaryon 0 06-27-2023 Ambulatory [...] AM EDT With: Marilee OCHOA MD Where: [facility] Normal [facility] Family Medicine Office/Clini c Noteon 06-27-2023 Family Medicine Office/Clinic Note Chief Complaint annual wellness exam, labs drawn sat at [facility], needs shingrix, rf pantoprazole & amitriptyline to [facility], rf [facility]othyroxine to [facility] History of Present Illness HISTORY OF PRESENT ILLNESS The patient is here for a general health maintenance exam. Requiring biometric exam form completion She had a mammogram on Tuesday at [facility]. Unaware of results at this time. She [...] another process that was better tolerated. Her supervisor polishing told her that they could not accommodate [...] hearing. Oropharynx pink and moist with fair little shell tribe dentition. Boggy turbinates, clear rhinorrhea. Without discrete [...] than the left. She has multiple tattoos. 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 No discrete tremors [...] she had any injuries at work. Ordered: [facility] Outpatient Physical Therapy Evaluate Patient, Develop a [...] without e (more content not included)... Normal [facility] Comment on above: Result Comment: Elec tronically Signed By: ROSS LUIS, Antony\.janie\Date and Time Signed: 06/27/23 20:07 EDT Patient Letter FTMCon 2022 Patient Letter [facility] (Inserted Image. Yuli ble to display) [address] [facility] [id number] June 27, 2023 SONGLEWIS MCKEON [address] [facility] [address] [place] [address] : 1965 To Whom It May Concern: [...] you very much. Sincerely: Nasir Hawkins MD [facility] Provider Letteron 06-27-2023 Provider Letter (Inserted Image. Yuli ble to display) June 27, 2023 SONG MCKEON [address] [facility] [address] [place] [address] To Whom It May Concern, Please excuse the above patient from work due to office visit. Date of Illness: From: 06/27/2023 May Return to Work On: 06/28/2023 Restrictions: none Sincerely, [place] [id number] [facility] Patient Educationon 06-26-20 Patient Education Obstetrics [...] in y (more content not included)... Normal [facility] Auto Diffon 06-25-2023 Basophils/100 WBC (Bld) 1.1 % Normal 0.0-2.0 [facility] Comment on above: Order Comment: Order Added by Discern Expert. Performed By: #### 2 649443, 9350028, 9475395, 19239079, 13368781, 7283142 ####[facility] [address] [place] [address] Basophils/Leukocyte s Auto (Bld) [Pure # fraction] 0.1 E9/L Normal 0.0-0.2 [facility] Comment on above: Order Comment: Order Added by Discern Expert. Performed By: #### 2 039684, 3560150, 3074096, 25541291, 85568429, 9189959 ####[place] [address] [place] [address] Eosinophils/100 WBC (Bld) 3.1 % Normal 0.0-8.0 [facility] Comment on above: Order Comment: Order Added by Discern Expert. Performed By: #### 2 800806, 9671395, 0855797, 05403270, 95819828, 9756658 ####[address] [address] Eosinophils/Leukocy sandra Auto (Bld) [Pure # fraction] 0.2 E9/L Normal 0.0-0.5 [facility] Comment on above: Order Comment: Order Added by Discern Expert. Performed By: #### 2 461902, 0253091, 6988289, 96531101, 19828574, 9231594 ####[address] [address] Lymphocytes/100 WBC (Bld) 42.6 % Normal 14.0-50.0 [facility] Comment on above: Order Comment: Order Added by Discern Expert. Performed By: #### 2 200602, 3011117, 0217747, 57721241, 68645488, 4600712 ####[address] [address] Lymphocytes/Leukocy sandra Auto (Bld) [Pure # fraction] 3.0 E9/L Normal 1.0-4.0 [facility] Comment on above: Order Comment: Order Added by Discern Expert. Performed By: #### 2 154938, 2830188, 3889714, 61610133, 89523059, 9177550 ####[place] [address] [place] [address] Monocytes/100 WBC (Bld) 8.0 % Normal 4.0-14.0 [facility] Comment on above: Order Comment: Order Added by Discern Expert. Performed By: #### 2 070657, 9669931, 8726957, 86619092, 08229543, 9904605 ####[address] [address] Monocytes/Leukocyte s Auto (Bld) [Pure # fraction] 0.6 E9/L Normal 0.2-1.0 [facility] Comment on above: Order Comment: Order Added by Discern Expert. Performed By: #### 2 454827, 5901103, 3690693, 36916912, 73518094, 7268700 ####[facility] [address] [place] [address] Neutrophils/100 WBC (Bld) 45.2 % Normal 36.0-75.0 [facility] Comment on above: Order Comment: Order Added by Discern Expert. Performed By: #### 2 389877, 5653566, 5552244, 24656813, 34172364, 2823168 ####[address] [place] [address] Neutrophils/Leukocy sandra Auto (Bld) [Pure # fraction] 3.1 E9/L Normal 2.0-7.5 [facility] Comment on above: Order Comment: Order Added by Discern Expert. Performed By: #### 2 562194, 1950201, 8343374, 92449236, 35023570, 2316460 ####[facility] [address] [place] [address] CBC w/ Auto Diffon Erythrocyte distribution width (RBC) [Ratio] 14.2 % Normal 10.9-14.2 [facility] Comment on above: Performed By: #### 2 009232, 9674915, 7657627, 90599634, 84416800, 0910162 ####[facility] [address] [place] [address] Hematocrit (Bld) [Volume fraction] 36.4 % Normal 34.0-46.0 [facility] Comment on above: Performed By: #### 2 613203, 2361229, 1508886, 89490637, 57163186, 1294122 ####[facility] [address] [place] [address] Hemoglobin (Bld) [Mass/Vol] 12.0 g/dL Normal 12.0-16.0 [facility] Comment on above: Performed By: #### 2 109230, 3231551, 9044138, 80822556, 03045305, 0470772 ####[place] [address] MCH (RBC) [Entitic mass] 27.6 pg Normal 27.0-34.0 [facility] Comment on above: Performed By: #### 2 112456, 6328268, 2018098, 49954049, 14368536, 6896030 ####[place] [address] MCHC (RBC) [Mass/Vol] 32.9 g/dL Normal 31.4-36.0 [facility] Comment on above: Performed By: #### 2 789620, 6805592, 6297351, 96200522, 31728655, 8552952 ####[place] [address] MCV (RBC) [Entitic vol] 83.9 fL Normal 80.0-100.0 [facility] Comment on above: Performed By: #### 2 698664, 6407941, 1758590, 05171535, 17899615, 1458263 ####[place] [address] Platelet mean volume (Bld) [Entitic vol] 7.9 fL Normal 6.4-10.8 [facility] Comment on above: Performed By: #### 2 648696, 1932642, 3154766, 38644899, 40378185, 0278242 ####[place] [address] Platelets (Bld) [#/Vol] 331.0 E9/L Normal 150.0-500.0 [facility] Comment on above: Performed By: #### 2 392809, 7783781, 5881773, 35826681, 71105598, 2846882 ####[place] [address] RBC (Bld) [#/Vol] 4.3 E12/L Normal 4.3-5.9 [facility] Comment on above: Performed By: #### 2 424246, 5608756, 3427287, 64176335, 75093314, 9067750 ####[facility] [address] [place] [address] WBC corrected for nucl RBC Auto (Bld) [#/Vol] 7.0 E9/L Normal 4.0-11.0 [facility] Comment on above: Performed By: #### 2 649942, 1392402, 4051380, 38762612, 65361155, 9878528 ####[facility] [address] [place] [address] CMPon 06-25-2023 Urea nitrogen [Mass/Vol] 12 mg/dL Normal 5-21 [facility] Comment on above: Performed By: #### 2 799625, 5787847, 5677677, 04152144, 37701897, 9846809 ####[facility] [address] [place] [address] Urea nitrogen/Creatinine [Mass ratio] UTC Abnormal 10-20 [facility] Comment on above: Result Comment: Resu lt verified by Discern Rule. Performed result UTC (Unable to Calculate) was sent as an Alpha code due the inability to calculate a valid numeric value. Performed By: #### 2 568488, 2196002, 7533805, 41836634, 92039034, 6466890 ####[facility] [address] [place] [address] Albumin [Mass/Vol] 4.1 g/dL Normal 3.3-5.0 [facility] Comment on above: Performed By: #### 2 372567, 6043656, 6600230, 89403608, 17877012, 9460744 ####[facility] [address] [place] [address] Albumin/Globulin (S) [Mass conc ratio] 1.2 Normal 1.1-2.2 [facility] Comment on above: Performed By: #### 2 430814, 5528131, 6985919, 21867505, 08129119, 2660979 ####[facility] [address] [place] [address] ALP [Catalytic activity/Vol] 111 Int._Unit/L High 21-98 [facility] Comment on above: Performed By: #### 2 558200, 8939779, 6685879, 59666960, 53571749, 2216304 ####[facility] [address] [place] [address] ALT No additional P-5'-P [Catalytic activity/Vol] 26 Int._Unit/L Normal 6-46 [facility] Comment on above: Performed By: #### 2 904592, 4503928, 8950599, 96243092, 78571318, 5599920 ####[facility] [address] [place] [address] Anion gap [Moles/Vol] 12 mmol/L Normal 6-16 [facility] Comment on above: Performed By: #### 2 844949, 4553517, 3493159, 54416456, 96092733, 7040910 ####[facility] [address] [place] [address] AST [Catalytic activity/Vol] 24 Int._Unit/L Normal 5-43 [facility] Comment on above: Performed By: #### 2 275424, 8619725, 4840560, 24109709, 88295572, 1627080 ####[facility] [address] [place] [address] Bilirubin [Mass/Vol] 0.4 mg/dL Normal 0.0-1.1 [facility] Comment on above: Performed By: #### 2 881895, 3024911, 7780126, 03038805, 31764127, 5932089 ####[facility] [address] [place] [address] Calcium [Mass/Vol] 9.4 mg/dL Normal 8.9-11.1 [facility] Comment on above: Performed By: #### 2 876318, 7999532, 2713841, 68697203, 33922686, 3586053 ####[facility] [address] [place] [address] Chloride [Moles/Vol] 107 mmol/L Normal 101-111 [facility] Comment on above: Performed By: #### 2 945648, 4494079, 9053087, 09322234, 42964115, 6991100 ####[facility] [address] [place] [address] CO2 [Moles/Vol] 26 mmol/L Normal 21-31 [facility] Comment on above: Performed By: #### 2 733125, 2218973, 5128779, 79515266, 39226481, 8009306 ####[facility] [address] [place] [address] Creatinine [Mass/Vol] 0.9 mg/dL Normal 0.5-1.3 [facility] Comment on above: Performed By: #### 2 003491, 3383607, 3554303, 89961849, 37527262, 5748108 ####[facility] [address] [place] [address] Globulin (S) [Mass/Vol] 3.5 g/dL Normal 1.4-4.0 [facility] Comment on above: Performed By: #### 2 601199, 3228423, 5280672, 66070474, 09458812, 1874774 ####[facility] [address] [place] [address] Glucose [Mass/Vol] 95 mg/dL Normal 55-199 [facility] Comment on above: Result Comment: If t his glucose result represents a fasting glucose, interpretation should refer to the following reference range: 55-99 mg/dL Performed By: #### 2 162854, 9480872, 3349944, 13850536, 60924445, 0468814 ####[facility] [address] [place] [address] Potassium [Moles/Vol] 3.9 mmol/L Normal 3.5-5.3 [facility] Comment on above: Performed By: #### 2 434525, 5799085, 8187717, 25209677, 91500634, 6452977 ####[facility] [address] [place] [address] Protein [Mass/Vol] 7.6 g/dL Normal 6.0-7.8 [facility] Comment on above: Performed By: #### 2 832943, 4615201, 5885905, 18867662, 47738111, 9924735 ####[facility] [address] [place] [address] Sodium [Moles/Vol] 141 mmol/L Normal 135-145 [facility] Comment on above: Performed By: #### 2 322805, 3291667, 9098094, 72000658, 65876506, 9037349 ####[facility] [address] [place] [address] Consent for Treatmenton 06-04 Consent for Treatment [id number]:127 Normal [facility] Lipid Panelon 06-25-2023 Cholesterol [Mass/Vol] 213 mg/dL High 120-200 [facility] Comment on above: Performed By: #### 2 775603, 4439917, 7971132, 39824602, 06627321, 3721633 ####[facility] [address] [place] [address] Cholesterol in HDL [Mass/Vol] 52 mg/dL Invalid Interpretation Code [facility] Comment on above: Result Comment: HDL > or equal to 60 mg/dL: Low cardiovascular risk HDL < 40 mg/dL : High cardiovascular risk Performed By: #### 2 580390, 1251969, 3642257, 78247880, 31821850, 8869248 ####[facility] [address] [place] [address] Cholesterol in LDL [Mass/Vol] 144 mg/dL High <=129 [facility] Comment on above: Performed By: #### 2 638441, 3440059, 9088979, 07020463, 47040418, 0369502 ####[facility] [address] [place] [address] Cholesterol in VLDL [Mass/Vol] 30 mg/dL Normal 7-40 [facility] Comment on above: Performed By: #### 2 183915, 1903639, 0657391, 27355100, 53366975, 8364253 ####[facility] [address] [place] [address] Triglyceride [Mass/Vol] 150 mg/dL High <=149 [facility] Comment on above: Performed By: #### 2 205555, 3327300, 5434633, 80639332, 87811077, 6725024 ####[facility] [address] [place] [address] TSH With T4fr Reflexon 06-25 TSH Qn 1.27 m[IU]/L Normal 0.34-5.60 [facility] Comment on above: Performed By: #### 2 297852, 2408216, 8706153, 09342231, 24830933, 8853582 ####[facility] [address] [place] [address] eGFRon 06-25-2023 GFR/1.73 sq M.predicted among non-blacks MDRD (S/P/Bld) [Vol rate/Area] 75 mL/min/1.73 m2 Normal >=59 [facility] Comment on above: Order Comment: Order added by Discern Expert. Result Comment: Delivery Merchandiser ashley kidney disease could be indicated at eGFR's of less than 60 mL/min/1.73m2. Kidney failure is indicated at less than 15 mL/min/1.73m2. Performed By: #### 2 841006, 0977297, 0977970, 16810928, 10324498, 3060296 ####[facility] [address] [place] [address] CHEMISTRYOrdered By: SYSTEM SYSTEM on 08-10-2022 Albumin [...] 7.9 g/dL High 6.0 - 7.8 gm/dL [facility] Remisol PAP ACOG PANEL 2: 30 to 65on 07-02-2022 . . Normal [facility] Comment on above: Result Comment: Perf ormed at: WB Performed By: #### 4 792927 #### [facility] [address] [place] [address] Dr. Jonelle Molina Age Gdln ACOG Testing Normal [facility] Comment on above: Performed By: #### 4 478090 #### [facility] [address] [place] [address] [address] Jonelle Molina DIAGNOSIS: Comment Normal [facility] Comment on above: Result Comment: NEGA TIVE FOR INTRAEPITHELIAL LESION OR MALIGNANCY. CELLULAR CHANGES ASSOCIATED WITH ATROPHY ARE PRESENT. Performed at: WB Performed By: #### 4 151814 #### [facility] [address] [place] [address] [address] Jonelle Molina HPV Aptima Negative Normal Negative [facility] Comment on above: Result Comment: This nucleic acid amplification test detects fourteen high-risk HPV types (16,18,31,33,35,39,45,51,52,56,58,59,66,68) without differentiation. Performed at: =G Performed By: #### [id number] #### [facility] [address] [place] [address] Dr. Jonelle Molina Methodology: Comment Normal [facility] Comment on above: Result Comment: This liquid based ThinPrep(R) pap test was screened with the use of an image guided system. Performed at: WB Performed By: #### [id number] #### [facility] [address] [place] [address] Dr. Jonelle Molina Note: Comment Normal [facility] Comment on above: Result Comment: The Pap smear is a screening test designed to aid in the detection of premalignant and malignant conditions of the uterine cervix. It is not a diagnostic procedure and should not be used as the sole means of detecting cervical cancer. Both false-positive and false-negative reports do occur. . Performed at: WB Performed By: #### [id number] #### [facility] [address] [place] [address] Dr. Jonelle Molina Performed by: Comment Normal [facility] Comment on above: Result Comment: Riddhi Blackman, Feeder Loader (ASCP) Performed at: WB Performed By: #### [id number] #### [facility] [address] [place] [address] Dr. Jonelle Molina Specimen adequacy: Comment Normal [facility] Comment on above: Result Comment: Sati sfactory for evaluation. Endocervical component may not be distinguished in cases of atrophy. Performed at: WB Performed By: #### [id number] #### [facility] [address] [place] [address] Dr. Jonelle Molina MG MAMM SCREEN 3D KRISTOPHER CADon 06-04-2022 MG MAMM SCREEN 3D KRISTOPHER CAD Patient: SONG MCKEON Exam Date: 06/04/2022 : 1965 Gender:F Ordering : DR ROMÁN MENDOZA . Admission #: [id number] Family : Order #: [id number] CLICK HERE TO VIEW EXAM RADIOLOGY REPORT [...] prostate cancer at age 69. LOCATION: [facility] BREAST COMPOSITION: Heterogeneously dense,which may obscure small [...] Vicente Salazar MD on 06/04/2022 at 09:04 Normal [facility] Vital Signs Date Time Vital Sign Value Performing Clinician Dave irby 12-31-2024 15:49-0400 Body mass index (BMI) [Ratio] 31.92 kg/m2 [employer] Work Phone: [facility] 12-31-2024 15:49-0400 Body weight 92.44 kg [employer] Petey DO Work Phone: [facility] [employer] 12-31-2024 15:49-0400 Diastolic blood pressure 84 mm[Hg] [employer] Work Phone: [facility] [employer] 12-31-2024 15:49-0400 Systolic blood pressure 122 mm[Hg] Brent Petey DO Work Phone: [facility] 06-21-2024 15:06-0400 Blood Pressure Location Mary Kaba [facility] 06-21-2024 15:06-0400 Diastolic blood pressure 76 mm[Hg] Hernandez Sarmini [facility] 06-21-2024 15:06-0400 Heart rate 75 /min Hernandez Sarmini [facility] 06-21-2024 15:06-0400 Respiratory rate 16 /min Hernandez Sarmini [facility] 06-21-2024 15:06-0400 Systolic blood pressure 119 mm[Hg] Hernandez Sarmini [facility] 06-19-2024 15:38-0400 Blood Pressure Location Christjazmyne BROWN [facility] 06-19-2024 15:38-0400 Diastolic blood pressure 80 mm[Hg] Christopher BROWN [facility] 06-19-2024 15:38-0400 Heart rate 77 /min Christopher BROWN [facility] 06-19-2024 15:38-0400 Respiratory rate 16 /min Christopher BROWN [facility] 06-19-2024 15:38-0400 SaO2% (BldA) [Mass fraction] 98 % Christopher BROWN [facility] 06-19-2024 15:38-0400 Systolic blood pressure 120 mm[Hg] Christopher BROWN [facility] 05-17-2024 09:07-0400 Diastolic blood pressure 88 mm[Hg] Hernandez Sarmini [facility] 05-17-2024 09:07-0400 Heart rate 66 /min Hernandez Sarmini [facility] 05-17-2024 09:07-0400 Mean blood pressure 97 mm[Hg] Hernandez Sarmini [facility] 05-17-2024 09:07-0400 Respiratory rate 19 /min Hernandez Sarmini [facility] 05-17-2024 09:07-0400 SaO2% (BldA) [Mass fraction] 100 % Hernandez Sarmini [facility] 05-17-2024 09:07-0400 Systolic blood pressure 116 mm[Hg] Hernandez Sarmini [facility] 05-17-2024 08:55-0400 Diastolic blood pressure 55 mm[Hg] Hernandez Sarmini [facility] 05-17-2024 08:55-0400 Heart rate 71 /min Hernandez Sarmini [facility] 05-17-2024 08:55-0400 Mean blood pressure 71 mm[Hg] Hernandez Sarmini [facility] 05-17-2024 08:55-0400 Respiratory rate 14 /min Hernandez Sarmini [facility] 05-17-2024 08:55-0400 SaO2% (BldA) [Mass fraction] 100 % Hernandez Sarmini [facility] 05-17-2024 08:55-0400 Systolic blood pressure 103 mm[Hg] Hernandez Sarmini [facility] 05-17-2024 08:50-0400 Diastolic blood pressure 53 mm[Hg] Hernandez Sarmini [facility] 05-17-2024 08:50-0400 Heart rate 77 /min Hernandez Sarmini [facility] 05-17-2024 08:50-0400 Mean blood pressure 68 mm[Hg] Hernandez Sarmini [facility] 05-17-2024 08:50-0400 Respiratory rate 14 /min Hernandez Sarmini [facility] 05-17-2024 08:50-0400 SaO2% (BldA) [Mass fraction] 100 % Hernandez Sarmini [facility] 05-17-2024 08:50-0400 Systolic blood pressure 97 mm[Hg] Hernandez Sarmini [facility] 05-17-2024 08:42-0400 Body temperature 97.7 [degF] Hernandez Sarmini [facility] 05-17-2024 08:30-0400 Respiratory rate 12 /min Hernandez Sarmini [facility] 05-17-2024 08:15-0400 Respiratory rate 12 /min Hernandez Sarmini [facility] 05-17-2024 07:35-0400 Blood Pressure Location Hernandez Sarmini [facility] 05-17-2024 07:35-0400 Body temperature 98.06 [degF] Hernandez Sarmini [facility] 04-21-2024 10:09-0400 Body temperature 98.6 [degF] Jose Garcia [facility] 04-21-2024 10:09-0400 Diastolic blood pressure 71 mm[Hg] Jose Garcia [facility] 04-21-2024 10:09-0400 Heart rate 76 /min Jose Garcia [facility] 04-21-2024 10:09-0400 Respiratory rate 18 /min Jose Garcia [facility] 04-21-2024 10:09-0400 SaO2% (BldA) [Mass fraction] 98 % Jose Garcia [facility] 04-21-2024 10:09-0400 Systolic blood pressure 110 mm[Hg] Jose Garcia [facility] 01-13-2024 13:03-0400 Blood Pressure Location LISS STOREY [facility] 01-13-2024 13:03-0400 Body temperature 97.88 [degF] LISS STOREY [facility] 01-13-2024 13:03-0400 Diastolic blood pressure 80 mm[Hg] LISS STOREY [facility] 01-13-2024 13:03-0400 Heart rate 87 /min LISS STOREY [facility] 01-13-2024 13:03-0400 SaO2% (BldA) [Mass fraction] 98 % LISS STOREY [facility] 01-13-2024 13:03-0400 Systolic blood pressure 110 mm[Hg] LISS STOREY [facility] 12-21-2023 08:15-0400 Blood Pressure Location Hernandez Clausmini [facility] 12-21-2023 08:15-0400 Diastolic blood pressure 70 mm[Hg] Hernandez Sarmini [facility] 12-21-2023 08:15-0400 Heart rate 70 /min Hernandez Sarmini [facility] 12-21-2023 08:15-0400 Respiratory rate 18 /min Hernandez Sarmini [facility] 12-21-2023 08:15-0400 Systolic blood pressure 118 mm[Hg] Hernandez Sarmini [facility] 09-02-2023 16:38-0500 Blood Pressure Location Christjazmyne HAWKINS [facility] 09-02-2023 16:38-0500 Diastolic blood pressure 80 mm[Hg] Christopher BROWN [facility] 09-02-2023 16:38-0500 Heart rate 88 /min Christopher BROWN [facility] 09-02-2023 16:38-0500 Respiratory rate 16 /min Christopher BROWN [facility] 09-02-2023 16:38-0500 SaO2% (BldA) [Mass fraction] 97 % Christopher BROWN [facility] 09-02-2023 16:38-0500 Systolic blood pressure 120 mm[Hg] Christopher BROWN [facility] 06-27-2023 16:18-0400 Blood Pressure Location Christjarochoer BROWN [facility] 06-27-2023 16:18-0400 Body temperature 98.42 [degF] Christopher BROWN [facility] 06-27-2023 16:18-0400 Diastolic blood pressure 70 mm[Hg] Antony HAWKINS [facility] 06-27-2023 16:18-0400 Heart rate 87 /min Antony HAWKINS [facility] 06-27-2023 16:18-0400 Respiratory rate 16 /min Antony HAWKINS [facility] 06-27-2023 16:18-0400 SaO2% (BldA) [Mass fraction] 97 % Antony HAWKINS [facility] 06-27-2023 16:18-0400 Systolic blood pressure 100 mm[Hg] Antony HAWKINS [facility] 06-09-2023 11:36-0400 Blood Pressure Location BRIAN CONTE [facility] 06-09-2023 11:36-0400 Body temperature 98.24 [degF] BRIAN CONTE [facility] 06-09-2023 11:36-0400 Diastolic blood pressure 75 mm[Hg] BRIAN CONTE [facility] 06-09-2023 11:36-0400 Heart rate 81 /min BRIAN CONTE [facility] 06-09-2023 11:36-0400 SaO2% (BldA) [Mass fraction] 96 % BRIAN NOLANTIZ [facility] 06-09-2023 11:36-0400 Systolic blood pressure 118 mm[Hg] BRIAN CONTE [facility] 12-16-2022 12:06-0400 Blood Pressure Location Hunt SALAM [facility] 12-16-2022 12:06-0400 Diastolic blood pressure 82 mm[Hg] Hunt SALAM [facility] 12-16-2022 12:06-0400 Heart rate 68 /min Hunt SALAM [facility] 12-16-2022 12:06-0400 Respiratory rate 16 /min Hunt SALAM [facility] 12-16-2022 12:06-0400 Systolic blood pressure 136 mm[Hg] Hunt SALAM [facility] 11-24-2022 13:05-0500 Diastolic blood pressure 85 mm[Hg] Hunt SALAM [facility] 11-24-2022 13:05-0500 Heart rate 76 /min Hunt SALAM [facility] 11-24-2022 13:05-0500 Mean blood pressure 98 mm[Hg] Hunt SALAM [facility] 11-24-2022 13:05-0500 Respiratory rate 18 /min Hunt SALAM [facility] 11-24-2022 13:05-0500 SaO2% (BldA) [Mass fraction] 98 % Hunt SALAM [facility] 11-24-2022 13:05-0500 Systolic blood pressure 125 mm[Hg] Hunt SALAM [facility] 11-24-2022 13:00-0500 Diastolic blood pressure 87 mm[Hg] Hunt SALAM [facility] 11-24-2022 13:00-0500 Heart rate 77 /min Hunt SALAM [facility] 11-24-2022 13:00-0500 Mean blood pressure 102 mm[Hg] Hunt SALAM [facility] 11-24-2022 13:00-0500 Respiratory rate 11 /min Hunt SALAM [facility] 11-24-2022 13:00-0500 Systolic blood pressure 132 mm[Hg] Hunt SALAM [facility] 11-24-2022 12:45-0500 Diastolic blood pressure 83 mm[Hg] Hunt SALAM [facility] 11-24-2022 12:45-0500 Heart rate 78 /min Hunt SALAM [facility] 11-24-2022 12:45-0500 Respiratory rate 12 /min Hunt SALAM [facility] 11-24-2022 12:45-0500 SaO2% (BldA) [Mass fraction] 97 % Hunt SALAM [facility] 11-24-2022 12:45-0500 Systolic blood pressure 118 mm[Hg] Hunt SALAM [facility] 11-24-2022 12:35-0500 Body temperature 97.7 [degF] Hunt SALAM [facility] 11-24-2022 11:34-0500 Blood Pressure Location Hunt SALAM [facility] 11-24-2022 11:34-0500 Body temperature 98.24 [degF] Hunt SALAM [facility] 09-08-2022 15:50-0500 Body temperature 97.7 [degF] Hunt SALAM [facility] 09-08-2022 15:50-0500 Diastolic blood pressure 73 mm[Hg] Hunt SALAM [facility] 09-08-2022 15:50-0500 Heart rate 84 /min Hunt SALAM [facility] 09-08-2022 15:50-0500 Respiratory rate 15 /min Hunt SALAM [facility] 09-08-2022 15:50-0500 SaO2% (BldA) [Mass fraction] 99 % Hunt SALAM [facility] 09-08-2022 15:50-0500 Systolic blood pressure 116 mm[Hg] Hunt SALAM [facility] 09-08-2022 15:35-0500 Diastolic blood pressure 72 mm[Hg] Hunt SALAM [facility] 09-08-2022 15:35-0500 Heart rate 90 /min Hunt SALAM [facility] 09-08-2022 15:35-0500 Respiratory rate 13 /min Hunt SALAM [facility] 09-08-2022 15:35-0500 SaO2% (BldA) [Mass fraction] 98 % Hunt SALAM [facility] 09-08-2022 15:35-0500 Systolic blood pressure 115 mm[Hg] Hunt SALAM [facility] 09-08-2022 15:30-0500 Diastolic blood pressure 78 mm[Hg] Hunt SALAM [facility] 09-08-2022 15:30-0500 Heart rate 97 /min Hunt SALAM [facility] 09-08-2022 15:30-0500 Respiratory rate 14 /min Hunt SALAM [facility] 09-08-2022 15:30-0500 SaO2% (BldA) [Mass fraction] 96 % Hunt SALAM [facility] 09-08-2022 15:30-0500 Systolic blood pressure 118 mm[Hg] Hunt SALAM [facility] 09-08-2022 15:20-0500 Body temperature 97.52 [degF] Hunt SALAM [facility] 09-08-2022 15:15-0500 Respiratory rate 18 /min Hunt SALAM [facility] 09-08-2022 15:10-0500 Respiratory rate 20 /min Hunt SALAM [facility] 09-08-2022 14:25-0500 Blood Pressure Location Hunt SALAM [facility] 09-08-2022 14:25-0500 Body temperature 97.34 [degF] Hunt SALAM [facility] 08-04-2022 13:36-0400 Blood Pressure Location Julianajong LemusAlexa [facility] 08-04-2022 13:36-0400 Body temperature 97.52 [degF] Juliana Alexa [facility] 08-04-2022 13:36-0400 Diastolic blood pressure 77 mm[Hg] Juliana Alexa [facility] 08-04-2022 13:36-0400 Heart rate 84 /min Juliana Alexa [facility] 08-04-2022 13:36-0400 Systolic blood pressure 108 mm[Hg] Juliana Alexa [facility] 08-03-2022 22:47-0400 Diastolic blood pressure 65 mm[Hg] Jordin Maxine [facility] 08-03-2022 22:47-0400 Heart rate 87 /min Jordin Maxine [facility] 08-03-2022 22:47-0400 Mean blood pressure 83 mm[Hg] Jordin Maxine [facility] 08-03-2022 22:47-0400 Respiratory rate 16 /min Jordin Maxine [facility] 08-03-2022 22:47-0400 SaO2% (BldA) [Mass fraction] 96 % Jordin Maxine [facility] 08-03-2022 22:47-0400 Systolic blood pressure 118 mm[Hg] Jordin Maxine [facility] 08-03-2022 21:04-0400 Body temperature 97.88 [degF] Jordin Maxine [facility] 08-03-2022 21:04-0400 Diastolic blood pressure 74 mm[Hg] Jordin Maxine [facility] 08-03-2022 21:04-0400 Heart rate 117 /min Jordin Maxine [facility] 08-03-2022 21:04-0400 Respiratory rate 18 /min Jordin Maxine [facility] 08-03-2022 21:04-0400 SaO2% (BldA) [Mass fraction] 98 % Jordin Maxine [facility] 08-03-2022 21:04-0400 Systolic blood pressure 134 mm[Hg] Jordin Maxine [facility] 06-11-2022 11:49-0400 Blood Pressure Location Antony HAWKINS [facility] 06-11-2022 11:49-0400 Body temperature 98.6 [degF] Antony HAWKINS [facility] 06-11-2022 11:49-0400 Diastolic blood pressure 80 mm[Hg] Antony HAWKINS [facility] 06-11-2022 11:49-0400 Heart rate 88 /min Christjazmyne HAWKINS [facility] 06-11-2022 11:49-0400 Respiratory rate 16 /min Antony HAWKINS [facility] 06-11-2022 11:49-0400 SaO2% (BldA) [Mass fraction] 97 % Antony HAWKINS [facility] 06-11-2022 11:49-0400 Systolic blood pressure 120 mm[Hg] Antony HAWKINS [facility] 05-19-2022 10:40-0400 Blood Pressure Location Julianajong LemusAlexa [facility] 05-19-2022 10:40-0400 Body temperature 97.7 [degF] Julinaa Alexa [facility] 05-19-2022 10:40-0400 Diastolic blood pressure 78 mm[Hg] Juliana Alexa [facility] 05-19-2022 10:40-0400 Heart rate 73 /min Juliana Alexa [facility] 05-19-2022 10:40-0400 Systolic blood pressure 116 mm[Hg] Juliana Liu [facility] 03-25-2022 11:28-0400 Blood Pressure Location Christjarochoer BROWN [facility] 03-25-2022 11:28-0400 Diastolic blood pressure 80 mm[Hg] Christopher BROWN [facility] [place] 03-25-2022 11:28-0400 Heart rate 77 /min Christopher BROWN [facility] 03-25-2022 11:28-0400 Respiratory rate 16 /min Christopher BROWN [facility] [place] 03-25-2022 11:28-0400 SaO2% (BldA) [Mass fraction] 99 % Christopher BROWN [facility] [place] 03-25-2022 11:28-0400 Systolic blood pressure 120 mm[Hg] Christopher BROWN [facility] [place] 02-23-2022 18:22-0400 Blood Pressure Location Christopher BROWN [facility] 02-23-2022 18:22-0400 Diastolic blood pressure 84 mm[Hg] Christopher BROWN [facility] 02-23-2022 18:22-0400 Heart rate 93 /min Antony HAWKINS [facility] 02-23-2022 18:22-0400 Respiratory rate 16 /min Antony HAWKINS [facility] [place] 02-23-2022 18:22-0400 SaO2% (BldA) [Mass fraction] 98 % Antony HAWKINS [facility] 02-23-2022 18:22-0400 Systolic blood pressure 120 mm[Hg] Colejazmyne HAWKINS [facility] [place] Encounters Encounter Date Encounter Type Care Provider Facility Start: 06-13-2025 ambulatory [facility] Facility:[facility] Start: 12-31-2024 End: 12-31-2024 Patient encounter procedure Brent Petey DO Work Phone: [facility] Start: 12-31-2024 End: 12-31-2024 Periodic preventive med est patient 40-64yrs Brent Petey DO Work Phone: [facility] Comment on above: Well woman exam with routine gynecological exam; Encounter for screening mammogram for malignant neoplasm of breast; Postmenopausal state Start: 12-31-2024 End: 12-31-2024 Bamboo flowsheet Brent Petey DO Work Phone: [facility] Start: 12-31-2024 End: 12-31-2024 Bamboo flowsheet Brent Petey DO Work Phone: [facility] Start: 12-31-2024 End: 12-31-2024 Telephone encounter Brent Petey DO Work Phone: [facility] Start: 06-21-2024 End: 06-21-2024 ambulatory Mary Simoni Facility:[facility] Start: 06-21-2024 End: 06-21-2024 Patient encounter procedure Mary Khanal Clausmini [facility] Start: 06-19-2024 End: 06-19-2024 ambulatory Antony HAWKINS Facility: [place] Start: 06-19-2024 End: 06-19-2024 Encounter for general adult medical examination with abnormal findings Antony HAWKINS [facility] Start: 06-19-2024 End: 06-19-2024 Patient encounter procedure Antony HAWKINS [facility] Start: 06-09-2024 End: 06-09-2024 ambulatory Guillermoloy ROSS Facility:[facility] Start: 06-09-2024 End: 06-09-2024 Patient encounter procedure Guillermoloy HAWKINS [facility] Start: 05-17-2024 End: 05-17-2024 ambulatory Mary Kaba Facility:[facility] Start: 05-17-2024 End: 05-17-2024 Patient encounter procedure Mary Khanal Clausmini [facility] Start: 05-03-2024 ambulatory Arely MORENO [facility] Start: 04-21-2024 End: 04-21-2024 ambulatory Tu BALBUENAWOOD [facility] Start: 04-21-2024 End: 04-21-2024 Emergency department patient visit Jose Garcia [facility] Start: 01-18-2024 End: 01-18-2024 ambulatory BRENT PETEY Not Available Start: 01-13-2024 End: 01-13-2024 ambulatory LISS STOREY Facility:[facility] Start: 01-13-2024 End: 01-13-2024 Patient encounter procedure LISS ZEPEDARY [facility] Start: 01-02-2024 End: 01-02-2024 ambulatory Brent Petey [facility] Work Phone: Start: 01-02-2024 End: 01-02-2024 Departed Referred Brent Barrioso Work Phone: [facility] Start: 12-21-2023 End: 12-21-2023 ambulatory Hernandez Talal Sarmini Facility:[facility] Start: 12-21-2023 End: 12-21-2023 Patient encounter procedure Hernandez Talal Sarmini [facility] Start: 12-19-2023 End: 12-19-2023 ambulatory BRENT PETEY Not Available Start: 09-02-2023 End: 09-02-2023 ambulatory Antony HAWKINS Facility:[facility] Start: 09-02-2023 End: 09-02-2023 Patient encounter procedure Antony HAWKINS [facility] Start: 06-27-2023 End: 06-27-2023 ambulatory Antony HAWKINS Facility:[facility] Start: 06-27-2023 End: 06-27-2023 Encounter for general adult medical examination with abnormal findings Antony HAWKINS [facility] [place] Start: 06-27-2023 End: 06-27-2023 Patient encounter procedure Antony HAWKINS [facility] [place] Start: 06-25-2023 End: 06-25-2023 ambulatory Colejazmyne HAWKINS Facility:[facility] Start: 06-09-2023 End: 06-09-2023 Patient encounter procedure Bunny Cancino [facility] Start: 06-09-2023 End: 06-09-2023 Patient encounter procedure BRIAN CONTE [facility] Start: 12-16-2022 End: 12-16-2022 Patient encounter procedure Marilee OCHOA [facility] Start: 12-10-2022 End: 12-10-2022 Patient encounter procedure Renee Berry [facility] Health Start: 11-24-2022 End: 11-24-2022 Patient encounter procedure Marilee SAMAYOAAM [facility] Start: 09-08-2022 End: 09-08-2022 Patient encounter procedure Marilee SAMAYOAAM [facility] Start: 08-10-2022 End: 08-10-2022 Patient encounter procedure Juliana Liu [facility] Start: 08-04-2022 End: 08-04-2022 Patient encounter procedure Juliana Liu [facility] Start: 08-03-2022 End: 08-03-2022 Emergency department patient visit Jordin Goodman [facility] Start: 07-05-2022 End: 07-05-2022 Off-Site MILLI MAK [facility] Start: 06-25-2022 End: 06-25-[address] ROMÁN MENDOZA Facility:H1 Start: 06-11-2022 End: 06-11-2022 Lab Drop off Antony HAWKINS [facility] Start: 06-11-2022 End: 06-11-2022 Encounter for general adult medical examination with abnormal findings Antony HAWKINS [facility] Start: 06-11-2022 End: 06-11-2022 Patient encounter procedure Antony HAWKINS [facility] Start: 06-04-2022 End: 06-05-[address] DOCTOR MORENO Facility:[facility]1 Start: 05-19-2022 End: 05-19-2022 Patient encounter procedure Juliana Liu [facility] Start: 03-25-2022 End: 03-25-2022 Patient encounter procedure Antony HAWKINS [facility] Start: 02-23-2022 End: 02-23-2022 Patient encounter procedure Antony HAWKINS [facility] Procedures Date Procedure Procedure Detail Performing Clinician Start: 05-17-2024 Colonoscopy Mary Kaba Start: 05-17-2024 Esophagogastroduodenoscopy Mary morales Start: 11-24-2022 Esophagogastroduodenoscopy Marilee OCHOA Comment on above: esophageal dilation, esophageal rings, b iopsies done, small hiatal hernia Start: 09-08-2022 Esophagogastroduodenoscopy Marilee OCHOA Start: 07-15-2016 Endoscopic plantar fasciotomy right. Colejarocholoy HAWKINS Appendectomy Antony CABALLERO Breast lump (finding) Cole HAWKINS Cholecystectomy Antony HAWKINS Cyst of ovary (disorder) Chr wilson HAWKINS Esophagogastroduodenoscopy C hristjarocholoy HAWKINS History of appendectomy Appendec gilbert( Confirmed ) Colejarocholoy HAWKINS Hysterectomy Antony CABALLERO Laparoscopic procedure Nasir HAWKINS Comment on above: female x4 female x4 Liver cyst (disorder) Cole HAWKINS Operation on lymph node Renan HAWKINS Repair of shoulder Guillermo HAWKINS Thyroid structure (body structure) Antony HAWKINS Tonsillectomy Antony CHATTERJEE Plan of Treatment Date Care Activity Detail Author Start: 01-06-2026 End: 01-06-2026 Patient encounter procedure 01/06/2026 3:00 PM EDT Office Visit [facility] [address] [place] [address] Brent Angelo, DO [address] [place] [address] [facility] Start: 12-31-2024 End: 12-31-2024 Patient encounter procedure 12/31/2024 4:00 PM EDT Office Visit [facility] [address] [id number] Brent Angelo, DO [address] [place] [address] Arrived [facility] Comment on above: Arrived Start: 12-31-2024 End: 12-31-2025 DXA Skeletal system Views for bone density DEXA bone density Imaging Routine Postmenopausal state Expected: 12/31/2024 (Approximate), Expires: 12/31/2025 [facility] Comment on above: Expected: 12/31/2024 (Approximate), Expires: 12/31/2025 Start: 12-31-2024 End: 03-02-2026 MG Breast - bilateral Screening Bilateral screening mammogram Imaging Routine Encounter for screening mammogram for malignant neoplasm of breast Expected: 12/31/2024, Expires: 03/02/2026 [facility] Work Phone: Comment on above: Expected: 12/31/2024 , Expires: 03/02/2026 THIN PREP TIS PAP AN D HR HPV DNA THIN PREP TIS PAP AND HR HPV DNA Pathology and Cytology Routine Well woman exam with routine gynecological exam Ordered: 12/31/2024 [facility] Comment on above: Ordered: 12/31/2024 Immunizations Immunization Date Immunization Notes Care Provider Fa [facility] 09-27-2021 tetanus toxoid, reduced diphtheria toxoid, and acellular pertussis vaccine, adsorbed; Translations: [Boostrix (Tdap)] Antony HAWKINS [facility] 04-29-2010 tetanus toxoid, reduced diphtheria toxoid, and acellular pertussis vaccine, adsorbed Antony HAWKNIS [facility] NEGATED: Highlighted row has not occurred!01-13-2024 SARS-CoV-2 mRNA (tozinameran 5y-11y) vaccine LISS STOREY [facility] NEGATED: Highlighted row has not occurred!12-19-2023 influenza virus vaccine, unspecified formulation Mary Kaba [facility] NEGATED: Highlighted row has not occurred!09-02-2023 influenza virus vaccine, unspecified formulation Antony HAWKINS [facility] NEGATED: Highlighted row has not occurred!09-02-2023 SARS-CoV-2 mRNA (tozinameran 5y-11y) vaccine Antony HAWKINS [facility] NEGATED: Highlighted row has not occurred!06-27-2023 influenza virus vaccine, unspecified formulation Antony HAWKINS [facility] NEGATED: Highlighted row has not occurred!06-27-2023 SARS-CoV-2 mRNA (tozinameran 5y-11y) vaccine Antony HAWKINS [facility] NEGATED: Highlighted row has not occurred!06-09-2023 influenza virus vaccine, unspecified formulation BRIAN CONTE [facility] NEGATED: Highlighted row has not occurred!08-04-2022 influenza virus vaccine, unspecified formulation Julianajong LemusAlexa [facility] NEGATED: Highlighted row has not occurred!05-19-2022 influenza virus vaccine, unspecified formulation Julianajong LemusAlexa [facility] NEGATED: Highlighted row has not occurred!03-25-2022 SARS-CoV-2 mRNA (tozinameran 5y-11y) vaccine Antony [employer] [facility] NEGATED: Highlighted row has not occurred!02-23-2022 SARS-CoV-2 mRNA (tozinameran 5y-11y) vaccine Antony [employer] [facility] NEGATED: Highlighted row has not occurred!09-29-2021 influenza virus vaccine, unspecified formulation Antony [employer] [facility] NEGATED: Highlighted row has not occurred!09-29-2021 SARS-CoV-2 (COVID-19) Ad26 vaccine, recombinant Christjazmyne [employer] [facility] NEGATED: Highlighted row has not occurred!09-22-2020 influenza virus vaccine, unspecified formulation Antony [employer] [facility] NEGATED: Highlighted row has not occurred!07-31-2019 influenza virus vaccine, unspecified formulation Antony [employer] [facility] Payers Date Payer Category Payer Worker's Compensation [id number] Self-pay 2023 Private Health Insurance [id number] 2023 Private Health Insurance LOUISE atkins [id number] 2023 Private Health Insurance [id number] 1965 Unknown [id number] 2.16.840.1.059249.3.579. 2.593 1965 Unknown [id number] 2.16.840.1.730044.3.579. 2.593 1966 Unknown [id number] 2.16.840.1.813623.3.579. 2.1259 1966 Unknown [id number] 2.16.840.1.989972.3.579. 2.1259 1966 Unknown [id number] 2.16.840.1.975567.3.579. 2.1259 1966 Unknown [id number] 2.16.840.1.104335.3.579. 2.727 1966 Unknown [id number] 2.16.840.1.345354.3.579. 2.727 1966 Unknown [id number] 2.16.840.1.739811.3.579. 2.727 1966 Unknown [id number] 2.16.840.1.958468.3.579. 2.727 1966 Unknown [id number] 2.16.840.1.658824.3.579. 2.727 1966 Unknown [id number] 2.16.840.1.984162.3.579. 2.727 1966 Unknown [id number] 2.16.840.1.397933.3.579. 2.727 1966 Unknown [id number] 2.16.840.1.160002.3.579. 2.727 1966 Unknown [id number] 2.16.840.1.769068.3.579. 2.727 1966 Unknown [id number] 2.16.840.1.147466.3.579. 2.727 1966 Unknown [id number] 2.16.840.1.806078.3.579. 2.727 1966 Unknown [id number] 2.16.840.1.032358.3.579. 2.727 1966 Unknown [id number] 2.16.840.1.348743.3.579. 2.727 1959 Private Health Insurance [id number] Private Health Insurance [facility] [id number] Unknown [id number] 2.16.840.1.672885.3.579. 2.531 Social History Date Type Detail Facility Start: 02-23-2022 End: 08-24-2023 Tobacco smoking status Never smoked tobacco (finding) [facility] Tobacco smoking status Never [facility] Start: 08-24-2023 Sex Assigned At Female [facility] Start: 1965 Sex Assigned At Female F [facility] Start: 08-24-2023 History of Social function [facility] Start: 1965 Sex assigned at Not on file [facility] Functional Status Date Assessment Result Facility 06-21-2024 Functional Status N/A [facility] 06-19-2024 Functional Status N/A [facility] 05-17-2024 Functional Status N/A [facility] 04-21-2024 Functional Status N/A [facility] 01-13-2024 Functional Status N/A [facility] 12-21-2023 Functional Status N/A [facility] 09-02-2023 Functional Status N/A [facility] 06-27-2023 Functional Status N/A [facility] 06-09-2023 Functional Status N/A [facility] 12-16-2022 Functional Status N/A [facility] 11-24-2022 Functional Status N/A [facility] 09-08-2022 Functional Status N/A [facility] 08-04-2022 Functional Status N/A [facility] 08-03-2022 Functional Status N/A [facility] 07-05-2022 Functional Status Telehealth Patient [facility] 06-11-2022 Functional Status N/A [facility] 05-19-2022 N/A [facility] 03-25-2022 Functional Status N/A [facility] Clinical Notes 02-22-2022 to 12-31-2024 Telephone Encounter - Song Ford - 12/31/2024 4:49 PM EDTTelephone Encounter - Song Ford - 12/31/2024 4:49 PM EDTBety Lopez NP - 12/31/2024 4:00 PM EDT Note Date & Type Note Facility 12-31-2024 Telephone encounter Note ERROR [facility] 12-31-2024 Miscellaneous Notes ERROR documented in this encounter [facility] 12-31-2024 History of Presen t illness Narrative Reason for Appointment: Patient ID: Song Mckeon is a 59 y.o. female who presents for Well Women Visit Patient presents today for Annual Exam. MEDICATIONS Current Outpatient Medications Medication Instructions amitriptyline (ELAVIL) 10 mg, Oral, Nightly cetirizine (ZYRTEC) 10 mg, Oral, Daily cyclobenzaprine (Flexeril) 10 MG tablet TAKE 1 TABLET BY MOUTH THREE TIMES DAILY NEEDED for spasm levothyroxine (SYNTHROID, LEVOXYL) 88 mcg, Oral, Daily pantoprazole (PROTONIX) 40 mg, Oral, 2 times daily ALLERGIES Allergies Allergen Reactions Benzonatate Other Reaction(s): Vomiting shakiness Clarithromycin Other Reaction(s): Unknown Other Reaction(s): Vomiting/Diarrhea Codeine Other Reaction(s): Unknown Other Reaction(s): Hives Famotidine Other Reaction(s): Hives was in ER multiple times Guaifenesin Er Other Reaction(s): Respiratory distress Hydrocodone-Acetaminophen Other Reaction(s): Hives Levofloxacin Other Reaction(s): Unknown, Vomiting/Diarrhea Miconazole Other Reaction(s): Irritation of vulva Morphine Other Reaction(s): Unknown Other Reaction(s): Hives Oxycodone Other Reaction(s): Unknown Other Reaction(s): Hives Penicillins Diarrhea and GI intolerance Other Reaction(s): Unknown Ranitidine Other Reaction(s): Unknown Other Reaction(s): Hives, Unknown Sulfamethoxazole-Trimethoprim Other Reaction(s): Vomiting/Diarrhea Acetaminophen Other Reaction(s): Unknown Guaifenesin Other Reaction(s): Unknown Propoxyphene Other Reaction(s): Unknown Sulfanilamide Other Reaction(s): Unknown Tioconazole Other Reaction(s): Unknown Trimethoprim Other Reaction(s): Unknown Prednisone Rash Other Reaction(s): Asthma, Hives PROBLEMS Active Ambulatory Problems Diagnosis Date Noted UTI symptoms 12/19/2023 Yeast infection 12/19/2023 Urinary tract infection without hematuria 12/19/2023 Asymptomatic postmenopausal state 12/19/2023 Breast cancer screening by mammogram 12/19/2023 Resolved Ambulatory Problems Diagnosis Date Noted No Resolved Ambulatory Problems Past Medical History: Diagnosis Date Abdominal pain Allergies Breast lump 1999 History of medical problems History of migraine headaches Hyperthyroidism (CMS/HCC) Metrorrhagia Thyroid mass (CMS/HCC) HISTORY PAST MEDICAL HISTORY SOCIAL HISTORY Past Medical History: Diagnosis Date Abdominal pain Allergies Breast lump 1999 History of medical problems cytoduoius liver s/p History of migraine headaches Hyperthyroidism (CMS/HCC) Metrorrhagia Thyroid mass (CMS/HCC) Social History Tobacco Use Smoking status: Never Smokeless tobacco: Not on file Substance Use Topics Alcohol use: Not on file Drug use: Not on file FAMILY HISTORY Family History Problem Relation Name Age of Onset Diabetes Mother Breast cancer Mother SURGICAL HISTORY Past Surgical History: Procedure Laterality Date APPENDECTOMY BREAST BIOPSY Breast lump CHOLECYSTECTOMY HYSTERECTOMY Metrorrhagia LIVER RESECTION cytoduoius liver s/p LYMPH NODE BIOPSY Left 2011 neck OOPHORECTOMY Left Metrorrhagia OTHER SURGICAL HISTORY 2011 X-ray, CT, urinalysis - abdominal pain THYROID LOBECTOMY Right and isthmusctomy - hyperthyroidism THYROIDECTOMY 2013 Son - Thyroid Mass TONSILLECTOMY 1969 REVIEW OF SYSTEMS Review of Systems: Review of Systems Constitutional: Negative. HENT: Negative. Eyes: Negative. Respiratory: Negative. Cardiovascular: Negative. Gastrointestinal: Negative. Genitourinary: Negative. Musculoskeletal: Negative. Skin: Negative. Neurological: Negative. All other systems reviewed and are negative. Hematological: Negative. Endocrine: Negative. Allergic/Immunologic: Negative. OBJECTIVE Objective: Physical Exam Constitutional: Appearance: Normal appearance. She is well-developed. Genitourinary: Vulva normal. Breasts: Breasts are soft. Right: Normal. Left: Normal. Cardiovascular: Rate and Rhythm: Normal rate and regular rhythm. Pulmonary: Effort: Pulmonary effort is normal. Breath sounds: Normal breath sounds. Abdominal: General: Bowel sounds are normal. There is no distension. Palpations: Abdomen is soft. Tenderness: There is no abdominal tenderness. There is no guarding or rebound. Musculoskeletal: General: No swelling. Normal range of motion. Right lower leg: No edema. Left lower leg: No edema. Neurological: Mental Status: She is alert and oriented to person, place, and time. Skin: General: Skin is warm and dry. Psychiatric: Mood and Affect: Mood normal. Behavior: Behavior normal. Vitals and nursing note reviewed. Exam conducted with a nail polish brush machine feeder present. Vitals: Estimated body mass index is 31.92 kg/m as calculated from the following: Height as of 08/11/22: 5' 7 . Weight as of this encounter: 203 lb 12.8 oz. BP: 122/84 No LMP recorded. Patient has had a hysterectomy. ASSESSMENT & PLAN ICD-10-CM 1. Well woman exam with routine gynecological exam Z01.419 THIN PREP TIS PAP AND HR HPV DNA 2. Encounter for screening mammogram for malignant neoplasm of breast Z12.31 Bilateral screening mammogram Bilateral screening mammogram 3. Postmenopausal state Z78.0 DEXA bone density Annual Exam: Patient presents today for an annual exam. Patient states she is doing well and has no complaints. Pap was obtained without difficulty. Orders Placed This Encounter Procedures Bilateral screening mammogram DEXA bone density Follow Up: Patient is to return in one year for annual unless needed otherwise. Documented by Bety Lopez NP on behalf of: Brent Angelo DO documented in this encounter [facility] 06-17-2024 Hospital Discharg e instructions Patient Education 06/17/2024 17:25:33 Health Maintenance, Female Health Maintenance, Female Adopting [...] provider. Document Revised: 02/08/2022 Document Reviewed: 02/08/2022 [employer] Patient Education 2023 [email or web address]. Follow Up Care 06/06/2024 10:42:12 With:Antony HAWKINS MD, FAM Address: When:Within 1 Year(s) [facility] 06-17-2024 Note Patient Education Obstetrics and Gynecology [...] ? Know how (more content not included)... [facility] 05-17-2024 Evaluation + Plan note Extrac fawn from: Title:ANES Post-operative Note - General Author: Zion Tony Jr., DO Date:05/17/24 Plan Transfer/Discharge: Transfer/Discharge Discharge when meets criteria ( From PACU to Ambulatory Surgery Unit, and To home ). Extracted from: Title:ANES Pre-operative Note - Endo Author:Zion Trevizo Jr., DO Date:05/17/24 Plan [place] [employer] Anesthesiologists (ASA) physical status classification: Class II. Anesthetic Preoperative Plan: Anesthesia General, and -TIVA. [facility] 08-15-2024 Hospital Discharge instructions Patient Education 05/17/2024 08:57:03 Gastritis, Adult, Inbb-br-Tpej Gastritis, Adult Gastritis is irritation and swelling [...] Follow these instructions at home: Medicines Take ndfn-xoo-izjkenq and prescription medicines only as told by [...] away. Call your local emergency services (911 int [place] Do not wait to see if [...] provider. Document Revised: 01/23/2022 Document Reviewed: 01/23/2022 [employer] Patient Education 2022 [email or web address]. 05/17/2024 08:56:55 Hiatal Hernia Hiatal Hernia A [...] reduce GERD symptoms. Medicines. These may include: ?Ovip-rak-icgoxki antacids. ?Medicines that make your stomach empty [...] may include: ?Fatty foods, like fried foods. ?[place] fruits, like oranges or lemon. ?Other foods [...] Do not drink alcohol. General instructions Take sckw-pyu-mmuagre and prescription medicines only as told by [...] provider. Document Revised: 11/16/2022 Document Reviewed: 11/16/2022 [employer] Patient Education 2022 [email or web address]. 05/17/2024 08:56:42 Esophageal Stricture Esophageal Stricture Esophageal [...] ?Soda. ?Tomato products. ?Chocolate. General instructions Take razw-wge-pwlpfmh and prescription medicines only as told by [...] provider. Document Revised: 02/04/2021 Document Reviewed: 02/04/2021 [employer] Patient Education 2022 [email or web address]. 05/17/2024 08:56:30 Endoscopy, Care After Procedure [facility] ([facility]) Endoscopy Care After Procedure Please read the instructions outlined below and refer to this sheet in the next few weeks. These discharge instructions provide you with general information on [facility] Your doctor may also give you specific [...] blood. Document Released: 05/03/2005 Document Re-Released: 03/13/2007 [facility] Patient Information 2010 [employer]. 05/17/2024 08:56:25 Hemorrhoids, Xmax-za-Pcrr Hemorrhoids Hemorrhoids are swollen veins that may [...] 3 times a day. General instructions Take ufbx-qxs-itfzavm and prescription medicines only as told by [...] provider. Document Revised: 03/31/2022 Document Reviewed: 03/31/2022 [employer] Patient Education 2022 [email or web address]. 05/17/2024 08:56:17 Diverticulosis MAGR (CUSTOM) Diverticulosis Many [...] unsweetened, w/added ascorbic acid 1 cup 0.5 Vilas 1 cup 0.7 Vegetables Cooked Green beans 1 cup 4.0 Carrots 1/2 cup sliced 2.3 Peas 1 cup 8.8 Potato (baked, with skin) 1 medium potato 3.8 Raw [place] (with peel) 1 cucumber 1.5 Lettuce 1 [...] 8.7 Peanuts 1/2 cup 7.9 Chart from [facility] 2013. SEEK IMMEDIATE MEDICAL CARE IF: You [...] of Agriculture (USDA) National Nutrient Database at: http://www.nal.usda.gov/fnic/foodcomp/search/ Created using data from the USDA National Nutrient Database for Standard Reference. Available at http://www.nal.usda.gov/fnic/foodcomp/search/. Information adapted from: ExitCare Patient Information 2009 [employer]. Floored 2012 http://www.[employer]/contents/sdrocvswbkcd-utsxtmd-kiarfx-the-basics 05/17/2024 08:56:15 Colonoscopy, Care After Surgery Salam (CUSTOM) Colonoscopy Care After Surgery Please read [...] Care 12/21/2023 08:50:59 With:Sendy LUIS, JASVIR Melgar, [facility] Address: When: Unknown Comments:Call for any problems. Office will call to schedule follow up appointment [facility] 08-15-2024 NoteProgress Note-Physician Patient: SONG MCKEON Age: 58 years Sex: Female : 1965 Associated Diagnoses: None Author: Zion Tony Jr., DO Postoperative Information Postoperative disposition: Postoperative disposition: Home. Optimetrix number: Optimetrix number [id number]. Anesthetic utilized: General. Physical Examination Vital Signs [...] to Ambulatory Surgery Unit, and To home ).[facility] Comment: Electronically Signed By: Zion Tony Jr., DO\.br\Date and Time Signed: 05/17/24 09:37 [id number] NotePatient Education - Text Endoscopy Care After [...] Document Re-Released: 03/13/2007 ExitCare? Patient Information ?2009 [employer]. Diverticulosis Many people have small pouches in [...] unsweetened, w/added ascorbic acid 1 cup 0.5 Vilas 1 cup 0.7 Vegetables Cooked Green beans 1 cup 4.0 Carrots 1/2 cup sliced 2.3 Peas 1 cup 8.8 Potato (baked, with skin) 1 medium potato 3.8 Raw [place] (with peel) 1 cucumber 1.5 Lettuce 1 [...] 8.7 Peanuts 1/2 cup 7.9 Chart from [facility] 2013. SEEK IMMEDIATE (more content not included)...[facility] 05-17-2024 NoteEndoscopic Procedure Report - Other Patient: SONG MCKEON Age: 58 years Sex: Female : 1965 Associated Diagnoses: None Author: Mary Kaba MD Pre-Procedure Procedure Date 05/17/2024 08:39:00 . Procedure Type: Colonoscopy. Procedure provider Performed by Mary Kaba MD. Current history and physical Documented on chart. Reviewed. Esophagogastroduodenoscopy ([id number]) on 11/24/2022 at 57 Years. Comments: 11/24/2022 13:31 Nancy Malin RN esophageal dilation, esophageal rings, biopsies done, small hiatal hernia Esophagogastroduodenoscopy ([id number]) on 09/08/2022 at 56 Years. Endoscopic plantar fasciotomy right. on 07/15/2016 at 50 Years. Tonsillectomy (287905986). Cholecystectomy (39416701). Thyroid (924971608). Laparoscopic procedure (3518745954). Comments: 06/23/2015 0:10 Monica Romo RN female x4 Hysterectomy (398659906). Liver cyst ([id number]). Breast mass (444389800). Ovarian cyst ([id number]). Appendectomy (814024680). Lymph node operation (414366318). Shoulder repair (3367322502). egd.. Past Medical History Active hiatal hernia (891795557) Resolved Acute diarrhea (3326476170): Onset on 02/03/2010 at 44 years. Resolved. Comments: 02/03/2010 EDT 15:57 EDT - hyster (263679006): Resolved. Liver (474945886): Resolved. Appendectomy (47.0): Resolved. Ovarian cyst (263108139): Resolved. Breast mass (183153069): Resolved. Shoulder pain ([id number]): Resolved. Rotator cuff rupture (7771907682): Resolved. Gall bladder disease ([id number]): Resolved. Hypothyroid (21427124): Resolved. Lumbar back pain (374913866): Resolved on 01/30/2019 at 53 years. History of varicose veins of lower extremity (751647708): Resolved on 01/30/2019 at 53 years. Inflamed skin tag (041628185): Resolved on 03/06/2019 at 53 years. Raised seborrheic keratosis (3843573149): Resolved on 03/06/2019 at 53 years. Adhesive contact dermatitis (2721388344): Resolved. Axillary adenopathy (875604): Resolved. Nasal sore (785851274): Resolved. Left ankle pain (881975635): Resolved. Acute hemorrhagic colitis due to E. coli (5611105238): Resolved. Laryngitis (13748085): Resolved. Viral bronchitis (79494114): Resolved. Folliculitis (68924671): Resolved. Cervical adenopathy (647545): Resolved. Overweight (380346291): Resolved.. Family History Diabetes mellitus type 1 Mother Heart failure Mother Father Primary malignant neoplasm of female breast Mother Stroke Sister Father CVA Father . Procedure History Esophagogastroduodenoscopy ([id number]) on 11/24/2022 at 57 Years. Comments: 11/24/2022 13:31 Nancy Malin RN esophageal dilation, esophageal rings, biopsies done, small hiatal hernia Esophagogastroduodenoscopy ([id number]) on 09/08/2022 at 56 Years. Endoscopic plantar fasciotomy right. on 07/15/2016 at 50 Years. Tonsillectomy ([id number]). Cholecystectomy (90062463). Thyroid (583740251). Laparoscopic procedure ([id number]). Comments: 06/23/2015 0:10 EDT - José GIBSON, Monica female x4 Hysterectomy ([id number]). Liver cyst ([id number]). Breast mass (159296680). Ovarian cyst ([id number]). Appendectomy (804518150). Lymph node operation (021281945). Shoulder repair ([id number]). egd.. Colorectal neoplasm risk assessment High risk [...] pain, # 40 cap(s), Refills(s) 11, Pharmacy: [facility], 169, cm, 10/15/22 12:00:00 EST, Height/Length Dosing, 91.8, kg, 10/15/22 12:00:00 EST, Weight Dosing Pantoprazole [address] Tab: 40 mg = 1 tab(s), Oral, BID, # 180 tab(s), Refills(s) 3, Pharmacy: [facility], 169, cm, 12/21/23 8:16:00 EDT, Height/Length Dosing, 95, kg, 12/21/23 8:16:00EDT, Weight Dosing Valtrex 1 g Tab: 2 gram = 2 tab(s), Oral, BID, x 1 days at onset of coldsore, # 12 tab(s), Refills(s) 2, Pharmacy: [facility], 169, cm, 01/13/24 13:06:00 EDT, Height/Length Dosing, 93, kg, 01/13/24 13:06:00 EDT, Weight Dosing amitriptyline 10 mg Tab: 10 mg = 1 tab(s), Oral, Once a da (more content not included)...[facility] HospitalComment on above:Result Comment: Electronically Signed By: Mary Kaba MD\.br\Date and Time Signed: 05/17/24 08:40 EDTOther Comment: Missing Attachment - attachment storage system not supported [id number] Can be viewed in source systemMissing Attachment - attachment storage system not supported [id number] Can be viewed [facility] systemMissing Attachment - attachment storage system not supported [id number] Can be viewed in source systemMissing Attachment - attachment storage system not supported [id number] Can be viewed in source systemMicolorado [facility] Attachment - attachment storage system not supported [id number] Can be viewed in source systemMisssouthwood community hospital Attachment - attachment storage system not supported [id number] Can be viewed in source [id number] NoteEndoscopic Procedure Report - Other Patient: SONG [...] 5. Normal examined duodenum Images Procedure images: Rec1_hd_video___[id number].jpg Rec_hd_video___[id number].jpg Rec1_hd_video___29_[id number].jpg Rec1_hd_video__[id number]_29_[id number].jpg Rec1_hd_video__T_28_05_[id number].jpg Rec1_hd_video___27_[id number].jpg Rec1_hd_video__T_27_[id number].jpg Rec1_hd_video__[id number].jpg Rec1_hd_video_2023____46_915.jpg Rec1_hd_video____34_094.jpg . Post-Procedure Complications: none. Estimated blood loss: [...] follow in GI clinic in 1-2 after dischargeDayton Oste[facility] HospitalComment on above:Result Comment: Electronically Signed By: Sendy LUIS, Mary Bar\.br\Date and Time Signed: 05/17/24 08:25 EDTOther Comment: Missing Attachment - attachment storage system not supported [id number] Can be viewed in source systemMissing Attachment - attachment storage system not supported [id number] Can be viewed insource systemMissing Attachment - attachment storage system not supported [id number] Can be viewed in source systemMissing Attachment - attachment storage system not supported [id number] Can be viewed in so ce systemMissing Attachment - attachment storage system not supported [id number] Can be viewed in source systemMissing Attachment - attachment storage system not supported [id number] Can be viewed in source systemMissing Attachment - attachment storage system not supported [id number] Can be viewed in source systemMissing Attachment - attachment storage system not supported [id number] Can be viewed in source systemMissing Attachment - attachment storage system not supported [id number] Can be viewed in sourcesystemMissing Attachment - attachment storage system not supported [id number] Can be viewed in source [id number] Note Progress Note-Physician Patient: SONG MCKEON Age: [...] pain, # 40 cap(s), Refills(s) 11, Pharmacy: [facility], 169, cm, 10/15/22 12:00:00 EST, Height/Length Dosing, 91.8, kg, 10/15/22 12:00:00 EST, Weight Dosing Pantoprazole [address] Tab: 40 mg = 1 tab(s), Oral, BID, # 180 tab(s), Refills(s) 3, Pharmacy: [facility], 169, cm, 12/21/23 8:16:00 EDT, Height/Length Dosing, 95, kg, 12/21/23 8:16:00EDT, Weight Dosing Valtrex 1 g Tab: 2 gram = 2 tab(s), Oral, BID, x 1 days at onset of coldsore, # 12 tab(s), Refills(s) 2, Pharmacy: [facility], 169, cm, 01/13/24 13:06:00 EDT, Height/Length Dosing, 93, kg, 01/13/24 13:06:00 EDT, Weight Dosing amitriptyline 10 mg Tab: 10 mg = 1 tab(s), Oral, Once a day (at bedtime), # 90 tab(s), Refills(s) 1, Pharmacy: [facility], 169, cm, 01/13/24 13:06:00 EDT, Height/Length Dosing, 93, kg, 01/13/24 13:06:00 EDT, Weight Dosing bacitracin Top 500 units/g Oint 30 gram: 1 flo, Topical, QID, 30 gram, Refill(s) 0, [facility], 169, cm, 04/21/24 10:11:00 EDT, Height/Length Dosing, 93, kg, 04/21/24 10:11:00 EDT, Weight Dosing cetirizine 10 mg Tab: 10 mg = 1 tab(s), Oral, Daily, # 30 tab(s), Refills(s) 1, Pharmacy: [facility], 170, cm, 09/02/23 16:43:00 EST, Height/Length Dosing, 95, kg, 09/02/23 16:43:00 EST, Weight Dosing cyclobenzaprine 10 mg Tab: 10 mg = 1 tab(s), Oral, TID, PRN for spasm, May use as needed for musclespasms but sedation warning, # 30 tab(s), Refills(s) 1, [id number], 05/28/21 13:52:00 EDT, Height/Length Dosing, 86.5, kg, 05/28/21 13:52:00 EDT, Weigh... levothyroxine 88 mcg (0.088 mg) Tab: 88 microgram = 1 tab(s), Oral, Daily, # 90 tab(s), Refills(s) 3, [id number], cm, 06/27/23 16:25:00 EDT, Height/Length Dosing, 94.1, kg, 06/27/23 16:25:00 EDT, Weight Dosing lidocaine Viscous Top 2% Riya 15 mL: 0.1 gm, 5 mL, Topical, QIDACHS, 100 mL, Refill(s) 0, [facility], 169, cm, 08/03/22 21:08:00 EDT, Height/Length Dosing, 92, kg, 08/03/22 21:08:00 EDT, Weight Dosing ondansetron 4 mg Dis Tab: 4 mg = 1 tab(s), Oral, q6hr, PRN Nausea/Vomiting, # 12 tab(s), Refills(s)0, Pharmacy: [facility], 170, cm, 03/25/22 11:35:00 EDT, Height/Length [...] tab(s), PRN, Oral, q6hr (more content not included)...[facility] HospitalComment on above:Result Comment: Electronically Signed By: Zion Tony Jr., DO.janie\Date and Time Signed: 05/17/24 07:36 [id number] Hospital Discharge instructions Patient Education 04/21/2024 12:32:20 Laceration Care, Adult, Zbpt-di-Ecqj Laceration Care, Adult A laceration is a [...] cannot use soap and water, use hand aromatherapist. Do not usedisinfectants or antiseptics, such as [...] Follow these instructions at home: Medicines Take umaq-dyf-hezfnjg and prescription medicines only as told by [...] provider. Document Revised: 11/26/2021 Document Reviewed: 11/26/2021 [employer] Patient Education 2022 [employer]. Follow Up Care 04/21/2024 09:53:49 With:Antony HAWKINS Address: [address] [place], [place] [id number] Business (1) When:04/24/2024 12:31:48 Comments:Follow-up with your family physician in 10 to 14 days to have the stitches removed. Keep the stitches dry for 24 hours followed by cleaning it with water and patting dry. Do not submerge the wound. Use the bacitracin [facility]07-20-2024 Evaluation + Plan noteExtracted from: Title:ED Note [...] flo, Topical, QID, 30 gram, Refill(s) 0, [facility], 169, cm, 04/21/24 10:11:00 EDT, Height/Length Dosing, 93, kg, 04/21/24 10:11:00 EDT, Weight Dosing lidocaine, 100 mg, 10 mL, Injection, SubCutaneous, Once, Stop date 04/21/24 11:01:00 EDT, STAT, Start date 04/21/24 11:01:00 EDT XR Hand 3+ Views Right Future Appointments Appointment Date:05/17/2024 08:00:00 AM Scheduled Provider: Location:[facility] Appointment Type:Surgery FT [facility]07-20-2024 NoteED Patient Education Note Dermatology Laceration Care, [...] cannot use soap and water, use hand aromatherapist. ? Do not usedisinfectants or antiseptics, such [...] these instructions at home: Medicines ? Take neay-ygd-hncyksp and prescription medicines only as told by [...] look pale or bluish. (more content not included)...[facility]04-[facility] Hospital Discharge instructions Patient Education 01/13/2024 14:02:44 [...] numbers. This can be done either in [place] (U.S[place] or metric measurements. Note that charts and online BMI calculators are available to help you find your BMI quickly and easily without having to do these calculations yourself. To calculate your BMI in [place] (U.S.) measurements: 1.Measure your weight in pounds [...] Centers for Disease Control and Prevention: www.cdc.gov [place] Heart Association: www.heart.org National Heart, Lung, and Blood [place]: www.nhlbi.nih.gov Summary Body mass index (BMI) is a number that is calculated from a person's weight and height. BMI may help estimate how much of a person's weight is composed of fat. BMI can help identify thosewho may be at higher risk for certain medical problems. BMI can be measured using Romanian measurements or metric measurements. BMI charts are used to identify whether you are underweight, normal weight, overweight, or obese. This information is not intended to replace advice given to you by your health care provider. Make sure you discuss any questions you have with your health care provider. Document Revised: 06/11/2020 Document Reviewed: 04/18/2020 [employer] Patient Education 2022 [email or web address]. Follow Up Care 01/13/2024 09:32:06 With:Antony HAWKINS MD, FAM Address: [address] [place], [place] [id number]- When:1 week [facility] 11-30-2023 Hospital Discharge instructions Patient [...] Follow these instructions at home: Medicines Take gusr-yse-meunzho and prescription medicines only as told by [...] provider. Document Revised: 12/07/2021 Document Reviewed: 12/07/2021 [employer] Patient Education 2022 [email or web address]. Follow Up Care 09/01/2023 13:33:29 With:Antony HAWKINS MD, FAM Address: When: only if needed [facility] [place] 09-24-2023 Hospital Discharge instructions Patient Education 06/26/2023 [...] provider. Document Revised: 02/08/2022 Document Reviewed: 02/08/2022 [employer] Patient Education 2022 [email or web address]. Follow Up Care 05/03/2023 10:53:36 With:Antony HAWKINS MD, FAM Address: When:Within 1 Year(s) [facility] [place] 09-07-2023 Hospital Discharge instructions Patient Education 06/09/2023 [...] numbers. This can be done either in [place] (U.S.) or metric measurements. Note that charts and online BMI calculators are available to help you find your BMI quickly and easily without having to do these calculations yourself. To calculate your BMI in [place] (U.S.) measurements: 1.Measure your weight in pounds [...] Centers for Disease Control and Prevention: www.cdc.gov [place] Heart Association: www.heart.org National Heart, Lung, and Blood [place]: www.nhlbi.nih.gov Summary Body mass index (BMI) is a number that is calculated from a person's weight and height. BMI may help estimate how much of a person's weight is composed of fat. BMI can help identify thosewho may be at higher risk for certain medical problems. BMI can be measured using Romanian measurements or metric measurements. BMI charts are used to identify whether you are underweight, normal weight, overweight, or obese. This information is not intended to replace advice given to you by your health care provider. Make sure you discuss any questions you have with your health care provider. Document Revised: 06/11/2020 Document Reviewed: 04/18/2020 [employer] Patient Education 2022 [email or web address]. 06/09/2023 13:01:37 Shoulder Sprain Shoulder Sprain A [...] minutes, 2 3 times a day. Take uhqb-qmy-ycmftbl and prescription medicines only as told by [...] provider. Document Revised: 06/09/2022 Document Reviewed: 06/09/2022 [employer] Patient Education 2022 [email or web address]. 06/09/2023 13:01:12 Cervical Sprain, Zzow-yq-Qlxd Cervical Sprain A cervical sprain is also [...] Follow these instructions at home: Medicines Take jtst-cwu-eisskaq and prescription medicines only as told by your doctor. Ask your doctor if the medicine prescribed to you: ?Requires you to avoid driving or using heavy machinery. ?Can cause trouble pooping (constipation). You may need to take these actions to prevent or treat trouble pooping: ?Drink enough fluid to keep your pee (urine) pale yellow. ?Take eyaq-ixf-iiqostd or prescription medicines. ?Eat foods that are [...] provider. Document Revised: 05/28/2020 Document Reviewed: 05/28/2020 Elsevier Patient Education 2022 [employer] Inc. Follow Up Care 06/09/2023 10:55:41 With:Antony HAWKINS MD, FAM Address: [address] [place] [address] When: Unknown [facility] 02-22-2023 Hospital Discharge instructions Patient [...] what activities are safe for you. Take ykam-kel-qrihwyj and prescription medicines only as told by [...] 03/20/2013 Document Revised: 03/13/2019 Document Reviewed: 02/19/2019 [employer] Patient Education 2020 [employer] Inc. 11/24/2022 12:47:18 Esophageal Dilatation Esophageal Dilatation Esophageal [...] including vitamins, herbs, eye drops, creams, and ojrs-twn-nzwyqkd medicines. Any problems you or family members [...] home. Follow these instructions at home: Take desn-tea-ihmwcpa and prescription medicines only as told by [...] 11/10/2006 Document Revised: 09/01/2018 Document Reviewed: 07/25/2018 [employer] Patient Education 2020 [email or web address]. 11/24/2022 12:47:18 Hiatal Hernia Hiatal Hernia A [...] reduce GERD symptoms. Medicines. These may include: ?Bxmt-qwj-jeucggm antacids. ?Medicines that make your stomach empty [...] may include: ?Fatty foods, like fried foods. ?[place] fruits, like oranges or lemon. ?Other foods [...] Do not drink alcohol. General instructions Take ndif-tjs-upukuja and prescription medicines only as told by [...] 12/09/2004 Document Revised: 09/01/2018 Document Reviewed: 04/24/2018 [employer] Patient Education 2020 [email or web address]. Follow Up Care 09/21/2022 14:14:15 With:Marilee OCHOA Address: [facility] [address] [place] [address] Business (1) When: Unknown Comments:office will call for follow up [facility]02-22-2023 Evaluation + Plan noteExtracted from: Title:ANES Post-operative Note Author:Bong Somers MD Date:11/24/22 Plan Transfer/Discharge: Transfer/Discharge Discharge when meets criteria ( From PACU to Ambulatory Surgery Unit, and To home ). Extracted from: Title:ANES Pre-operative Note Author:Michela Somers MD Date:11/24/22 Plan [place] Society of Anesthesiologists (ASA) physical status classification: Class II. Anesthetic Preoperative Plan: Anesthesia Monitored anethesia care. Future Appointments Appointment Date:12/10/2022 09:00:00 AM Scheduled Provider:Jamal PIERRE, JEFFRY, Renee CHAIREZ Location:[facility] Digestive [facility] Appointment Type:Nutrition Education - GI Disorders 60 ( Appointment Date:12/16/2022 12:00:00 PM Scheduled Provider:Marilee OCHOA MD Location:[facility] Appointment Type:[facility] Follow Up [facility]12-07-2022 Hospital Discharge instructions Patient Education 09/08/2022 15:31:25 [facility] NSAIDS-Nonsteroidal Anti-Inflammatory Medications (CUSTOM) Nonsteroidal Anti-Inflammatory Medications [...] pain neck pain Some NSAIDs are available spio-dop-cmovssf, without the need for a prescription. However, [...] than your doctor has prescribed. Follow the piik-dcv-nnfmdwn labels and do not exceed the recommended [...] reduce GERD symptoms. Medicines. These may include: ?Jqdx-qel-hrhbeuf antacids. ?Medicines that make your stomach empty [...] may include: ?Fatty foods, like fried foods. ?[place] fruits, like oranges or lemon. ?Other foods [...] Do not drink alcohol. General instructions Take aage-cmd-mawrlch and prescription medicines only as told by [...] 12/09/2004 Document Revised: 09/01/2018 Document Reviewed: 04/24/2018 [employer] Patient Education 2020 [email or web address]. 09/08/2022 15:31:25 Esophageal Stricture Esophageal Stricture Esophageal [...] ?Soda. ?Tomato products. ?Chocolate. General instructions Take zuuc-aoy-wtjwoll and prescription medicines only as told by [...] 05/30/2007 Document Revised: 12/15/2018 Document Reviewed: 05/26/2018 Al[employer]os Patient Education 2020 [employer] Inc. 09/08/2022 15:31:25 Endoscopy, Care After Procedure [facility] ([facility]) Endoscopy Care After Procedure Please read the instructions outlined below and refer to this sheet in the next few weeks. These discharge instructions provide you with general information on [facility] Your doctor may also give you specific [...] 05/03/2005 Document Re-Released: 03/13/2007 ExitCare Patient Information 2010 [employer]. Follow Up Care 08/04/2022 14:23:56 With:Marilee OCHOA Address: [address] [place] [address]. [address] [place] [address] [facility] (1) When: Unknown Comments:Call for any problems. Office will call for follow up appt. [facility]12-07-2022 Evaluation + Plan noteExtracted from: Title:ANEGarce POSTOP Author:Juma Lara DO Date: 09/08/22 Plan Transfer/ Discharge: Patient can be discharged from PACU when criteria met. Condition good. Extracted from: Title:SIMONE PREOP ENDO NOTE Author:Chris Lara DO Date:09/08/22 Plan [place] [employer] of Anesthesiologists (ASA) physical status classification: [...] Date:11/18/2022 12:00:00 PM Scheduled Provider:Marilee OCHOA MD Location:[facility] Appointment Type:[facility] Follow Up [facility]11-02-2022 Hospital Discharge instructions Patient Education 08/04/2022 13:50:13 [...] Follow these instructions at home: Medicines Take pvwh-qkq-gyldkcz and prescription medicines only as told by your health care provider. If you were prescribed an antibiotic medicine, take it as told by your health care provider. Do notstop taking the antibiotic even if you start to feel better. Eating and drinking Follow any diet changes as told by your health care provider. Work with a diet and ep specialist (dietitian) to create an eating plan [...] 09/16/2001 Document Revised: 02/13/2020 Document Reviewed: 02/13/2020 [employer] Patient Education 2019 [email or web address]. Follow Up Care 08/04/2022 10:16:30 With:Juliana Liu CNP Address: When:1 to 2 weeks [facility] 11-02-2022 Hospital Discharge instructions Patient [...] including vitamins, herbs, eye drops, creams, and ujic-ith-iebigyi medicines. Any problems you or family members [...] home. Follow these instructions at home: Take cwor-flk-ecuvrdp and prescription medicines only as told by [...] 11/10/2006 Document Revised: 09/01/2018 Document Reviewed: 07/25/2018 [employer] Patient Education 2020 [email or web address]. Follow Up Care 08/03/2022 20:59:47 With:Marilee OCHOA Address: [address] [place] [address] Business (1) When:08/06/2022 With:Antony HAWKINS Address: [address] [place] [phone] Business (1) When:Within 3 Day(s) [facility]10-03-2022 Hospital Discharge instructions Patient Education 07/05/2022 11:15:28 [...] your health care provider or diet and ep specialist (dietitian). This may include: ?Eating fewer [...] 10/22/2011 Document Revised: 10/02/2018 Document Reviewed: 10/02/2018 [employer] Patient Education 2020 [email or web address]. 07/05/2022 11:15:27 BMI for Adults BMI for [...] height. This can be done either in [place] (U.S.) or metric measurements. Note that charts are available to help you find your BMI quickly and easily without having to do these calculations yourself. To calculate your BMI in [place] (U.S.) measurements, your health care provider will: [...] medical problems. BMI can be measured using Romanian measurements or metric measurements. To interpret your [...] 05/31/2005 Document Revised: 09/01/2018 Document Reviewed: 08/02/2018 [employer]os Patient Education 2020 [email or web address]. 07/05/2022 11:15:25 COVID-19 Frequently Asked Questions COVID-19 [...] the coronavirus come from? In September 2019, [place] told the World Health Organization (WHO) of several cases of lung disease (human respiratory illness). These cases were linked to an open seafood and livestock market in the city of [facility]. The link to the seafood and livestock [...] and virus naming World Health Organization (WHO): www.who.int/emergencies/diseases/vpchi-cpoflphrwql-6217/technical-g uidance/pdnxlz-yfy-jkmifpavkpo-disease-(covid-2019)-jdp-svk-fzvwi-fwzp-rohcli-pq Who is at risk for complications from [...] relieve his or her symptoms by using hmmr-xix-nymffmb medicines that treat sneezing, coughing, and runny [...] water are not available, use alcohol-based hand aromatherapist. Avoid touching your face, mouth, nose, or [...] Prevention (CDC): www.cdc.gov/coronavirus/2019-ncov/travelers/index.html World Health Organization (WHO): www.who.int/emergencies/diseases/capcj-hydqjkbyeqa-8255/travel-advice Know the risks and take action to [...] water are not available, use alcohol-based hand aromatherapist. Cough or sneeze into a tissue, sleeve, [...] in hot, soapy water or use a cook chill technician. Air-dry your dishes. Wash laundry in hot [...] Health Organization (WHO) Information and news updates: www.who.int/emergencies/diseases/vmjqt-tjdtfpbdwry-0155 Coronavirus health topic: www.who.int/health-topics/coronavirus Questions and answers on COVID-19: www.who.int/news-room/q-a-detail/m-o-ecrfimjzmxhgj Global tracker: [employer] [place] Academy of Pediatrics (AAP) Information for families: www.healthychildren.org/Romanian/health-issues/conditions/chest-lungs/Pages /3534-Mllrj-Jbynpjkvgqp.aspx The coronavirus situation is changing rapidly. Check [...] 01/15/2020 Document Revised: 01/15/2020 Document Reviewed: 01/15/2020 [employer] Patient Education 2019 [email or web address]. 07/05/2022 11:15:24 COVID-19 COVID-19 COVID-19 is a [...] to fight infection (immunocompromised). Live in a chcf or long-term care facility. Have a long-term [...] managed at home with rest, fluids, and aigh-tgp-hipdmdt medicines. Treatment for a serious infection usually [...] are safe for you. General instructions Take jxga-uyu-flanwfl and prescription medicines only as told by [...] water are not available, usean alcohol-based hand aromatherapist. ?Avoid touching your mouth, face, eyes, or [...] water are not available, use alcohol-based hand aromatherapist. Stay away from other members of your [...] have a weak immunity, live in a chcf, or have chronic disease. There is no [...] 10/25/2019 Document Revised: 02/14/2020 Document Reviewed: 10/25/2019 [employer] Patient Education 2019 [email or web address]. Follow Up Care 07/05/2022 09:11:36 With:ROSS LUIS, Antony [facility] Address: [address] [place] [address]- When: only if needed [facility] [place] 09-08-2022 Hospital Discharge instructions Patient Education 06/10/2022 [...] 04/03/2012 Document Revised: 09/12/2019 Document Reviewed: 09/12/2019 [employer] Patient Education 2020 [email or web address]. Follow Up Care 04/21/2022 10:15:56 With:Antony HAWKINS MD, FAM Address: When:Within 1 Year(s) [facility] [place] 08-17-2022 Hospital Discharge instructions Patient Education 05/19/2022 [...] 04/16/2015 Document Revised: 06/08/2019 Document Reviewed: 10/04/2018 [employer] Patient Education 2020 [email or web address]. Follow Up Care 04/21/2022 13:17:19 With:JOSE MANUEL LUIS, JASVIR Hunt, MED Address: [address] [place] [address]. [facility] [address] [place], [place] [id number] When:7 months [facility] [id number] Evaluation + Plan note Future Scheduled Tests Laboratory* TSH With T4fr Reflex 03/25/22 [facility] [place] 06-22-2022 Hospital Discharge instructions Patient Education 03/24/2022 [...] including vitamins, herbs, eye drops, creams, and lqsh-jot-ojaaggg medicines. Any problems you or family members [...] provider tells you to take them. Taking xdiv-vyn-embbeyh medicines, vitamins, herbs, and supplements. General instructions [...] hole punch is used to cut a buckland shape out of theskin. ?The outer edges [...] 12/14/2010 Document Revised: 03/28/2019 Document Reviewed: 03/28/2019 [employer] Patient Education 2020 [employer] Follow Up Care 02/02/2022 12:33:35 With:Antony HAWKINS MD, FAM Address: When: only if needed Comments:suggest TSH at [facility] in 05/2022 order is in [facility] [place] 05-23-2022 Hospital Discharge instructions Patient Education 02/22/2022 [...] height. This can be done either in [place] ([place] or metric measurements. Note that charts are available to help you find your BMI quickly and easily without having to do these calculations yourself. To calculate your BMI in [place] ([place] measurements, your health care provider will: [...] medical problems. BMI can be measured using Romanian measurements or metric measurements. To interpret your [...] 05/31/2005 Document Revised: 09/01/2018 Document Reviewed: 08/02/2018 [employer] Patient Education 2020 [email or web address] Follow Up Care 02/22/2022 10:43:14 With:Antony HAWKINS MD, FAM Address: When: only if needed [facility] Evaluation + Plan note Future Appointments Appointment Date:03/25/2022 11:20:00 AM Scheduled Provider:Antony HAWKINS MD Location:[facility] Appointment Type:FM Open [facility] [place] Evaluation + Plan note Future Appointments Appointment Date:06/11/2022 11:40:00 AM Scheduled Provider:Antony HAWKINS MD Location:[facility] Appointment Type: Preventative Visit Appointment Date:11/18/2022 12:00:00 PM Scheduled Provider:Marilee OCHOA MD Location:[facility] Appointment Type:[facility] Follow Up Future Scheduled Tests Laboratory* TSH With T4fr Reflex 03/25/22 * CBC w/ Auto Diff 04/21/22 * Comprehensive Metabolic Panel 04/21/22 * Lipid Panel 04/21/22 [facility] Evaluation + Plan note Future Appointments Appointment Date:11/18/2022 12:00:00 PM Scheduled Provider:Marilee OCHOA MD Location:[facility] Appointment Type:[facility] Follow Up [facility] [place] Evaluation + Plan note Future Appointments Appointment Date:11/18/2022 12:00:00 PM Scheduled Provider:Marilee OCHOA MD Location:[facility] Appointment Type:[facility] Follow Up Diagnostic Tests Pending * Urine Culture [facility] noteExtracted from: Title:ED Note Author:Molly [...] mL, Topical, QIDACHS, 100 mL, Refill(s) 0, Taktio #37, 169, cm, 08/03/22 21:08:00 EDT, Height/Length [...] Date:09/07/2022 08:00:00 AM Scheduled Provider:Juliana Liu CNP Location:[facility] Appointment Type:BAD Follow Up Appointment Date:11/18/2022 12:00:00 PM Scheduled Provider:Marilee OCHOA MD Location:[facility] Appointment Type:[facility] Future Appointments Appointment Date:08/10/2022 08:00:00 AM Scheduled Provider: [facility] Type:US Abdominal/Pelvis (FT) Appointment Date:09/07/2022 08:00:00 AM Scheduled Provider:Juliana Liu CNP Location:[facility] Appointment Type:[facility] Follow Up Appointment Date:09/08/2022 02:50:00 PM Scheduled Provider: Location:[facility] Appointment Type:Surgery FT Appointment Date:11/18/2022 12:00:00 PM Scheduled Provider:Marilee OCHOA MD Location:[facility] Appointment Type:[facility] Follow Up Future Scheduled Tests Laboratory* Hepatic Function Panel 08/04/22 Radiology* US Abdomen Complete 08/10/22 [facility] Evaluation + Plan note Future Appointments Appointment Date:09/07/2022 08:00:00 AM Scheduled Provider:Juliana Liu CNP Location:[facility] Appointment Type:[facility] Follow Up Appointment Date:09/08/2022 02:50:00 PM Scheduled Provider: Location:[facility] Appointment Type:Surgery FT Appointment Date:11/18/2022 12:00:00 PM Scheduled Provider:Marilee OCHOA MD Location:[facility] Appointment Type:[facility] Future Appointments Appointment Date:12/16/2022 12:00:00 PM Scheduled Provider:Marilee OCHOA MD Location:[facility] Appointment Type:[facility] Follow Up [facility] Evaluation + Plan note Future Appointments Appointment Date:12/21/2023 08:00:00 AM Scheduled Provider:Marilee OCHOA MD Location:[facility] Appointment Type:BAD Follow Up [facility] Evaluation + Plan note Future Appointments Appointment Date:06/27/2023 04:00:00 PM Scheduled Provider:[facility]INS [facility] Type:FM Preventative Visit Appointment Date:12/21/2023 08:00:00 AM Scheduled Provider:Marilee OCHOA MD Location:[facility] Appointment Type:[facility] Follow Up [facility] Evaluation + Plan note Future Appointments Appointment Date:12/21/2023 08:00:00 AM Scheduled Provider:Mary Kaba MD Location:[facility] Appointment Type:[facility] Follow Up [facility] [place] Evaluation + Plan note Future Appointments Appointment Date:05/17/2024 08:00:00 AM Scheduled Provider: Location:[facility] Appointment Type:Surgery [facility] Evaluation + Plan note Future Appointments Appointment Date:06/19/2024 03:40:00 PM Scheduled Provider:Antony HAWKINS MD Location:[facility] Appointment Type: Preventative Visit Appointment Date:06/21/2024 03:00:00 PM Scheduled Provider:Mary Kaba MD Location:[facility] Appointment Type:[facility] Follow Up [facility] Evaluation + Plan note Future Appointments Appointment Date:06/13/2025 02:45:00 PM Scheduled Provider:Mary Kaba MD Location:[facility] Appointment Type:[facility] Follow Future Scheduled Tests Radiology* MA Mamm Screen w/CAD if perf and 3D Kristopher 06/19/24 [facility] evaluation + Plan note Future Appointments Appointment Date:06/21/2024 03:00:00 PM Scheduled Provider:Mary Kaba MD Location:[facility] Appointment Type:[facility] Follow Up Future Scheduled Tests Radiology* MA Mamm Screen w/CAD if perf and 3D Kristopher 06/19/24 [facility] [place] Evaluation noteNo assessment information available [facility] Work Phone: Evalusliye note* Diagnosis Well woman exam with routine gynecological exam Routine gynecological examination Encounter for screening mammogram for malignant neoplasm of breast Postmenopausal state Asymptomatic postmenopausal status (age-related) (natural) [facility] Narrative No data available for this section [facility] Discharge instructions No data available for this section [facility] No data available for this section [facility] Reason for referral (narrative) Referred by: Juliana Liu CNP [facility] Summary Purpose Family History No [...] Found No data available for this section Advance Directives No Advanced Directives Records FoundNo [...] Dates Brent Angelo Attending Provider Active Start: Tomás 2023 End: January 02, 2024 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 Start Date End Date Antony Hawkins [place] [address] [place] [address] PCP - General 12/19/23 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 Start Date End Date Antony Hawkins MD [address] [place] [address] PCP - General 12/19/23 INFORMATION SOURCE (unrecogn ized section and content) DATE CREATED AUTHOR 07/06/[address] [facility] DATE CREATED AUTHOR AUTHOR'S ORGANIZ ATION 01/04/2024 [facility] DATE CREATED AUTHOR AUTHOR'S ORGANIZ ATION 01/20/20[facility] DATE CREATED AUTHOR AUTHOR'S ORGANIZ ATION 05/20/2024 [facility] DATE CREATED AUTHOR AUTHOR'S ORGANIZ ATION 05/24/2024 [facility] DATE CREATED AUTHOR AUTHOR'S ORGANIZ ATION 05/27/2024 [facility] DATE CREATED AUTHOR AUTHOR'S ORGANIZ ATION 05/31/2024 [facility] DATE CREATED AUTHOR AUTHOR'S ORGANIZ ATION 06/11/2024 [facility] DATE CREATED AUTHOR AUTHOR'S ORGANIZ ATION 06/21/2024 [facility] DATE CREATED AUTHOR AUTHOR'S ORGANIZ ATION 06/22/2024 [facility] DATE CREATED AUTHOR AUTHOR'S ORGANIZ ATION 06/24/2024 [facility] Goals (unrecognized section and content) Goals may be documented in a n alternate section Reason for Visit (unrecogniz ed section and content) Reason Comments Well Women Visit FOR RECORDS PERTAINING TO PATIENTS WHO ARE [...] BE BASED ON THE PRIMARY CLINICAL RECORDS. [facility] [employer] [facility]. provides no warranty or guarantee of the accuracy or completeness of information in this document.
== END 2024-12-31 20:39 | disposition home or self-care (01) ==
LOC: LAB 20:38
PROVIDERS: Visit Provider Obstetrics & Gynecology
DX: Z01.419 Encounter for gynecological examination (general) (routine) without abnormal findings (principal)
CPT/HCPCS: 88175

== ENCOUNTER 2025-07-16 16:17 | Outpatient (OUT) | payer OTHER, SELFPAY ==
--- OUTSIDE RECORDS SUMMARY | 2025-07-16 16:20 | XMS_ITS | CCD ---
Author Organization [facility] Care Team Providers Care Protocol Officer Name Role Phone Antony HAWKINS Primary Care Physician KELLY, DR FRANCE Admitting Unavailable MISC, DR OSCAR Primary Care Unavailable KARASISam, DR FRANCE Attending Unavailable KARASIK, DR FRANCE Consulting Unavailable MISC, DR OSCAR Primary Care Unavailable KARASIK, DR FRANCE Attending Unavailable KARASIK, DR FRANCE Consulting Unavailable KARASIK, DR FRANCE Admitting Unavailable PIONEER, DR VICENTE Desir Consulting Unavailable Antony HAWKINS Primary Care Physician [phone] Brent Angelo Attending Provider Brent Angelo Attending Unavailable Brent Angelo Admitting Unavailable Antony HAWKINS Attending Unavailable Antony HAWKINS Admitting Unavailable Antony HAWKINS Attending Unavailable Arely MORENO Attending Unavailable Tu DONOVAN Attending Unavailable Antony HAWKINS Attending Unavailable Antony HAWKINS Attending Unavailable Mary Kaba Referring Unavaila Mary Mortensen Talshiv Admitting Unavaila Mary Mortensen Attending Unavaila Antony Floyd Admitting Unavailable Cole HAWKINSophloy Attending Unavailable Jose Garcia Attending Unavailable LISS STOREY Attending Unavailable Mary Kaba Attending Unavaila Mary Mortensen Attending UnavailAntony Solis MD Primary Care Provider [phone] BRENT ANGELO Attending Unavailable BRENT ANGELO Attending Unavailable ROSS Christopher Attending Unavailable ROSS, Christopher Admitting Unavailable ROSS, Christopher Attending Unavailable ROSS Christopher Attending Unavailable ROSS Christopher Attending Unavailable ROSS, Christopher Admitting Unavailable BROWN, Christopher Attending Unavailable Sarmini, Hernandez Talal Attending Unavaila ble Allergies Allergy Classification Reported Allergen(s) Allergy Type Date of Onset Reaction(s) Facility (20 sources) Acetaminophen / HYDROcodone; Translations: [acetaminophen-hydro codone] Drug Allergy [facility] (20 sources) benzonatate; Translations: [benzonatate] Drug Allergy Vomiting (disorder) [facility] Comment on above: shakiness shakiness (20 sources) Clarithromycin; Translations: [clarithromycin] Drug Allergy Vomiting/Diarr hea [facility] (20 sources) Codeine; Translations: [codeine] Drug Allergy 12-14-19 [facility] (20 sources) Famotidine; Translations: [famotidine] Drug Allergy [facility] [place] [place] Comment on above: was in ER multiple t imes was in ER multiple t imes (20 sources) guaiFENesin; Translations: [guaifenesin] Drug Allergy Respiratory distress [facility] (20 sources) levoFLOXacin; Translations: [levofloxacin] Drug Allergy 01-18-20 Unknown (qualifier value) [facility] (20 sources) Miconazole; Translations: [miconazole topical] Drug Allergy 01-18-20 24 Vulval irritation (finding) [facility] (20 sources) Morphine; Translations: [morphine] Drug Allergy 12-14-19 [facility] (20 sources) oxyCODONE; Translations: [oxycodone] Drug Allergy 12-14-19 [facility] (20 sources) Penicillin; Translations: [penicillin] Drug Allergy vomiting diarrhea [facility] (20 sources) predniSONE; Translations: [prednisone] Drug Allergy Asthma (disorder), Weal (disorder), Eruption of skin (disorder) [facility] (20 sources) raNITIdine; Translations: [ranitidine] Drug Allergy 12-14-19 24 Unknown (qualifier value) [facility] (20 sources) Sulfamethoxazole / Trimethoprim; Translations: [sulfamethoxazole-tr imethoprim] Drug Allergy 01-18-20 24 Vomiting/Diarr hea [facility] (1 source) Acetaminophen / HYDROcodone Drug Allergy 05-03-20 13 [facility] (6 sources) benzonatate; Translations: [Tessalon Perles] Drug Allergy 08-03-20 17 [facility] (1 source) Clarithromycin Drug Allergy 05-03-20 13 [facility] (1 source) Codeine Drug Allergy 05-03-20 13 [facility] (6 sources) Famotidine; Translations: [Pepcid] Drug Allergy 08-03-20 17 [facility] (1 source) floctafenine Drug Allergy 05-03-20 13 [facility] (1 source) guaiFENesin Drug Allergy 05-03-20 13 [facility] (6 sources) levoFLOXacin; Translations: [Levaquin] Drug Allergy 05-03-20 13 [facility] (6 sources) Miconazole; Translations: [Monistat 3] Drug Allergy 05-03-20 13 [facility] (1 source) Morphine Drug Allergy 05-03-20 13 [facility] (1 source) oxyCODONE Drug Allergy 05-03-20 13 [facility] (1 source) Penicillins Drug allergy (disorder) 05-03-20 13 [facility] (1 source) Sulfamethoxazole / Trimethoprim Drug Allergy 05-03-20 13 [facility] (1 source) Sulfanilamide Drug Allergy 08-03-20 17 [facility] (1 source) Sulfonamides (Antibiotic) Drug allergy (disorder) 05-03-20 13 [facility] (1 source) Darvocet-N 100 Drug allergy (disorder) 05-03-20 13 [facility] (5 sources) oxyCODONE; Translations: [OxyContin] Drug Allergy [facility] Rep[facility] (5 sources) Acetaminophen Drug Allergy 12-14-19 24 [facility] Healthcare Work Phone: (5 sources) Acetaminophen / HYDROcodone Drug Allergy 01-18-20 [facility] Healthcare (5 sources) benzonatate Drug Allergy 01-18-20 24 [facility] Healthcare (5 sources) Clarithromycin Allergy to substance 12-14-19 [facility] Healthcare (5 sources) Famotidine Allergy to substance 01-18-20 [facility] Healthcare (5 sources) guaiFENesin Drug Allergy 12-14-19 24 [facility] Healthcare (5 sources) guaiFENesin Drug Allergy 01-18-20 24 [facility] Healthcare (1 source) Penicillin G Drug Allergy 01-18-20 [facility] Healthcare (5 sources) Penicillins Drug Allergy 12-14-19 Diarrhea, GI intolerance [facility] (5 sources) Prednisone Allergy to substance 01-18-20 Rash [facility] Healthcare (5 sources) Propoxyphene Drug Allergy 12-14-19 24 [facility] Healthcare (5 sources) Sulfanilamide Allergy to substance 12-14-19 [facility] Healthcare (5 sources) Tioconazole Allergy to substance 12-14-19 24 [facility] Healthcare (5 sources) Trimethoprim Drug Allergy 12-14-19 24 [facility] Medications Current Medications Medication Drug Class(es) Dates Sig (Normalized) Sig (Original) amitriptyline hydrochloride 10 mg oral tablet (20 sources) Tricyclic Antidepressant Start: 06-21-2025 take 1 tablet by mouth once daily at bedtime amitriptyline 10 mg Tab See Instructions, TAKE 1 TABLET BY MOUTH EVERY DAY AT BEDTIME, # 90 tab(s), Refills(s) 4, Pharmacy: [email or web address], 215, cm, 06/21/25 16:20:00 EDT, Height/Length Dosing, 94.2, kg, 06/21/25 16:20:00 EDT, Weight Dosing Start Date: 06/21/25 Status: Ordered Quantity: 90.0 Unit: tab(s) Repeat number: 5 Start: 10-24-2024 take 1 tablet by emile th once daily at bedtime amitriptyline 10 mg Tab See Instructions, TAKE 1 TABLET BY MOUTH EVERY DAY AT BEDTIME, # 90 tab(s), Refills(s) 4, Pharmacy: [email or web address], 169, cm, 06/21/24 15:12:00 EDT, Height/Length Dosing, 93.4, kg, 06/21/24 15:12:00 EDT, Weight Dosing Start Date: 10/24/24 Status: Ordered Quantity: 90.0 Unit: tab(s) Repeat number: 5 Start: 06-19-2024 take 1 tablet by emile th once daily at bedtime amitriptyline 10 mg Tab 10 mg = 1 tab(s), Oral, Once a day (at bedtime), # 90 tab(s), Refills(s) 1, Pharmacy: [email or web address], 169, cm, 06/19/24 15:47:00 EDT, Height/Length Dosing, 93.2, kg, 06/19/24 15:47:00 EDT, Weight Dosing Start Date: 06/19/24 Status: Ordered Start: 04-06-2024 take 1 tablet by emile th once daily at bedtime amitriptyline 10 mg Tab 10 mg = 1 tab(s), Oral, Once a day (at bedtime), # 90 tab(s), Refills(s) 1, Pharmacy: [email or web address], 169, cm, 01/13/24 13:06:00 EDT, Height/Length Dosing, 93, kg, 01/13/24 13:06:00 EDT, Weight Dosing Start Date: 04/06/24 Status: Ordered Start: 10-10-2023 take 1 tablet by emile th once daily at bedtime amitriptyline 10 mg Tab 10 mg = 1 tab(s), Oral, Once a day (at bedtime), # 90 tab(s), Refills(s) 1, Pharmacy: [email or web address], 170, cm, 09/02/23 16:43:00 EST, Height/Length Dosing, 95, kg, 09/02/23 16:43:00 EST, Weight Dosing Start Date: 10/10/23 Status: Ordered Start: 05-26-2021 End: 09-25-2023 take 1 tablet by mouth once daily at bedtime amitriptyline 10 mg Tab 10 mg = 1 tab(s), Oral, Once a day (at bedtime), X 90 day(s), # 90 tab(s), Refills(s) 0, Pharmacy: [email or web address], 170, cm, 06/27/23 16:25:00 EDT, Height/Length Dosing, 94.1, kg, 06/27/23 16:25:00 EDT, Weight Dosing Start Date: 06/27/23 Stop Date: 09/25/23 Status: Ordered bacitracin 0.5 unt/mg topical ointment (3 sources) Start: 04-21-2024 bacitracin Top 500 units/g Oint 30 gram 1 flo, Topical, QID, 30 gram, Refill(s) 0, [email or web address], 169, cm, 04/21/24 10:11:00 EDT, Height/Length Dosing, 93, kg, 04/21/24 10:11:00 EDT, Weight Dosing Start Date: 04/21/24 Status: Ordered brompheniramine maleate 0.4 mg/ml / dextromethorphan hydrobromide 2 mg/ml / pseudoephedrine hydrochloride 6 mg/ml oral solution (10 sources) alpha-Adrenergic Agonist, Uncompetitive Q-kjitrh-M-asparta te Receptor Antagonist, Sigma-1 Agonist Start: 07-05-2022 take 5 mL by mouth four times daily for cough and congestion Bromfed DM oral syrup 5 mL, Oral, QID for cough and congestion, 200 mL, Refill(s) 0, [email or web address], 169, cm, 07/05/22 10:52:00 EDT, Height/Length Dosing, 92.9, kg, 07/05/22 10:52:00 EDT, Weight Dosing Start Date: 07/05/22 Status: Ordered cephalexin 500 mg oral capsule (6 sources) Cephalosporin Antibacterial Start: 11-26-2022 take 1 capsule by mouth every eight hours cephalexin 500 mg Cap 500 mg = 1 cap(s), Oral, q8hr, # 30 cap(s), Refills(s) 0, Pharmacy: [email or web address], 169, cm, 11/24/22 11:34:00 EST, Height/Length Dosing, 93, kg, 11/24/22 11:34:00 EST, Weight Dosing Start Date: 11/26/22 Status: Ordered Start: 06-11-2022 End: 06-18-2022 take 1 capsule by mouth every eight hours cephalexin 500 mg Cap 500 mg = 1 cap(s), Oral, q8hr, X 7 day(s), # 21 cap(s), Refills(s) 0, Pharmacy: [email or web address], 170, cm, 06/11/22 11:59:00 EDT, Height/Length Dosing, 92.6, kg, 06/11/22 11:59:00 EDT, Weight Dosing Start Date: 06/11/22 Stop Date: 06/18/22 Status: Ordered cetirizine hydrochloride 10 mg oral tablet (15 sources) Histamine-1 Receptor Antagonist Start: 06-21-2025 take 1 tablet by mouth once daily cetirizine 10 mg Tab 10 mg = 1 tab(s), Oral, Daily, # 30 tab(s), Refills(s) 5, Pharmacy: [email or web address], 169, cm, 06/21/25 16:20:00 EDT, Height/Length Dosing, 94.2, kg, 06/21/25 16:20:00 EDT, Weight Dosing Start Date: 06/21/25 Status: Ordered Quantity: 30.0 Unit: tab(s) Repeat number: 6 Start: 11-11-2023 take 1 tablet by emile th once daily cetirizine 10 mg Tab 10 mg = 1 tab(s), Oral, Daily, # 30 tab(s), Refills(s) 1, Pharmacy: [email or web address], 169, cm, 06/19/24 15:47:00 EDT, Height/Length Dosing, 93.2, kg, 06/19/24 15:47:00 EDT, Weight Dosing Start Date: 06/19/24 Status: Ordered Quantity: 30.0 Unit: tab(s) Repeat number: 2 Start: 09-02-2023 take 1 tablet by emile th once daily cetirizine 10 mg Tab 10 mg = 1 tab(s), Oral, Daily, # 30 tab(s), Refills(s) 1 Start Date: 09/02/23 Status: Ordered cyclobenzaprine hydrochloride 10 mg oral tablet (20 sources) Muscle Relaxant Start: 06-21-2025 take 1 tablet by mouth three times daily as needed for muscle spasms cyclobenzaprine 10 mg Tab 10 mg = 1 tab(s), Oral, TID, PRN for spasm, May use as needed for muscle spasms but sedation warning, # 30 tab(s), Refills(s) 5, Pharmacy: [email or web address], 169, cm, 06/21/25 16:20:00 EDT, Height/Length Dosing, 94.2, kg, 06/21/25 16:20:00 EDT, Weight Dosing Start Date: 06/21/25 Status: Ordered Quantity: 30.0 Unit: tab(s) Repeat number: 6 Start: 06-19-2024 take 1 tablet by emile three times daily as needed for muscle spasms cyclobenzaprine 10 mg Tab 10 mg = 1 tab(s), Oral, TID, PRN for spasm, May use as needed for muscle spasms but sedation warning, # 30 tab(s), Refills(s) 1, Pharmacy: [email or web address], 169, cm, 06/19/24 15:47:00 EDT, Height/Length Dosing, 93.2, kg, 06/19/24 15:47:00 EDT, Weight Dosing Start Date: 06/19/24 Status: Ordered Quantity: 30.0 Unit: tab(s) Repeat number: 2 Start: 08-05-2021 End: 06-19-2023 take 1 tablet by mouth three times daily as needed for muscle spasms cyclobenzaprine (Flexeril) 10 MG tablet TAKE 1 TABLET BY MOUTH THREE TIMES DAILY NEEDED for spasm 06/09/2023 Active dicyclomine hydrochloride 10 mg oral capsule (20 sources) Anticholinergic Start: 06-21-2025 take 1 capsule by mouth four times daily as needed for pain Bentyl 10 mg Cap 10 mg = 1 cap(s), Oral, QID, as needed for abdominal pain, # 40 cap(s), Refills(s) 11, Pharmacy: [email or web address], 169, cm, 06/21/25 16:20:00 EDT, Height/Length Dosing, 94.2, kg, 06/21/25 16:20:00 EDT, Weight Dosing Start Date: 06/21/25 Status: Ordered Quantity: 40.0 Unit: cap(s) Repeat number: 12 Start: 06-19-2024 take 1 capsule by mo ut four times daily as needed for pain Bentyl 10 mg Cap 10 mg = 1 cap(s), Oral, QID, as needed for abdominal pain, # 40 cap(s), Refills(s) 11, Pharmacy: [email or web address], 169, cm, 06/19/24 15:47:00 EDT, Height/Length Dosing, 93.2, kg, 06/19/24 15:47:00 EDT, Weight Dosing Start Date: 06/19/24 Status: Ordered Quantity: 40.0 Unit: cap(s) Repeat number: 12 Start: 11-01-2022 take 1 capsule by [facility] four times daily as needed for pain Bentyl 10 mg Cap 10 mg = 1 cap(s), Oral, QID, as needed for abdominal pain, # 40 cap(s), Refills(s) 11, Pharmacy: [email or web address], 169, cm, 10/15/22 12:00:00 EST, Height/Length Dosing, 91.8, kg, 10/15/22 12:00:00 EST, Weight Dosing Start Date: 11/01/22 Status: Ordered Start: 06-11-2022 take 2 capsules by [facility] once daily dicyclomine 10 mg Cap 20 mg = 2 cap(s), Oral, Daily, # 60 cap(s), Refills(s) 11, Pharmacy: [email or web address], 170, cm, 06/11/22 11:59:00 EDT, Height/Length Dosing, 92.6, kg, 06/11/22 11:59:00 EDT, Weight Dosing Start Date: 06/11/22 Status: Ordered Start: 01-22-2022 take 2 capsules by m outh once daily dicyclomine 10 mg Cap 20 mg = 2 cap(s), Oral, Daily, # 60 cap(s), Refills(s) 11, Pharmacy: [email or web address], 170, cm, 09/29/21 13:20:00 EST, Height/Length Dosing, 83.2, kg, 09/29/21 13:20:00 EST, Weight Dosing Start Date: 01/22/22 Status: Ordered fluconazole 150 mg oral tablet (4 sources) Azole Antifungal Start: 06-14-2022 take 1 tablet by mouth once fluconazole 150 mg Tab 150 mg = 1 tab(s), Oral, Once, # 1 tab(s), Refills(s) 0, Pharmacy: [email or web address], 170, cm, 06/11/22 11:59:00 EDT, Height/Length Dosing, 92.6, kg, 06/11/22 11:59:00 EDT, Weight Dosing Start Date: 06/14/22 Status: Ordered fluticasone 0.05 mg/inh Nasal [place] (6 sources) Start: 07-05-2022 fluticasone 0. 05 mg/inh Nasal [place] 2 spray(s), Nasal, Daily, 16 gram, Refill(s) 0, each nostril, [email or web address], 169, cm, 07/05/22 10:52:00 EDT, Height/Length Dosing, 92.9, kg, 07/05/22 10:52:00 EDT, Weight Dosing Start Date: 07/05/22 Status: Ordered levothyroxine sodium 0.088 mg oral tablet (20 sources) l-Thyroxine Start: 06-21-2025 take 1 tablet by mouth once daily levothyroxine 88 mcg (0.088 mg) Tab See Instructions, TAKE 1 TABLET BY MOUTH EVERY DAY, # 90 tab(s), Refills(s) 4, Pharmacy: [email or web address], 169, cm, 06/21/25 16:20:00 EDT, Height/Length Dosing, 94.2, kg, 06/21/25 16:20:00 EDT, Weight Dosing Start Date: 06/21/25 Status: Ordered Quantity: 90.0 Unit: tab(s) Repeat number: 5 Start: 10-24-2024 take 1 tablet by emile once daily levothyroxine 88 mcg (0.088 mg) Tab See Instructions, TAKE 1 TABLET BY MOUTH EVERY DAY, # 90 tab(s), Refills(s) 4, Pharmacy: [email or web address], 169, cm, 06/21/24 15:12:00 EDT, Height/Length Dosing, 93.4, kg, 06/21/24 15:12:00 EDT, Weight Dosing Start Date: 10/24/24 Status: Ordered Quantity: 90.0 Unit: tab(s) Repeat number: 5 Start: 06-19-2024 take 1 tablet by emile once daily levothyroxine 88 mcg (0.088 mg) Tab 88 microgram = 1 tab(s), Oral, Daily, # 90 tab(s), Refills(s) 3, Pharmacy: [email or web address], 169, cm, 06/19/24 15:47:00 EDT, Height/Length Dosing, 93.2, kg, 06/19/24 15:47:00 EDT, Weight Dosing Start Date: 06/19/24 Status: Ordered Start: 06-27-2023 take 1 tablet by emile once daily levothyroxine 88 mcg (0.088 mg) Tab 88 microgram = 1 tab(s), Oral, Daily, # 90 tab(s), Refills(s) 3, Pharmacy: [facility]/pharmacy #[id number], 170, cm, 06/27/23 16:25:00 EDT, Height/Length Dosing, 94.1, kg, 06/27/23 16:25:00 EDT, Weight Dosing Start Date: 06/27/23 Status: Ordered Start: 12-22-2022 take 1 tablet by emile once daily levothyroxine 88 mcg (0.088 mg) Tab 88 microgram = 1 tab(s), Oral, Daily, # 90 tab(s), Refills(s) 1, Pharmacy: [facility]/pharmacy #[id number], 169, cm, 12/16/22 12:08:00 EDT, Height/Length Dosing, 90.3, kg, 12/16/22 12:08:00 EDT, Weight Dosing Start Date: 12/22/22 Status: Ordered Start: 05-26-2022 take 1 tablet by emile once daily levothyroxine 88 mcg (0.088 mg) Tab 88 microgram = 1 tab(s), Oral, Daily, # 90 tab(s), Refills(s) 1, [id number], cm, 05/19/22 10:43:00 EDT, Height/Length Dosing, 93, kg, 05/19/22 10:43:00 EDT, Weight Dosing Start Date: 05/26/22 Status: Ordered Start: 11-18-2021 take 1 tablet by [facility] once daily levothyroxine 88 mcg (0.088 mg) Tab 88 microgram = 1 tab(s), Oral, Daily, # 90 tab(s), Refills(s) 1, [id number] 170, cm, 09/29/21 13:20:00 EST, Height/Length Dosing, 83.2, kg, 09/29/21 13:20:00 EST, Weight Dosing Start Date: 11/18/21 Status: Ordered take 1 tablet by [facility] once daily levothyroxine (Synthroid, Levoxyl) 88 MCG tablet Take 88 mcg by mouth Daily Active lidocaine Viscous Top 2% Riya 15 mL (16 sources) Start: 08-03-2022 lidocaine Viscous Top 2% Riya 15 mL 0.1 gm, 5 mL, Topical, QIDACHS, 100 mL, Refill(s) 0, [email or web address], 169, cm, 08/03/22 21:08:00 EDT, Height/Length [...] Nausea/Vomiting, # 12 tab(s), Refills(s) 0, Pharmacy: [email or web address], 169, cm, 06/19/24 15:47:00 EDT, Height/Length Dosing, 93.2, kg, 06/19/24 15:47:00 EDT, Weight Dosing Start Date: 06/19/24 Status: Ordered Quantity: 12.0 Unit: tab(s) Repeat number: 1 Start: 05-13-2022 take 1 tablet by emile th every six hours as needed for nausea ondansetron 4 mg Dis Tab 4 mg = 1 tab(s), Oral, q6hr, PRN Nausea/Vomiting, # 12 tab(s), Refills(s) 0, Pharmacy: [email or web address], 170, cm, 03/25/22 11:35:00 EDT, Height/Length Dosing, 93.2, kg, 03/25/22 11:35:00 EDT, Weight Dosing Start Date: 05/13/22 Status: Ordered pantoprazole 40 mg delayed release oral tablet (20 sources) Proton Pump Inhibitor Start: 06-21-2025 take 1 tablet by mouth twice daily Pantoprazole [address] Tab 40 mg = 1 tab(s), Oral, BID, # 180 tab(s), Refills(s) 4, Pharmacy: [email or web address], 169, cm, 06/21/25 16:20:00 EDT, Height/Length Dosing, 94.2, kg, 06/21/25 16:20:00 EDT, Weight Dosing Start Date: 06/21/25 Status: Ordered Quantity: 180.0 Unit: tab(s) Repeat number: 5 Start: 02-04-2025 take 1 tablet by emile th twice daily Pantoprazole [address] Tab 40 mg = 1 tab(s), Oral, BID, # 180 tab(s), Refills(s) 4, Pharmacy: [email or web address], 169, cm, 06/21/24 15:12:00 EDT, Height/Length Dosing, 93.4, kg, 06/21/24 15:12:00 EDT, Weight Dosing Start Date: 02/04/25 Status: Ordered Quantity: 180.0 Unit: tab(s) Repeat number: 5 Start: 09-08-2022 take 1 tablet by emile th twice daily Pantoprazole [address] Tab 40 mg = 1 tab(s), Oral, BID, # 180 tab(s), Refills(s) 3, Pharmacy: [email or web address], 169, cm, 06/19/24 15:47:00 EDT, Height/Length Dosing, 93.2, kg, 06/19/24 15:47:00 EDT, Weight Dosing Start Date: 06/19/24 Status: Ordered Start: 03-29-2022 take 1 tablet by emile once daily pantoprazole 40 mg Oral EC Tab 40 mg = 1 tab(s), Oral, Daily, # 30 tab(s), Refills(s) 5, Pharmacy: [email or web address], 170, cm, 03/25/22 11:35:00 EDT, Height/Length Dosing, 93.2, kg, 03/25/22 11:35:00 EDT, Weight Dosing Start Date: 03/29/22 Status: Ordered Start: 03-29-2022 take 1 tablet by emile once daily pantoprazole 40 mg Oral EC Tab 40 mg = 1 tab(s), Oral, Daily, # 30 tab(s), Refills(s) 5, Pharmacy: [email or web address], 170, cm, 03/25/22 11:35:00 EDT, Height/Length Dosing, 93.2, kg, 03/25/22 11:35:00 EDT, Weight Dosing Start Date: 03/29/22 Status: Ordered Start: 05-28-2021 take 1 tablet by emile once daily pantoprazole 40 mg Oral EC Tab 40 mg = 1 tab(s), Oral, Daily, # 30 tab(s), Refills(s) 5, Pharmacy: [email or web address], 170, cm, 05/28/21 13:52:00 EDT, Height/Length Dosing, 86.5, kg, 05/28/21 13:52:00 EDT, Weight Dosing Start Date: 05/28/21 Status: Ordered Start: 05-28-2021 take 1 tablet by emile once daily pantoprazole 40 mg Oral EC Tab 40 mg = 1 tab(s), Oral, Daily, # 30 tab(s), Refills(s) 5, Pharmacy: [email or web address], 170, cm, 05/28/21 13:52:00 EDT, Height/Length [...] EA, Refill(s) 3, 2 puff(s) Inhalation BID, [email or web address], 169, cm, 09/08/22 9:25:00 EST, Height/Length Dosing, 93, kg, 09/08/22 9:25:00 EST, Weight Dosing Start Date: 09/08/22 Status: Ordered Start: 07-05-2022 fluticasone 0. 05 mg/inh Nasal [place] 2 spray(s), Nasal, Daily, 16 gram, Refill(s) 0, each nostril, [email or web address], 169, cm, 07/05/22 10:52:00 EDT, Height/Length Dosing, 92.9, kg, 07/05/22 10:52:00 EDT, Weight Dosing Start Date: 07/05/22 Status: Ordered magnesium sulfate 225 MG / potassium chloride 188 MG / sodium sulfate 1479 MG Oral Tablet [Sutab] (3 sources) Start: 12-21-2023 take 1 tablet by mouth once Sutab oral tablet See Instructions, 1 EA, Refill(s) 0, Please follow instructions per packaging and physician's handout, [email or web address], 169, cm, 12/21/23 8:16:00 EDT, Height/Length [...] coldsore, # 12 tab(s), Refills(s) 2, Pharmacy: [email or web address], 169, cm, 06/19/24 15:47:00 EDT, Height/Length Dosing, 93.2, kg, 06/19/24 15:47:00 EDT, Weight Dosing Start Date: 06/19/24 Status: Ordered Quantity: 12.0 Unit: tab(s) Repeat number: 3 Start: 02-29-2024 take 2 tablets by [facility] twice daily Valtrex 1 g Tab 2 gram = 2 tab(s), Oral, BID, x 1 days at onset of coldsore, # 12 tab(s), Refills(s) 2, Pharmacy: [email or web address], 169, cm, 01/13/24 13:06:00 EDT, Height/Length Dosing, 93, kg, 01/13/24 13:06:00 EDT, Weight Dosing Start Date: 02/29/24 Status: Ordered Start: 01-22-2022 take 2 tablets by [facility] twice daily Valtrex 1 g Tab 2 gram = 2 tab(s), Oral, BID, x 1 days at onset of coldsore, # 12 tab(s), Refills(s) 2, Pharmacy: [email or web address], 170, cm, 09/29/21 13:20:00 EST, Height/Length Dosing, 83.2, kg, 09/29/21 13:20:00 EST, Weight Dosing Start Date: 01/22/22 Status: Ordered Start: 01-22-2022 take 2 tablets by [facility] twice daily Valtrex 1 g Tab 2 gram = 2 tab(s), Oral, BID, x 1 days at onset of coldsore, # 12 tab(s), Refills(s) 2, Pharmacy: [email or web address], 170, cm, 09/29/21 13:20:00 EST, Height/Length [...] Onset: 2 Episodic Other nervous system disorders (4 sources) H/O: migraine 06-19-2024 Episodic Other nervous system disorders (2 sources) H/O: RIB CUTTER disorder; Translations: [Personal history of other diseases of the nervous system and sense organs] Onset: 4 Episodic Other non-traumatic joint disorders (20 sources) Ankle pain 06-04-2020 Episodic Other non-traumatic joint disorders (20 sources) Shoulder pain 01-15-2015 Episodic Other nutritional; endocrine; and metabolic disorders (9 sources) Obese class I; Translations: [Body mass index (BMI) 32.0-32.9, adult] Onset: 2 Chronic Other nutritional; endocrine; and metabolic disorders (20 sources) Obesity; Translations: [Other obesity due to excess calories] Onset: 2 Chronic Other nutritional; endocrine; and metabolic disorders (20 sources) Body mass index 30+ - obesity 03-25-2022 Chronic Other nutritional; endocrine; and metabolic disorders (1 source) Obesity caused by energy imbalance 06-19-2025 Chronic Other nutritional; endocrine; and metabolic disorders [...] conditions (not mental disorders or infectious disease) (18 sources) Encounter for screening for malignant neoplasm [...] te Episodic/Chronic Genitourinary symptoms and ill-defined conditions (5 sources) Urinary symptoms ; Translations: [Unspecified symptoms and signs involving the genitourinary system] Onset: 12-19-2023 12-19-2023 Episodic Mycoses (5 sources) Mycosis; Translations: [Candidiasis, unspecified] Onset: 12-19-2023 [...] sources) Menopause present Resolved: 07-08-2016 02-05-2019 Episodic Residual codes; unclassified (7 sources) Postmenopausal state; Translations: [Asymptomatic menopausal state] Onset: 12-19-2023 12-19-2023 Episodic Unclassified (20 sources) Entire liver (body structure) 02-03-2010 Urinary tract infections (18 sources) Acute cystitis; Translations: [Acute cystitis without hematuria] Onset: 06-11-2022 Episodic Results Test Name Value Interpretation Reference Range Facility Family Medicine Office/Clini c Noteon 06-21-2025 Family Medicine Office/Clinic Note Family Medicine Office/Clinic Note Chief Complaint annual wellness exam, rf meds to dm/[place], c/o left shoulder swelling and pain x 1wk, declines flu vacc History of Present Illness Presenting for general health maintenance and wellness exam. Recently completed labs which are reviewed today CBC without anemia. Kidney functions liver functions electrolytes within normal limits. Her thyroid is stable continues levothyroxine on an empty stomach daily for best absorption. Lipids are fairly well-controlled with diet alone. IBS symptoms fluctuate. Definitely triggered by stress work schedule and diet. She generally only sleeps 2 to 4 hours/day despite the use of amitriptyline, typically 12-hour shifts. She has over 12 birds at home 5 of which talk! Bowels are moving adequately. She is up-to-date with colonoscopy. Gynecology with Pap in November was normal, mammogram is scheduled next month. Describes some itchy skin lesions on the anterior chest. She does have multiple tattoos. She did have sutures earlier in the year on the breasts where she had had seborrheic keratosis removed apparently these caused a lot of irritation wonders if she may be allergic. Reflux has been stable. Denies any acute choking episodes or dysphagia. Migraines are still sporadic often times requires time off of work if she cannot alleviate the symptoms immediately with OTC measures. Patient defers flu vaccine. Review of Systems PHQ Score Initial Depression Screen Score: 0 SCORE See HPI otherwise negative Physical Exam Vitals & Measurements HR: 83(Peripheral) RR: 16 BP: 120/80 SpO2: 100% HT: 169 cm HT: 67 in WT: 207.675 lb WT: 94.2 kg BMI: 32.98 Well-developed adequately groomed wearing corrective lenses. Has multiple piercings in the pinna and the tragus. TMs are both clear scant cerumen grossly normal hearing. Oropharynx is pink and moist fair united a[place] dentition with repairs. Conjunctiva clear. Pupils are symmetric. Boggy turbinates clear rhinorrhea. No thyromegaly. Lungs diminished but clear cardiac regular rate and rhythm no murmur gallop or rub. Belly is overweight nontender no organomegaly. Integument moderately tanned does have numerous tattoos. On the anterior chest there are numerous small verrucal lesions approximately 1 to 2 mm in diameter none appear acutely inflamed but they are slightly sensitive to touch. Neuropsychiatric pleasant cooperative very talkative. No tremors. Assessment/Plan 1. Encounter for well adult exam with abnormal findings (Z00.01: Encounter for general adult medical examination with abnormal findings) Patient is getting scheduled for optometry and dental care to keep up-to-date. Did suggest flu vaccine to avoid any acute illnesses this fall she declines. Continued efforts at appropriate self-care reviewed 2. GERD (gastroesophageal reflux disease) (K21.9: Gastro-esophageal reflux disease without esophagitis) Importance of dietary discretions and continue pantoprazole daily reviewed. Always be observant for acute dysphagia 3. Generalized anxiety disorder (F41.1: Generalized anxiety disorder) Patient maintains the use of amitriptyline to help her sleep. She defers any other psychoactive substances at this time 4. Schatzki's ring (K22.2: Esophageal obstruction) See #2 5. Migraine with aura, not intractable (G43.109: Migraine with aura, not intractable, without status migrainosus) Utilizes Tylenol migraine as needed. Continue with amitriptyline to maintain good sleep hygiene. 6. Irritable bowel syndrome with diarrhea (K58.0: Irritable bowel syndrome with diarrhea) May continue with dicyclomine on a as needed basis continue dietary discretions and fiber supplementation 7. Viral warts (B07.9: Viral wart, unspecified) Viral warts on the chest could be removed but she is a bit concerned about scarring her tattoos. Continue with good hygiene and generally these will resolve but if not we could remove them gently in the office with curette. 8. Hyperlipemia, mixed (E78.2: Mixed hyperlipidemia) Continue with dietary discretions for treatment. Has limited risk factors. 9. History of colon polyps (Z86.0100: Personal history of colon polyps, unspecified) History of polyps follows with gastroenterology for serial screenings. Always remain vigilant for any change in bowels and maintain good fiber supplementation to prevent polyp development 10. 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 11. Breast cancer screening by mammogram (Z12.31: Encounter for screening mammogram for malignant neoplasm of breast) Mammogram is scheduled under her shadowgraph scale operator at [facility] next month results to follow 12. Obesity due to excess calories (E66.09: Other obesity due to excess calories) The standard range for ages 18 and older is >=18.5 and < 25 kg/m2. Your BMI today was above this range, this falls in the overweight to obese category and there are medical benefits to ramon (more content not included)... Normal [facility] Comment on above: Result Comment: Elec tronically Signed By: ROSS LUIS, Antony\.br\Date and Time Signed: 06/21/25 17:18 EDT CBC w/ Auto Diffon 5 Basophil Absolute 0.1 E9/L Normal 0.0-0.2 [facility] Comment on above: Performed By: #### 2 [id number] #### [facility] [address] [place] [address] Basophils/100 WBC (Bld) 0.9 % Normal 0.0-2.0 [facility] Comment on above: Performed By: #### 2 [id number] #### [facility] [address] [place] [address] Eos Absolute 0.2 E9/L Normal 0.0-0.5 [facility] Comment on above: Performed By: #### 2 [id number] #### [facility] [address] [place] [address] Eosinophils/100 WBC (Bld) 3.0 % Normal 0.0-8.0 [facility] Comment on above: Performed By: #### 2 [id number] #### [facility] [address] [place] [address] Erythrocyte distribution width (RBC) [Ratio] 13.4 % Normal 10.9-14.2 [facility] Comment on above: Performed By: #### 2 [id number] #### [facility] [address] [place] [address] Hematocrit (Bld) [Volume fraction] 38.9 % Normal 34.0-46.0 [facility] Comment on above: Performed By: #### 2 [id number] #### [facility] [address] [place] [address] Hemoglobin (Bld) [Mass/Vol] 13.0 g/dL Normal 12.0-16.0 [facility] Comment on above: Performed By: #### 2 515906 #### [facility] [address] [place] [address] Lymph Absolute 3.1 E9/L Normal 1.0-4.0 [facility] Comment on above: Performed By: #### 2 [id number] #### [facility] [address] [place] [address] Lymphocytes/100 WBC (Bld) 43.4 % Normal 14.0-50.0 [facility] Comment on above: Performed By: #### 2 334395 #### [facility] [address] [place] [address] MCH (RBC) [Entitic mass] 28.1 pg Normal 27.0-34.0 [facility] Comment on above: Performed By: #### 2 191455 #### [facility] [address] [place] [address] MCHC (RBC) [Mass/Vol] 33.4 g/dL Normal 31.4-36.0 [facility] Comment on above: Performed By: #### 2 481270 #### [facility] [address] [place] [address] MCV (RBC) [Entitic vol] 84.3 fL Normal 80.0-100.0 [facility] Comment on above: Performed By: #### 2 317156 #### [facility] [address] [place] [address] Amite Absolute 0.5 E9/L Normal 0.2-1.0 [facility] Comment on above: Performed By: #### 2 [id number] #### [facility] [address] [place] [address] Monocytes/100 WBC (Bld) 6.8 % Normal 4.0-14.0 [facility] Comment on above: Performed By: #### 2 697183 #### [facility] [address] [place] [address] Neutro Absolute 3.3 E9/L Normal 2.0-7.5 [facility] Comment on above: Performed By: #### 2 642372 #### [facility] [address] [place] [address] Neutro Auto 45.9 % Normal 36.0-75.0 [facility] Comment on above: Performed By: #### 2 616755 #### [facility] [address] [place] [address] Platelet 373.0 E9/L Normal 150.0-500.0 [facility] Comment on above: Performed By: #### 2 599280 #### [facility] [address] [place] [address] Platelet mean volume (Bld) [Entitic vol] 7.4 fL Normal 6.4-10.8 [facility] Comment on above: Performed By: #### 2 252867 #### [facility] [address] [place] [address] RBC 4.6 E12/L Normal 4.3-5.9 [facility] Comment on above: Performed By: #### 2 350651 #### [facility] [address] [place] [address] WBC 7.1 E9/L Normal 4.0-11.0 [facility] Comment on above: Performed By: #### 2 153539 #### [facility] [address] [place] [address] CMPon 05-31-2025 Albumin [Mass/Vol] 4.3 g/dL Normal 3.3-5.0 [facility] Comment on above: Performed By: #### 2 399555 #### [facility] [address] [place] [address] Albumin/Globulin [Mass ratio] 1.5 {ratio} Normal 1.1-2.2 [facility] Comment on above: Performed By: #### 2 433327 #### [facility] [address] [place] [address] Alk Phos 115 Int._Unit/L High 21-98 [facility] Comment on above: Performed By: #### 2 052200 #### [facility] [address] [place] [address] ALT 23 Int._Unit/L Normal 6-46 [facility] Comment on above: Performed By: #### 2 037572 #### [facility] [address] [place] [address] Anion gap [Moles/Vol] 9 mmol/L Normal 6-16 [facility] Comment on above: Performed By: #### 2 553928 #### [facility] [address] [place] [address] AST 17 Int._Unit/L Normal 5-43 [facility] Comment on above: Performed By: #### 2 122632 #### [facility] [address] [place] [address] Bili Total 0.3 mg/dL Normal 0.0-1.1 [facility] Comment on above: Performed By: #### 2 969197 #### [facility] [address] [place] [address] BUN/Creat Ratio 18 No Units Normal 10-20 [facility] Comment on above: Performed By: #### 2 481571 #### [facility] [address] [place] [address] Calcium [Mass/Vol] 9.3 mg/dL Normal 8.9-11.1 [facility] Comment on above: Performed By: #### 2 031635 #### [facility] [address] [place] [address] Chloride [Moles/Vol] 106 mmol/L Normal 101-111 [facility] Comment on above: Performed By: #### 2 515974 #### [facility] [address] [place] [address] CO2 [Moles/Vol] 28 mmol/L Normal 21-31 [facility] Comment on above: Performed By: #### 2 233843 #### [facility] [address] [place] [address] Creatinine [Mass/Vol] 0.9 mg/dL Normal 0.5-1.3 [facility] Comment on above: Performed By: #### 2 314039 #### [facility] [address] [place] [address] Globulin (S) [Mass/Vol] 2.9 g/dL Normal 1.4-4.0 [facility] Comment on above: Performed By: #### 2 859402 #### [facility] [address] [place] [address] Glucose [Mass/Vol] 96 mg/dL Normal 55-199 [facility] Comment on above: Performed By: #### 2 255898 #### [facility] [address] [place] [address] Potassium [Moles/Vol] 3.9 mmol/L Normal 3.5-5.3 [facility] Comment on above: Performed By: #### 2 534851 #### [facility] [address] [place] [address] Protein [Mass/Vol] 7.2 g/dL Normal 6.0-7.8 [facility] Comment on above: Performed By: #### 2 126129 #### [facility] [address] [place] [address] Sodium [Moles/Vol] 139 mmol/L Normal 135-145 [facility] Comment on above: Performed By: #### 2 443670 #### [facility] [address] [place] [address] Urea nitrogen [Mass/Vol] 16 mg/dL Normal 5-21 [facility] Comment on above: Performed By: #### 2 442282 #### [facility] [address] [place] [address] Lipid Panelon 05-31-2025 Cholesterol [Mass/Vol] 222 mg/dL High 120-200 [facility] Comment on above: Performed By: #### 2 383116 #### [facility] [address] [place] [address] Cholesterol in HDL [Mass/Vol] 52 mg/dL Invalid Interpretation Code [facility] Comment on above: Result Comment: '>= 60 LOW RISK' '<= 40 HIGH RISK' Performed By: #### 2 451292 #### [facility] [address] [place] [address] Cholesterol in LDL [Mass/Vol] 152 mg/dL High <=129 [facility] Comment on above: Performed By: #### 2 764538 #### [facility] [address] [place] [address] Cholesterol in VLDL [Mass/Vol] 31 mg/dL Normal 7-40 [facility] Comment on above: Performed By: #### 2 915296 #### [facility] [address] [place] [address] Triglyceride [Mass/Vol] 156 mg/dL High <=149 [facility] Comment on above: Performed By: #### 2 729357 #### [facility] [address] [place] [address] TSH With T4fr Reflexon 05-31 TSH Qn 1.58 m[IU]/L Normal 0.34-5.60 [facility] Comment on above: Performed By: #### 1 [id number] #### [facility] [address] [place] [address] eGFRon 05-31-2025 eGFR 74 mL/min/1.73 m2 Normal >=59 [facility] Comment on above: Performed By: #### 1 [id number] #### [facility] [address] [place] [address] IGP,APTIMA HPV,AGE GDLNon AGE GDLN ACOG TESTING Note . [facility] Comment on above: TESTS RESULT FLAG UN ITS REF RANGE LAB Clinician Provided Cytology Information Source.............Cervix;Endocervix No. of containers..01 ThinPrep Vial Age [place] ACOG Sandra... FLAG LEGEND: L-Low Normal,H-High Normal,LL-Alert Low,HH-Alert High <-Panic Low,>-Panic High,A-Abnormal,AA-Critical Abnormal Performed at: 01 =G [address] [address] Rajani Miller MD, HPV APTIMA Negative Negative [facility] Comment on above: This nucleic acid am plification test detects fourteen high- risk HPV types (16,18,31,33,35,39,45,51,52,56,58,59,66,68) without differentiation. Performed at: =[address] [id number] Carbide Grinder: Rajani Miller MD, Phone: [phone] Performed at: [address] [id number] Carbide Grinder: Rajani Miller MD, Phone: [phone] IGP, APTIMA HPV, RFX 16/18,45 Note . [facility] Comment on above: TESTS RESULT FLAG [facility] REF RANGE LAB DIAGNOSIS: 02 NEGATIVE FOR INTRAEPITHELIAL LESION OR MALIGNANCY. CELLULAR CHANGES ASSOCIATED WITH INFLAMMATION ARE PRESENT. Specimen adequacy: 02 Satisfactory for evaluation. No endocervical cells are present. This is consistent with a history of hysterectomy. Areas of partially obscuring inflammatory exudate are present. Performed by: 02 Maki Finn, Telephone Maintainer (ASC) QC reviewed by: 02 Keshia Nicholas, Supervisory Telephone Maintainer (ASC) . 02 Note: Note 02 The Pap smear is a screening test designed to aid in the detection of premalignant and malignant conditions of the uterine cervix. It is not a diagnostic procedure and should not be used as the sole means of detecting cervical cancer. Both false-positive and false-negative reports do occur. Test Methodology: Note 02 This liquid based ThinPrep(R) pap test was screened with the use of an image guided system. HPV Genotype Reflex Note 02 Criteria not met, HPV Genotype not performed. FLAG LEGEND: L-Low Normal,H-High Normal,LL-Alert Low,HH-Alert High <-Panic Low,>-Panic High,A-Abnormal,AA-Critical Abnormal Performed at: [address] [address] Rajani Miller MD, BRUSH-SPATULA CERVIX [facility] Summaryon 0 06-21-2024 Ambulatory Visit [...] EDT With: Sendy LUIS, Mary Bar Where: [facility] [address] [facility] [address] [place] [phone]- Medications What How Much When Why [...] us (more content not included)... Normal [facility] Gastroenterology Office/Clin ic Noteon 06-21-2024 Gastroenterology Office/Clinic [...] Gall blad (more content not included)... Normal [facility] Comment on above: Result Comment: Elec tronically Signed By: Sendy LUIS, Mary Bar\.br\Date and Time Signed: 06/21/24 16:01 EDT Provider Letteron 06-21-2024 Provider Letter Provider Letter June 21, 20[address] [place] [id number] : 1965 To Whom It May Concern, Please excuse above patient from work. Date of Appointment: June 21, 2024 May Return to Work On: June 22, 2024 Sincerely, [facility] [phone] Normal [facility] Ambulatory Visit Summaryon 0 06-19-2024 Ambulatory [...] EDT With: Sendy LUIS, Mary Bar Where: [facility] [address] [place] [address]- You Need to Schedule the Following Appointments Follow Up with ROSS LUIS, WENDIE Hardy When: In 1 year Where: You Need to Complete the Following MA Mamm Screen w/CAD if perf and 3D Kristopher, *Est. 06/19/24 due within 3 months, Routine, Order for Future Visit, Transport Mode: Wheelchair, Reason: Screening, No, Breast cancer screening by mammogram, pp_set_radiology_subspecialt , [facility] Medications What How Much When Why Instructions Unchanged amitriptyline (amitriptyline 10 mg Tab) 1 Tablets By Mouth Once a day (at bedtime) Irritable bowel syndrome with diarrhea Pickup at [facility] Unchanged cetirizine (cetirizine 10 mg Tab) 1 Tablets By Mouth Every day Pickup at [email or web address] Unchanged cyclobenzaprine (cyclobenzaprine 10 mg Tab) 1 Tablets By Mouth 3 times a day as needed for for spasm May use as needed for muscle spasms but sedation warning [facility] Unchanged dicyclomine (Bentyl 10 mg Cap) 1 Capsules By Mouth 4 times a day as needed for abdominal pain Pickup at [facility] Unchanged levothyroxine (levothyroxine 88 mcg (0.088 mg) Tab) 1 Tablets By Mouth Every day Pickup at [facility] Unchanged ondansetron (ondansetron 4 mg Dis Tab) 1 Tablets By Mouth Every 6 hours as needed for Nausea/Vomiting Pickup at [facility] Unchanged pantoprazole (Pantoprazole [address] Tab) 1 Tablets By Mouth 2 times a day Pickup at [facility] Unchanged valacyclovir (Valtrex 1 g Tab) 2 Tablets By Mouth 2 times a day x 1 days at onset of coldsore Pickup at [facility] Pharmacy Information [facility]: [address] [place], [place] [id number] [phone] What How Much When Comments Stop Taking [...] anxiety disor (more content not included)... Normal [facility] Family Medicine Office/Clini c Noteon 06-19-2024 Family Medicine Office/Clinic Note Family Medicine Office/Clinic Note Chief Complaint annual wellness chk up, rf meds to dm/joi, needs shingrix History of Present Illness Song is a 58 y.o. female presenting to [facility] for a 1 yr wellness [...] BMI 3 (more content not included)... Normal [facility] Comment on above: Result Comment: Elec tronically Signed By: Antony HAWKINS MD\.br\Date and Time Signed: 06/19/24 17:16 EDT\.br\Electronically Co-Signed By: Mal Cowan MS, III\.br\Date and Time Co-Signed: 06/19/24 16:47 EDT Provider Letteron 06-19-2024 Provider Letter Provider Letter June 19, 2024 [address]ON [address] [place] [id number] : 1965 To Whom It May Concern, Please excuse above patient from work. Date of Illness: From: 19 June 2024 To: 19 June 2024 May Return to Work On: 20 June 2024 Restrictions: None Comments: Please call the office with any questions Sincerely, Family Medicine [place] [address] [place] [address] Normal [facility] CBC w/ Auto Diffon 4 Basophils/100 WBC (Bld) 0.6 % Normal 0.0-2.0 [facility] Comment on above: Performed By: #### 2 [id number] #### [facility] [address] [place] [address] Basophils/Leukocyte s Auto (Bld) [Pure # fraction] 0.0 E9/L Normal 0.0-0.2 [facility] Comment on above: Performed By: #### 2 316854 #### [facility] [address] [place] [address] Eosinophils (Bld) [#/Vol] 0.2 E9/L Normal 0.0-0.5 [facility] Comment on above: Performed By: #### 2 [id number] #### [facility] [address] [place] [address] Eosinophils/100 WBC (Bld) 3.2 % Normal 0.0-8.0 [facility] Comment on above: Performed By: #### 2 458359 #### [facility] [address] [place] [address] Erythrocyte distribution width (RBC) [Ratio] 13.7 % Normal 10.9-14.2 [facility] Comment on above: Performed By: #### 2 [id number] #### [facility] [address] [place] [address] Hematocrit (Bld) [Volume fraction] 35.6 % Normal 34.0-46.0 [facility] Comment on above: Performed By: #### 2 970558 #### [facility] [address] [place] [address] Hemoglobin (Bld) [Mass/Vol] 12.2 g/dL Normal 12.0-16.0 [facility] Comment on above: Performed By: #### 2 977262 #### [facility] [address] [place] [address] Lymphocytes (Bld) [#/Vol] 3.0 E9/L Normal 1.0-4.0 [facility] Comment on above: Performed By: #### 2 396414 #### [facility] [address] [place] [address] Lymphocytes/100 WBC (Bld) 42.1 % Normal 14.0-50.0 [facility] Comment on above: Performed By: #### 2 358965 #### [facility] [address] [place] [address] MCH (RBC) [Entitic mass] 28.9 pg Normal 27.0-34.0 [facility] Comment on above: Performed By: #### 2 220973 #### [facility] [address] [place] [id number] MCHC (RBC) [Mass/Vol] 34.3 g/dL Normal 31.4-36.0 [facility] Comment on above: Performed By: #### 2 [id number] #### [facility] [address] [place] [address] MCV (RBC) [Entitic vol] 84.1 fL Normal 80.0-100.0 [facility] Comment on above: Performed By: #### 2 [id number] #### [facility] [address] [place] [address] Monocytes (Bld) [#/Vol] 0.4 E9/L Normal 0.2-1.0 [facility] Comment on above: Performed By: #### 2 843201 #### [facility] [address] [place] [address] Neutrophils (Bld) [#/Vol] 3.4 E9/L Normal 2.0-7.5 [facility] Comment on above: Performed By: #### 2 404086 #### [facility] [address] [place] [address] Neutrophils/100 WBC (Bld) 48.2 % Normal 36.0-75.0 [facility] Comment on above: Performed By: #### 2 327367 #### [facility] [address] [place] [address] Platelet 349.0 E9/L Normal 150.0-500.0 [facility] Comment on above: Performed By: #### 2 900698 #### [facility] [address] [place] [address] Platelet mean volume (Bld) [Entitic vol] 7.1 fL Normal 6.4-10.8 [facility] Comment on above: Performed By: #### 2 345196 #### [facility] [address] [place] [address] RBC (Bld) [#/Vol] 4.2 E12/L Low 4.3-5.9 [facility] Comment on above: Performed By: #### 2 824507 #### [facility] [address] [place] [address] WBC corrected for nucl RBC Auto (Bld) [#/Vol] 7.1 E9/L Normal 4.0-11.0 [facility] Comment on above: Performed By: #### 2 660725 #### [facility] [address] [place] [address] CHEMISTRYOrdered By: SYSTEM SYSTEM on 06-09-2024 Albumin [...] 06-09-2024 Albumin [Mass/Vol] 4.1 g/dL Normal 3.3-5.0 [facility] Comment on above: Performed By: #### 2 695206 #### [facility] [address] [place] [address] Albumin/Globulin (S) [Mass conc ratio] 1.2 Normal 1.1-2.2 [facility] Comment on above: Performed By: #### 2 866698 #### [facility] [address] [place] [address] ALP [Catalytic activity/Vol] 120 Int._Unit/L High 21-98 [facility] Comment on above: Performed By: #### 2 989389 #### [facility] [address] [place] [address] ALT No additional P-5'-P [Catalytic activity/Vol] 21 Int._Unit/L Normal 6-46 [facility] Comment on above: Performed By: #### 2 838613 #### [facility] [address] [place] [address] Anion gap [Moles/Vol] 10 mmol/L Normal 6-16 [facility] Comment on above: Performed By: #### 2 850349 #### [facility] [address] [place] [address] AST [Catalytic activity/Vol] 18 Int._Unit/L Normal 5-43 [facility] Comment on above: Performed By: #### 2 340458 #### [facility] [address] [place] [address] Bilirubin [Mass/Vol] 0.3 mg/dL Normal 0.0-1.1 [facility] Comment on above: Performed By: #### 2 479935 #### [facility] [address] [place] [address] Calcium [Mass/Vol] 9.6 mg/dL Normal 8.9-11.1 [facility] Comment on above: Performed By: #### 2 402688 #### [facility] [address] [place] [address] Chloride [Moles/Vol] 105 mmol/L Normal 101-111 [facility] Comment on above: Performed By: #### 2 252003 #### [facility] [address] [place] [address] CO2 [Moles/Vol] 28 mmol/L Normal 21-31 [facility] Comment on above: Performed By: #### 2 110825 #### [facility] [address] [place] [address] Creatinine [Mass/Vol] 0.9 mg/dL Normal 0.5-1.3 [facility] Comment on above: Performed By: #### 2 604649 #### [facility] [address] [place] [address] Globulin (S) [Mass/Vol] 3.4 g/dL Normal 1.4-4.0 [facility] Comment on above: Performed By: #### 2 387517 #### [facility] [address] [place] [address] Glucose [Mass/Vol] 98 mg/dL Normal 55-199 [facility] Comment on above: Performed By: #### 2 008991 #### [facility] [address] [place] [address] Potassium [Moles/Vol] 3.8 mmol/L Normal 3.5-5.3 [facility] Comment on above: Performed By: #### 2 790333 #### [facility] [address] [place] [address] Protein [Mass/Vol] 7.5 g/dL Normal 6.0-7.8 [facility] Comment on above: Performed By: #### 2 550092 #### [facility] [address] [place] [address] Sodium [Moles/Vol] 139 mmol/L Normal 135-145 [facility] Comment on above: Performed By: #### 2 653393 #### [facility] [address] [place] [address] Urea nitrogen [Mass/Vol] 19 mg/dL Normal 5-21 [facility] Comment on above: Performed By: #### 2 694761 #### [facility] [address] [place] [address] Urea nitrogen/Creatinine [Mass ratio] 21 No Units High 10-20 [facility] Comment on above: Performed By: #### 2 001914 #### [facility] [address] [place] [address] HEMATOLOGYOrdered By: SYSTEM SYSTEM on 06-09-2024 Basophils/100 [...] 06-09-2024 Cholesterol [Mass/Vol] 218 mg/dL High 120-200 [facility] Comment on above: Performed By: #### 2 301232 #### [facility] [address] [place] [address] Cholesterol in HDL [Mass/Vol] 49 mg/dL Invalid Interpretation Code [facility] Comment on above: Result Comment: '>= 60 LOW RISK' '<= 40 HIGH RISK' Performed By: #### 2 708137 #### [facility] [address] [place] [address] Cholesterol in LDL [Mass/Vol] 157 mg/dL High <=129 [facility] Comment on above: Performed By: #### 2 683232 #### [facility] [address] [place] [address] Cholesterol in VLDL [Mass/Vol] 22 mg/dL Normal 7-40 [facility] Comment on above: Performed By: #### 2 040212 #### [facility] [address] [place] [address] Triglyceride [Mass/Vol] 108 mg/dL Normal <=149 [facility] Comment on above: Performed By: #### 2 981102 #### [facility] [address] [place] [address] eGFRon 06-09-2024 eGFR 74 mL/min/1.73 m2 Normal >=59 [facility] Comment on above: Order Comment: Order added by Discern Expert. Performed By: #### 1 [id number] #### [facility] [address] [place] [address] 07 Addendum Reporton 024 07 Addendum Report [address] [address]- Surgical Pathology Report Collected Date/Time: 05/17/2024 08:34 [...] characteristics were determined by the [facility] of [facility]. They have not been cleared or approved by the US Food and Drug Administration. The FDA has determined that such clearance or approval is not necessary. These tests are used for clinical purposes. They should not be regarded as investigational or for research. Appropriate positive and negative controls are performed and are acceptable. Normal [facility] Comment on above: Performed By: #### C [id number] #### [facility] [address] [place] [address] 07 Addendum Reporton 024 07 Addendum Report [facility] [address] [place] [address]- Surgical Pathology Report Collected Date/Time: 05/17/2024 08:34 [...] is entirely submitted in one cassette. (DC) DC:[facility] Microscopic Description Microscopic examination performed unless gross only specified. The use of one or more reagents in the above tests is regulated as an analyte specific reagent (ASR). The test or tests are ordered following initial H&E microscopic examination. The performance characteristics were determined by the [facility] of [facility]. They have not been cleared or approved by the US Food and Drug Administration. The FDA has determined that such clearance or approval is not necessary. These tests are used for clinical purposes. They should not be regarded as investigational or for research. Appropriate positive and negative controls are performed and are acceptable. Normal [facility] Comment on above: Performed By: #### C [id number] #### [facility] [address] [place] [address] Reminderson 05-24-2024 Reminders Reminders From: Berta Tilley I To: [facility] - Reminders/Recalls; Sent: 05/24/2024 13:54:50 EDT Show up: 03/03/2031 13:54:00 EDT Subject: Colonoscopy recall Reminder/Recall 7 year recall - hx polyps Dr. Kaba 05/17/2031 [facility] Main OR Intraoperative Recor don 05-18-2024 Main OR Intraoperative Record Main OR Intraoperative Record IntraOp Document Type FT Summary Primary Physician: Mary Kaba MD Finalized Date/Time: 05/18/24 10:15:23 Pt. Name: SONG MCKEON/Sex: 1965 Female Med Rec #: [id number] Physician: Mary Kaba MD Financial #: [id number] Pt. Type: O Room/Bed: / Admit/Disch: 05/17/24 [...] Rg RN, Ayo Stafford Role Performed Anesthesiologist Storm Door Maker - Primary Scrub - Primary Planning Rn Time In 05/17/24 08:12:00 05/17/24 08:12:00 05/17/24 [...] COLONOSCOPY(.) Comments Last Modified By: Arcenio GIBSON, Florinda Rg RN, Florinda Ramirez 05/17/24 08:41:34 [...] Bong Sweeney Given Participants Arcenio Perdomo RN, Florinda Ramirez, Ayo Meza, Amador ANGEL, Sendy Vicente MD, Mary Bar Time Out Complete 05/17/24 08:16:00 Outcomes Met? Yes Last Modified By: Florinda Rg RN 05/17/24 08:41:50 Post-Care Text: The patient is free from signs and symptoms of injury caused by extraneous objects Allergy Information FT Pre-Care Text: Verifies allergies Entry 1 Allergies Reviewed? Yes Allergies Reviewed Self/Patient With Outcomes Met? Yes Last Modified By: Florinda gR RN 05/17/24 08:16:57 Post-Care Text: The patient [...] and tissue Entry 1 Skin Integrity Intact, [place], Warm, & Skin Abnormality Yes Dry Outcomes Met? Yes Last Modified By: Florinda Rg RN 05/17/24 08:29:31 Post-Care Text: The pa (more content not included)... Normal [facility] Surgical Pathology Reporton 05-18-2024 Surgical Pathology Report [facility] [address] [place] [address]- Surgical Pathology Report Collected Date/Time: 05/17/2024 08:34 [...] distal esophagus biopsy are three fragments of lnik/pink tissue ranging from 0.1 cm up to 0.2 cm in greatest dimension. Specimen is entirely submitted in one cassette. (DC) DC:[facility] Surgical Pathology Report Collected Date/Time: 05/17/2024 [...] characteristics were determined by the [facility]. They have not been cleared or approved by the US Food and Drug Administration. The FDA has determined that such clearance or approval is not necessary. These tests are used for clinical purposes. They should not be regarded as investigational or for research. Appropriate positive and negative controls are performed and are acceptable. Normal [facility] Comment on above: Performed By: #### 4 [id number] #### [facility] [address] [place] [address] Discharge Instructionson Discharge Instructions Discharge Instructions SONG [...] Follow Up with Sendy LUIS, JASVIR Melgar, [facility] When: Comments: Call for any problems. [...] seborrheic keratosis (more content not included)... Normal [facility] Comment on above: Result Comment: Elec tronically Signed By: Maite Boudreaux I\.janie\Date and Time Signed: 05/17/24 08:57 EDT Inpatient Patient Summaryon 05-17-2024 Inpatient Patient Summary Inpatient Patient Summary [place] [id number] [facility] Clinical Discharge Instructions PERSON INFORMATION Name: [...] onset of coldsore. Refills: 2. Comment: Normal [facility] Main OR PACU I Recordon 05-03 Main OR PACU I Record Main OR PACU I Record PACU Phase I Document Type FT Summary Primary Physician: Mary Kaba MD Finalized Date/Time: 05/17/24 09:24:58 Pt. Name: SONG MCKEON/Sex: 1965 Female Med Rec #: [id number] Physician: Mary Kaba MD Financial #: [id number] Pt. Type: O Room/Bed: / Admit/Disch: 05/17/24 [...] Signed By: Maite Boudreaux I 05/17/24 09:24 [facility] Main OR Preoperative Recordo n 05-17-2024 Main OR Preoperative Record Main OR Preoperative Record Holding Area Document Type FT Summary Primary Physician: Mary Kaba MD Finalized Date/Time: 05/17/24 07:35:28 Pt. Name: SONG MCKEON/Sex: 1965 Female Med Rec #: [id number] Physician: Mary Kaba MD Financial #: [id number] Pt. Type: O Room/Bed: / Admit/Disch: 05/17/24 [...] By: Natalya Jones RN 05/17/24 07:35 Normal [facility] Outpatient Surgery Discharge Instructionon 05-17-2024 Outpatient Surgery Discharge Instruction Outpatient Surgery Discharge Instruction [place] [id number] Patient Discharge Instructions PERSON INFORMATION Name: SONG [...] to serve you. Thank you for choosing [facility] HERE ARE THE MEDICATION CHANGES THAT OCCURRED [...] 2. 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 States she was using [...] pain, # 40 cap(s), Refills(s) 11, Pharmacy: [facility], 169, cm, 10/15/22 12:00:00 EST, Height/Length Dosing, 91.8, kg, 10/15/22 12:00:00 EST, Weight Dosing Pantoprazole [address] Tab: 40 mg = 1 tab(s), Oral, BID, # 180 tab(s), Refills(s) 3, Pharmacy: [facility], 169, cm, 12/21/23 8:16:00 EDT, Height/Length Dosing, 95, kg, 12/21/23 8:16:00 EDT, Weight Dosing Sutab oral tablet: See Instructions, 1 EA, Refill(s) 0, Please follow instructions per packaging and physician's handout, [facility], 169, cm, 12/21/23 8:16:00 EDT, Height/Length Dosing, 95, kg, 12/21/23 8:16:00 EDT, Weight Dosing Valtrex 1 g Tab: 2 gram = 2 tab(s), Oral, BID, x 1 days at onset of coldsore, # 12 tab(s), Refills(s) 2, Pharmacy: [facility], 169, cm, 01/13/24 13:06:00 EDT, Height/Length Dosing, 93, kg, 01/13/24 13:06:00 EDT, Weight Dosing amitriptyline 10 mg Tab: 10 mg = 1 tab(s), Oral, Once a day (at bedtime), # 90 tab(s), Refills(s) 1, Pharmacy: [facility], 169, cm, 01/13/24 13:06:00 EDT, Height/Length Dosing, 93, kg, 01/13/24 13:06:00 EDT, Weight Dosing bacitracin Top 500 units/g Oint 30 gram: 1 flo, Topical, QID, 30 gram, Refill(s) 0, [facility], 169, cm, 04/21/24 10:11:00 EDT, Height/Length Dosing, 93, kg, 04/21/24 10:11:00 EDT, Weight Dosing cetirizine 10 mg Tab: 10 mg = 1 tab(s), Oral, Daily, # 30 tab(s), Refills(s) 1, Pharmacy: [facility], 170, cm, 09/02/23 16:43:00 EST, Height/Length Dosing, 95, kg, 09/02/23 16:43:00 EST, Weight Dosing cyclobenzaprine 10 mg Tab: 10 mg = 1 tab(s), Oral, TID, PRN for spasm, May use as needed for muscle spasms but sedation warning, # 30 tab(s), Refills(s) 1, Pharmacy: [facility]/pharmacy #[id number], 170, cm, 05/28/21 13:52:00 EDT, Height/Length Dosing, 86.5, kg, 05/28/21 13:52:00 EDT, Weigh... levothyroxine 88 mcg (0.088 mg) Tab: 88 microgram = 1 tab(s), Oral, Daily, # 90 tab(s), Refills(s) 3, Pharmacy: [facility]/pharmacy #6173, 170, cm, 06/27/23 16:25:00 EDT, Height/Length Dosing, 94.1, kg, 06/27/23 16:25:00 EDT, Weight Dosing lidocaine Viscous Top 2% Riya 15 mL: 0.1 gm, 5 mL, Topical, QIDACHS, 100 mL, Refill(s) 0, [facility], 169, cm, 08/03/22 21:08:00 EDT, Height/Length Dosing, 92, kg, 08/03/22 21:08:00 EDT, Weight Dosing ondansetron 4 mg Dis Tab: 4 mg = 1 tab(s), Oral, q6hr, PRN Nausea/Vomiting, # 12 tab(s), Refills(s) 0, Pharmacy: [facility], 170, cm, 03/25/22 11:35:00 EDT, Height/Length Dosing, 93.2, kg, 03/25/22 11:35:00 EDT, Weight Dosing, Home Medications (11) Active amitriptyline 10 mg Tab 10 mg = 1 (more content not included)... Normal [facility] ED Clinical Summaryon 2023 ED Clinical Summary ED Clinical Summary [place] [id number] ED Clinical Summary Person Information Name: SONG MCKEON [facility] Age: 58 Years : 1965 Sex: Female Language: Thai PCP: Antony HAWKINS MD Marital Status: Visit [...] 04/21/2024 13:36:09 04/21/2024 13:36:09 04/21/2024 13:36:09 ADDRESS: [address] [place] [id number] PHYS DOC NOTES: MEDICAL INFORMATION: Prescriptions Given: New Medications [facility], [address] [place], [place] [id number], [phone] bacitracin topical (bacitracin Top 500 units/g Oint [...] PATIENT EDUCATION INFORMATION: Instructions: Laceration Care, Adult, Pgfd-bg-Hrzo Follow up: With: Address: When: Antony HAWKINS [address] [place] [id number] [facility] (1) In 3 days 04/24/2024 Comments: Follow-up with your family physician in 10 to 14 days to have the stitches removed. Keep the stitches dry for 24 hours followed by cleaning it with water and patting dry. Do not submerge the wound. Use the bacitracin DIAGNOSIS: Laceration of right ring finger without damage to nail Normal [facility] ED Note-Physicianon 04-21-20 ED Note-Physician ED Note-Physician Basic Information Time Seen: Valencia Singh PA-C 04/21/2024 09:58 Chief Complaint lac to lt [...] flo, Topical, QID, 30 gram, Refill(s) 0, [facility], 169, cm, 04/21/24 10:11:00 EDT, Height/Length [...] In 3 days 04/24/2024 EDT [address] [place] [address]- Business (1) Additional Instructions: Follow-up with your family physician in 10 to 14 days to have the stitches removed. (more content not included)... Normal [facility] Comment on above: Result Comment: Elec tronically Signed By: Valencia Singh PA-C\.br\Date and Time Signed: 04/21/24 16:22 EDT\.br\Electronically Co-Signed By: Jose Garcia DO\.br\Date and Time Co-Signed: 04/21/24 20:05 EDT ED Patient Summaryon 024 ED Patient Summary ED Patient Summary [address] [address] Patient Discharge Instructions Person Information Name: SONG MCKEON Age: 58 Years Arrival Date: 04/21/2024 09:52:08 Discharge Diagnosis: Laceration of right ring finger without damage to nail Primary Care Physician: Antony HAWKINS MD Provider Information Primary Provider: Jose Garcia DO Advanced Cold Saw Operator:Valencia Singh PA-C The exam and treatment you received in the Emergency Department were for an urgent problem and are not intended as complete care. It is important that you follow up with a doctor, nurse practitioner, or physician?s quality assurance assistant for ongoing care. If your symptoms [...] Follow-up Instructions: With: Address: When: Antony HAWKINS [address] [place] [address] Business (1) In 3 days 04/24/2024 Comments: [...] provider. Patient Education Materials: Laceration Care, Adult, Yewv-kp-Nlxf A MESSAGE TO ALL PATIENTS REGARDING OPIOIDS PRESCRIPTION OPIOIDS: WHAT YOU NEED TO KNOW Prescription opioids can be used to help relieve mxelrlph-lh-owxxzz pain and are often prescribed following a [...] Administration (www.fda.g (more content not included)... Normal [facility] XR Hand 3+ Views Righton XR Hand [...] mGy = . DAP = . Normal [facility] Ambulatory Visit Summaryon 0 01-13-2024 Ambulatory Visit Summary SONG MCKEON :1965 Visit Date:01/13/2024 Ambulatory Visit Instructions Your Diagnosis BMI 32.0-32.9,adult Your Care Team Attending Physician - RALEIGH TANG, LISS Mckeon Primary Care Physician - Antony HAWKINS MD [...] choosing us for your care. Normal [facility] Medicine Office/Clini c Noteon 01-13-2024 Family Medicine [...] beyond the borders, pt to return to [facility] for abx or present to ER for abx after hours. pt verbalizes understanding. Pt already has f/u scheduled w her surgeon on Tuesday (3 days from now). She understands to present to ER in meantime for F/C/N/V/malaise/myalgia/wors ening condition. all questions answered. Ordered: E&M of Est. Patient Moderate 30-39 Min 98421 2. Visit for suture removal (Z48.02: Encounter for removal of sutures) see #1 Ordered: E&M of Est. Patient Moderate 30-39 Min 26314 3. BMI 32.0-32.9,adult (Z68.32: Body mass index [BMI] 32.0-32.9, adult) pt ed provided Ordered: E&M of Est. Patient Moderate 30-39 Min [address]52[address] Follow-up With When Contact Information ROSS LUIS, WENDIE Hardy Within 1 week [address] [place] [address]- Additional Instructions: Patient Education BMI [...] Esophagogastroduodenoscopy ( (more content not included)... Normal [facility] Comment on above: Result Comment: Elec [...] numbers. This can be done either in Thai ([place] or metric measurements. Note that charts and online BMI calculators are available to help you find your BMI quickly and easily without having to do these calculations yourself. To calculate your BMI in Thai ([place].S[place] measurements: 1. Measure your weight in [...] for Disease Control and Prevention: www.cdc.gov ? [place] Heart Association: www.heart.org ? National Heart, Lung, and Blood [place]: www.nhlbi.nih.gov Summary ? Body mass index (BMI) is a number that is calculated from a person's weight and height. ? BMI may help estimate how much of a person's weight is composed of fat. BMI can help identify those who may be at higher risk for certain medical problems. ? BMI can be measured using Thai measurements or metric measurements. ? BMI charts are used to identify whether you are underweight, normal weight, overweight, or obese. This information is not intended to replace advice given to you by your health care provider. Make sure you discuss any questions you have with your health care provider. Document Revised: 06/11/2020 Document Reviewed: 04/18/2020 [employer] Patient Education ? 2022 [employer]. [facility] Cristian 01-02-2024 L Specimen: [id number] R eceived: 01/03/24 Status: ELADIO Coleman Num: [id number] Spec Type: Surgical Subm Dr: Brent Angelo Tissues: A Skin-Other than Cyst, tag, debridement or plastic repair (LT BREAST 5:00) B Skin-Other than Cyst, tag, debridement or plastic repair (RT BREAST 7:00) C Skin-Other than Cyst, tag, debridement or plastic repair (LT NIPPLE 5:00) Procedures: HE/3, Gross/Micro L4/3 Age/ Patient Sex Location Account Attending Physician Song Mckeon 58/F [facility] [id number] Brent Angelo SPEC NUM: [id number] RECD: 01/03/24 STATUS: ELADIO COLEMAN NUM: [id number] ROLLY: 01/02/24- SUBM : Brent Angelo ENTERED: 01/03/24 [facility] DR: Meenu Vallejo SPEC TYPE: Surgical DEPT: [...] mm. All in 1 cassette. CPT Codes 11793 x 3 -------- -------- Specimen: [id number] Received: 01/03/24 Status: ELADIO Coleman Num: [id number] Spec Type: Surgical Subm Dr: Brent Angelo Tissues: A Skin-Other than Cyst, tag, debridement or plastic repair (LT BREAST 5:00) B Skin-Other than Cyst, tag, debridement or plastic repair (RT BREAST 7:00) C Skin-Other than Cyst, tag, debridement or plastic repair (LT NIPPLE 5:00) Procedures: HE/3, Gross/Micro L4/3 -------- Patient: Song Mckeon [id number] (Continued) -------- Signed (signature on file) Amina Tatum MD 01/04/24 1427 [facility] Consent for Procedure/Surger yon 12-22-2023 Consent for Procedure/Surgery [id number] [facility] Ambulatory Visit Summaryon 0 12-21-2023 Ambulatory [...] per packaging and physician's handout Pickup at [facility] Unchanged amitriptyline (amitriptyline 10 mg Tab) [...] physician if questions or concerns Pharmacy Information [email or web address]: [address] [place], [place] [id number] [phone] Medications and Immunizations Administered Not Given influenza [...] varicose v (more content not included)... Normal [facility]son 12-21-2023 Forms [id number] Normal [facility] Gastroenterology Office/Clin ic Noteon 12-21-2023 Gastroenterology [...] colonic polyps) Her last colonoscopy was in 2019. Her next colonoscopy is due next year [...] Distal esophageal Schatzki ring, dilated using 56 Croatian Whitney dilator 2. Concentric esophageal rings consistent [...] E&M of Est. Patient Moderate 30-39 Min 55589 EGD Endoscopy (Hospital Procedure) 2. Dysphagia (R13.10: Dysphagia, unspecified) Ordered: Colonoscopy (Hospital Procedure) E&M of Est. Patient Moderate 30-39 Min 59284 EGD Endoscopy (Hospital Procedure) 3. GERD (gastroesophageal reflux disease) (K21.9: Gastro-esophageal reflux disease without esophagitis) Controlled with twice daily PPI Ordered: Colonoscopy (Hospital Procedure) E&M of Est. Patient Moderate 30-39 Min 77713 EGD Endoscopy (Hospital Procedure) 4. Schatzki's ring (K22.2: Esophageal obstruction) Ordered: Colonoscopy (Hospital Procedure) E&M of Est. Patient Moderate 30-39 Min 14448 EGD Endoscopy (Hospital Procedure) 5. History of colon polyps (Z86.010: Personal history of colonic polyps) Repeat colonoscopy last 1 she had 1 tubular adenoma less than 1 cm 2019 Ordered: Colonoscopy (Hospital Procedure) E&M of Est. Patient Moderate 30-39 Min 50657 (more content not included)... Normal [facility] Comment on above: Result Comment: Elec tronically Signed By: Sendy LUIS, Mary Bar\.br\Date and Time Signed: 12/21/23 08:35 EDT Provider Letteron 12-21-2023 Provider Letter (Inserted Image. Yuli ble to display) December 21, 2023 SONG RADHA [address] [id number] : 1965 To Whom It May Concern, Please excuse above patient from work. Date of Illness: From: 12/21/23 8am appointment To: 12/21/23 May Return to Work On:12/21/23 Restrictions: None Comments: Sincerely, [facility] Mary Kaba MD [facility] Ambulatory Visit Summaryon 1 11-03-2022 Ambulatory [...] AM EDT With: Mary Kaba MD Where: [facility] Normal [facility] Family Medicine Office/Clini c Noteon 09-02-2023 [...] Multiple piercings in the tragus. Oropharynx, fair united auburn dentition with repairs. [place] and moist. No petechiae, no exudate. With [...] with voice recognition artificial intelligence software, specifically [employer], [employer] and or [employer]. Substitutions may have occurred due to the inherent limitations of voice recognition and artificial intelligence software. Follow-up With When Contact Information ROSS LUIS, Antony, [facility] Only if needed Additional Instructions: Patient [...] operation, Ovari (more content not included)... Normal [facility] Comment on above: Result Comment: Elec [...] these instructions at home: Medicines ? Take dbvt-jxp-lktazqu and prescription medicines only as told by [...] Reviewed: 12/07/2021 Elsevier Patient Education ? 2022 [employer]. [facility] Formson 06-28-2023 Forms [id number]:127 [facility] Ambulatory Visit Summaryon 0 06-27-2023 Ambulatory Visit Summary RADHA SONG M :1965 Visit Date:06/27/2023 Ambulatory Visit Instructions Your Diagnosis Encounter for well adult exam with abnormal findings Cervical radiculopathy Congenital hypothyroidism Generalized anxiety disorder GERD (gastroesophageal reflux disease) hiatal hernia Fasting hyperglycemia Class 1 obesity due to excess calories in adult BMI 32.0-32.9,adult Your Care Team Attending Physician - Antony HAWKINS MD Primary Care Physician - nAtony HAWKINS MD This Is Your Medications List [...] AM EDT With: Marilee OCHOA MD Where: [facility] Normal [facility] Family Medicine Office/Clini c Noteon 06-27-2023 Family Medicine Office/Clinic Note Chief Complaint annual wellness exam, labs drawn [place] [facility], needs shingrix, rf pantoprazole & amitriptyline to [facility], rf [facility]othyroxine to [facility] History of Present Illness HISTORY OF PRESENT ILLNESS The patient is here for a general health maintenance exam. Requiring biometric exam form completion She had a mammogram on Tuesday at [facility]. Unaware of results at this time. She [...] another process that was better tolerated. 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 Oropharynx pink and moist with fair united auburn dentition. Boggy turbinates, clear rhinorrhea. Without discrete [...] than the left. She has multiple tattoos. 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 No discrete tremors [...] she had any injuries at work. Ordered: [facility] Outpatient Physical Therapy Evaluate Patient, Develop a [...] without e (more content not included)... Normal [facility] Comment on above: Result Comment: Elec tronically Signed By: ROSS LUIS, Antony\.br\Date and Time Signed: 06/27/23 20:07 EDT Patient Letter FTon [address] [facility] (Inserted Image. Yuli ble to display) [address] [place], [place] [id number] June 27, 20[address] SONG MCKEON [address] [place] [id number] : 1965 To Whom It May Concern: [...] much. Sincerely: Nasir Hawkins MD FAAFP Normal [facility] Provider Letteron 06-27-2023 Provider Letter (Inserted Image. Yuli ble to display) June 27, 20[address]ON [address] [place] [id number] To Whom It May Concern, Please excuse the above patient from work due to office visit. Date of Illness: From: 06/27/2023 May Return to Work On: 06/28/2023 Restrictions: none Sincerely, Family [facility] [address] [place] [address] [facility] Patient Educationon 06-26-20 Patient Education Obstetrics [...] in y (more content not included)... Normal [facility] Auto Diffon 06-25-2023 Basophils/100 WBC (Bld) 1.1 % Normal 0.0-2.0 [facility] Comment on above: Order Comment: Order Added by Discern Expert. Performed By: #### 2 315802, 4130098, 8688633, 54695225, 82236735, 4536001 ####[facility] [address] [place] [address] Basophils/Leukocyte s Auto (Bld) [Pure # fraction] 0.1 E9/L Normal 0.0-0.2 [facility] Comment on above: Order Comment: Order Added by Discern Expert. Performed By: #### 2 892537, 1443070, 8274214, 46566143, 96023218, 4431619 ####[facility] [address] [place] [address] Eosinophils/100 WBC (Bld) 3.1 % Normal 0.0-8.0 [facility] Comment on above: Order Comment: Order Added by Discern Expert. Performed By: #### 2 248356, 3689228, 3157463, 16526552, 63438120, 7576799 ####[facility] [address] [place] [address] Eosinophils/Leukocy sandra Auto (Bld) [Pure # fraction] 0.2 E9/L Normal 0.0-0.5 [facility] Comment on above: Order Comment: Order Added by Discern Expert. Performed By: #### 2 474396, 6537351, 0018446, 68937053, 38228893, 9964814 ####[facility] [address] [place] [address] Lymphocytes/100 WBC (Bld) 42.6 % Normal 14.0-50.0 [facility] Comment on above: Order Comment: Order Added by Discern Expert. Performed By: #### 2 284119, 5222977, 7186573, 72508500, 92957449, 8470426 ####[facility] [address] [place] [address] Lymphocytes/Leukocy sandra Auto (Bld) [Pure # fraction] 3.0 E9/L Normal 1.0-4.0 [facility] Comment on above: Order Comment: Order Added by Discern Expert. Performed By: #### 2 601162, 7707761, 9667918, 02309959, 14791554, 2528404 ####[address] [place] [address] Monocytes/100 WBC (Bld) 8.0 % Normal 4.0-14.0 [facility] Comment on above: Order Comment: Order Added by Lydia Expert. Performed By: #### 2 318745, 1144725, 1163426, 28934669, 55970705, 7279583 ####[address] [address] Monocytes/Leukocyte s Auto (Bld) [Pure # fraction] 0.6 E9/L Normal 0.2-1.0 [facility] Comment on above: Order Comment: Order Added by Lydia Expert. Performed By: #### 2 577688, 9619777, 3205586, 49928981, 82305484, 4391778 ####[address] [place] [address] Neutrophils/100 WBC (Bld) 45.2 % Normal 36.0-75.0 [facility] Comment on above: Order Comment: Order Added by Lydia Expert. Performed By: #### 2 524688, 7833346, 0399538, 54408198, 03121085, 4987264 ####[facility] [address] [place] [address] Neutrophils/Leukocy sandra Auto (Bld) [Pure # fraction] 3.1 E9/L Normal 2.0-7.5 [facility] Comment on above: Order Comment: Order Added by Discern Expert. Performed By: #### 2 312376, 8385350, 1558684, 20051204, 37994904, 7250880 ####[facility] [address] [place] [address] CBC w/ Auto Diffon 3 Erythrocyte distribution width (RBC) [Ratio] 14.2 % Normal 10.9-14.2 [facility] Comment on above: Performed By: #### 2 437991, 0054584, 6366361, 30849659, 09879557, 9019444 ####[facility] [address] [place] [address] Hematocrit (Bld) [Volume fraction] 36.4 % Normal 34.0-46.0 [facility] Comment on above: Performed By: #### 2 301961, 6400089, 3288482, 87535265, 68325680, 6165689 ####[address] [address] Hemoglobin (Bld) [Mass/Vol] 12.0 g/dL Normal 12.0-16.0 [facility] Comment on above: Performed By: #### 2 444866, 5625058, 8040632, 27515929, 11649375, 1321052 ####[address] [place] [address] MCH (RBC) [Entitic mass] 27.6 pg Normal 27.0-34.0 [facility] Comment on above: Performed By: #### 2 929566, 5547852, 3987671, 35708925, 34964436, 6690888 ####[facility] [address] [place] [address] MCHC (RBC) [Mass/Vol] 32.9 g/dL Normal 31.4-36.0 [facility] Comment on above: Performed By: #### 2 757949, 5256987, 7827197, 55463661, 59825214, 0956495 ####[address] [place] [address] MCV (RBC) [Entitic vol] 83.9 fL Normal 80.0-100.0 [facility] Comment on above: Performed By: #### 2 532729, 6251464, 1028217, 13690193, 15506012, 8654016 ####[facility] [address] [place] [address] Platelet mean volume (Bld) [Entitic vol] 7.9 fL Normal 6.4-10.8 [facility] Comment on above: Performed By: #### 2 630748, 4846704, 4444867, 62415544, 65142137, 9769402 ####[address] [place] [address] Platelets (Bld) [#/Vol] 331.0 E9/L Normal 150.0-500.0 [facility] Comment on above: Performed By: #### 2 181040, 1828381, 2591460, 56017281, 25008198, 5593267 ####[address] [address] RBC (Bld) [#/Vol] 4.3 E12/L Normal 4.3-5.9 [facility] Comment on above: Performed By: #### 2 325556, 7098326, 8630372, 44158287, 45036836, 9486819 ####[address] [address] WBC corrected for nucl RBC Auto (Bld) [#/Vol] 7.0 E9/L Normal 4.0-11.0 [facility] Comment on above: Performed By: #### 2 639250, 8876573, 1114542, 21572949, 22399643, 7565273 ####[address] [place] [address] CMPon 06-25-2023 Urea nitrogen [Mass/Vol] 12 mg/dL Normal 5-21 [facility] Comment on above: Performed By: #### 2 342859, 2130821, 1138553, 14778418, 05189445, 3948703 ####[facility] [address] [place] [address] Urea nitrogen/Creatinine [Mass ratio] UTC Abnormal 10-20 [facility] Comment on above: Result Comment: Resu lt verified by Discern Rule. Performed result [facility] (Unable to Calculate) was sent as an Alpha code due the inability to calculate a valid numeric value. Performed By: #### 2 282963, 0164062, 4700035, 98906722, 69120853, 4753680 ####[facility] [address] [place] [address] Albumin [Mass/Vol] 4.1 g/dL Normal 3.3-5.0 [facility] Comment on above: Performed By: #### 2 155522, 2371047, 4213180, 17270746, 06619922, 0194268 ####[facility] [address] [place] [address] Albumin/Globulin (S) [Mass conc ratio] 1.2 Normal 1.1-2.2 [facility] Comment on above: Performed By: #### 2 144261, 6903773, 3068770, 98018789, 05553584, 1069917 ####[facility] [address] [place] [address] ALP [Catalytic activity/Vol] 111 Int._Unit/L High 21-98 [facility] Comment on above: Performed By: #### 2 824426, 9713321, 7729909, 05456542, 48558475, 7510594 ####[facility] [address] [place] [address] ALT No additional P-5'-P [Catalytic activity/Vol] 26 Int._Unit/L Normal 6-46 [facility] Comment on above: Performed By: #### 2 789709, 0465825, 2222843, 33084107, 88736704, 8503178 ####[facility] [address] [place] [address] Anion gap [Moles/Vol] 12 mmol/L Normal 6-16 [facility] Comment on above: Performed By: #### 2 929714, 8389585, 0674752, 79130648, 45248325, 8056195 ####[facility] [address] [place] [address] AST [Catalytic activity/Vol] 24 Int._Unit/L Normal 5-43 [facility] Comment on above: Performed By: #### 2 923645, 6921629, 1043617, 23104386, 18157222, 9890872 ####[facility] [address] [place] [address] Bilirubin [Mass/Vol] 0.4 mg/dL Normal 0.0-1.1 [facility] Comment on above: Performed By: #### 2 466430, 0319033, 7128272, 77756395, 88290309, 3501043 ####[facility] [address] [place] [address] Calcium [Mass/Vol] 9.4 mg/dL Normal 8.9-11.1 [facility] Comment on above: Performed By: #### 2 598208, 2515554, 2543036, 91417256, 48302505, 7710186 ####[facility] [address] [place] [address] Chloride [Moles/Vol] 107 mmol/L Normal 101-111 [facility] Comment on above: Performed By: #### 2 106144, 6304927, 4385761, 73883374, 31910853, 5097722 ####[facility] [address] [place] [address] CO2 [Moles/Vol] 26 mmol/L Normal 21-31 [facility] Comment on above: Performed By: #### 2 885414, 9832852, 6227803, 36773688, 35778632, 2296612 ####[facility] [address] [place] [address] Creatinine [Mass/Vol] 0.9 mg/dL Normal 0.5-1.3 [facility] Comment on above: Performed By: #### 2 908608, 9707664, 7230186, 83859649, 61299578, 5328386 ####[facility] [address] [place] [address] Globulin (S) [Mass/Vol] 3.5 g/dL Normal 1.4-4.0 [facility] Comment on above: Performed By: #### 2 155471, 4979998, 3426036, 32305965, 69098907, 2651233 ####[facility] [address] [place] [address] Glucose [Mass/Vol] 95 mg/dL Normal 55-199 [facility] Comment on above: Result Comment: If t his glucose result represents a fasting glucose, interpretation should refer to the following reference range: 55-99 mg/dL Performed By: #### 2 317574, 2445917, 1374164, 51987471, 15210945, 5193929 ####[facility] [address] [place] [address] Potassium [Moles/Vol] 3.9 mmol/L Normal 3.5-5.3 [facility] Comment on above: Performed By: #### 2 295114, 7089437, 3539099, 34256408, 30459763, 0543386 ####[facility] [address] [place] [address] Protein [Mass/Vol] 7.6 g/dL Normal 6.0-7.8 [facility] Comment on above: Performed By: #### 2 211346, 5728715, 7165323, 48081132, 26427384, 8560247 ####[facility] [address] [place] [address] Sodium [Moles/Vol] 141 mmol/L Normal 135-145 [facility] Comment on above: Performed By: #### 2 016988, 0925482, 4847845, 15370038, 98449087, 5940168 ####[facility] [address] [place] [address] Consent for Treatmenton 06-04 Consent for Treatment [id number]:127 Normal [facility] Lipid Panelon 06-25-2023 Cholesterol [Mass/Vol] 213 mg/dL High 120-200 [facility] Comment on above: Performed By: #### 2 193299, 9424053, 4291277, 53646901, 60886428, 4085246 ####[facility] [address] [place] [address] Cholesterol in HDL [Mass/Vol] 52 mg/dL Invalid Interpretation Code [facility] Comment on above: Result Comment: HDL > or equal to 60 mg/dL: Low cardiovascular risk HDL < 40 mg/dL : High cardiovascular risk Performed By: #### 2 705974, 5399578, 6023363, 42428405, 53860804, 1110913 ####[facility] [address] [place] [address] Cholesterol in LDL [Mass/Vol] 144 mg/dL High <=129 [facility] Comment on above: Performed By: #### 2 722004, 7876498, 3374660, 82062308, 58140118, 2932901 ####[facility] [address] [place] [address] Cholesterol in VLDL [Mass/Vol] 30 mg/dL Normal 7-40 [facility] Comment on above: Performed By: #### 2 260845, 9699600, 9621506, 49440020, 39411744, 2865720 ####[facility] [address] [place] [address] Triglyceride [Mass/Vol] 150 mg/dL High <=149 [facility] Comment on above: Performed By: #### 2 012663, 5449664, 7807376, 77791496, 45580629, 9886014 ####[facility] [address] [place] [address] TSH With T4fr Reflexon 06-25 TSH Qn 1.27 m[IU]/L Normal 0.34-5.60 [facility] Comment on above: Performed By: #### 2 302013, 6701452, 3294983, 25898354, 37425850, 3076582 ####[facility] [address] [place] [address] eGFRon 06-25-2023 GFR/1.73 sq M.predicted among non-blacks MDRD (S/P/Bld) [Vol rate/Area] 75 mL/min/1.73 m2 Normal >=59 [facility] Comment on above: Order Comment: Order added by Discern Expert. Result Comment: Special Class Welder ashley kidney disease could be indicated at eGFR's of less than 60 mL/min/1.73m2. Kidney failure is indicated at less than 15 mL/min/1.73m2. Performed By: #### 2 134405, 7231356, 2400910, 37191127, 92287011, 0924976 ####[facility] [address] [place] [address] CHEMISTRYOrdered By: SYSTEM SYSTEM on 08-10-2022 Albumin [...] 3.5 g/dL Normal 1.4 - 4.0 gm/dL [facility] Remisol Protein [Mass/Vol] 7.9 g/dL High 6.0 - 7.8 gm/dL FT Remisol PAP ACOG PANEL 2: 30 to 66on 07-02-2022 . . Normal [facility] Comment on above: Result Comment: Perf ormed at: WB Performed By: #### 4 816110 #### [facility] [address] [place] [address] Dr. Jonelle Molina Age Gdln ACOG Testing - Normal [facility] Comment on above: Performed By: #### 4 425001 #### [facility] [address] [place] [address] Dr. Jonelle Molina DIAGNOSIS: Comment Normal [facility] Comment on above: Result Comment: NEGA TIVE FOR INTRAEPITHELIAL LESION OR MALIGNANCY. CELLULAR CHANGES ASSOCIATED WITH ATROPHY ARE PRESENT. Performed at: WB Performed By: #### 4 076581 #### [facility] [address] [place] [address] Dr. Jonelle Molina HPV Aptima Negative Normal Negative [facility] Comment on above: Result Comment: This nucleic acid amplification test detects fourteen high-risk HPV types (16,18,31,33,35,39,45,51,52,56,58,59,66,68) without differentiation. Performed at: =G Performed By: #### 4 018300 #### [facility] [address] [place] [address] Dr. Jonelle Molina Methodology: Comment Normal [facility] Comment on above: Result Comment: This liquid based ThinPrep(R) pap test was screened with the use of an image guided system. Performed at: WB Performed By: #### 4 945770 #### [facility] [address] [place] [address] Dr. Jonelle Molina Note: Comment Normal [facility] Comment on above: Result Comment: The Pap smear is a screening test designed to aid in the detection of premalignant and malignant conditions of the uterine cervix. It is not a diagnostic procedure and should not be used as the sole means of detecting cervical cancer. Both false-positive and false-negative reports do occur. . Performed at: WB Performed By: #### 4 962208 #### [facility] [address] [address] [address] Jonelle Molina Performed by: Comment Normal [facility] Comment on above: Result Comment: Riddhi Blackman, Telephone Maintainer (ASCP) Performed at: WB Performed By: #### 4 673857 #### [facility] [address] [address] [address] Jonelle Molina Specimen adequacy: Comment Normal [facility] Comment on above: Result Comment: Sati sfactory for evaluation. Endocervical component may not be distinguished in cases of atrophy. Performed at: WB Performed By: #### 4 874864 #### [facility] [address] [address] [address] Jonelle Molina MG MAMM SCREEN 3D KRISTOPHER CADon 06-04-2022 MG MAMM SCREEN 3D KRISTOPHER CAD Patient: SONG MCKEON Exam Date: 06/04/2022 : 1965 Gender:F Ordering : DR ROMÁN MENDOZA . Admission #: [id number] Family : Order #: [id number] CLICK HERE TO VIEW EXAM RADIOLOGY REPORT [...] prostate cancer at age 69. LOCATION: [facility] BREAST COMPOSITION: Heterogeneously dense,which may obscure [...] Salazar MD on 06/04/2022 at 09:04 Normal [facility] Vital Signs Date Time Vital Sign Value Performing Clinician Annitadanelle irby 12-31-2024 15:49-0400 Body mass index (BMI) [Ratio] 31.92 kg/m2 Brent Petey DO Work Phone: [facility] 12-31-2024 15:49-0400 Body weight 92.44 kg Brent Petey DO Work Phone: [facility] 12-31-2024 15:49-0400 Diastolic blood pressure 84 mm[Hg] Brent Petey DO Work Phone: [facility] 12-31-2024 15:49-0400 Systolic blood pressure 122 mm[Hg] Brent Petey DO Work Phone: [facility] 06-21-2024 15:06-0400 Blood Pressure Location Hernandez Sarmini [facility] 06-21-2024 15:06-0400 Diastolic blood pressure 76 mm[Hg] Hernandez Sarmini [facility] 06-21-2024 15:06-0400 Heart rate 75 /min Hernandez Sarmini [facility] 06-21-2024 15:06-0400 Respiratory rate 16 /min Hernandez Sarmini [facility] 06-21-2024 15:06-0400 Systolic blood pressure 119 mm[Hg] Hernandez Sarmini [facility] 06-19-2024 15:38-0400 Blood Pressure Location Antony HAWKINS [facility] 06-19-2024 15:38-0400 Diastolic blood pressure 80 mm[Hg] Antony HAWKINS [facility] 06-19-2024 15:38-0400 Heart rate 77 /min Christopher BROWN [facility] 06-19-2024 15:38-0400 Respiratory rate 16 /min Christjarochoer BROWN [facility] 06-19-2024 15:38-0400 SaO2% (BldA) [Mass fraction] 98 % Christjazmyne HAWKINS [facility] 06-19-2024 15:38-0400 Systolic blood pressure 120 mm[Hg] Christjarochoer BROWN [facility] 05-17-2024 09:07-0400 Diastolic blood pressure 88 mm[Hg] Hernandez Sarmini [facility] 05-17-2024 09:07-0400 Heart rate 66 /min Hernandez Sarmini [facility] 05-17-2024 09:07-0400 Mean blood pressure 97 mm[Hg] Hernandez Sarmini [facility] 05-17-2024 09:07-0400 Respiratory rate 19 /min Hernandez Sarmini [facility] 05-17-2024 09:07-0400 SaO2% (BldA) [Mass fraction] 100 % Hernandez Sarmini [facility] 05-17-2024 09:07-0400 Systolic blood pressure 116 mm[Hg] Hernandez Sarmini [facility] 05-17-2024 08:55-0400 Diastolic blood pressure 55 mm[Hg] Hernandez Sarmini [facility] 05-17-2024 08:55-0400 Heart rate 71 /min Hernandez Sarmini [facility] 05-17-2024 08:55-0400 Mean blood pressure 71 mm[Hg] Hernandez Sarmini [facility] 05-17-2024 08:55-0400 Respiratory rate 14 /min Hernandez Sarmini [facility] 05-17-2024 08:55-0400 SaO2% (BldA) [Mass fraction] 100 % Hernandez Sarmini [facility] 05-17-2024 08:55-0400 Systolic blood pressure 103 mm[Hg] Hernandez Sarmini [facility] 05-17-2024 08:50-0400 Diastolic blood pressure 53 mm[Hg] Hernandez Sarmini [facility] 05-17-2024 08:50-0400 Heart rate 77 /min Hernandez Sarmini [facility] 05-17-2024 08:50-0400 Mean blood pressure 68 mm[Hg] Hernandez Sarmini [facility] 05-17-2024 08:50-0400 Respiratory rate 14 /min Hernandez Sarmini [facility] 05-17-2024 08:50-0400 SaO2% (BldA) [Mass fraction] 100 % Hernandez Sarmini [facility] 05-17-2024 08:50-0400 Systolic blood pressure 97 mm[Hg] Hernandez Sarmini [facility] 05-17-2024 08:42-0400 Body temperature 97.7 [degF] Hernandez Sarmini [facility] 05-17-2024 08:30-0400 Respiratory rate 12 /min Hernandez Sarmini [facility] 05-17-2024 08:15-0400 Respiratory rate 12 /min Hernandez Sarmini [facility] 05-17-2024 07:35-0400 Blood Pressure Location Hernandez Sarmini [facility] 05-17-2024 07:35-0400 Body temperature 98.06 [degF] Hernandez Clausmini [facility] 04-21-2024 10:09-0400 Body temperature 98.6 [degF] Jose Garcia [facility] 04-21-2024 10:09-0400 Diastolic blood pressure 71 mm[Hg] Jose Garcia [facility] 04-21-2024 10:09-0400 Heart rate 76 /min Jose Garcia [facility] 04-21-2024 10:09-0400 Respiratory rate 18 /min Jose Garcia [facility] 04-21-2024 10:09-0400 SaO2% (BldA) [Mass fraction] 98 % Jose Garcia [facility] 04-21-2024 10:09-0400 Systolic blood pressure 110 mm[Hg] Jose Garcia [facility] 01-13-2024 13:03-0400 Blood Pressure Location LISS STOREY [facility] 01-13-2024 13:03-0400 Body temperature 97.88 [degF] LISS STOREY [facility] 01-13-2024 13:03-0400 Diastolic blood pressure 80 mm[Hg] LISS STOREY [facility] 01-13-2024 13:03-0400 Heart rate 87 /min LISS STOREY [facility] 01-13-2024 13:03-0400 SaO2% (BldA) [Mass fraction] 98 % LISS STOREY [facility] 01-13-2024 13:03-0400 Systolic blood pressure 110 mm[Hg] LISS STOREY [facility] 12-21-2023 08:15-0400 Blood Pressure Location Hernandez Sarmini [facility] 12-21-2023 08:15-0400 Diastolic blood pressure 70 mm[Hg] Hernandez Sarmini [facility] 12-21-2023 08:15-0400 Heart rate 70 /min Hernandez Sarmini [facility] 12-21-2023 08:15-0400 Respiratory rate 18 /min Hernandez Sarmini [facility] 12-21-2023 08:15-0400 Systolic blood pressure 118 mm[Hg] Hernandez Sarmini [facility] 09-02-2023 16:38-0500 Blood Pressure Location Antony HAWKINS [facility] 09-02-2023 16:38-0500 Diastolic blood pressure 80 mm[Hg] Antony HAWKINS [facility] 09-02-2023 16:38-0500 Heart rate 88 /min Christopher BROWN [facility] 09-02-2023 16:38-0500 Respiratory rate 16 /min Christopher BROWN [facility] 09-02-2023 16:38-0500 SaO2% (BldA) [Mass fraction] 97 % Christopher BROWN [facility] 09-02-2023 16:38-0500 Systolic blood pressure 120 mm[Hg] Christopher BROWN [facility] 06-27-2023 16:18-0400 Blood Pressure Location Antony HAWKINS [facility] 06-27-2023 16:18-0400 Body temperature 98.42 [degF] Christopher BROWN [facility] 06-27-2023 16:18-0400 Diastolic blood pressure 70 mm[Hg] Christopher BROWN [facility] 06-27-2023 16:18-0400 Heart rate 87 /min Christopher BROWN [facility] 06-27-2023 16:18-0400 Respiratory rate 16 /min Christopher BROWN [facility] 06-27-2023 16:18-0400 SaO2% (BldA) [Mass fraction] 97 % Christopher BROWN [facility] 06-27-2023 16:18-0400 Systolic blood pressure 100 mm[Hg] Christopher BROWN [facility] 06-09-2023 11:36-0400 Blood Pressure Location BRIAN CONTE [facility] 06-09-2023 11:36-0400 Body temperature 98.24 [degF] BRIAN NOLANTIZ [facility] 06-09-2023 11:36-0400 Diastolic blood pressure 75 mm[Hg] BRIAN NOALNTIZ [facility] 06-09-2023 11:36-0400 Heart rate 81 /min BRIAN CONTE [facility] 06-09-2023 11:36-0400 SaO2% (BldA) [Mass fraction] 96 % [place] CONTE [facility] 06-09-2023 11:36-0400 Systolic blood pressure 118 mm[Hg] [place] DG [facility] 12-16-2022 12:06-0400 Blood Pressure Location Hunt SALAM [facility] 12-16-2022 12:06-0400 Diastolic blood pressure 82 mm[Hg] Hunt SALAM [facility] 12-16-2022 12:06-0400 Heart rate 68 /min Hunt SALAM [facility] 12-16-2022 12:06-0400 Respiratory rate 16 /min Hunt SALAM [facility] 12-16-2022 12:06-0400 Systolic blood pressure 136 mm[Hg] Hunt SALAM [facility] 11-24-2022 13:05-0500 Diastolic blood pressure 85 mm[Hg] Hunt SALAM [facility] 11-24-2022 13:05-0500 Heart rate 76 /min Hunt SALAM [facility] 11-24-2022 13:05-0500 Mean blood pressure 98 mm[Hg] Hunt SALAM [facility] 11-24-2022 13:05-0500 Respiratory rate 18 /min Hunt SALAM [facility] 11-24-2022 13:05-0500 SaO2% (BldA) [Mass fraction] 98 % Hunt SALAM [facility] 11-24-2022 13:05-0500 Systolic blood pressure 125 mm[Hg] Hunt SALAM [facility] 11-24-2022 13:00-0500 Diastolic blood pressure 87 mm[Hg] Hunt SALAM [facility] 11-24-2022 13:00-0500 Heart rate 77 /min Hunt SALAM [facility] 11-24-2022 13:00-0500 Mean blood pressure 102 mm[Hg] Hunt SALAM [facility] 11-24-2022 13:00-0500 Respiratory rate 11 /min Hunt SALAM [facility] 11-24-2022 13:00-0500 Systolic blood pressure 132 mm[Hg] Hunt SALAM [facility] 11-24-2022 12:45-0500 Diastolic blood pressure 83 mm[Hg] Hunt SALAM [facility] 11-24-2022 12:45-0500 Heart rate 78 /min Hunt SALAM [facility] 11-24-2022 12:45-0500 Respiratory rate 12 /min Hunt SALAM [facility] 11-24-2022 12:45-0500 SaO2% (BldA) [Mass fraction] 97 % Hunt SALAM [facility] 11-24-2022 12:45-0500 Systolic blood pressure 118 mm[Hg] Hunt SALAM [facility] 11-24-2022 12:35-0500 Body temperature 97.7 [degF] Hunt SALAM [facility] 11-24-2022 11:34-0500 Blood Pressure Location Hunt SALAM [facility] 11-24-2022 11:34-0500 Body temperature 98.24 [degF] Hunt SALAM [facility] 09-08-2022 15:50-0500 Body temperature 97.7 [degF] Hunt SALAM [facility] 09-08-2022 15:50-0500 Diastolic blood pressure 73 mm[Hg] Hunt SALAM [facility] 09-08-2022 15:50-0500 Heart rate 84 /min Hunt SALAM [facility] 09-08-2022 15:50-0500 Respiratory rate 15 /min Hunt SALAM [facility] 09-08-2022 15:50-0500 SaO2% (BldA) [Mass fraction] 99 % Hunt SALAM [facility] 09-08-2022 15:50-0500 Systolic blood pressure 116 mm[Hg] Hunt SALAM [facility] 09-08-2022 15:35-0500 Diastolic blood pressure 72 mm[Hg] Hunt SALAM [facility] 09-08-2022 15:35-0500 Heart rate 90 /min Hunt SALAM [facility] 09-08-2022 15:35-0500 Respiratory rate 13 /min Hunt SALAM [facility] 09-08-2022 15:35-0500 SaO2% (BldA) [Mass fraction] 98 % Hunt SALAM [facility] 09-08-2022 15:35-0500 Systolic blood pressure 115 mm[Hg] Hunt SALAM [facility] 09-08-2022 15:30-0500 Diastolic blood pressure 78 mm[Hg] Hunt SALAM [facility] 09-08-2022 15:30-0500 Heart rate 97 /min Hunt SALAM [facility] 09-08-2022 15:30-0500 Respiratory rate 14 /min Hunt SALAM [facility] 09-08-2022 15:30-0500 SaO2% (BldA) [Mass fraction] 96 % Hunt SALAM [facility] 09-08-2022 15:30-0500 Systolic blood pressure 118 mm[Hg] Hunt SALAM [facility] 09-08-2022 15:20-0500 Body temperature 97.52 [degF] Hunt SALAM [facility] 09-08-2022 15:15-0500 Respiratory rate 18 /min Hunt SALAM [facility] 09-08-2022 15:10-0500 Respiratory rate 20 /min Hunt SALAM [facility] 09-08-2022 14:25-0500 Blood Pressure Location Hunt SALAM [facility] 09-08-2022 14:25-0500 Body temperature 97.34 [degF] Marilee SAMAYOAAM [facility] 08-04-2022 13:36-0400 Blood Pressure Location Juliana Lemusmetz [facility] 08-04-2022 13:36-0400 Body temperature 97.52 [degF] Juliana Lemusmetz [facility] 08-04-2022 13:36-0400 Diastolic blood pressure 77 mm[Hg] Juliana Lemusmetz [facility] 08-04-2022 13:36-0400 Heart rate 84 /min Juliana Liu [facility] 08-04-2022 13:36-0400 Systolic blood pressure 108 mm[Hg] Juliana Lemusmetz [facility] 08-03-2022 22:47-0400 Diastolic blood pressure 65 mm[Hg] Jordin Maxine [facility] 08-03-2022 22:47-0400 Heart rate 87 /min Jordin Maxine [facility] 08-03-2022 22:47-0400 Mean blood pressure 83 mm[Hg] Jordin Maxine [facility] 08-03-2022 22:47-0400 Respiratory rate 16 /min Jordin Maxine [facility] 08-03-2022 22:47-0400 SaO2% (BldA) [Mass fraction] 96 % Jordin Maxine [facility] 08-03-2022 22:47-0400 Systolic blood pressure 118 mm[Hg] Jordin Maxine [facility] 08-03-2022 21:04-0400 Body temperature 97.88 [degF] Jordin Maxine [facility] 08-03-2022 21:04-0400 Diastolic blood pressure 74 mm[Hg] Jordin Maxine [facility] 08-03-2022 21:04-0400 Heart rate 117 /min Jordin Maxine [facility] 08-03-2022 21:04-0400 Respiratory rate 18 /min Jordin Maxine [facility] 08-03-2022 21:04-0400 SaO2% (BldA) [Mass fraction] 98 % Jordin Maxine [facility] 08-03-2022 21:04-0400 Systolic blood pressure 134 mm[Hg] Jordin Maxine [facility] 06-11-2022 11:49-0400 Blood Pressure Location Antony HAWKINS [facility] 06-11-2022 11:49-0400 Body temperature 98.6 [degF] Antony HAWKINS [facility] 06-11-2022 11:49-0400 Diastolic blood pressure 80 mm[Hg] Christjarochoer BROWN [facility] 06-11-2022 11:49-0400 Heart rate 88 /min Christjarochoer BROWN [facility] 06-11-2022 11:49-0400 Respiratory rate 16 /min Christjazmyne BROWN [facility] 06-11-2022 11:49-0400 SaO2% (BldA) [Mass fraction] 97 % Christjazmyne ROSS [facility] 06-11-2022 11:49-0400 Systolic blood pressure 120 mm[Hg] [facility] 05-19-[facility]22 10:40-0400 Blood Pressure Location Juliana Liu [facility] 05-19-2022 10:40-0400 Body temperature 97.7 [degF] Juliana Liu [facility] 05-19-2022 10:40-0400 Diastolic blood pressure 78 mm[Hg] Juliana Liu [facility] 05-19-2022 10:40-0400 Heart rate 73 /min Juliana Liu [facility] 05-19-2022 10:40-0400 Systolic blood pressure 116 mm[Hg] Juliana Liu [facility] 03-25-2022 11:28-0400 Blood Pressure Location Antony HAWKINS [facility] 03-25-2022 11:28-0400 Diastolic blood pressure 80 mm[Hg] Antony HAWKINS [facility] 03-25-2022 11:28-0400 Heart rate 77 /min nAtony HAWKINS [facility] 03-25-2022 11:28-0400 Respiratory rate 16 /min Christopher BROWN [facility] 03-25-2022 11:28-0400 SaO2% (BldA) [Mass fraction] 99 % Christopher BROWN [facility] 03-25-2022 11:28-0400 Systolic blood pressure 120 mm[Hg] Christopher BROWN [facility] 02-23-2022 18:22-0400 Blood Pressure Location Christopher BROWN [facility] 02-23-2022 18:22-0400 Diastolic blood pressure 84 mm[Hg] Christopher BROWN [facility] 02-23-2022 18:22-0400 Heart rate 93 /min Christopher BROWN [facility] 02-23-2022 18:22-0400 Respiratory rate 16 /min Christopher BROWN [facility] 02-23-2022 18:22-0400 SaO2% (BldA) [Mass fraction] 98 % Christopher BROWN [facility] 02-23-2022 18:22-0400 Systolic blood pressure 120 mm[Hg] Christopher BROWN [facility] Encounters Encounter Date Encounter Type Care Provider Facility Start: 06-20-2026 ambulatory Colejazmyne HAWKINS [facility] Start: 06-21-2025 End: 06-21-2025 ambulatory Antony HAWKINS [facility]: [facility] Start: 06-21-2025 End: 06-21-2025 Encounter for general adult medical examination with abnormal findings Antony HAWKINS [facility] Start: 06-21-2025 End: 06-21-2025 Patient encounter procedure Guillermoloy HAWKINS [facility] Start: 06-13-2025 ambulatory Mary Bar Clauscharanjit Facility:[facility] Start: 05-31-2025 End: 05-31-2025 ambulatory Antony HAWKINS Facility:[facility] Start: 05-24-2025 End: 05-24-2025 Administrative Antony HAWKINS [facility] Start: 05-24-2025 End: 05-24-2025 ambulatory Guillermoloy HAWKINS Facility: [facility] Start: 12-31-2024 End: 12-31-2024 Patient encounter procedure Brent Petey DO Work Phone: [facility] Start: 12-31-2024 End: 12-31-2024 Periodic preventive med est patient 40-64yrs Brent Petey DO Work Phone: [facility] Comment on above: Well woman exam with routine gynecological exam; Encounter for screening mammogram for malignant neoplasm of breast; Postmenopausal state Start: 12-31-2024 End: 12-31-2024 ambulatory BRENT PETEY Not Available Start: 12-31-2024 End: 12-31-2024 Bamboo flowsheet Brent Petey DO Work Phone: [facility] Start: 12-31-2024 End: 01-07-2025 Bamboo flowsheet Brent Petey DO Work Phone: [facility] Start: 12-31-2024 End: 01-07-2025 Clinisync Result Encounter Brent Petey DO Work Phone: [facility] Unsolicited Start: 12-31-2024 End: 12-31-2024 Telephone encounter Brent Petey DO Work Phone: [facility] Start: 06-21-2024 End: 06-21-2024 ambulatory Hernandez Talal Sarmini Facility:[facility] Start: 06-21-2024 End: 06-21-2024 Patient encounter procedure Hernandez Talal Sarmini [facility] Start: 06-19-2024 End: 06-19-2024 ambulatory Antony HAWKINS Facility: [facility] Start: 06-19-2024 End: 06-19-2024 Encounter for general adult medical examination with abnormal findings Antony HAWKINS [facility] Start: 06-19-2024 End: 06-19-2024 Patient encounter procedure Antony HAWKINS [facility] Start: 06-09-2024 ambulatory Antony HAWKINS [facility] Start: 06-09-2024 End: 06-09-2024 Patient encounter procedure Antony HAWKINS [facility] Start: 05-17-2024 End: 05-17-2024 ambulatory Hernandez Talal Clausmini Facility:[facility] Start: 05-17-2024 End: 05-17-2024 Patient encounter procedure Hernandez Talal Sarmini [facility] Start: 05-03-2024 ambulatory Arely MORENO [facility] Start: 04-21-2024 End: 04-21-2024 ambulatory Tu DONOVAN [facility] Start: 04-21-2024 End: 04-21-2024 Emergency department patient visit Jose Garcia [facility] Start: 01-18-2024 End: 01-18-2024 ambulatory BRENT ANGELO Not Available Start: 01-13-2024 End: 01-13-2024 ambulatory LISS ZEPEDARY Facility:[facility] [place] Start: 01-13-2024 End: 01-13-2024 Patient encounter procedure LISS STOREY [facility] Start: 01-02-2024 End: 01-02-2024 ambulatory Brent Angelo [facility] Work Phone: Start: 01-02-2024 End: 01-02-2024 Departed Referred Brent Angelo Work Phone: [facility] Start: 12-21-2023 End: 12-21-2023 ambulatory Mary Simoni Facility:[facility] Start: 12-21-2023 End: 12-21-2023 Patient encounter procedure Hernandez Billal Clausmini [facility] Start: 09-02-2023 End: 09-02-2023 ambulatory Antony HAWKINS Facility:[facility] Start: 09-02-2023 End: 09-02-2023 Patient encounter procedure Antony HAWKINS [facility] Start: 06-27-2023 End: 06-27-2023 ambulatory Antony HAWKINS Facility:[facility] Start: 06-27-2023 End: 06-27-2023 Encounter for general adult medical examination with abnormal findings Antony HAWKINS [facility] Start: 06-27-2023 End: 06-27-2023 Patient encounter procedure Antony HAWKINS [facility] Start: 06-25-2023 End: 06-25-2023 ambulatory [facility] Start: 06-09-2023 End: 06-09-2023 Patient encounter procedure Bunny Cancino [facility] Start: 06-09-2023 End: 06-09-2023 Patient encounter procedure BRIAN CONTE [facility] Start: 12-16-2022 End: 12-16-2022 Patient encounter procedure Marilee SAMAYOAAM [facility] Start: 12-10-2022 End: 12-10-2022 Patient encounter procedure Renee Berry [facility] Start: 11-24-2022 End: 11-24-2022 Patient encounter procedure Hunt SALAM [facility] Start: 09-08-2022 End: 09-08-2022 Patient encounter procedure Hunt SALAM [facility] Start: 08-10-2022 End: 08-10-2022 Patient encounter procedure Juliana Liu [facility] Start: 08-04-2022 End: 08-04-2022 Patient encounter procedure Juliana Liu [facility] Start: 08-03-2022 End: 08-03-2022 Emergency department patient visit Jordin Goodman [facility] Start: 07-05-2022 End: 07-05-2022 Off-Site MILLI Ciara SILVARONDA [facility] Start: 06-25-2022 End: 06-25-[address] ROMÁN MENDOZA Facility:[facility] Start: 06-11-2022 End: 06-11-2022 Lab Drop off Antony HAWKINS [facility] Start: 06-11-2022 End: 06-11-2022 Encounter for general adult medical examination with abnormal findings Antony HAWKINS [facility] Start: 06-11-2022 End: 06-11-2022 Patient encounter procedure Antony HAWKINS [facility] Start: 06-04-2022 End: 06-05-[address] DOCTOR MORENO Facility:[facility] Start: 05-19-2022 End: 05-19-2022 Patient encounter procedure Juliana Liu [facility] Start: 03-25-2022 End: 03-25-2022 Patient encounter procedure Antony HAWKINS [facility] Start: 02-23-2022 End: 02-23-2022 Patient encounter procedure Antony HAWKINS [facility] Procedures Date Procedure Procedure Detail Performing Clinician Start: 12-31-2024 IGP,APTIMA HPV,AGE GDLN Brent Petey DO Work Phone: Start: 05-17-2024 Colonoscopy Mary Devlinmindanelle Start: 05-17-2024 Esophagogastroduodenoscopy Mary Erickson indanelle Start: 11-24-2022 Esophagogastroduodenoscopy Marilee OCHOA Comment on above: esophageal dilation, esophageal rings, b iopsies done, small hiatal hernia Start: 09-08-2022 Esophagogastroduodenoscopy Marilee OCHOA Start: 07-15-2016 Endoscopic plantar fasciotomy right. Antony HAWKINS Appendectomy Antony CABALLERO Breast lump (finding) Cole HAWKINS Cholecystectomy Antony HAWKINS Cyst of ovary (disorder) Ran HAWKINS Esophagogastroduodenoscopy C hristjazmyne HAWKINS History of [...] procedure 01/06/2026 3:00 PM EDT Office Visit [facility] [address] [place] [place] [id number] Brent Angelo, DO [address] [place] [address] [facility] Start: 12-31-2024 End: 12-31-2024 Patient encounter procedure 12/31/2024 4:00 PM EDT Office Visit [facility] [address] [place] [id number] Brent Angelo, DO [address] [place] [address] Arrived [facility] Comment on above: Arrived Start: 12-31-2024 End: 12-31-2025 DXA Skeletal system Views for bone density DEXA bone density Imaging Routine Postmenopausal state Expected: 12/31/2024 (Approximate), Expires: 12/31/2025 [facility] Comment on above: Expected: 12/31/2024 (Approximate), Expires: 12/31/2025 Start: 12-31-2024 End: 03-02-2026 MG Breast - bilateral Screening Bilateral screening mammogram Imaging Routine Encounter for screening mammogram for malignant neoplasm of breast Expected: 12/31/2024, Expires: 03/02/2026 [facility] Work Phone: Comment on above: Expected: 12/31/2024 , Expires: 03/02/2026 THIN PREP TIS PAP AN D HR HPV DNA THIN PREP TIS PAP AND HR HPV DNA Pathology and Cytology Routine Well woman exam with routine gynecological exam Ordered: 12/31/2024 [facility] Comment on above: Ordered: 12/31/2024 Immunizations Immunization Date Immunization Notes Care Provider Fa [facility] 09-27-2021 tetanus toxoid, reduced diphtheria toxoid, and acellular pertussis vaccine, adsorbed; Translations: [Boostrix (Tdap)] Antony HAWKINS [facility] 04-29-2010 tetanus toxoid, reduced diphtheria toxoid, and acellular pertussis vaccine, adsorbed Antony HAWKINS [facility] NEGATED: Highlighted row has not occurred!01-13-2024 SARS-CoV-2 mRNA (tozinameran 5y-11y) vaccine LISS STOREY [facility] NEGATED: Highlighted row has not occurred!12-19-2023 influenza virus vaccine, unspecified formulation Mary Kaba [facility] NEGATED: Highlighted row has not occurred!09-02-2023 influenza virus vaccine, unspecified formulation Antony HAWKINS [facility] NEGATED: Highlighted row has not occurred!09-02-2023 SARS-CoV-2 mRNA (tozinameran 5y-11y) vaccine Antony HAWKINS [facility] NEGATED: Highlighted row has not occurred!06-27-2023 influenza virus vaccine, unspecified formulation Antony HAWKINS [facility] NEGATED: Highlighted row has not occurred!06-27-2023 SARS-CoV-2 mRNA (tozinameran 5y-11y) vaccine Antony HAWKINS [facility] NEGATED: Highlighted row has not occurred!06-09-2023 influenza virus vaccine, unspecified formulation BRIAN CONTE [facility] NEGATED: Highlighted row has not occurred!08-04-2022 influenza virus vaccine, unspecified formulation Juliana Liu [facility] NEGATED: Highlighted row has not occurred!05-19-2022 influenza virus vaccine, unspecified formulation Juliana Liu [facility] NEGATED: Highlighted row has not occurred!03-25-2022 SARS-CoV-2 mRNA (tozinameran 5y-11y) vaccine Antony HAWKINS [facility] NEGATED: Highlighted row has not occurred!02-23-2022 SARS-CoV-2 mRNA (tozinameran 5y-11y) vaccine Antony HAWKINS [facility] NEGATED: Highlighted row has not occurred!09-29-2021 influenza virus vaccine, unspecified formulation Antony HAWKINS [facility] NEGATED: Highlighted row has not occurred!09-29-2021 SARS-CoV-2 (COVID-19) Ad26 vaccine, recombinant Antony HAWKINS [facility] NEGATED: Highlighted row has not occurred!09-22-2020 influenza virus vaccine, unspecified formulation Antony HAWKINS [facility] NEGATED: Highlighted row has not occurred!07-31-2019 influenza virus vaccine, unspecified formulation [facility] Date Payer Category Payer Worker's Compensation [id number] Self-pay 2023 Private Health Insurance [id number] 2023 Private Health Insurance [id number] 2023 Private Health Insurance [id number] 1965 Unknown [id number] 2.16.840.1.045592.3.579.2.593 1966 Unknown [id number] 2.16.840.1.557582.3.579.2.593 1966 Unknown [id number] 2.16.840.1.408824.3.579.2.727 1966 Unknown [id number] 2.16.840.1.064481.3.579.272 1966 Unknown [id number] 2.16.840.1.136825.3.579.272 1966 Unknown [id number] 2.16.840.1.224603.3.579.2.72 1966 Unknown [id number] 2.16.840.1.448666.3.579.272 1966 Unknown [id number] 2.16.840.1.762409.3.579.272 1966 Unknown [id number] 2.16.840.1.815350.3.579.2727 1966 Unknown [id number] 2.16.840.1.261730.3.579.2.72 1966 Unknown [id number] 2.16.840.1.534965.3.579.2.72 1966 Unknown [id number] 2.16.840.1.382985.3.579.272 1966 Unknown [id number] 2.16.840.1.700600.3.579.2.727 1966 Unknown [id number] 2.16.840.1.856167.3.579.272 1966 Unknown [id number] 2.16.840.1.026636.3.579.2.1259 1966 Unknown [id number] 2.16.840.1.030896.3.579.2.1259 1966 Unknown [id number] 2.16.840.1.276466.3.579.2.727 1966 Unknown [id number] 2.16.840.1.578817.3.579.2.727 1966 Unknown [id number] 2.16.840.1.990953.3.579.2.727 1966 Unknown [id number] 2.16.840.1.418307.3.579.2.727 1959 Private Health Insurance [id number] Private Health Insurance [facility] [id number] Unknown [id number] 2.16.840.1.652994.3.579.2.531 Social History Date Type Detail Facility Start: 02-23-2022 End: 06-21-2025 Tobacco smoking status Never smoked tobacco (finding) [facility] Start: 08-24-2023 Sex Assigned At Female F [facility] [place] Start: 1965 Sex Assigned At Female F [facility] Start: 08-24-2023 History of Social function [facility] Start: 1965 Sex assigned at Not on file [facility] Sexual Orientation [facility] Start: 12-21-2018 Sex Female (finding) [facility] Functional Status Date Assessment Result Facility 06-21-2024 Functional Status N/A [facility] 06-19-2024 Functional Status N/A [facility] 05-17-2024 Functional Status N/A [facility] 04-21-2024 Functional Status N/A [facility] 01-13-2024 Functional Status N/A [facility] 12-21-2023 Functional Status N/A [facility] 09-02-2023 Functional Status N/A [facility] 06-27-2023 Functional Status N/A [facility] 06-09-2023 Functional Status N/A [facility] 12-16-2022 Functional Status N/A [facility] 11-24-2022 Functional Status N/A [facility] 09-08-2022 Functional Status N/A [facility] 08-04-2022 Functional Status N/A [facility] 08-03-2022 Functional Status N/A [facility] 07-05-2022 Functional Status Telehealth Patient Roni [facility] 06-11-2022 Functional Status N/A [facility] 05-19-2022 N/A [facility] 03-25-2022 Functional Status N/A [facility] Clinical Notes 02-22-2022 to 05-22-2025 Telephone Encounter - Song Ford - 12/31/2024 4:49 PM EDTTelephone Encounter - Song Ford - 12/31/2024 4:49 PM HUMBERTOTBety Lopez NP - 12/31/2024 4:00 PM EDT Note Date & Type Note Facility 05-22-2025 Hospital Discharg e instructions Follow Up Care 05/22/2025 09:18:31 With:Antony HAWKINS MD, FAM Address: [address] [place], [place] [address]- When:1 year Comments: [facility] 12-31-2024 Telephone encounter Note ERROR [facility] 12-31-2024 Miscellaneous Notes ERROR documented in this encounter [facility] 12-31-2024 History of Presen t illness Narrative [...] Diagnosis Date Abdominal pain Allergies Breast lump 2000 History of medical problems History of migraine headaches Hyperthyroidism (CMS/HCC) Metrorrhagia Thyroid mass (CMS/HCC) HISTORY PAST MEDICAL HISTORY SOCIAL HISTORY Past Medical History: Diagnosis Date Abdominal pain Allergies Breast lump 2000 History of medical problems cytoduoius liver s/p [...] neck OOPHORECTOMY Left Metrorrhagia OTHER SURGICAL HISTORY 2012 X-ray, CT, urinalysis - abdominal pain THYROID [...] nursing note reviewed. Exam conducted with a wholesaler present. Vitals: Estimated body mass index is [...] Brent Angelo DO documented in this encounter [facility] 06-17-2024 Hospital Discharg e instructions Patient Education [...] provider. Document Revised: 02/08/2022 Document Reviewed: 02/08/2022 ElseJivox Patient Education 2023 [employer]. Follow Up Care 06/06/2024 10:42:12 With:Antony HAWKINS MD, FAM Address: When:Within 1 Year(s) [facility] 06-17-2024 Note Patient Education Obstetrics and Gynecology [...] ? Know how (more content not included)... [facility] 05-17-2024 Evaluation + Plan note Extrac fawn from: Title:ANES Post-operative Note - General Author: Zion Tony Jr., DO Date:05/17/24 Plan Transfer/Discharge: Transfer/Discharge Discharge when meets criteria ( From PACU to Ambulatory Surgery Unit, and To home ). Extracted from: Title:ANES Pre-operative Note - Endo Author:Zion Trevizo Jr., DO Date:05/17/24 Plan [place] [employer] of Anesthesiologists (ASA) physical status classification: Class II. Anesthetic Preoperative Plan: Anesthesia General, and -TIVA. [facility] 08-15-2024 Hospital Discharge instructions Patient Education 05/17/2024 08:57:03 Gastritis, Adult, Rkvn-tb-Rfld Gastritis, Adult Gastritis is irritation and swelling [...] Follow these instructions at home: Medicines Take svxz-omv-zwaaawm and prescription medicines only as told by [...] provider. Document Revised: 01/23/2022 Document Reviewed: 01/23/2022 [employer]ioLogs Patient Education 2022 [employer]. 05/17/2024 08:56:55 Hiatal Hernia Hiatal Hernia A [...] reduce GERD symptoms. Medicines. These may include: ?Cfjc-yuw-jalkmon antacids. ?Medicines that make your stomach empty [...] may include: ?Fatty foods, like fried foods. ?[place] fruits, like oranges or lemon. ?Other foods [...] Do not drink alcohol. General instructions Take aeqo-ltj-zqdcgto and prescription medicines only as told by [...] provider. Document Revised: 11/16/2022 Document Reviewed: 11/16/2022 [employer]ioLogs Patient Education 2022 [employer]. 05/17/2024 08:56:42 Esophageal Stricture Esophageal Stricture Esophageal [...] ?Soda. ?Tomato products. ?Chocolate. General instructions Take zdvi-jxq-gaodsbx and prescription medicines only as told by [...] provider. Document Revised: 02/04/2021 Document Reviewed: 02/04/2021 [employer]ioLogs Patient Education 2022 [employer]. 05/17/2024 08:56:30 Endoscopy, Care After Procedure [facility] ([facility] Endoscopy Care After Procedure Please read the instructions outlined below and refer to this sheet in the next few weeks. These discharge instructions provide you with general information on caring for [facility] Your doctor may also give you specific [...] blood. Document Released: 05/03/2005 Document Re-Released: 03/13/2007 [facility] Emerging Threats. 05/17/2024 08:56:25 Hemorrhoids, Pzau-jy-Vgzg Hemorrhoids Hemorrhoids are swollen veins that may [...] 3 times a day. General instructions Take kxkj-hvs-qirvtac and prescription medicines only as told by [...] provider. Document Revised: 03/31/2022 Document Reviewed: 03/31/2022 CardioLogs Patient Education 2022 [employer]. 05/17/2024 08:56:17 Diverticulosis MAGR (CUSTOM) Diverticulosis Many [...] unsweetened, w/added ascorbic acid 1 cup 0.5 Foster 1 cup 0.7 Vegetables Cooked Green beans 1 cup 4.0 Carrots 1/2 cup sliced 2.3 Peas 1 cup 8.8 Potato (baked, with skin) 1 medium potato 3.8 Raw [place] (with peel) 1 cucumber 1.5 Lettuce 1 [...] Peanuts 1/2 cup 7.9 Chart from [facility] 2013. SEEK IMMEDIATE MEDICAL CARE IF: You [...] of Agriculture (USDA) National Nutrient Database at: http://www.[employer].usda.gov/fnic/foodcomp/search/ Created using data from the USDA National Nutrient Database for Standard Reference. Available at http://www.[employer].usda.gov/fnic/foodcomp/search/. Information adapted from: [facility] Patient Information 2009 VersionEye. [facility] 2012 http://www.GateGuru/contents/dbyfwmzboqvr-kfsnohl-dgasvz-the-basics 05/17/2024 08:56:15 Colonoscopy, Care After Surgery Salam [...] Care 12/21/2023 08:50:59 With:Sendy LUIS, JASVIR Melgar, [facility] Address: When: Unknown Comments:Call for any problems. Office will call to schedule follow up appointment [facility] 08-15-2024 NoteProgress Note-Physician Patient: SONG MCKEON Age: 58 years Sex: Female : 1965 Associated Diagnoses: None Author: Zion Tony Jr., DO Postoperative Information Postoperative disposition: Postoperative disposition: Home. Optimetrix number: Optimetrix number [id number]. Anesthetic utilized: General. Physical Examination Vital Signs [...] to Ambulatory Surgery Unit, and To home ).[facility]:Result Comment: Electronically Signed By: Zion Tony Jr., DO.br\Date and Time Signed: 05/17/24 09:37 [id number] NotePatient Education - Text Endoscopy Care After [...] Document Re-Released: 03/13/2007 ExitCare? Patient Information ?2009 VersionEye. Diverticulosis Many people have small pouches in [...] unsweetened, w/added ascorbic acid 1 cup 0.5 Foster 1 cup 0.7 Vegetables Cooked Green beans 1 cup 4.0 Carrots 1/2 cup sliced 2.3 Peas 1 cup 8.8 Potato (baked, with skin) 1 medium potato 3.8 Raw [place] (with peel) 1 cucumber 1.5 Lettuce 1 [...] 8.7 Peanuts 1/2 cup 7.9 [facility]. SEEK IMMEDIATE (more content not included)...[facility] 05-17-2024 NoteEndoscopic Procedure Report - Other Patient: SONG MCKEON Age: 58 years Sex: Female : 1965 Associated Diagnoses: None Author: Mary Kaba MD Pre-Procedure Procedure Date 05/17/2024 08:39:00 . Procedure Type: Colonoscopy. Procedure provider Performed by Mary Kaba MD. Current history and physical Documented on chart. Reviewed. Esophagogastroduodenoscopy (300430267) on 11/24/2022 at 57 Years. Comments: 11/24/2022 13:31 DAYSI - Vasiliy GIBSON, Nancy esophageal dilation, esophageal rings, biopsies done, small hiatal hernia Esophagogastroduodenoscopy (777835084) on 09/08/2022 at 56 Years. Endoscopic plantar fasciotomy right. on 07/15/2016 at 50 Years. Tonsillectomy (512046718). Cholecystectomy (89987190). Thyroid (040889343). Laparoscopic procedure (2119614150). Comments: 06/23/2015 0:10 EDT - José GIBSON, Monica female x4 Hysterectomy (591449274). Liver cyst ([id number]). Breast mass (180232432). Ovarian cyst ([id number]). Appendectomy (635526060). Lymph node operation (266403084). Shoulder repair (1515182041). egd.. Past Medical History Active hiatal hernia (140239337) Resolved Acute diarrhea (4126872727): Onset on 02/03/2010 at 44 years. Resolved. Comments: 02/03/2010 EDT 15:57 EDT - hyster (239618861): Resolved. Liver (097370248): Resolved. Appendectomy (47.0): Resolved. Ovarian cyst (531939249): Resolved. Breast mass (364953564): Resolved. Shoulder pain ([id number]): Resolved. Rotator cuff rupture (5100235622): Resolved. Gall bladder disease ([id number]): Resolved. Hypothyroid (25229011): Resolved. Lumbar back pain (390709773): Resolved on 01/30/2019 at 53 years. History of varicose veins of lower extremity (642928525): Resolved on 01/30/2019 at 53 years. Inflamed skin tag (077274556): Resolved on 03/06/2019 at 53 years. Raised seborrheic keratosis (4441635933): Resolved on 03/06/2019 at 53 years. Adhesive contact dermatitis (3762574814): Resolved. Axillary adenopathy (920601): Resolved. Nasal sore (949713769): Resolved. Left ankle pain (298651174): Resolved. Acute hemorrhagic colitis due to E. coli (4698272284): Resolved. Laryngitis (37990877): Resolved. Viral bronchitis (99980089): Resolved. Folliculitis (74166509): Resolved. Cervical adenopathy (745638): Resolved. Overweight (960959531): Resolved.. Family History Diabetes mellitus type 1 Mother Heart failure Mother Father Primary malignant neoplasm of female breast Mother Stroke Sister Father CVA Father . Procedure History Esophagogastroduodenoscopy (579438021) on 11/24/2022 at 57 Years. Comments: 11/24/2022 13:31 DAYSI - Nancy Amanda RN esophageal dilation, esophageal rings, biopsies done, small hiatal hernia Esophagogastroduodenoscopy (993549571) on 09/08/2022 at 56 Years. Endoscopic plantar fasciotomy right. on 07/15/2016 at 50 Years. Tonsillectomy (720216223). Cholecystectomy (29134469). Thyroid (692598843). Laparoscopic procedure (4510286821). Comments: 06/23/2015 0:10 EDT - Monica Kumar RN female x4 Hysterectomy (049088042). Liver cyst ([id number]). Breast mass (992528516). Ovarian cyst ([id number]). Appendectomy (394862373). Lymph node operation (490561060). Shoulder repair (3637267100). egd.. Colorectal neoplasm risk assessment High risk [...] pain, # 40 cap(s), Refills(s) 11, Pharmacy: [facility], 169, cm, 10/15/22 12:00:00 EST, Height/Length Dosing, 91.8, kg, 10/15/22 12:00:00 EST, Weight Dosing Pantoprazole [address] Tab: 40 mg = 1 tab(s), Oral, BID, # 180 tab(s), Refills(s) 3, Pharmacy: [facility], 169, cm, 12/21/23 8:16:00 EDT, Height/Length Dosing, 95, kg, 12/21/23 8:16:00EDT, Weight Dosing Valtrex 1 g Tab: 2 gram = 2 tab(s), Oral, BID, x 1 days at onset of coldsore, # 12 tab(s), Refills(s) 2, Pharmacy: [facility], 169, cm, 01/13/24 13:06:00 EDT, Height/Length Dosing, 93, kg, 01/13/24 13:06:00 EDT, Weight Dosing amitriptyline 10 mg Tab: 10 mg = 1 tab(s), Oral, Once a da (more content not included)...[facility]:Result Comment: Electronically Signed By: Sendy LUIS, Mary Bar\.br\Date and Time Signed: 05/17/24 08:40 EDTOther Comment: Missing Attachment - attachment storage system not supported [id number] Can be viewed in source systemMissing Attachment - attachment storage system not supported [id number] Can be viewed insst. [facility] systemMissing Attachment - attachment storage system not supported [id number] Can be viewed in source systemMissing Attachment - attachment storage system not supported [id number] Can be viewed in source systemMissing Attachment - attachment storage system not supported [id number] Can be viewed in source systemMissing Attachment - attachment storage system not supported [id number] Can be viewed in source [id number] NoteEndoscopic Procedure Report - Other Patient: SONG [...] 5. Normal examined duodenum Images Procedure images: Rec1_hd_video_2023__15T07_30_12_730.jpg Rec1_hd_video_2023__15T07_29_40_964.jpg Rec1_hd_video_2023__T07_29_13_953.jpg Rec1_hd_video_2023__T07_29_21_934.jpg Rec1_hd_video_2023__T07_28_05_821.jpg Rec1_hd_video_2023__T07__48_265.jpg Rec1_hd_video_2023__T07__39_870.jpg Rec1_hd_video_2023__15T07_27_26_262.jpg Rec1_hd_video_2023__T07__46_915.jpg Rec1_hd_video_2023__T07__34_094.jpg . Post-Procedure Complications: none. Estimated [...] follow in GI clinic in 1-2 after dischargeC[facility] HospitalComment on above:Result Comment: Electronically Signed By: Sendy LUIS, Mary Bar\.br\Date and Time Signed: 05/17/24 08:25 EDTOther Comment: Missing Attachment - attachment storage system not supported [id number] Can be viewed in source systemMissing Attachment - attachment storage system not supported [id number] Can be viewed insource systemMissing Attachment - attachment storage system not supported [id number] Can be viewed in source systemMissing Attachment - attachment storage system not supported 9778975 Can be viewed in so urce systemMissing Attachment - attachment storage system not supported 3080249 Can be viewed in source systemMissing Attachment - attachment storage system not supported [id number] Can be viewed in source systemMissing Attachment - attachment storage system not supported 6331517 Can be viewed in source systemMissing Attachment - attachment storage system not supported [id number] Can be viewed in source systemMissing Attachment - attachment storage system not supported 4451278 Can be viewed in sourcesystemMissing Attachment - attachment storage system not supported [id number] Can be viewed in source [id number] Note Progress Note-Physician Patient: SONG MCKEON Age: [...] pain, # 40 cap(s), Refills(s) 11, Pharmacy: [facility], 169, cm, 10/15/22 12:00:00 EST, Height/Length Dosing, 91.8, kg, 10/15/22 12:00:00 EST, Weight Dosing Pantoprazole [address] Tab: 40 mg = 1 tab(s), Oral, BID, # 180 tab(s), Refills(s) 3, Pharmacy: [facility], 169, cm, 12/21/23 8:16:00 EDT, Height/Length Dosing, 95, kg, 12/21/23 8:16:00EDT, Weight Dosing Valtrex 1 g Tab: 2 gram = 2 tab(s), Oral, BID, x 1 days at onset of coldsore, # 12 tab(s), Refills(s) 2, Pharmacy: [facility], 169, cm, 01/13/24 13:06:00 EDT, Height/Length Dosing, 93, kg, 01/13/24 13:06:00 EDT, Weight Dosing amitriptyline 10 mg Tab: 10 mg = 1 tab(s), Oral, Once a day (at bedtime), # 90 tab(s), Refills(s) 1, Pharmacy: [facility], 169, cm, 01/13/24 13:06:00 EDT, Height/Length Dosing, 93, kg, 01/13/24 13:06:00 EDT, Weight Dosing bacitracin Top 500 units/g Oint 30 gram: 1 flo, Topical, QID, 30 gram, Refill(s) 0, [facility], 169, cm, 04/21/24 10:11:00 EDT, Height/Length Dosing, 93, kg, 04/21/24 10:11:00 EDT, Weight Dosing cetirizine 10 mg Tab: 10 mg = 1 tab(s), Oral, Daily, # 30 tab(s), Refills(s) 1, Pharmacy: [facility], 170, cm, 09/02/23 16:43:00 EST, Height/Length Dosing, 95, kg, 09/02/23 16:43:00 EST, Weight Dosing cyclobenzaprine 10 mg Tab: 10 mg = 1 tab(s), Oral, TID, PRN for spasm, May use as needed for musclespasms but sedation warning, # 30 tab(s), Refills(s) 1, Pharmacy: [facility]/pharmacy #[id number], 170, cm, 05/28/21 13:52:00 EDT, Height/Length Dosing, 86.5, kg, 05/28/21 13:52:00 EDT, Weigh... levothyroxine 88 mcg (0.088 mg) Tab: 88 microgram = 1 tab(s), Oral, Daily, # 90 tab(s), Refills(s) 3, Pharmacy: [facility]/pharmacy #6173, 170, cm, 06/27/23 16:25:00 EDT, Height/Length Dosing, 94.1, kg, 06/27/23 16:25:00 EDT, Weight Dosing lidocaine Viscous Top 2% Riya 15 mL: 0.1 gm, 5 mL, Topical, QIDACHS, 100 mL, Refill(s) 0, [facility], 169, cm, 08/03/22 21:08:00 EDT, Height/Length Dosing, 92, kg, 08/03/22 21:08:00 EDT, Weight Dosing ondansetron 4 mg Dis Tab: 4 mg = 1 tab(s), Oral, q6hr, PRN Nausea/Vomiting, # 12 tab(s), Refills(s)0, Pharmacy: [facility], 170, cm, 03/25/22 11:35:00 EDT, Height/Length [...] tab(s), PRN, Oral, q6hr (more content not included)...[facility] HospitalComment on above:Result Comment: Electronically Signed By: Zion Tony Jr., DO\.janie\Date and Time Signed: 05/17/24 07:36 [id number] Hospital Discharge instructions Patient Education 04/21/2024 12:32:20 Laceration Care, Adult, Asio-gw-Ddvz Laceration Care, Adult A laceration is a [...] cannot use soap and water, use hand test engine evaluator. Do not usedisinfectants or antiseptics, such as [...] Follow these instructions at home: Medicines Take mvwa-ruf-myrajxs and prescription medicines only as told by [...] provider. Document Revised: 11/26/2021 Document Reviewed: 11/26/2021 CardioLogs Patient Education 2022 [employer]. Follow Up Care 04/21/2024 09:53:49 With:Antony HAWKINS Address: [address] [place], [place] [id number] Business (1) When:04/24/2024 12:31:48 Comments:Follow-up with your family physician in 10 to 14 days to have the stitches removed. Keep the stitches dry for 24 hours followed by cleaning it with water and patting dry. Do not submerge the wound. Use the bacitracin [facility]07-20-2024 Evaluation + Plan noteExtracted from: Title:ED Note Author:Valencia Singh PA-C te:04/21/24 Laceration of right ring fin edmond without damage to nail (S61.214A: Laceration without foreign body of right ring finger without damage to nail, initial encounter) Orders: bacitracin topical, 1 flo, Ointment, Topical, Once, Stop date 04/21/24 12:32:00 EDT, STAT, Start date 04/21/24 12:32:00 EDT bacitracin topical, 1 flo, Topical, QID, 30 gram, Refill(s) 0, [facility], 169, cm, 04/21/24 10:11:00 EDT, Height/Length Dosing, 93, kg, 04/21/24 10:11:00 EDT, Weight Dosing lidocaine, 100 mg, 10 mL, Injection, SubCutaneous, Once, Stop date 04/21/24 11:01:00 EDT, STAT, Start date 04/21/24 11:01:00 EDT XR Hand 3+ Views Right Future Appointments Appointment Date:05/17/2024 08:00:00 AM Scheduled Provider: [facility] Appointment Type:Surgery FT [facility]07-20-2024 NoteED Patient Education Note Dermatology Laceration [...] cannot use soap and water, use hand test engine evaluator. ? Do not usedisinfectants or antiseptics, such [...] these instructions at home: Medicines ? Take prrp-uzr-wanebuv and prescription medicines only as told by [...] look pale or bluish. (more content not included)...[facility]04-12-[facility] Hospital Discharge instructions Patient Education 01/13/2024 [...] numbers. This can be done either in Thai ([place] or metric measurements. Note that charts and online BMI calculators are available to help you find your BMI quickly and easily without having to do these calculations yourself. To calculate your BMI in Thai ([place] measurements: 1.Measure your weight in pounds [...] Centers for Disease Control and Prevention: www.cdc.gov [place] Heart Association: www.heart.org National Heart, Lung, and Blood [place]: www.nhlbi.nih.gov Summary Body mass index (BMI) is a number that is calculated from a person's weight and height. BMI may help estimate how much of a person's weight is composed of fat. BMI can help identify thosewho may be at higher risk for certain medical problems. BMI can be measured using Thai measurements or metric measurements. BMI charts are used to identify whether you are underweight, normal weight, overweight, or obese. This information is not intended to replace advice given to you by your health care provider. Make sure you discuss any questions you have with your health care provider. Document Revised: 06/11/2020 Document Reviewed: 04/18/2020 CardioLogs Patient Education 2022 [employer]. Follow Up Care 01/13/2024 09:32:06 With:Antony HAWKINS MD, FAM Address: [address] [place] [address] When:1 week [facility] 11-30-2023 Hospital Discharge instructions Patient [...] Follow these instructions at home: Medicines Take ehme-itx-cpojvbp and prescription medicines only as told by [...] provider. Document Revised: 12/07/2021 Document Reviewed: 12/07/2021 CardioLogs Patient Education 2022 [employer]. Follow Up Care 09/01/2023 13:33:29 With:ROSS LUIS, WENDIE Hardy Address: When: only if needed [facility] [place] 09-24-2023 Hospital Discharge instructions Patient Education 06/26/2023 [...] provider. Document Revised: 02/08/2022 Document Reviewed: 02/08/2022 [employer]ioLogs Patient Education 2022 [employer]. Follow Up Care 05/03/2023 10:53:36 With:Antony HAWKINS MD, FAM Address: When:Within 1 Year(s) [facility] [place] 09-07-2023 Hospital Discharge instructions Patient Education 06/09/2023 [...] numbers. This can be done either in Thai (U.S.) or metric measurements. Note that charts and online BMI calculators are available to help you find your BMI quickly and easily without having to do these calculations yourself. To calculate your BMI in Thai (U.S.) measurements: 1.Measure your weight in pounds [...] Centers for Disease Control and Prevention: www.cdc.gov [place] Heart Association: www.heart.org National Heart, Lung, and Blood [place]: www.nhlbi.nih.gov Summary Body mass index (BMI) is a number that is calculated from a person's weight and height. BMI may help estimate how much of a person's weight is composed of fat. BMI can help identify thosewho may be at higher risk for certain medical problems. BMI can be measured using Thai measurements or metric measurements. BMI charts are used to identify whether you are underweight, normal weight, overweight, or obese. This information is not intended to replace advice given to you by your health care provider. Make sure you discuss any questions you have with your health care provider. Document Revised: 06/11/2020 Document Reviewed: 04/18/2020 CardioLogs Patient Education 2023 [employer]. 06/09/2023 13:01:37 Shoulder Sprain Shoulder Sprain A [...] minutes, 2 3 times a day. Take qlgn-rdc-dtybawo and prescription medicines only as told by [...] provider. Document Revised: 06/09/2022 Document Reviewed: 06/09/2022 [employer]Logs Patient Education 2022 [employer] 06/09/2023 13:01:12 Cervical Sprain, Ljlu-tz-Bcsn Cervical Sprain A cervical sprain is also [...] Follow these instructions at home: Medicines Take hxkh-qov-hvwkplj and prescription medicines only as told by your doctor. Ask your doctor if the medicine prescribed to you: ?Requires you to avoid driving or using heavy machinery. ?Can cause trouble pooping (constipation). You may need to take these actions to prevent or treat trouble pooping: ?Drink enough fluid to keep your pee (urine) pale yellow. ?Take ydzt-nla-owhbeow or prescription medicines. ?Eat foods that are [...] provider. Document Revised: 05/28/2020 Document Reviewed: 05/28/2020 [employer]ioLogs Patient Education 2022 [employer]. Follow Up Care 06/09/2023 10:55:41 With:Antony HAWKINS MD, FAM Address: [address] [place] [id number]- When: Unknown [facility] 02-22-2023 Hospital Discharge instructions Patient [...] what activities are safe for you. Take siab-vkm-jhafsjj and prescription medicines only as told by [...] 03/20/2013 Document Revised: 03/13/2019 Document Reviewed: 02/19/2019 CardioLogs Patient Education 2020 [employer]. 11/24/2022 12:47:18 Esophageal Dilatation Esophageal Dilatation Esophageal [...] including vitamins, herbs, eye drops, creams, and kplq-zvr-jhuxyqg medicines. Any problems you or family members [...] home. Follow these instructions at home: Take gdsq-ncz-nfedifx and prescription medicines only as told by [...] 11/10/2006 Document Revised: 09/01/2018 Document Reviewed: 07/25/2018 CardioLogs Patient Education 2020 [employer]. 11/24/2022 12:47:18 Hiatal Hernia Hiatal Hernia A [...] reduce GERD symptoms. Medicines. These may include: ?Pggc-fzf-vdojvhg antacids. ?Medicines that make your stomach empty [...] may include: ?Fatty foods, like fried foods. ?[place] fruits, like oranges or lemon. ?Other foods [...] Do not drink alcohol. General instructions Take nwrb-xlz-pxcpzbi and prescription medicines only as told by [...] 12/09/2004 Document Revised: 09/01/2018 Document Reviewed: 04/24/2018 ElseJivox Patient Education 2020 [employer]. Follow Up Care 09/21/2022 14:14:15 With:Marilee OCHOA Address: [address] [place] [address]. [address] [place] [address] Business (1) When: Unknown Comments:office will call for follow up [facility]02-22-2023 Evaluation + Plan noteExtracted from: Title:ANES Post-operative Note Author:Bong Somers MD Date:11/24/22 Plan Transfer/Discharge: Transfer/Discharge Discharge when meets criteria ( From PACU to Ambulatory Surgery Unit, and To home ). Extracted from: Title:ANES Pre-operative Note Author:Michela Somers MD Date:11/24/22 Plan [place] Society of Anesthesiologists (ASA) physical status classification: Class II. Anesthetic Preoperative Plan: Anesthesia Monitored anethesia care. Future Appointments Appointment Date:12/10/2022 09:00:00 AM Scheduled Provider:Jamal PIERRE, JEFFRY, Renee CHAIREZ Location:[facility] Appointment Type:Nutrition Education - GI Disorders 60 ( Appointment Date:12/16/2022 12:00:00 PM Scheduled Provider:Marilee OCHOA MD Location:[facility] Appointment Type:[facility] Follow Up [facility]12-07-2022 Hospital Discharge instructions Patient Education 09/08/2022 15:31:25 [facility] NSAIDS-Nonsteroidal Anti-Inflammatory Medications (CUSTOM) Nonsteroidal Anti-Inflammatory Medications [...] pain neck pain Some NSAIDs are available pold-jqu-wogearb, without the need for a prescription. However, [...] than your doctor has prescribed. Follow the bhph-efz-wrrzhrv labels and do not exceed the recommended [...] reduce GERD symptoms. Medicines. These may include: ?Dalo-ges-xhotvaz antacids. ?Medicines that make your stomach empty [...] may include: ?Fatty foods, like fried foods. ?[place] fruits, like oranges or lemon. ?Other foods [...] Do not drink alcohol. General instructions Take eatd-oeh-vxmallz and prescription medicines only as told by [...] 12/09/2004 Document Revised: 09/01/2018 Document Reviewed: 04/24/2018 CardioLogs Patient Education 2020 [employer]. 09/08/2022 15:31:25 Esophageal Stricture Esophageal Stricture Esophageal [...] ?Soda. ?Tomato products. ?Chocolate. General instructions Take gzyn-ncn-emxfdmh and prescription medicines only as told by [...] 05/30/2007 Document Revised: 12/15/2018 Document Reviewed: 05/26/2018 CardioLogs Patient Education 2020 [employer] 09/08/2022 15:31:25 Endoscopy, Care After Procedure [facility] ([facility] Endoscopy Care After Procedure Please read the instructions outlined below and refer to this sheet in the next few weeks. These discharge instructions provide you with general information on [facility] Your doctor may also give you [...] Document Re-Released: 03/13/2007 ExitCare Patient Information 2010 [employer]. Follow Up Care 08/04/2022 14:23:56 With:Marilee OCHOA Address: [address] [place] [address]. [address] [place] [address] Business (1) When: Unknown Comments:Call for any problems. Office will call for follow up appt. [facility]12-07-2022 Evaluation + Plan noteExtracted from: Title:ANES POSTOP Author:Juma Lara DO Date: 09/08/22 Plan Transfer/ Discharge: Patient can be discharged from PACU when criteria met. Condition good. Extracted from: Title:ANES PREOP ENDO NOTE Author:Chris Lara DO Date:09/08/22 Plan [place] Society of Anesthesiologists (ASA) physical status classification: [...] Date:11/18/2022 12:00:00 PM Scheduled Provider:Marilee OCHOA MD Location:[facility] Appointment Type:[facility] Follow Up [facility]11-02-2022 Hospital Discharge instructions Patient Education 08/04/2022 [...] Follow these instructions at home: Medicines Take mivc-gmm-iwdader and prescription medicines only as told by your health care provider. If you were prescribed an antibiotic medicine, take it as told by your health care provider. Do notstop taking the antibiotic even if you start to feel better. Eating and drinking Follow any diet changes as told by your health care provider. Work with a diet and animal nutrition teacher (dietitian) to create an eating plan that [...] 09/16/2001 Document Revised: 02/13/2020 Document Reviewed: 02/13/2020 CardioLogs Patient Education 2019 [employer]. Follow Up Care 08/04/2022 10:16:30 With:Juliana Liu CNP Address: When:1 to 2 weeks [facility] 11-02-2022 Hospital Discharge instructions [...] including vitamins, herbs, eye drops, creams, and mnuw-mlq-ihdxchx medicines. Any problems you or family members [...] home. Follow these instructions at home: Take fngv-lba-bcaeisz and prescription medicines only as told by [...] 11/10/2006 Document Revised: 09/01/2018 Document Reviewed: 07/25/2018 CardioLogs Patient Education 2020 [employer]. Follow Up Care 08/03/2022 20:59:47 With:Marilee OCOHA Address: [address] [place] [address] Business (1) When:08/06/2022 With:Antony HAWKINS Address: [address] [place] [address] Business (1) When:Within 3 Day(s) [facility]10-03-2022 Hospital Discharge instructions Patient Education 07/05/2022 [...] your health care provider or diet and animal nutrition teacher (dietitian). This may include: ?Eating fewer calories. [...] 10/22/2011 Document Revised: 10/02/2018 Document Reviewed: 10/02/2018 CardioLogs Patient Education 2020 [employer] 07/05/2022 11:15:27 BMI for Adults BMI for [...] height. This can be done either in Thai (U.S.) or metric measurements. Note that charts are available to help you find your BMI quickly and easily without having to do these calculations yourself. To calculate your BMI in Thai (U.S.) measurements, your health care provider will: [...] medical problems. BMI can be measured using Thai measurements or metric measurements. To interpret your [...] 05/31/2005 Document Revised: 09/01/2018 Document Reviewed: 08/02/2018 CardioLogs Patient Education 2020 [employer]. 07/05/2022 11:15:25 COVID-19 Frequently Asked Questions COVID-19 [...] the coronavirus come from? In September 2019, [place] told the World Health Organization (WHO) of several cases of lung disease (human respiratory illness). These cases were linked to an open seafood and livestock market [facility]. The link to the seafood and [...] and virus naming World Health Organization (WHO): www.who.int/emergencies/diseases/sbsch-lsjzpqzvvmp-2600/technical-g uidance/rveyft-kzk-cdvtqpmqhzj-disease-(covid-2019)-sus-gsd-lizqb-pmfe-zzqbco-vc Who is at risk for complications from [...] relieve his or her symptoms by using rmye-cne-phejlvy medicines that treat sneezing, coughing, and runny [...] water are not available, use alcohol-based hand test engine evaluator. Avoid touching your face, mouth, nose, or [...] Prevention (CDC): www.cdc.gov/coronavirus/2019-ncov/travelers/index.html World Health Organization (WHO): www.who.int/emergencies/diseases/izjie-lmjtnjfxpfz-1259/travel-advice Know the risks and take action to [...] water are not available, use alcohol-based hand test engine evaluator. Cough or sneeze into a tissue, sleeve, [...] in hot, soapy water or use a reporter anchor. Air-dry your dishes. Wash laundry in hot [...] Health Organization (WHO) Information and news updates: www.who.int/emergencies/diseases/njfvo-sudrqanvpeh-9193 Coronavirus health topic: www.who.int/health-topics/coronavirus Questions and answers on COVID-19: www.who.int/news-room/q-a-detail/h-m-milinkyghahtp Global tracker: who.HealthDataInsights [place] Academy of Pediatrics (AAP) Information for families: www.healthychildren.org/Thai/health-issues/conditions/chest-lungs/Pages /5082-Xrtyq-Inzjejvnunb.aspx The coronavirus situation is changing rapidly. Check [...] 01/15/2020 Document Revised: 01/15/2020 Document Reviewed: 01/15/2020 CardioLogs Patient Education 2020 [employer]. 07/05/2022 11:15:24 COVID-19 COVID-19 COVID-19 is a [...] to fight infection (immunocompromised). Live in a usp or long-term care facility. Have a long-term [...] managed at home with rest, fluids, and yrhu-lip-wjgpcxg medicines. Treatment for a serious infection usually [...] are safe for you. General instructions Take apkp-ett-hivnzew and prescription medicines only as told by [...] water are not available, usean alcohol-based hand test engine evaluator. ?Avoid touching your mouth, face, eyes, or [...] water are not available, use alcohol-based hand test engine evaluator. Stay away from other members of your [...] have a weak immunity, live in a usp, or have chronic disease. There is no [...] Document Reviewed: 10/25/2019 Elsevier Patient Education 2019 [employer]. Follow Up Care 07/05/2022 09:11:36 With:Antony HAWKINS MD, FAM Address: [address] [place] [address]- When: only if needed [facility] [place] 09-08-2022 Hospital Discharge instructions Patient Education 06/10/2022 [...] 04/03/2012 Document Revised: 09/12/2019 Document Reviewed: 09/12/2019 CardioLogs Patient Education 2020 [employer]. Follow Up Care 04/21/2022 10:15:56 With:ROSS LUIS, WENDIE Hardy Address: When:Within 1 Year(s) [facility] [place] 08-17-2022 Hospital Discharge instructions Patient Education 05/19/2022 [...] 04/16/2015 Document Revised: 06/08/2019 Document Reviewed: 10/04/2018 CardioLogs Patient Education 2020 [employer] Follow Up Care 04/21/2022 13:17:19 With:JOSE MANUEL LUIS, JASVIR Hunt, MED Address: [address] [place] [address]. [address] [place] [address] When:6 months [facility] 06-23-2022 Evaluation + Plan note Future Scheduled Tests Laboratory* TSH With T4fr Reflex 03/25/22 [facility] [place] 06-22-2022 Hospital Discharge instructions Patient Education 03/24/2022 [...] including vitamins, herbs, eye drops, creams, and ezyl-xfh-kglesvr medicines. Any problems you or family members [...] provider tells you to take them. Taking buwa-hdt-awefjag medicines, vitamins, herbs, and supplements. General instructions [...] hole punch is used to cut a [place] shape out of theskin. ?The outer edges [...] 12/14/2010 Document Revised: 03/28/2019 Document Reviewed: 03/28/2019 CardioLogs Patient Education 2020 [employer]. Follow Up Care 02/02/2022 12:33:35 With:ROSS ULIS, WENDIE Hardy Address: When: only if needed Comments:suggest TSH at [facility] in 05/2022 order is in [facility] [place] 05-23-2022 Hospital Discharge instructions [...] height. This can be done either in Thai (U.S.) or metric measurements. Note that charts are available to help you find your BMI quickly and easily without having to do these calculations yourself. To calculate your BMI in Thai ([place].S.) measurements, your health care provider will: [...] medical problems. BMI can be measured using Thai measurements or metric measurements. To interpret your [...] 05/31/2005 Document Revised: 09/01/2018 Document Reviewed: 08/02/2018 CardioLogs Patient Education ClaimReturn. Follow Up Care 02/22/2022 10:43:14 With:Antony HAWKINS MD [facility] Address: When: only if needed [facility] [place] Evaluation + Plan note Future Appointments Appointment Date:03/25/2022 11:20:00 AM Scheduled Provider:Antony HAWKINS MD Location:[facility] [place] Appointment Type: Open [facility] [place] Evaluation + Plan note Future Appointments Appointment Date:06/11/2022 11:40:00 AM Scheduled Provider:Antony HAWKINS MD Location:[facility] [place] Appointment Type: Preventative Visit Appointment Date:11/18/2022 12:00:00 PM Scheduled Provider:Marilee OCHOA MD Location:[facility] Appointment Type:[facility] Follow Up Future Scheduled Tests Laboratory* TSH With T4fr Reflex 03/25/22 * CBC w/ Auto Diff 04/21/22 * Comprehensive Metabolic Panel 04/21/22 * Lipid Panel 04/21/22 [facility] Evaluation + Plan note Future Appointments Appointment Date:11/18/2022 12:00:00 PM Scheduled Provider:Marilee OCHOA MD Location:[facility] Appointment Type:BAD Follow Up [facility] [place] Evaluation + Plan note Future Appointments Appointment Date:11/18/2022 12:00:00 PM Scheduled Provider:Marilee OCHOA MD Location:[facility] Appointment Type:[facility] Follow Up Diagnostic Tests Pending * [facility] noteExtracted from: Title:ED Note [...] mL, Topical, QIDACHS, 100 mL, Refill(s) 0, [email or web address] #37, 169, cm, 08/03/22 21:08:00 EDT, Height/Length [...] Date:09/07/2022 08:00:00 AM Scheduled Provider:Juliana Liu CNP Location:[facility] Appointment Type:[facility] Follow Up Appointment Date:11/18/2022 12:00:00 PM Scheduled Provider:Marilee OCHOA MD Location:[facility] Appointment Type:[facility] Future Appointments Appointment Date:08/10/2022 08:00:00 AM Scheduled Provider: [facility] Type:US Abdominal/Pelvis (FT) Appointment Date:09/07/2022 08:00:00 AM Scheduled Provider:Juliana Liu CNP Location:[facility] Appointment Type:[facility] Follow Up Appointment Date:09/08/2022 02:50:00 PM Scheduled Provider: Location:[facility] Appointment Type:Surgery FT Appointment Date:11/18/2022 12:00:00 PM Scheduled Provider:Marilee OCHOA MD Location:[facility] Appointment Type:[facility] Follow Up Future Scheduled Tests Laboratory* Hepatic Function Panel 08/04/22 Radiology* US Abdomen Complete 08/10/22 [facility] Evaluation + Plan note Future Appointments Appointment Date:09/07/2022 08:00:00 AM Scheduled Provider:Juliana Liu CNP Location:[facility] Appointment Type:BAD Follow Up Appointment Date:09/08/2022 02:50:00 PM Scheduled Provider: Location:[facility] Appointment Type:Surgery FT Appointment Date:11/18/2022 12:00:00 PM Scheduled Provider:Marilee OCHOA MD Location:[facility] Appointment Type:[facility] Future Appointments Appointment Date:12/16/2022 12:00:00 PM Scheduled Provider:Marilee OCHOA MD Location:[facility] Appointment Type:[facility] Follow Up [facility] Evaluation + Plan note Future Appointments Appointment Date:12/21/2023 08:00:00 AM Scheduled Provider:Marilee OCHOA MD Location:[facility] Appointment Type:[facility] Follow Up [facility] Evaluation + Plan note Future Appointments Appointment Date:06/27/2023 04:00:00 PM Scheduled Provider:Antony HAWKINS MD Location:[facility] [place] Appointment Type:FM Preventative Visit Appointment Date:12/21/2023 08:00:00 AM Scheduled Provider:Marilee OCHOA MD Location:[facility] Appointment Type:[facility] Follow Up [facility] Evaluation + Plan note Future Appointments Appointment Date:12/21/2023 08:00:00 AM Scheduled Provider:Mary Kaba MD Location:[facility] Appointment Type:[facility] Follow Up [facility] [place] Evaluation + Plan note Future Appointments Appointment Date:05/17/2024 08:00:00 AM Scheduled Provider: Location:[facility] Appointment Type:Surgery [facility] Evaluation + Plan note Future Appointments Appointment Date:06/19/2024 03:40:00 PM Scheduled Provider:Antony HAWKINS MD Location:[facility] [place] Appointment Type:FM Preventative Visit Appointment Date:06/21/2024 03:00:00 PM Scheduled Provider:Mary Kaba MD Location:[facility] Appointment Type:BAD Follow Up [facility] Evaluation + Plan note Future Appointments Appointment Date:06/13/2025 02:45:00 PM Scheduled Provider:Mary Kaba MD Location:[facility] Appointment Type:BAD Follow Up Future Scheduled Tests Radiology* MA Mamm Screen w/CAD if perf and 3D Kristopher 06/19/24 [facility] Evaluation + Plan note Future Appointments Appointment Date:06/21/2024 03:00:00 PM Scheduled Provider:Mary Kaba MD Location:[facility] Appointment Type:BAD Follow Up Future Scheduled Tests Radiology* MA Mamm Screen w/CAD if perf and 3D Kristopher 06/19/24 [facility] [place] Evaluation + Plan note Future Appointments Appointment Date:06/13/2025 02:45:00 PM Scheduled Provider:Mary Kaba MD Location:[facility] Appointment Type:BAD Follow Up Appointment Date:06/21/2025 04:40:00 PM Scheduled Provider:Antony HAWKINS MD Location:[facility] [place] Appointment Type: Preventative Visit Future Scheduled Tests Laboratory* TSH With T4fr Reflex 05/22/25 * CBC w/ Auto Diff 05/22/25 * Comprehensive Metabolic Panel 05/22/25 * Lipid Panel 05/22/25 Radiology* MA Mamm Screen w/CAD if perf and 3D Kristopher 06/19/24 [facility] [place] Evaluation + Plan note Future Appointments Appointment Date:06/20/2026 04:40:00 PM Scheduled Provider:Antony HAWKINS MD Location:[facility] [place] Appointment Type: Open [facility] [place] evalujyrcs noteNo assessment information available [facility] Work Phone: evalupiuux note* Diagnosis Well woman exam with routine gynecological exam Routine gynecological examination Encounter for screening mammogram for malignant neoplasm of breast Postmenopausal state Asymptomatic postmenopausal status (age-related) (natural) [facility] N[facility]ative No data available for this section [facility] [place] [facility] Discharge instructions No data available for this section [facility] No data available for this section [facility] [place] Reason for referral (narrative) Referred by: Juliana Liu CNP [facility] Summary Purpose Family History [...] Start: Tomás 2023 End: January 02, 2024 Protocol Officer Relationship Specialty Start Date End Date Antony Hawkins MD [address] [place] [phone] PCP - General 12/19/23 Protocol Officer Relationship Specialty Start Date End Date Antony Hawkins MD [address] [place] [phone] PCP - General 12/19/23 Protocol Officer Relationship Specialty Start Date End Date Antony Hawkins MD [address] [place] [address] PCP - General 12/19/23 INFORMATION SOURCE (unrecogn ized section and content) DATE CREATED AUTHOR 07/06/2022 [facility] DATE CREATED AUTHOR AUTHOR'S ORGANIZ ATION 01/04/2024 [facility] DATE CREATED AUTHOR AUTHOR'S ORGANIZ ATION 05/20/2024 [facility] DATE CREATED AUTHOR AUTHOR'S ORGANIZ ATION 05/24/2024 [facility] DATE CREATED AUTHOR AUTHOR'S ORGANIZ ATION 05/27/2024 [facility] DATE CREATED AUTHOR AUTHOR'S ORGANIZ ATION 05/31/2024 [facility] DATE CREATED AUTHOR AUTHOR'S ORGANIZ ATION 06/11/2024 [facility] DATE CREATED AUTHOR AUTHOR'S ORGANIZ ATION 06/21/2024 [facility] DATE CREATED AUTHOR AUTHOR'S ORGANIZ ATION 06/22/2024 [facility] DATE CREATED AUTHOR AUTHOR'S ORGANIZ ATION 06/24/2024 [facility] DATE CREATED AUTHOR AUTHOR'S ORGANIZ ATION 01/01/2025 [facility] DATE CREATED AUTHOR AUTHOR'S ORGANIZ ATION 06/02/2025 [facility] DATE CREATED AUTHOR AUTHOR'S ORGANIZ ATION 06/23/2025 [facility] Goals (unrecognized section and content) Goals [...] BE BASED ON THE PRIMARY CLINICAL RECORDS. [facility]. provides no warranty or guarantee of the accuracy or completeness of information in this document.
--- NOTE | 2025-07-16 16:55 | MM_ITS ---
Patient Name: SONG GARCIA MR#: [id number] : 1965 Exam Date: 07/16/2025 Ordering Doctor: DR SASHA MCCLELLAN . RADIOLOGY REPORT PROCEDURE: MM TOMOSYNTHESIS SCREENING BI COMPARISON: MM TOMOSYNTHESIS SCREENING BI, 07/12/2024. MM TOMOSYNTHESIS SCREENING BI, 06/23/2023. MG MAMM SCREEN 3D YUE CAD, 06/04/2022. MG MAMM SCREEN 3D YUE CAD, 06/01/2021. INDICATIONS: Screening mammogram Calculator Name NCI Breast Cancer Risk Assessment Tool 5 Year Breast Cancer Risk 3.60% Lifetime Breast Cancer Risk 19.30% Personal Breast Cancer No Personal Ovarian Cancer No Treatments None Family Cancers Mother with breast cancer at age 63; Grandfather-maternal with prostate cancer at age ~68. LOCATION: [facility] BREAST COMPOSITION: The breasts are heterogeneously dense, which may obscure small masses. FINDINGS: DIAGNOSTIC CATEGORY 1--NEGATIVE. RIGHT BREAST: No significant suspicious finding. LEFT BREAST: No significant suspicious finding. RECOMMENDATIONS: ROUTINE MAMMOGRAM AND CLINICAL EVALUATION IN 12 MONTHS. Dictated by: Aman Hernandez MD on 07/17/2025 at 14:05 Approved by: Aman Hernandez MD on 07/17/2025 at 14:16
== END 2025-07-16 16:18 | disposition home or self-care (01) ==
LOC: MAMMO 16:17
PROVIDERS: Visit Provider Obstetrics & Gynecology
DX: Z12.31 Encounter for screening mammogram for malignant neoplasm of breast (principal); Z80.3 Family history of malignant neoplasm of breast; Z80.42 Family history of malignant neoplasm of prostate
CPT/HCPCS: 77063; 77067